=== PATIENT | male | born 1965 | race Caucasian/White ===

== ENCOUNTER 2018-05-05 18:22 | Inpatient (IN) | payer BC ==
[2018-05-05 18:27] VITALS: RESP 18
[2018-05-05] MEDS ORDERED: SODIUM CHLORIDE 0.9% 1,000 ML IV ONE (18:53)
[2018-05-05] MEDS ORDERED: KETOROLAC 30 MG/ML 1 ML VIAL IVP STA (18:53)
[2018-05-05] MEDS ORDERED: MORPHINE SULFATE 4 MG/ML SYRINGE IVP STA (18:54)
--- NOTE | 2018-05-05 18:56 | ED ---
Abdominal Pain HPI - General Chief Complaint: Abdominal Pain Stated Complaint: Abd Pain Time Seen by Provider: 05/05/18 18:33 Source: patient Mode of arrival: ambulatory Limitations: no limitations - History of Present Illness Initial Comments: Patient is a 52-year-old male presents with a chief complaint of lower abdominal pain. Patient states that this happened about 2 hours prior to arrival. He states the onset of his pain was with bowel movement. States that he feels like he passed a kidney stone however he is still having lower abdominal pain. He cannot identify an inciting incident. There are no aggravating or alleviating factors. Timing is constant. Patient states that he has had constipation for the last few days and finally had a bowel movement today. - Related Data Home Medications Medication Instructions Recorded Confirmed HYDROcodone/APAP 10-325MG [Commodore 1 tab PO Q6H PRN 05/05/18 05/05/18 10-325] amLODIPine [Norvasc] 10 mg PO DAILY 05/05/18 05/05/18 Allergies Allergy/AdvReac Type Severity Reaction Status Date / Time Iodinated Contrast- Oral and Allergy Anaphylaxis Verified 05/05/18 18:41 IV Dye levofloxacin [From Levaquin] Allergy Anaphylaxis Verified 05/05/18 18:41 Review of Systems ROS Statement: Those systems with pertinent positive or pertinent negative responses have been documented in the HPI. ROS Other: All systems not noted in ROS Statement are negative. Gastrointestinal: Reports: abdominal pain Past Medical History Past Medical History: GERD/Reflux, Hypertension History of Any Multi-Drug Resistant Organisms: None Reported Past Surgical History: Cholecystectomy, Hernia Repair, Tonsillectomy Past Psychological History: No Psychological Hx Reported Smoking Status: Never smoker Past Alcohol Use History: Occasional Past Drug Use History: None Reported General Exam Limitations: no limitations General appearance: alert, in no apparent distress Head exam: Present: atraumatic, normocephalic Eye exam: Present: normal appearance ENT exam: Present: normal exam Neck exam: Present: normal inspection Respiratory exam: Present: normal lung sounds bilaterally. Absent: respiratory distress, wheezes Cardiovascular Exam: Present: regular rate, normal rhythm GI/Abdominal exam: Present: soft, tenderness (Lower abdominal pain). Absent: distended Rectal exam: Present: deferred Extremities exam: Present: normal inspection Back exam: Present: normal inspection. Absent: CVA tenderness (R), CVA tenderness (L) Neurological exam: Present: alert, oriented X3 Psychiatric exam: Present: normal affect, normal mood Skin exam: Present: warm, dry, intact Course Vital Signs 05/05/18 18:24 Temperature 98.3 F Pulse Rate 97 Respiratory 18 Rate Blood Pressure 183/91 O2 Sat by Pulse 99 Oximetry Medical Decision Making - Medical Decision Making Patient presents with a chief complaint of lower abdominal pain. On initial evaluation, vitals are stable, patient is in no acute distress. Patient be evaluated basic labs including urinalysis, liver profile. Patient will be sent for computed tomography scan of the abdomen and pelvis without contrast given contrast ALLERGY. He was given morphine, Toradol, IV fluids. 8:41 PM Lab evaluation this patient shows a mild elevation of white count. Computed tomography scan of the abdomen and pelvis shows sigmoid diverticulitis with a 7.5 x 2.5 cm phlegmon. Case discussed with Dr. Huang who recommends admission and IV antibiotics. Results and I discussed with the patient, he is agreeable. Medicine on consult for medical management. - Lab Data Result diagrams: 05/05/18 18:58 05/05/18 18:58 Lab Results 05/05/18 05/05/18 05/05/18 Range/Units 18:58 18:58 18:58 WBC 13.5 H (3.8-10.6) k/uL RBC 6.50 H (4.30-5.90) m/uL Hgb 17.5 (13.0-17.5) gm/dL Hct 53.2 H (39.0-53.0) % MCV 81.9 (80.0-100.0) fL MCH 26.9 (25.0-35.0) pg MCHC 32.8 (31.0-37.0) g/dL RDW 15.0 (11.5-15.5) % Plt Count 249 (150-450) k/uL Neutrophils % 77 % Lymphocytes % 13 % Monocytes % 7 % Eosinophils % 2 % Basophils % 0 % Neutrophils # 10.3 H (1.3-7.7) k/uL Lymphocytes # 1.8 (1.0-4.8) k/uL Monocytes # 0.9 (0-1.0) k/uL Eosinophils # 0.3 (0-0.7) k/uL Basophils # 0.0 (0-0.2) k/uL Sodium 139 (137-145) mmol/L Potassium 4.5 (3.5-5.1) mmol/L Chloride 102 (98-107) mmol/L Carbon Dioxide 26 (22-30) mmol/L Anion Gap 11 mmol/L BUN 17 (9-20) mg/dL Creatinine 1.02 (0.66-1.25) mg/dL Est GFR (CKD-EPI)AfAm >90 (>60 ml/min/1.73 sqM) Est GFR (CKD-EPI)NonAf 85 (>60 ml/min/1.73 sqM) Glucose 116 H (74-99) mg/dL Plasma Lactic Acid Raji 1.3 (0.7-2.0) mmol/L Calcium 10.0 (8.4-10.2) mg/dL Total Bilirubin 0.5 (0.2-1.3) mg/dL AST 27 (17-59) U/L ALT 43 (21-72) U/L Alkaline Phosphatase 48 (38-126) U/L Total Protein 7.4 (6.3-8.2) g/dL Albumin 4.2 (3.5-5.0) g/dL Urine Color Urine Appearance (Clear) Urine pH (5.0-8.0) Ur Specific [place] (1.001-1.035) Urine Protein (Negative) Urine Glucose (UA) (Negative) Urine Ketones (Negative) Urine Blood (Negative) Urine Nitrite (Negative) Urine Bilirubin (Negative) Urine Urobilinogen (<2.0) mg/dL Ur Leukocyte Esterase (Negative) 05/05/18 Range/Units 20:06 WBC (3.8-10.6) k/uL RBC (4.30-5.90) m/uL Hgb (13.0-17.5) gm/dL Hct (39.0-53.0) % MCV (80.0-100.0) fL MCH (25.0-35.0) pg MCHC (31.0-37.0) g/dL RDW (11.5-15.5) % Plt Count (150-450) k/uL Neutrophils % % Lymphocytes % % Monocytes % % Eosinophils % % Basophils % % Neutrophils # (1.3-7.7) k/uL Lymphocytes # (1.0-4.8) k/uL Monocytes # (0-1.0) k/uL Eosinophils # (0-0.7) k/uL Basophils # (0-0.2) k/uL Sodium (137-145) mmol/L Potassium (3.5-5.1) mmol/L Chloride (98-107) mmol/L Carbon Dioxide (22-30) mmol/L Anion Gap mmol/L BUN (9-20) mg/dL Creatinine (0.66-1.25) mg/dL Est GFR (CKD-EPI)AfAm (>60 ml/min/1.73 sqM) Est GFR (CKD-EPI)NonAf (>60 ml/min/1.73 sqM) Glucose (74-99) mg/dL Plasma Lactic Acid Raji (0.7-2.0) mmol/L Calcium (8.4-10.2) mg/dL Total Bilirubin (0.2-1.3) mg/dL AST (17-59) U/L ALT (21-72) U/L Alkaline Phosphatase (38-126) U/L Total Protein (6.3-8.2) g/dL Albumin (3.5-5.0) g/dL Urine Color Yellow Urine Appearance Clear (Clear) Urine pH 6.5 (5.0-8.0) Ur Specific [place] 1.020 (1.001-1.035) Urine Protein Trace H (Negative) Urine Glucose (UA) Negative (Negative) Urine Ketones Negative (Negative) Urine Blood Negative (Negative) Urine Nitrite Negative (Negative) Urine Bilirubin Negative (Negative) Urine Urobilinogen 2.0 (<2.0) mg/dL Ur Leukocyte Esterase Negative (Negative) Disposition Clinical Impression: Diverticulitis Disposition: ADMITTED IP TO THIS HOSP Condition: Fair Is patient prescribed a controlled substance at d/c from ED?: No Referrals: Chuyita Pepper MD [Primary Care Provider] - 1-2 days Decision to Admit Reason: Admit from EC - Out of Hospital Transfer - Req. Specs Out of Hospital Transfer - Requested Specifics: Other Non-Acute
[2018-05-05 19:12] LABS: Basophils % (A) 0 %; Eosinophils # (A) 0.3 k/uL (0-0.7); Eosinophils % (A) 2 %; HCT 53.2 % (39.0-53.0); HGB 17.5 gm/dL (13.0-17.5); Lymphocytes # (A) 1.8 k/uL (1.0-4.8); Lymphocytes % (A) 13 %; MCH 26.9 pg (25.0-35.0); MCHC 32.8 g/dL (31.0-37.0); MCV 81.9 fL (80.0-100.0); Mean Platelet Volume 6.4; Monocytes # (A) 0.9 k/uL (0-1.0); Monocytes % (A) 7 %; Neutrophils # (A) 10.3 k/uL (1.3-7.7); Neutrophils % (A) 77 %; Platelet Count 249 k/uL (150-450); WBC 13.5 k/uL (3.8-10.6)
[2018-05-05 19:22] LABS: ALT 43 U/L (21-72); AST 27 U/L (17-59); Albumin 4.2 g/dL (3.5-5.0); Alkaline Phosphatase 48 U/L (38-126); Anion Gap 11 mmol/L; Blood Urea Nitrogen 17 mg/dL (9-20); Carbon Dioxide 26 mmol/L (22-30); Chloride 102 mmol/L (98-107); Glucose 116 mg/dL (74-99); Potassium 4.5 mmol/L (3.5-5.1); Sodium 139 mmol/L (137-145); Total Bilirubin 0.5 mg/dL (0.2-1.3); Total Protein 7.4 g/dL (6.3-8.2)
--- NOTE | 2018-05-05 20:06 | CT ---
EXAMINATION TYPE: CT abdomen pelvis wo con DATE OF EXAM: 05/05/2018 COMPARISON: None HISTORY: Bilateral groin pain and constipation. CT DLP: 878.4 mGycm Automated exposure control for dose reduction was used. TECHNIQUE: Helical acquisition of images was performed from the lung bases through the pelvis. FINDINGS: The lung bases are clear. There is no pleural effusion. Heart size is normal. There is no pericardial effusion. Liver shows no focal defect. There are clips from cholecystectomy. Spleen appears normal. There is no pancreatic mass. Bile ducts are not dilated. There is no adrenal mass. Kidneys have normal size and contour. Ureters are not dilated. There is no hydronephrosis. There is no retroperitoneal adenopathy. Bladder distends smoothly. There is no inguin al hernia. There is left side scrotal hernia contains fat. There is no free fluid in the pelvis. There is moderate fat stranding around the mid sigmoid colon wi th wall thickening. There are extensive sigmoid diverticula. There is no sign of free air. There is no ascites. There is no evidence of a bowel obstruction. Appen melissa is not definitely seen. There is no sign of appendicitis. There is narrowing at L5-S1 disc space. I see no bony destructive process. Bony pelvis is intact. IMPRESSION: INFLAMMATORY CHANGES AROUND THE MID SIGMOID COLON WITH FAT STRANDING AND PHLEGMON. SIGMOID DIVERTICUL ITIS. NO DRAINABLE ABSCESS SEEN. PHLEGMON MEASURES 7 X 2.5 CM.
[2018-05-05] MEDS ORDERED: NALOXONE 0.4 MG/ML 1 ML VIAL IV PRN (20:24)
[2018-05-05 20:25] LABS: Appearance,Urine Clear (Clear); Bilirubin,Urine Negative (Negative); Blood,Urine Negative (Negative); Color,Urine Yellow; Glucose,Urine (UA) Negative (Negative); Ketones,Urine Negative (Negative); Leukocyte Esterase,Urine Negative (Negative); Nitrite,Urine Negative (Negative); PH, Urine 6.5 (5.0-8.0); Protein,Urine Trace (Negative)
[2018-05-05] MEDS ORDERED: HYDROcodone/APAP 5-325MG 1 EACH TAB PO PRN (20:37)
[2018-05-05] MEDS ORDERED: ONDANSETRON 4 MG/2 ML VIAL IVP PRN (20:37)
[2018-05-05] MEDS ORDERED: metroNIDAZOLE-NS PMX 500 MG in SALINE 1 100ML.BAG IVPB STA (20:41)
[2018-05-05] MEDS ORDERED: diphenhydrAMINE 50 MG/ML 1 ML VIAL IVP STA (21:39)
[2018-05-05] MEDS ORDERED: FAMOTIDINE 20 MG/2 ML VIAL IV STA (21:39)
[2018-05-05] MEDS ORDERED: methylPREDNISolone SOD SUCCI 125 MG/2 ML VIAL IV STA (21:39)
[2018-05-05] MEDS: SODIUM CHLORIDE 0.9% 1,000 ML IV SCH (21:48)
[2018-05-05] MEDS ORDERED: PIPERACILLIN-TAZOBACTAM 3.375 GM in SODIUM CHLORIDE 0.9% 100 ML IVPB STA (22:05)
[2018-05-05] MEDS: MORPHINE SULFATE 4 MG/ML SYRINGE IV PRN (23:08)
[2018-05-06] MEDS: MORPHINE SULFATE 4 MG/ML SYRINGE IV PRN ×3 (05:31→18:50)
[2018-05-06] MEDS: SODIUM CHLORIDE 0.9% 1,000 ML IV SCH ×4 (05:34→22:03)
[2018-05-06 07:22] LABS: Basophils % (A) 0 %; Eosinophils # (A) 0.1 k/uL (0-0.7); Eosinophils % (A) 0 %; HCT 53.5 % (39.0-53.0); HGB 16.4 gm/dL (13.0-17.5); Lymphocytes # (A) 0.8 k/uL (1.0-4.8); Lymphocytes % (A) 5 %; MCH 25.5 pg (25.0-35.0); MCHC 30.7 g/dL (31.0-37.0); MCV 83.2 fL (80.0-100.0); Mean Platelet Volume 6.2; Monocytes # (A) 0.3 k/uL (0-1.0); Monocytes % (A) 2 %; Neutrophils % (A) 92 %; Platelet Count 238 k/uL (150-450); RBC 6.43 m/uL (4.30-5.90); RDW 14.8 % (11.5-15.5); WBC 15.3 k/uL (3.8-10.6)
[2018-05-06 07:27] LABS: Anion Gap 10 mmol/L; Blood Urea Nitrogen 16 mg/dL (9-20); Calcium 9.1 mg/dL (8.4-10.2); Carbon Dioxide 24 mmol/L (22-30); Chloride 104 mmol/L (98-107); Glucose 190 mg/dL (74-99); Potassium 5.4 mmol/L (3.5-5.1); Sodium 138 mmol/L (137-145)
--- NOTE | 2018-05-06 12:29 | P.GSHP ---
History of Present Illness H&P Date: 05/06/18 Chief Complaint: Diverticulitis 52-year-old male was doing well up until yesterday. He began experiencing left lower quadrant pain after straining for a bowel movement. He actually prior to that had some urinary symptoms were he felt that he may have passed a kidney stone. No pneumaturia. No hematuria. The lower quadrant pain was increasing in severity and for that reason he came to the hospital. He has had low-grade fevers. White blood cell count elevated at 15.3. CAT scan showed what appears represent sigmoid diverticulitis with pericolonic inflammatory change. No abscess seen. Feels slightly better today. No history of similar events. Last colonoscopy he believes 10 years ago. - Review of Systems Comment: The patient denies any acute changes in vision or hearing, no dysphagia or odynophagia, no chest pain or shortness of breath, no dysuria or hematuria, no headache, no runny nose, no rectal bleeding or melena, no unexplained weight loss Past Medical History Past Medical History: GERD/Reflux, Hypertension History of Any Multi-Drug Resistant Organisms: None Reported Past Surgical History: Cholecystectomy, Hernia Repair, Tonsillectomy Past Anesthesia/Blood Transfusion Reactions: Previous Problems w/ Anesthesia Past Psychological History: No Psychological Hx Reported Smoking Status: Never smoker Past Alcohol Use History: Occasional Past Drug Use History: None Reported - Past Family History Mother Family Medical History: Cancer, Diabetes Mellitus, Rheumatoid Arthritis (RA) Medications and Allergies Home Medications Medication Instructions Recorded Confirmed Type HYDROcodone/APAP 10-325MG [Trevor 1 tab PO Q6H PRN 05/05/18 05/05/18 History 10-325] amLODIPine [Norvasc] 10 mg PO DAILY 05/05/18 05/05/18 History Allergies Allergy/AdvReac Type Severity Reaction Status Date / Time Iodinated Contrast- Oral and Allergy Anaphylaxis Verified 05/05/18 18:41 IV Dye levofloxacin [From Levaquin] Allergy Anaphylaxis Verified 05/05/18 18:41 Surgical - Exam Vital Signs Temp Pulse Resp BP Pulse Ox 98.3 F 97 18 183/91 99 05/05/18 18:24 05/05/18 18:24 05/05/18 18:24 05/05/18 18:24 05/05/18 18:24 Physical exam: General: Well-developed, well-nourished HEENT: Normocephalic, sclerae nonicteric Abdomen: Left lower quadrant tenderness, nondistended Extremities: No edema Neuro: Alert and oriented Results - Labs 05/06/18 07:02 05/06/18 07:02 Abnormal Lab Results - Last 24 Hours (Table) 05/05/18 05/05/18 05/05/18 Range/Units 18:58 18:58 20:06 WBC 13.5 H (3.8-10.6) k/uL RBC 6.50 H (4.30-5.90) m/uL Hct 53.2 H (39.0-53.0) % MCHC (31.0-37.0) g/dL Neutrophils # 10.3 H (1.3-7.7) k/uL Lymphocytes # (1.0-4.8) k/uL Potassium (3.5-5.1) mmol/L Glucose 116 H (74-99) mg/dL Urine Protein Trace H (Negative) 05/06/18 05/06/18 Range/Units 07:02 07:02 WBC 15.3 H (3.8-10.6) k/uL RBC 6.43 H (4.30-5.90) m/uL Hct 53.5 H (39.0-53.0) % MCHC 30.7 L (31.0-37.0) g/dL Neutrophils # 14.0 H (1.3-7.7) k/uL Lymphocytes # 0.8 L (1.0-4.8) k/uL Potassium 5.4 H (3.5-5.1) mmol/L Glucose 190 H (74-99) mg/dL Urine Protein (Negative) Diabetes panel 05/05/18 05/06/18 Range/Units 18:58 07:02 Sodium 139 138 (137-145) mmol/L Potassium 4.5 5.4 H (3.5-5.1) mmol/L Chloride 102 104 (98-107) mmol/L Carbon Dioxide 26 24 (22-30) mmol/L BUN 17 16 (9-20) mg/dL Creatinine 1.02 0.96 (0.66-1.25) mg/dL Glucose 116 H 190 H (74-99) mg/dL Calcium 10.0 9.1 (8.4-10.2) mg/dL AST 27 (17-59) U/L ALT 43 (21-72) U/L Alkaline Phosphatase 48 (38-126) U/L Total Protein 7.4 (6.3-8.2) g/dL Albumin 4.2 (3.5-5.0) g/dL Calcium panel 05/05/18 05/06/18 Range/Units 18:58 07:02 Calcium 10.0 9.1 (8.4-10.2) mg/dL Albumin 4.2 (3.5-5.0) g/dL Pituitary panel 05/05/18 05/06/18 Range/Units 18:58 07:02 Sodium 139 138 (137-145) mmol/L Potassium 4.5 5.4 H (3.5-5.1) mmol/L Chloride 102 104 (98-107) mmol/L Carbon Dioxide 26 24 (22-30) mmol/L BUN 17 16 (9-20) mg/dL Creatinine 1.02 0.96 (0.66-1.25) mg/dL Glucose 116 H 190 H (74-99) mg/dL Calcium 10.0 9.1 (8.4-10.2) mg/dL Adrenal panel 05/05/18 05/06/18 Range/Units 18:58 07:02 Sodium 139 138 (137-145) mmol/L Potassium 4.5 5.4 H (3.5-5.1) mmol/L Chloride 102 104 (98-107) mmol/L Carbon Dioxide 26 24 (22-30) mmol/L BUN 17 16 (9-20) mg/dL Creatinine 1.02 0.96 (0.66-1.25) mg/dL Glucose 116 H 190 H (74-99) mg/dL Calcium 10.0 9.1 (8.4-10.2) mg/dL Total Bilirubin 0.5 (0.2-1.3) mg/dL AST 27 (17-59) U/L ALT 43 (21-72) U/L Alkaline Phosphatase 48 (38-126) U/L Total Protein 7.4 (6.3-8.2) g/dL Albumin 4.2 (3.5-5.0) g/dL Assessment and Plan (1) Diverticulitis Narrative/Plan: Continue IV antibiotics. Begin clear liquids. Recheck tomorrow for possible discharge. Current Visit: Yes Status: Acute Code(s): K57.92 - DVTRCLI OF INTEST, PART UNSP, W/O PERF OR ABSCESS W/O BLEED SNOMED Code(s): 539432505
--- NOTE | 2018-05-06 13:19 | PN ---
PROGRESS NOTE CHIEF COMPLAINT: Abdominal pain. HISTORY OF PRESENT ILLNESS: This gentleman is still having abdominal discomfort. He is n.p.o., but he is to be seen by Surgery. PHYSICAL EXAMINATION: The abdomen remains slightly tender. The rest of the exam is normal. Chest is clear. IMPRESSION: 1. Diverticulitis. 2. Hypertension. PLAN: Continue with IV fluids and antibiotics. MMODL / IJN: [id number] /
[2018-05-06] MEDS: PIPERACILLIN-TAZOBACTAM 3.375 GM in SODIUM CHLORIDE 0.9% 100 ML IVPB SCH ×2 (13:30→22:02)
--- NOTE | 2018-05-06 14:39 | CONS ---
CONSULTATION CHIEF COMPLAINT: Abdominal pain. HISTORY OF PRESENT ILLNESS: This is the first admission for this 52-year-old white male. He started to have some lower abdominal discomfort and it grew steadily worse and he came to emergency room where he was diagnosed as having diverticulitis. He also seems to be having a little difficulty with voiding, but no dysuria. He may have a sympathetic cystitis. He has had an episode of diverticulitis about a years ago. REVIEW OF SYSTEMS: He has had no headaches, neurologic problems, change in vision hearing, cough, hemoptysis, shortness of breath, heart disease, murmurs, rheumatic fever, etc. He does have a history of hypertension. He has had no hematemesis, melena, hematochezia, jaundice, liver disease, renal failure, frequency, urgency and dysuria, prostate issues, nocturia, diabetes, etc. Past medical history, family history, personal and social history are otherwise unremarkable. He takes amlodipine and Vicodin. He has had previous cholecystectomy, appendectomy. He does not smoke. Laboratory studies reveal blood sugar is elevated at 190 [place] [id number]. He has chronic low back pain. He has also had a herniorrhaphy. PHYSICAL EXAM: VITAL SIGNS: Blood pressure 148/84 with a pulse of 69, respirations 20 and temperature a 100.2. GENERAL: He appeared to be well developed, well nourished, no acute distress. Skin color is normal. Skin: Warm and dry. Lymph nodes not enlarged. Head, ears, eyes, nose, mouth, and throat were normal. Neck veins not distended. Thyroid enlarged. Chest is clear. Cardiac exam is normal. No murmurs or extra sounds. The abdomen is slightly protuberant and tender in the lower aspects. Bowel sounds present. Extremities normal. Neurological is intact. IMPRESSION: 1. Diverticulitis. 2. Previous history of an episode of diverticulitis. 3. Hypertension. PLAN: 1. Bed rest. 2. IV fluids. 3. N.p.o. 4. Follow with patient on antibiotics to see if he responds medically. MMODL / IJN: [id number] /
[2018-05-06] MEDS: HEPARIN SODIUM,PORCINE 5,000 UNIT/ML 1 ML VIAL SQ SCH ×2 (17:03→22:03)
[2018-05-06] MEDS: metroNIDAZOLE-NS PMX 500 MG in SALINE 1 100ML.BAG IVPB SCH (17:03)
[2018-05-06] MEDS: amLODIPine 10 MG TAB PO SCH (17:03)
[2018-05-07] MEDS: metroNIDAZOLE-NS PMX 500 MG in SALINE 1 100ML.BAG IVPB SCH ×2 (02:15→08:27)
[2018-05-07] MEDS: PIPERACILLIN-TAZOBACTAM 3.375 GM in SODIUM CHLORIDE 0.9% 100 ML IVPB SCH ×2 (04:24→11:39)
[2018-05-07 06:29] VITALS: BP 164/62; PULSE 92; TEMP 98.5
[2018-05-07] MEDS: SODIUM CHLORIDE 0.9% 1,000 ML IV SCH ×2 (08:03→13:46)
[2018-05-07] MEDS: amLODIPine 10 MG TAB PO SCH (08:27)
[2018-05-07] MEDS: HEPARIN SODIUM,PORCINE 5,000 UNIT/ML 1 ML VIAL SQ SCH (08:27)
--- NOTE | 2018-05-07 11:35 | P.PN ---
Subjective Progress Note Date: 05/07/18 Principal diagnosis: Sigmoid diverticulitis Patient feels better today. Minimal pain at this point. Morning labs pending. He is afebrile. Tolerating clears. He would like to go home today. Objective - Vital Signs Vital signs: Vital Signs Temp 98.5 F 05/07/18 06:28 Pulse 92 05/07/18 06:28 Resp 18 05/07/18 08:50 BP 164/62 05/07/18 06:28 Pulse Ox 98 05/07/18 06:28 Intake & Output 05/06/18 05/07/18 05/07/18 18:59 06:59 18:59 Intake Total 1300 800 Balance 1300 800 Intake: Intake, IV Titration 1300 Amount Piperacillin-Tazobactam 3 100 .375 gm In Sodium Chloride 0.9% 100 ml @ 25 mls/hr IVPB Q8H JESSICA Rx#: [id number] Sodium Chloride 0.9% 1, 1200 000 ml @ 150 mls/hr IV . Q6H40M JESSICA Rx#:[id number] Oral 800 Other: Voiding Method Toilet # Voids 3 2 - Exam Abdomen: Soft, Mild left lower quadrant tenderness, no rebound - Labs CBC & Chem 7: 05/06/18 07:02 05/06/18 07:02 Assessment and Plan (1) Diverticulitis Narrative/Plan: Await morning CBC. Advance diet. Probable discharge if patient tolerates and white blood cell count improved. Current Visit: Yes Status: Acute Code(s): K57.92 - DVTRCLI OF INTEST, PART UNSP, W/O PERF OR ABSCESS W/O BLEED SNOMED Code(s): 308841058
[2018-05-07 11:43] LABS: Basophils # (A) 0.1 k/uL (0-0.2); Basophils % (A) 0 %; Eosinophils # (A) 0.1 k/uL (0-0.7); Eosinophils % (A) 1 %; HCT 49.9 % (39.0-53.0); HGB 15.4 gm/dL (13.0-17.5); Lymphocytes % (A) 16 %; MCH 25.6 pg (25.0-35.0); MCHC 30.9 g/dL (31.0-37.0); MCV 82.9 fL (80.0-100.0); Mean Platelet Volume 6.5; Monocytes # (A) 0.9 k/uL (0-1.0); Monocytes % (A) 8 %; Neutrophils # (A) 8.9 k/uL (1.3-7.7); Neutrophils % (A) 73 %; Platelet Count 238 k/uL (150-450); RBC 6.02 m/uL (4.30-5.90); WBC 12.3 k/uL (3.8-10.6)
[2018-05-07 11:52] LABS: Anion Gap 7 mmol/L; Blood Urea Nitrogen 18 mg/dL (9-20); Calcium 8.7 mg/dL (8.4-10.2); Carbon Dioxide 26 mmol/L (22-30); Chloride 104 mmol/L (98-107); Glucose 89 mg/dL (74-99); Potassium 4.6 mmol/L (3.5-5.1); Sodium 137 mmol/L (137-145)
[2018-05-07] MEDS ORDERED: metroNIDAZOLE 500 MG TAB PO SCH (16:00)
[2018-05-07] MEDS ORDERED: AMOXIC-POT CLAV 875-125MG 1 EACH TAB PO SCH (21:00)
--- NOTE | 2018-05-08 08:06 | DS ---
DISCHARGE SUMMARY CHIEF COMPLAINT: Abdominal pain. HISTORY OF PRESENT ILLNESS AND PHYSICAL EXAM: Details of this man's history and physical can be found in the initial workup. LABORATORY STUDIES: While he was in the hospital, he had laboratory studies, details which can be found in the laboratory section of the chart. COURSE IN THE HOSPITAL: After admission he was placed on bedrest, started on intravenous fluids and kept n.p.o. He was seen by surgery and started on antibiotics. His pain subsided and was nearly gone. His temperature stayed normal. His bowel activity had returned and was felt he could go home on the . He will go home on Flagyl 500 t.i.d. and Augmentin 875 twice a day, and he will be followed by surgery and by me in my office after the holidays. LAZARA / BILL: [id number] /
== END 2018-05-07 13:44 | disposition home or self-care (01) | DRG 392 ==
LOC: EC 18:22 → 4MS4W 20:42
PROVIDERS: ADMIT Surgery; ATTEND Surgery
DX: K57.32 Diverticulitis of large intestine without perforation or abscess without bleeding (principal); I10 Essential (primary) hypertension; K21.9 Gastro-esophageal reflux disease without esophagitis; Z79.899 Other long term (current) drug therapy; Z88.1 Allergy status to other antibiotic agents; Z91.041 Radiographic dye allergy status; Z83.3 Family history of diabetes mellitus; Z80.9 Family history of malignant neoplasm, unspecified; Z82.61 Family history of arthritis; K59.00 Constipation, unspecified
CPT/HCPCS: 36415; 74176; 80048; 80053; 81003; 83605; 85025; 96361; 96365; 96375; 99285

== ENCOUNTER → 2018-12-26 | Outpatient (CLI) | payer BC ==
--- NOTE | 2018-12-27 07:34 | CT ---
EXAMINATION TYPE: CT sinus wo con DATE OF EXAM: 12/26/2018 COMPARISON: NONE HISTORY: COTE and chronic congestion CT DLP: 612 mGycm. Automated Exposure Control for Dose Reduction was Utilized. TECHNIQUE: CT scan of the sinuses is performed without contrast, axial images are obtained, coronal r eformatted images are also reviewed. FINDINGS: There is complete opacification of the right mastoid air cell is inferior margin and circum ferential mucosal thickening of the mid and upper right maxillary sinus. There is rightward nasal sep kyra deviation and a 5 mm rightward nasal septal spur. There is mucosal hypertrophy of the right middl e and inferior nasal turbinates greater than left. No contra bullosa are seen. Septation is seen with in the right maxillary sinus. There is mucoperiosteal thickening indicating acute on chronic componen t. The left maxillary sinus, frontal sinus, and sphenoid sinus are intact and well aerated. Very scan t mucosal thickening of the ethmoid sinuses. The mastoid air cells are poorly visualized given field- of-view. The ostiomeatal complexes are patent although the right is slightly asymmetrically narrowed from the nasal septal deviation. The right maxillary sinus is also asymmetrically smaller than the le ft. The orbits appear intact and unremarkable. No acute osseous fracture is seen. The exam is not opt imized for evaluation of the intracranial structures. IMPRESSION: 1. 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 2. Mucosal hypertrophy of the right middle and inferior nasal turbinates. 3. Asymmetric narrowing of the right ostiomeatal complex secondary to the nasal septal deviation. 4. Very scant mucosal thickening of the ethmoid sinuses.
== END | disposition home or self-care (01) ==
LOC: RADCTMAIN 16:28
PROVIDERS: ATTEND Otolaryngology
DX: J32.9 Chronic sinusitis, unspecified (principal); J34.2 Deviated nasal septum
CPT/HCPCS: 70486

== ENCOUNTER → 2019-01-02 | Outpatient (CLI) | payer BC | END | disposition home or self-care (01) | LOC: LABPAT 14:58 | PROVIDERS: ATTEND Otolaryngology | DX: Z01.818 Encounter for other preprocedural examination (principal); I10 Essential (primary) hypertension | CPT/HCPCS: 93005 ==

== ENCOUNTER 2019-10-07 14:33 | Inpatient (IN) | payer BC ==
--- NOTE | 2019-10-07 15:10 | ED ---
General Adult HPI - General Source: patient Mode of arrival: ambulatory Limitations: no limitations <Celio Dye - Last Filed: 10/07/19 15:09> <Cahrlie Skinner - Last Filed: 10/07/19 18:59> - General Chief complaint: Altered Mental Status Stated complaint: unable to remember/focus Time Seen by Provider: 10/07/19 15:04 - History of Present Illness Initial comments: Dictation was produced using [employer] dictation software. please excuse any grammatical, word or spelling errors. This patient was cared for during a federal and state declared state of emergency secondary to Covid 19 Chief Complaint: 54-year-old male presents with altered mental status. History of Present Illness: Patient is 54-year-old male presents today with altered mental status. Patient has no history of stroke. Patient is here with significant other for the last almost 3 hours patient has been having repetitive speech and short-term amnesia. She has never exhibited signs or symptoms like this in the past. Patient's history of hypertension. Significant other notices that patient keeps asking the same questions. Patient is forgetful what he did today. He doesn't remember mowing the lawn or having sexual interactions with his significant other. Denies any numbness and paresthesias to the arms or legs. No dysarthria The ROS documented in this emergency department record has been reviewed and confirmed by me. Those systems with pertinent positive or negative responses have been documented in the HPI. All other systems are other negative and/or noncontributory. PHYSICAL EXAM: General Impression: Alert and oriented x2/4, not in acute distress HEENT: Normocephalic atraumatic, extra-ocular movements intact, pupils equal and reactive to light bilaterally, mucous membranes moist. Cardiovascular: Heart regular rate and rhythm Chest: Able to complete full sentences, no retractions, no tachypnea Abdomen: abdomen soft, non-tender, non-distended, no organomegaly Musculoskeletal: Pulses present and equal in all extremities, no peripheral edema Motor: no focal deficits noted Neurological: CN II-XII grossly intact, no focal motor or sensory deficits noted, no dysarthria, no ataxia, no gait ataxia. No aphasia, Skin: Intact with no visualized rashes Psych: Normal affect and mood ED course: 54 y Old male presents with altered mental status. He is alert and oriented 2 out of 4 however no other neurologic deficits. As upon arrival are within acceptable limits. Patient care will be signed out to Dr. Skinner. (Celio Dye) - Related Data Home Medications Medication Instructions Recorded Confirmed HYDROcodone/APAP 10-325MG [[place] 1 tab PO Q6H PRN 05/05/18 05/05/18 10-325] amLODIPine [Norvasc] 10 mg PO DAILY 05/05/18 05/05/18 Previous Rx's Medication Instructions Recorded Amoxic-Pot Clav 875-125Mg 1 each PO Q12HR #20 tab 05/07/18 [Augmentin 875-125] metroNIDAZOLE [Flagyl] 500 mg PO TID #30 tab 05/07/18 Erythromycin Ophth Oint [Romycin 1 applic LEFT EYE QID 5 Days #1 08/05/18 Ophth Oint] tube Allergies Allergy/AdvReac Type Severity Reaction Status Date / Time ceftriaxone [From Rocephin] Allergy Rash/Hives Verified 05/06/18 17:20 Iodinated Contrast Media Allergy Anaphylaxis Verified 05/05/18 18:41 [Iodinated Contrast- Oral and IV Dye] levofloxacin [From Levaquin] Allergy Anaphylaxis Verified 05/05/18 18:41 Review of Systems ROS Other: All systems not noted in ROS Statement are negative. <Celio Dye - Last Filed: 10/07/19 15:09> ROS Other: All systems not noted in ROS Statement are negative. <Charlie Skinner - Last Filed: 10/07/19 18:59> ROS Statement: Those systems with pertinent positive or pertinent negative responses have been documented in the HPI. Past Medical History Past Medical History: GERD/Reflux, Hypertension History of Any Multi-Drug Resistant Organisms: None Reported Past Surgical History: Cholecystectomy, Hernia Repair, Tonsillectomy Past Anesthesia/Blood Transfusion Reactions: Previous Problems w/ Anesthesia Past Psychological History: No Psychological Hx Reported Smoking Status: Never smoker Past Alcohol Use History: Occasional Past Drug Use History: None Reported - Past Family History Mother Family Medical History: Cancer, Diabetes Mellitus, Rheumatoid Arthritis (RA) <Celio Dye - Last Filed: 10/07/19 15:09> General Exam Limitations: no limitations <Celio Dye - Last Filed: 10/07/19 15:09> Course <Charlie Skinner - Last Filed: 10/07/19 18:59> Vital Signs 10/07/19 14:35 Temperature 98.3 F Pulse Rate 86 Respiratory 18 Rate Blood Pressure 168/108 O2 Sat by Pulse 98 Oximetry - Reevaluation(s) Reevaluation #1: 10/07/19 16:54 Case was discussed with radiologist regarding computed tomography scan. Case also discussed with Dr. Torres who will review films. He is not concerned regarding subdural hematoma. He does recommend CTA. He also recommends admission here with MRI with and without contrast as well as MRV tomorrow. (Charlie Skinner) Medical Decision Making - Lab Data Result diagrams: 10/07/19 15:05 10/07/19 15:05 - Radiology Data Radiology results: image reviewed (Chest x-ray shows no acute process computed tomography scan of the brain shows hyperdensity in the tentorium that could be artifact however cannot rule out subdural. MRI recommended. Increased vascularity throughout. Case was discussed with radiologist.) <Charlie Skinner - Last Filed: 10/07/19 18:59> - Medical Decision Making After receiving call from radiologist case was also discussed with Dr. Torres from neural interventional she does not feel patient needs to be transferred. He does not have concern for subdural. He does recommend CTA. He recommends admission here with MRI with and without contrast as well as MRV tomorrow. Neurology will also be consulted. Case was discussed with Dr. Duque, who will admit covering for hospital call. Patient and family updated. (Charlie Skinner) - Lab Data Lab Results 10/07/19 10/07/19 10/07/19 Range/Units 15:05 15:05 15:05 WBC 8.5 (3.8-10.6) k/uL RBC 6.61 H (4.30-5.90) m/uL Hgb 17.6 H (13.0-17.5) gm/dL Hct 54.1 H (39.0-53.0) % MCV 81.8 (80.0-100.0) fL MCH 26.6 (25.0-35.0) pg MCHC 32.5 (31.0-37.0) g/dL RDW 14.0 (11.5-15.5) % Plt Count 207 (150-450) k/uL Neutrophils % 68 % Lymphocytes % 19 % Monocytes % 7 % Eosinophils % 3 % Basophils % 1 % Neutrophils # 5.8 (1.3-7.7) k/uL Lymphocytes # 1.6 (1.0-4.8) k/uL Monocytes # 0.6 (0-1.0) k/uL Eosinophils # 0.3 (0-0.7) k/uL Basophils # 0.0 (0-0.2) k/uL PT 9.9 (9.0-12.0) sec INR 0.9 (<1.2) APTT 22.1 (22.0-30.0) sec Sodium 137 (137-145) mmol/L Potassium 4.2 (3.5-5.1) mmol/L Chloride 104 (98-107) mmol/L Carbon Dioxide 24 (22-30) mmol/L Anion Gap 9 mmol/L BUN 12 (9-20) mg/dL Creatinine 0.83 (0.66-1.25) mg/dL Est GFR (CKD-EPI)AfAm >90 (>60 ml/min/1.73 sqM) Est GFR (CKD-EPI)NonAf >90 (>60 ml/min/1.73 sqM) Glucose 130 H (74-99) mg/dL Calcium 8.8 (8.4-10.2) mg/dL Total Bilirubin 0.7 (0.2-1.3) mg/dL AST 26 (17-59) U/L ALT 20 (4-49) U/L Alkaline Phosphatase 52 (38-126) U/L Troponin I (0.000-0.034) ng/mL Total Protein 7.0 (6.3-8.2) g/dL Albumin 4.1 (3.5-5.0) g/dL 05/25/20 Range/Units 15:05 WBC (3.8-10.6) k/uL RBC (4.30-5.90) m/uL Hgb (13.0-17.5) gm/dL Hct (39.0-53.0) % MCV (80.0-100.0) fL MCH (25.0-35.0) pg MCHC (31.0-37.0) g/dL RDW (11.5-15.5) % Plt Count (150-450) k/uL Neutrophils % % Lymphocytes % % Monocytes % % Eosinophils % % Basophils % % Neutrophils # (1.3-7.7) k/uL Lymphocytes # (1.0-4.8) k/uL Monocytes # (0-1.0) k/uL Eosinophils # (0-0.7) k/uL Basophils # (0-0.2) k/uL PT (9.0-12.0) sec INR (<1.2) APTT (22.0-30.0) sec Sodium (137-145) mmol/L Potassium (3.5-5.1) mmol/L Chloride (98-107) mmol/L Carbon Dioxide (22-30) mmol/L Anion Gap mmol/L BUN (9-20) mg/dL Creatinine (0.66-1.25) mg/dL Est GFR (CKD-EPI)AfAm (>60 ml/min/1.73 sqM) Est GFR (CKD-EPI)NonAf (>60 ml/min/1.73 sqM) Glucose (74-99) mg/dL Calcium (8.4-10.2) mg/dL Total Bilirubin (0.2-1.3) mg/dL AST (17-59) U/L ALT (4-49) U/L Alkaline Phosphatase (38-126) U/L Troponin I <0.012 (0.000-0.034) ng/mL Total Protein (6.3-8.2) g/dL Albumin (3.5-5.0) g/dL Disposition <Celio Dye - Last Filed: 10/07/19 15:09> Is patient prescribed a controlled substance at d/c from ED?: No Decision Time: 18:59 <Charlie Skinner - Last Filed: 10/07/19 18:59> Clinical Impression: TIA (transient ischemic attack) Disposition: ADMITTED IP TO THIS HOSP Referrals: Chuyita Pepper MD [Primary Care Provider] - 1-2 days
[2019-10-07 15:22] LABS: Basophils % (A) 1 %; Eosinophils # (A) 0.3 k/uL (0-0.7); Eosinophils % (A) 3 %; HCT 54.1 % (39.0-53.0); HGB 17.6 gm/dL (13.0-17.5); Lymphocytes # (A) 1.6 k/uL (1.0-4.8); Lymphocytes % (A) 19 %; MCH 26.6 pg (25.0-35.0); MCHC 32.5 g/dL (31.0-37.0); MCV 81.8 fL (80.0-100.0); Monocytes # (A) 0.6 k/uL (0-1.0); Monocytes % (A) 7 %; Neutrophils # (A) 5.8 k/uL (1.3-7.7); Neutrophils % (A) 68 %; Platelet Count 207 k/uL (150-450); RBC 6.61 m/uL (4.30-5.90); WBC 8.5 k/uL (3.8-10.6)
--- NOTE | 2019-10-07 15:28 | XR ---
EXAMINATION TYPE: XR chest 1V portable DATE OF EXAM: 10/07/2019 COMPARISON: NONE HISTORY: Confusion and chest pain TECHNIQUE: Single frontal view of the chest is obtained. FINDINGS: There is no focal air space opacity, pleural effusion, or pneumothorax seen. The cardiac silhouette size is mildly enlarged. The osseous structures are intact. IMPRESSION: No acute pulmonary process.
[2019-10-07 15:30] LABS: INR 0.9 (<1.2); Partial Thromboplastin Time 22.1 sec (22.0-30.0); Prothrombin Time 9.9 sec (9.0-12.0)
[2019-10-07 15:34] LABS: ALT 20 U/L (4-49); AST 26 U/L (17-59); African American GFR (CKD) >90 (>60 ml/min/1.73 sqM); Albumin 4.1 g/dL (3.5-5.0); Alkaline Phosphatase 52 U/L (38-126); Anion Gap 9 mmol/L; Blood Urea Nitrogen 12 mg/dL (9-20); Calcium 8.8 mg/dL (8.4-10.2); Carbon Dioxide 24 mmol/L (22-30); Chloride 104 mmol/L (98-107); Glucose 130 mg/dL (74-99); Non-African American GFR(CKD) >90 (>60 ml/min/1.73 sqM); Potassium 4.2 mmol/L (3.5-5.1); Sodium 137 mmol/L (137-145); Total Bilirubin 0.7 mg/dL (0.2-1.3)
--- NOTE | 2019-10-07 16:31 | CT ---
EXAMINATION TYPE: CT brain wo con DATE OF EXAM: 10/07/2019 COMPARISON: NONE HISTORY: CONFUSION CT DLP: 1154.4 mGycm. Automated Exposure Control for Dose Reduction was Utilized. TECHNIQUE: CT scan of the head is performed without contrast. FINDINGS: There is no acute intracranial hemorrhage, mass effect, or midline shift identified. The ventricles and sulci are within normal limits in size. The globes are intact and the visualized sin uses are clear. Hyperdensity of the tentorium cerebelli is seen throughout. The vessels throughout ap pear slightly hyperdense. Partial opacification of the right mastoid air cells. IMPRESSION: 1. No mass effect or midline shift. Hyperdensity the tentorium could be artifactual, however given th e patient's altered mental status subdural hematoma is possible and MRI is recommended. 2. Vasculature throughout appears hyperdense correlate for polycythemia or hyperviscosity state. Find ings #1 and #[address] Skinner at 1628 and 10/07/2019. 3. Partial opacification of the right mastoid air cells. Correlate with point tenderness to exclude a cute mastoiditis.
[2019-10-07] MEDS ORDERED: diphenhydrAMINE 50 MG/ML 1 ML VIAL IVP STA (17:15)
[2019-10-07] MEDS ORDERED: methylPREDNISolone SOD SUCCI 125 MG/2 ML VIAL IV STA (17:15)
[2019-10-07] MEDS ORDERED: FAMOTIDINE 20 MG/2 ML VIAL IV STA (17:15)
--- NOTE | 2019-10-07 19:14 | CT ---
EXAMINATION TYPE: CT angio head neck DATE OF EXAM: 10/07/2019 COMPARISON: HISTORY: CVA. CT DLP: 1073.8 mGycm Automated exposure control for dose reduction was used. CONTRAST: Performed with IV Contrast, patient injected with 65 mL of Isovue 370. There are 3-D post processed images. There is normal branching pattern of the great vessels on the aortic arch. Thoracic aorta is intact. There is no mediastinal adenopathy. Thyroid gland appears normal. There is bilateral arterial flow in the subclavian arteries. There is arterial flow in the common internal and external carotid arteries bilaterally. There is minimal plaque at the carotid artery bifurcations. Narrowing is less than 15%. There is arterial flow in both vertebral arteries. There is no evidence of vertebral or carotid duglas ry aneurysm or dissection. There is arterial flow in the anterior middle and posterior cerebral arteries. There is normal contra st opacification of the venous sinuses. I see no evidence of intracranial aneurysm or neovascularity. Left posterior cerebral artery appears to fill mostly through the left posterior communicating arter y. There is no mass effect. I see no evidence of hemodynamic stenosis. There is noted right side previous maxillary sinus surgery with mucosal thickening. IMPRESSION: Negative CT angiogram of the brain.
[2019-10-07] MEDS: SODIUM CHLORIDE 0.9% 1,000 ML IV SCH (21:55)
--- NOTE | 2019-10-08 02:35 | P.HPIM ---
History of Present Illness H&P Date: 10/07/19 Chief Complaint: felling cloudy and confused 54-year-old male with hypertension controlled with medications Patient comes in after experiencing 2 hours of confusion and clumsiness happened around early afternoon. He reports that he woke up at the status of health he had a good workout which is his daily routine at breakfast and then mowed the lawn he believes that he wasn't drinking enough water and was extremely hot outside and then when he went inside he was trying to make love to his fiance but everything started to become cloudy for about 2 hours after that he wasn't making sense while talking to his fiance he remembers what was happening over these 2 hours however he just can't understand why he was feeling as if he was just watching himself acting different and unable to explain what's going on otherwise he denies any associated double vision headaches dizziness lightheadedness any focal neuro deficits. However during the conversation with his fiance over these 2 hours from noon until 2:30 PM he was not making any sense he couldn't remember things that he's being repetitive and sometimes answers the questions inappropriately and he just can't understand why he did that now that he remembers was going on exactly. He was brought into the hospital for evaluations concerns were initially 4 stroke or subdural hemorrhage neuro evaluated the brain images and ruled out subdural hematoma recommended that he's observed in the hospital and evaluated by neurology in the morning CT angiogram of the brain showed no acute process patient admitted for neuro checks and neurology evaluation Patient reports that he receives [place]'s for back pain and then about 6 days ago he refilled a prescription for [place] however the pills looked different. He is also been on antibiotics and eardrops recently inserting a in his ear right ear for hemorrhagic cyst over the tympanic membrane. He just finished these medications about 2 days ago. Patient blood work did reveal polycythemia Patient recalls closed head injury while playing baseball about 20 years ago. 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 All other systems were reviewed and are n egative Past Medical History Past Medical History: GERD/Reflux, Hypertension History of Any Multi-Drug Resistant Organisms: None Reported Past Surgical History: Cholecystectomy, Hernia Repair, Tonsillectomy Past Anesthesia/Blood Transfusion Reactions: Previous Problems w/ Anesthesia Past Psychological History: No Psychological Hx Reported Smoking Status: Never smoker Past Alcohol Use History: Occasional Past Drug Use History: None Reported - Past Family History Mother Family Medical History: Cancer, Diabetes Mellitus, Rheumatoid Arthritis (RA) Medications and Allergies Home Medications Medication Instructions Recorded Confirmed Type HYDROcodone/APAP 10-325MG [[place] 1 tab PO Q6H 05/05/18 10/07/19 History 10-325] Esomeprazole Magnesium [NexIUM] 40 mg PO DAILY 10/07/19 10/07/19 History Lisinopril-Hctz 20-12.5 mg 1 tab PO BID 10/07/19 10/07/19 History [Zestoretic 20-12.5] Allergies Allergy/AdvReac Type Severity Reaction Status Date / Time ceftriaxone [From Rocephin] Allergy Rash/Hives Verified 10/07/19 20:52 Iodinated Contrast Media Allergy Anaphylaxis Verified 10/07/19 20:52 [Iodinated Contrast- Oral and IV Dye] levofloxacin [From Levaquin] Allergy Anaphylaxis Verified 10/07/19 20:52 Physical Exam Vitals: Vital Signs Temp Pulse Resp BP Pulse Ox 10/07/19 22:00 89 16 144/95 98 10/07/19 19:30 79 16 147/100 98 10/07/19 14:35 98.3 F 86 18 168/108 98 Intake and Output 10/07/19 10/07/19 10/07/19 06:59 14:59 22:59 Other: Weight 117.934 kg Constitutional: No acute distress, conversant, pleasant Eyes: Anicteric sclerae, moist conjunctiva, no lid-lag Pupils equal round reactive to light ENMT: NC/AT, arthroscopic ear exam revealed right tympanic membrane ear tube in place no active drainage or bleeding Oropharynx clear, no erythema, exudates Neck: Supple, FROM, no masses, or JVD No carotid bruits No thyromegaly Lungs: Clear to auscultation Clear to percussion Normal respiratory effort, no accessory muscle use Cardiovascular: Heart regular in rate and rhythm, No murmurs, gallops, or rubs No peripheral edema Abdominal: Soft Nontender, no guarding, rebound or rigidity Abdomen moving with respiration Normoactive bowel sounds No hepatomegaly, No splenomegaly No palpable mass No abdominal wall hernia noted Skin: Normal temperature, tone, texture, turgor No induration No subcutaneous nodules No rash, lesions No ulcers Extremities: No digital cyanosis No clubbing Pedal pulses intact and symmetrical Radial pulses intact and symmetrical No calf tenderness Psychiatric: Alert and oriented to person, place and time Appropriate affect fair judgement Neuro Muscles Strength 5/5 in all 4 extremities Sensation to light touch grossly present throughout Cranial nerves II-XII grossly intact No focal sensory deficits Finger-nose exam is within normal limits, tender reflexes over bilateral knees within normal limits Lymphatics: no palpable cervical or supraclavicular , or inguinal lymph nodes Results CBC & Chem 7: 10/07/19 15:05 10/07/19 15:05 Labs: Abnormal Lab Results - Last 24 Hours (Table) 10/07/19 10/07/19 Range/Units 15:05 15:05 RBC 6.61 H (4.30-5.90) m/uL Hgb 17.6 H (13.0-17.5) gm/dL Hct 54.1 H (39.0-53.0) % Glucose 130 H (74-99) mg/dL Assessment and Plan Assessment: 54-year-old male with hypertension controlled with medication comes in due to 2- 3 hours of confusion after having a busy morning and working outside in the heat suspected to have some component of dehydration but TIA versus stroke needed to be ruled out initial workup CT of the brain suggested possible subdural hematoma however this was ruled out by on-call neurologist who recommended performing MRI in the morning for further evaluation of the brain and dismissed the need for transfer of the patient at this time. CT angios the brain showed no acute process. Patient admitted for an neurology evaluation with anticipated length of stay less than to midnight Confusion and abnormal behavior currently resolved Rule out TIA Patient was not initially given aspirin in the ER due to concerns regarding subdural hematoma Continue with neuro checks permissive hypertension today Neurology consult fall precautions PT/OT eval IVF hydration hypertension resume home meds in AM, permissive hypertension today Polycythemia Continue to monitor Consider outpatient workup IV fluid hydration Strong family history of coronary artery disease Patient had cardiac workup years ago reported to be negative CODE STATUS:full code DVT prophylaxis: mechanical Discussed with: Patient, ER, RN Anticipated length of stay < than [address]: home A total of 75 minutes was spent on the care of this complex patient more than 50% of the time was spent in counseling and care coordination.
[2019-10-08] MEDS: HYDROcodone/APAP 10-325MG 1 EACH TAB PO SCH ×4 (03:45→20:17)
[2019-10-08] MEDS: SODIUM CHLORIDE 0.9% 1,000 ML IV SCH ×3 (03:46→20:18)
[2019-10-08 04:08] LABS: Cholesterol 188 mg/dL (<200); HDL Cholesterol 33 mg/dL (40-60); LDL Cholesterol,Calculated 99 mg/dL (0-99); Triglycerides 279 mg/dL (<150)
[2019-10-08 05:39] LABS: T4, Free (Free Thyroxine) 0.97 ng/dL (0.78-2.19)
[2019-10-08] MEDS ORDERED: ACETAMINOPHEN TAB 325 MG TAB PO PRN (06:18)
[2019-10-08] MEDS: amLODIPine 10 MG TAB PO SCH ×2 (10:14→10:20)
[2019-10-08] MEDS: ASPIRIN 81 MG PO SCH (10:14)
[2019-10-08] MEDS: LISINOPRIL-HCTZ 20-12.5 MG 1 EACH TAB PO SCH ×2 (10:14→21:30)
[2019-10-08] MEDS: PANTOPRAZOLE 40 MG TABLET PO SCH (10:23)
--- NOTE | 2019-10-08 15:13 | US ---
EXAMINATION TYPE: US carotid duplex BILAT DATE OF EXAM: 10/08/2019 COMPARISON: CLINICAL HISTORY: Stenosis. HTN controlled with meds per patient. EXAM MEASUREMENTS: RIGHT: Peak Systolic Velocity (PSV) cm/sec ----- Right CCA: 107.0 ----- Right ICA: 96.8 ----- Right ECA: 158.9 ICA/CCA ratio: 0.9 RIGHT: End Diastole cm/sec ----- Right CCA: 18.3 ----- Right ICA: 24.1 ----- Right ECA: 17.0 LEFT: Peak Systolic Velocity (PSV) cm/sec ----- Left CCA: 79.8 ----- Left ICA: 75.7 ----- Left ECA: 90.5 ICA/CCA ratio: 0.9 LEFT: End Diastole cm/sec ----- Left CCA: 13.8 ----- Left ICA: 21.9 ----- Left ECA: 16.7 VERTEBRALS (direction of flow): Right Vertebral: Antegrade Left Vertebral: Antegrade Rhythm: Normal Elevated right ECA velocity and mildly elevated left proximal CCA velocity. No significant stenosis or wall thickening. Plaque visualized in anterior right bulb. Grayscale, color Doppler, spectral Do ppler imaging performed of the carotid arteries. Waveform analysis does not show significant stenosis of the internal carotid arteries. IMPRESSION: No hemodynamic significant stenosis of the proximal internal carotid arteries by Doppler criteria, an indirect measurement of carotid stenosis
--- NOTE | 2019-10-08 16:21 | P.PN ---
Subjective Progress Note Date: 10/08/19 Principal diagnosis: Dizziness and memory impairment No recurrent symptoms at this point, no dizziness or blurry vision. No slurred speech, his memory has been ok, no new episodes of forgetfulness. No focal weakness or numbness. Objective - Vital Signs Vital signs: Vital Signs Temp 97.8 F 10/08/19 08:00 Pulse 90 10/08/19 15:28 Resp 16 10/08/19 15:28 BP 145/87 10/08/19 15:28 Pulse Ox 94 L 10/08/19 15:28 Intake & Output 10/07/19 10/08/19 10/08/19 18:59 06:59 18:59 Intake Total 810 400 Balance 810 400 Weight 117.934 kg 117.934 kg Intake: IV 10 400 Invasive Line 1 10 Sodium Chloride 0.9% 1, 400 000 ml @ 100 mls/hr IV . Q10H JESSICA Rx#:[id number] Intake, IV Titration 800 Amount Sodium Chloride 0.9% 1, 800 000 ml @ 100 mls/hr IV . Q10H JESSICA Rx#:[id number] - Exam Constitutional: No acute distress, conversant, pleasant Eyes:Anicteric sclerae, moist conjunctiva, no lid-lag, PERRLA, ENMT: Oropharynx clear, no erythema, exudates Neck: Supple, FROM, no masses, or JVD, No carotid bruits, No thyromegaly Lungs: Clear to auscultation, Clear to percussion, Normal respiratory effort, no accessory muscle use Cardiovascular: Heart regular in rate and rhythm, No murmurs, gallops, or rubs, No peripheral edema Abdominal: Soft, Nontender, no guarding, rebound or rigidity, Normoactive bowel sounds, No hepatomegaly, No splenomegaly, No palpable mass Skin: Normal temperature, tone, texture, turgor, no induration, No subcutaneous nodules, No rash, lesions, No ulcers Extremities: No digital cyanosis, No clubbing, Pedal pulses intact and symmetrical, Radial pulses intact and symmetrical, No calf tenderness Psychiatric: Alert and oriented to person, place and time, appropriate affect, intact judgement Neuro: Muscles Strength 5/5 in all 4 extremities, Sensation to light touch grossly present throughout, Cranial nerves II-XII grossly intact, no focal sensory deficits - Labs CBC & Chem 7: 10/07/19 15:05 10/07/19 15:05 Labs: Abnormal Lab Results - Last 24 Hours (Table) 10/08/19 10/08/19 10/08/19 Range/Units 03:41 03:41 03:41 Hemoglobin A1c 7.0 H (4.0-6.0) % Triglycerides 279 H (<150) mg/dL HDL Cholesterol 33 L (40-60) mg/dL TSH 0.323 L (0.465-4.680) mIU/L Assessment and Plan Plan: Confusion and abnormal behavior currently resolved Rule out heat stroke Rule out TIA/CVA, patient was not initially given aspirin in the ER due to concerns regarding subdural hematoma Hypertension Polycythemia, could be sec to dehydration Continue with neuro checks Neurology consult Stroke workup with MRI brain, echo. Head CT and CT angio brain reviewed. Resume bp meds PT/OT eval IVF hydration Repeat labs in am Anticipated discharge: 1-[address]: home
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
[2019-10-08] MEDS ORDERED: ATORVASTATIN 20 MG TAB PO SCH (21:00)
[2019-10-08 22:32] VITALS: RESP 18
[2019-10-09] MEDS: HYDROcodone/APAP 10-325MG 1 EACH TAB PO SCH ×3 (03:13→14:57)
[2019-10-09] MEDS: PANTOPRAZOLE 40 MG TABLET PO SCH (09:38)
[2019-10-09] MEDS: LISINOPRIL-HCTZ 20-12.5 MG 1 EACH TAB PO SCH (09:38)
[2019-10-09] MEDS: amLODIPine 10 MG TAB PO SCH (09:38)
[2019-10-09] MEDS: ASPIRIN 81 MG PO SCH (09:38)
[2019-10-09 11:01] VITALS: BP 128/71; PULSE 81; TEMP 98.2
[2019-10-09] MEDS: SODIUM CHLORIDE 0.9% 1,000 ML IV SCH (14:58)
--- NOTE | 2019-10-09 15:19 | P.PN ---
Subjective Progress Note Date: 10/09/19 Principal diagnosis: Dizziness and memory impairment No recurrent symptoms since admission, no dizziness or blurry vision. No slurred speech, his memory has been ok, no new episodes of forgetfulness. No focal weakness or numbness. Objective - Vital Signs Vital signs: Vital Signs Temp 98.2 F 10/09/19 08:00 Pulse 81 10/09/19 08:00 Resp 18 10/09/19 03:55 BP 128/71 10/09/19 08:00 Pulse Ox 95 10/09/19 08:00 Intake & Output 10/08/19 10/09/19 10/09/19 18:59 06:59 18:59 Intake Total 400 800 225 Balance 400 800 225 Weight 114.8 kg Intake: IV 400 800 Sodium Chloride 0.9% 1, 400 800 000 ml @ 100 mls/hr IV . Q10H JESSICA Rx#:[id number] Oral 225 Other: Voiding Method Toilet # Voids 1 3 - Exam Constitutional: No acute distress, conversant, pleasant Eyes:Anicteric sclerae, moist conjunctiva, no lid-lag, PERRLA, ENMT: Oropharynx clear, no erythema, exudates Neck: Supple, FROM, no masses, or JVD, No carotid bruits, No thyromegaly Lungs: Clear to auscultation, Clear to percussion, Normal respiratory effort, no accessory muscle use Cardiovascular: Heart regular in rate and rhythm, No murmurs, gallops, or rubs, No peripheral edema Abdominal: Soft, Nontender, no guarding, rebound or rigidity, Normoactive bowel sounds, No hepatomegaly, No splenomegaly, No palpable mass Skin: Normal temperature, tone, texture, turgor, no induration, No subcutaneous nodules, No rash, lesions, No ulcers Extremities: No digital cyanosis, No clubbing, Pedal pulses intact and symmetrical, Radial pulses intact and symmetrical, No calf tenderness Psychiatric: Alert and oriented to person, place and time, appropriate affect, intact judgement Neuro: Muscles Strength 5/5 in all 4 extremities, Sensation to light touch grossly present throughout, Cranial nerves II-XII grossly intact, no focal sensory deficits - Labs CBC & Chem 7: 10/07/19 15:05 10/07/19 15:05 Assessment and Plan Plan: Confusion and abnormal behavior currently resolved Rule out heat stroke Rule out TIA/CVA, patient was not initially given aspirin in the ER due to concerns regarding subdural hematoma Hypertension Polycythemia, could be sec to dehydration Continue with neuro checks Neurology consult recommending, MRI brain, MRA head and neck, echo, all pending Resume bp meds PT/OT eval IVF hydration Anticipated discharge: 1-[address]: home
--- NOTE | 2019-10-09 17:14 | P.PN ---
Subjective Progress Note Date: 10/09/19 Subjective: Patient has remained hemodynamically stable overnight. He reports no new events no new concerns. He denies having any headache difficulty swallowing or hearing. He is not reporting any weakness or sensory disturbances. Objective - Vital Signs Vital signs: Vital Signs Temp 98.2 F 10/09/19 08:00 Pulse 81 10/09/19 08:00 Resp 18 10/09/19 03:55 BP 128/71 10/09/19 08:00 Pulse Ox 95 10/09/19 08:00 Intake & Output 10/08/19 10/09/19 10/09/19 18:59 06:59 18:59 Intake Total 400 800 225 Balance 400 800 225 Weight 114.8 kg Intake: IV 400 800 Sodium Chloride 0.9% 1, 400 800 000 ml @ 100 mls/hr IV . Q10H JESSICA Rx#:[id number] Oral 225 Other: Voiding Method Toilet # Voids 1 3 - Exam Patient examined chart reviewed. Patient has been in sinus rhythm while on telemetry. MRI of the brain was attempted but patient became very claustrophobic and is rather large broad shoulders difficult to fit in. Patient is requesting not to go through that experience again. EEG reviewed normal study. A normal study however does not preclude an underlying seizure tendency Carotid ultrasound reviewed. No evidence of any high-grade stenosis. Neurological exam Mental status awake alert oriented. Speech fluent. Affect is sad. Cranial nerves: Cranial nerves III through XII appear intact. Motor examination normal muscle bulk and tone throughout. Strength is 5 out of 5 throughout. Pronator drift negative. Coordination testing intact finger to nose testing. Less intention tremor noted on today's exam. Gait patient able to ambulate in the room without difficulty gait is not ataxic. - Labs CBC & Chem 7: 10/07/19 15:05 10/07/19 15:05 Assessment and Plan Assessment: This is a 54-year-old gentleman who presented with a acute onset of confusion and clumsiness beginning on Monday early afternoon. Since the patient has been admitted he has had no further episodes. The patient has undergone a EEG which was normal as well as carotid ultrasound that showed no evidence of high-grade stenosis. The patient was not able to undergo an MRI of the brain due to him and being unable to fit into the device nor complete the MRA of the head and neck. 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 Before we discharge him home I would like to obtain a CT angios his head and neck to rule out any high-grade stenosis aneurysm or extracranial dissection. This patient should be admitted for further evaluation to rule out possible stroke that may only be seen on MRI at this time as well as an EEG to rule out possible subclinical seizure activity. Summary 1. Acute altered mental status in a 54-year-old 2. Poorly controlled hypertension as noted on admission 3. Polycythemia possibly underlying cause obstructive sleep apnea 4. History of closed head injury with loss of consciousness. Suspect possible area of encephalomalacia as a potential seizure focus. 5. Neurological exam is focal: Positive Babinski on the right foot and action tremor 6. History of chronic sinus infections multiple antibiotic use and current recovery for an ear infection. 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 Recommendations: 1. CTA of the head and neck now before for patient is discharged. 2. I've recommended that the patient arrange to follow up with a neurologist as an outpatient and undergo an open air MRI. 3. I counseled the patient on the importance of maintaining stress levels and not working excessive as this is causing him to have increased fatigue and will weaken his immune system. This patient's prognosis remains good. I will be following up on the CT angiogram and will discuss results with the patient. If negative patient will be discharged after completing the study. Ros Benavides MD Board Certified in Neurology and Sleep Medicine
[2019-10-09] MEDS ORDERED: diphenhydrAMINE 50 MG/ML 1 ML VIAL ONE (17:39)
[2019-10-09] MEDS ORDERED: FAMOTIDINE 20 MG/2 ML VIAL IV STA (17:41)
[2019-10-09] MEDS ORDERED: diphenhydrAMINE 50 MG/ML 1 ML VIAL IVP STA (17:41)
[2019-10-09] MEDS ORDERED: methylPREDNISolone SOD SUCCI 125 MG/2 ML VIAL IV STA (17:41)
--- NOTE | 2019-10-09 18:14 | P.DS ---
Providers Date of admission: 10/09/19 10:02 Expected date of discharge: 10/09/19 Attending physician: Elda Beltran DO Consults: 10/07/19 19:07 Consult Physician Urgent Consulting Provider: Ros Benavides Consult Reason/Comments: tia Do you want consulting provider notified?: Yes Primary care physician: [facility] Course: 54-year-old male with hypertension controlled with medications presented to the hospital after experiencing 2 hours of confusion and clumsiness. Symptoms occurred while he was mowing the lawn. He believes that he wasn't drinking enoug h water despite the weather being extremely hot. According to his fiance he could not understand or remember what was happening for over 2 hours and was acting confused. He was not making any sense when answering her questions. He was also repetitive. Patient otherwise denied any associated double vision, headaches, dizziness, lightheadedness or any focal neuro deficits. Of note patient has history of snoring, had surgical fixation for his nasal septum by ENT several months ago and most recently had a tympanic tube inserted due to presence of ''fluids in the middle ear'' according to patient. Also of note patient recalls closed head injury while playing baseball about 20 years ago, after which she lost consciousness for a brief period of time. He also reports premature coronary artery disease and all his family He was brought into the hospital for evaluations had CT scan of the brain which showed questionable subdural hematoma, no ischemic stroke seen. Had CT angio of the head that was ok. Stroke neurologist was ok with admission to rule out stroke here at [facility]. He was admitted on telemetry. Labs showed some polycythemia, but otherwise were unremarkable. Heat stroke was strongly suspected due to extreme heat and dehydration. He was seen by Dr. Benavides, who recommended doing MRI. This could not be done due to severe anxiety. He would go for open MRI, which will be done outpatient. Patient did have Doppler ultrasound of his neck which did not reveal any dissection or stenosis. Throughout the hospitalization he did not have any recurrent episodes of forgetfullness or confusion. No focal neurologic symptoms including weakness or numbness were noted as well. Dr. Benavides cleared patient for discharge today, we will need to follow with outpatient neurology clinic with Dr. Arvizu. He'll be discharged on a stable condition. Plan - Discharge Summary New Discharge Prescriptions: Continue HYDROcodone/APAP 10-325MG [Roseboom 10-325] 1 tab PO Q6H Lisinopril-Hctz 20-12.5 mg [Zestoretic 20-12.5] 1 tab PO BID Esomeprazole Magnesium [NexIUM] 40 mg PO DAILY Discharge Medication List HYDROcodone/APAP 10-325MG [Roseboom 10-325] 1 tab PO Q6H 05/05/18 [History] Esomeprazole Magnesium [NexIUM] 40 mg PO DAILY 10/07/19 [History] Lisinopril-Hctz 20-12.5 mg [Zestoretic 20-12.5] 1 tab PO BID 10/07/19 [History] Follow up Appointment(s)/Referral(s): Joni Richardson DO [Doctor of Osteopathic Medicine] - 1 Week (Please schedule post-hospital follow up appointment when office reopens.) Chuyita Pepper MD [Primary Care Provider] - 1-2 days (Please call and schedule post-hospital follow up appointment, when office reopens.) Ros Benavides MD [STAFF PHYSICIAN] - 1 Week
--- NOTE | 2019-10-09 20:41 | ECHOF ---
Referral Reason:tia MEASUREMENTS -------- HEIGHT: 177.8 cm WEIGHT: 114.8 kg BP: 130/69 IVSd: 2.0 cm (0.6 - 1.1) LVIDd: 3.7 cm (3.9 - 5.3) LVPWd: 1.8 cm (0.6 - 1.1) IVSs: 2.2 cm LVIDs: 2.3 cm LVPWs: 2.4 cm RVIDd: 4.9 cm (< 3.3) LAESV Index (A-L): 26.65 ml/m Ao Diam: 4.2 cm (2.0 - 3.7) AV Cusp: 2.5 cm (1.5 - 2.6) EPSS: 0.7 cm MV E Wally: 0.76 m/s MV DecT: 185 ms MV A Wally: 0.56 m/s MV E/A Ratio: 1.35 RAP: 5.00 mmHg RVSP: 27.32 mmHg MV EF SLOPE: 90.27 mm/s (70 - 150) MV EXCURSION: 16.79 mm (> 18.000) FINDINGS -------- Sinus rhythm. This was a technically adequate study. The left ventricular size is normal. There is severe concentric left ventricular hypertrophy. Ove rall left ventricular systolic function is normal with, an EF between 55 - 60 %. The diastolic fill ing pattern is normal for the age of the patient 15.01. The right ventricle is moderately enlarged. Normal LA size by volume 22+/-6 ml/m2. The right atrium is moderately enlarged. Interatrial and interventricular septum intact. The aortic valve is trileaflet and appears structurally normal. There is no evidence of aortic regu rgitation. There is no evidence of aortic stenosis. Mild mitral regurgitation is present. Mild tricuspid regurgitation present. There is no evidence of pulmonary hypertension. The right v entricular systolic pressure, as measured by Doppler, is 27.32mmHg. There is no pulmonic regurgitation present. The aortic root size is normal. Normal inferior vena cava with normal inspiratory collapse consistent with estimated right atrial pre ssure of 5 mmHg. There is no pericardial effusion. CONCLUSIONS -------- 1. Sinus rhythm. 2. This was a technically adequate study. 3. The left ventricular size is normal. 4. There is severe concentric left ventricular hypertrophy. 5. Overall left ventricular systolic function is normal with, an EF between 55 - 60 %. 6. The diastolic filling pattern is normal for the age of the patient 15.01 7. The right ventricle is moderately enlarged. 8. Normal LA size by volume 22+/-6 ml/m2. 9. The right atrium is moderately enlarged. 10. Interatrial and interventricular septum intact. 11. The aortic valve is trileaflet and appears structurally normal. 12. There is no evidence of aortic regurgitation. 13. There is no evidence of aortic stenosis. 14. Mild mitral regurgitation is present. 15. Mild tricuspid regurgitation present. 16. There is no evidence of pulmonary hypertension. 17. The right ventricular systolic pressure, as measured by Doppler, is 27.32mmHg. 18. There is no pulmonic regurgitation present. 19. The aortic root size is normal. 20. Normal inferior vena cava with normal inspiratory collapse consistent with estimated right atrial pressure of 5 mmHg. 21. There is no pericardial effusion. CHAMFERING MACHINE OPERATOR: Darlene Delgadillo RDCS
--- NOTE | 2019-10-11 10:54 | CDI ---
Documentation Clarification Form Date: 10/10/19 From: Bárbara Huber Phone: If you have a question about this query, please contact Jeanne Barry, Arc Trimmer at [phone] between 8am and 5pm. Admit Date: 10/07/19 Discharge Date:10/09/19 Patient Name: Derik Cowan Visit Number: [id number] ATTENTION: The Clinical Documentation Specialists (CDI) and [facility] Coding Staff appreciate your assistance in clarifying documentation. Please respond to the clarification below the line at the bottom and electronically sign. The CDI & [facility] Coding staff will review the response and follow-up if needed. Please note: Queries are made part of the Legal Health Record. If you have any questions, please contact the author of this message via ITS. Dear Dr. Gutiérrez Altered Mental Status was documented in the ED note and consult note. History/Risk Factors: Hypertension, dehydration, possible obstructive sleep apnea Clinical Indicators: Confusion Labs: Hgb 17.6, Hct 54.1 X Ray: CT: Brain - questionable subdural hematoma, no ischemic stroke seen. CT angio - negative Treatment: CT of the brain, EEG, IV Solu-Medrol, IV NS @100 In your professional opinion, please clarify the etiology of the Altered Mental Status, if known. Delirium (specify cause): Dementia (if know, specify Type and if with/without Behavioral Disturbance) Encephalopathy (specify Type and Underlying Medical Illness) Other condition (please specify) Unable to determine acute encephalopathy likely metabolic MTDD
== END 2019-10-09 19:22 | disposition home or self-care (01) | DRG 922 ==
LOC: EC 14:33 → 3SCARD 19:08 → OBSVTOIN 10-09 10:02
PROVIDERS: ADMIT Internal Medicine; ATTEND Internal Medicine
DX: T67.01XA Heatstroke and sunstroke, initial encounter (principal); G93.41 Metabolic encephalopathy; D75.1 Secondary polycythemia; F41.9 Anxiety disorder, unspecified; G25.2 Other specified forms of tremor; G47.33 Obstructive sleep apnea (adult) (pediatric); I10 Essential (primary) hypertension; J32.9 Chronic sinusitis, unspecified; K21.9 Gastro-esophageal reflux disease without esophagitis; E86.0 Dehydration; Z79.899 Other long term (current) drug therapy; Z87.828 Personal history of other (healed) physical injury and trauma; Z11.59 Encounter for screening for other viral diseases; Z90.49 Acquired absence of other specified parts of digestive tract; Z88.1 Allergy status to other antibiotic agents; Z91.041 Radiographic dye allergy status; Z82.49 Family history of ischemic heart disease and other diseases of the circulatory system; Z83.3 Family history of diabetes mellitus; Z80.9 Family history of malignant neoplasm, unspecified; Z82.61 Family history of arthritis
CPT/HCPCS: 36415; 70450; 70496; 70498; 71045; 80053; 80061; 83036; 84439; 84443; 84484; 85025; 85610; 85730; 87635; 93005; 93306; 93880; 95816; 96361; 96374; 96375; 99285

== ENCOUNTER → 2020-04-08 | Outpatient (CLI) | payer BC ==
--- NOTE | 2020-04-08 10:11 | US ---
EXAMINATION TYPE: US duplex aorta DATE OF EXAM: 04/08/2020 COMPARISON: NONE CLINICAL HISTORY: I70.0 CALCIFICATION OF AORTA. Patient stated had spine X ray at [facility] which showed aorta calcifications. EXAM MEASUREMENTS: Abdominal Aorta: Proximal: 1.9 x 2.4cm Mid: 1.4 x 2.2cm Distal: 2.0 x 1.9cm Bifurcation: 1.6 x 1.5cm Right EMILY, and Left EMILY = 1.5 x 1.4cm. Mild intimal hyperechoic wall changes are seen distal aorta, however, overall US is technically limit ed by overlying bowel gas and body habitus. IMPRESSION: No evidence for abdominal aortic aneurysm.
== END | disposition home or self-care (01) ==
LOC: RADUSWWP 09:27
PROVIDERS: ATTEND Family Medicine
DX: I70.0 Atherosclerosis of aorta (principal)
CPT/HCPCS: 93979

== ENCOUNTER 2020-06-28 21:57 | Observation (INO) | payer BC ==
[2020-06-28] MEDS ORDERED: LORazepam 2 MG/ML INJ IV STA (22:28)
--- NOTE | 2020-06-28 22:30 | ED ---
Chest Pain HPI - General Chief Complaint: Chest Pain Stated Complaint: Chest Pain Time Seen by Provider: 06/28/20 22:26 Source: patient, RN notes reviewed, old records reviewed Mode of arrival: wheelchair Limitations: no limitations - History of Present Illness Initial Comments: This is a 54-year-old male to the ER for evaluation she presents today for evaluation regards to chest pain. Patient does have history of high blood pressure a strong family history of heart disease. Patient has anterior chest pain chest pain to his back he does get diaphoretic and short of breath. Feels like his chest is tight and can't take a deep breath. Patient states she's having symptoms for quite some time but they have been increasing in frequency and duration lately. Patient is also going through a separation had a fight with his significant other tonight patient after right if severe chest pain. Patient feels like his heart attack MD Complaint: chest pain -: days(s) Onset: during rest, during exertion Pain Location: substernal Pain Radiation: none Severity: moderate Quality: tightness Consistency: constant Improves With: nothing Worsens With: nothing Anginal Symptoms: diaphoresis, dyspnea, sense of impending doom Other Symptoms: cough, palpitations Treatments Prior to Arrival: none - Related Data Home Medications Medication Instructions Recorded Confirmed HYDROcodone/APAP 10-325MG [[place] 1 tab PO Q6H 05/05/18 10/07/19 10-325] Esomeprazole Magnesium [NexIUM] 40 mg PO DAILY 10/07/19 10/07/19 Lisinopril-Hctz 20-12.5 mg 1 tab PO BID 10/07/19 10/07/19 [Zestoretic 20-12.5] Allergies Allergy/AdvReac Type Severity Reaction Status Date / Time ceftriaxone [From Rocephin] Allergy Rash/Hives Verified 06/28/20 22:04 Iodinated Contrast Media Allergy Anaphylaxis Verified 06/28/20 22:04 [Iodinated Contrast- Oral and IV Dye] levofloxacin [From Levaquin] Allergy Anaphylaxis Verified 06/28/20 22:04 Review of Systems ROS Statement: Those systems with pertinent positive or pertinent negative responses have been documented in the HPI. ROS Other: All systems not noted in ROS Statement are negative. EKG Findings - EKG Comments: EKG Findings:: EKG shows nsr 88 ID 158 QRS 94 QTc 435 Past Medical History Past Medical History: GERD/Reflux, Hypertension History of Any Multi-Drug Resistant Organisms: MRSA Date of last positivie culture/infection: left 1984 Past Surgical History: Cholecystectomy, Hernia Repair, Tonsillectomy Additional Past Surgical History / Comment(s): sinus surgery, tubes in ears Past Anesthesia/Blood Transfusion Reactions: Previous Problems w/ Anesthesia Past Psychological History: No Psychological Hx Reported Smoking Status: Never smoker Past Alcohol Use History: Occasional Past Drug Use History: None Reported - Past Family History Mother Family Medical History: Cancer, Diabetes Mellitus, Rheumatoid Arthritis (RA) General Exam Limitations: no limitations General appearance: alert, in no apparent distress Head exam: Present: atraumatic, normocephalic, normal inspection Eye exam: Present: normal appearance, PERRL, EOMI. Absent: scleral icterus, conjunctival injection, periorbital swelling ENT exam: Present: normal exam, mucous membranes moist Neck exam: Present: normal inspection. Absent: tenderness, meningismus, lymphadenopathy Respiratory exam: Present: normal lung sounds bilaterally. Absent: respiratory distress, wheezes, rales, rhonchi, stridor Cardiovascular Exam: Present: regular rate, normal rhythm, normal heart sounds. Absent: systolic murmur, diastolic murmur, rubs, gallop, clicks GI/Abdominal exam: Present: soft, normal bowel sounds. Absent: distended, tenderness, guarding, rebound, rigid Extremities exam: Present: normal inspection, full ROM, normal capillary refill. Absent: tenderness, pedal edema, joint swelling, calf tenderness Back exam: Present: normal inspection Neurological exam: Present: alert, oriented X3, CN II-XII intact Psychiatric exam: Present: normal affect, normal mood Skin exam: Present: warm, dry, intact, normal color. Absent: rash Course Vital Signs 06/28/20 06/29/20 22:00 01:03 Temperature 99.0 F Pulse Rate 92 80 Respiratory 20 20 Rate Blood Pressure 148/99 124/77 O2 Sat by Pulse 96 99 Oximetry - Reevaluation(s) Reevaluation #1: 06/29/20 00:04 Medical record is reviewed Patient informed results are questions answered, patient suddenly significant chest pain Chest Pain MDM - MDM 51 female DF for evaluation chest pain patient significant chest pain today and anxiety and shortness of breath. Patient be admitted for chest pain observation secondary to strong heart history including family high blood pressure Critical Care Time Critical Care Time: Yes Total Critical Care Time: 31 Disposition Clinical Impression: Chest pain Disposition: ADMITTED IP TO THIS HOSP Condition: Undetermined Is patient prescribed a controlled substance at d/c from ED?: No
[2020-06-28 22:48] LABS: Basophils % (A) 1 %; Eosinophils # (A) 0.2 k/uL (0-0.7); Eosinophils % (A) 3 %; HCT 46.4 % (39.0-53.0); HGB 15.8 gm/dL (13.0-17.5); Lymphocytes # (A) 1.8 k/uL (1.0-4.8); Lymphocytes % (A) 28 %; MCH 28.3 pg (25.0-35.0); MCHC 34.1 g/dL (31.0-37.0); MCV 83.1 fL (80.0-100.0); Mean Platelet Volume 6.8; Monocytes # (A) 0.5 k/uL (0-1.0); Monocytes % (A) 8 %; Neutrophils # (A) 3.8 k/uL (1.3-7.7); Neutrophils % (A) 58 %; Platelet Count 196 k/uL (150-450); RBC 5.59 m/uL (4.30-5.90); RDW 15.4 % (11.5-15.5); WBC 6.5 k/uL (3.8-10.6)
[2020-06-28 22:59] LABS: ALT 28 U/L (4-49); AST 34 U/L (17-59); African American GFR (CKD) >90 (>60 ml/min/1.73 sqM); Albumin 4.1 g/dL (3.5-5.0); Alkaline Phosphatase 54 U/L (38-126); Anion Gap 10 mmol/L; Blood Urea Nitrogen 15 mg/dL (9-20); Calcium 9.2 mg/dL (8.4-10.2); Carbon Dioxide 24 mmol/L (22-30); Chloride 103 mmol/L (98-107); Creatine Kinase 224 U/L (55-170); Glucose 143 mg/dL (74-99); Magnesium 1.9 mg/dL (1.6-2.3); Non-African American GFR(CKD) >90 (>60 ml/min/1.73 sqM); Potassium 4.2 mmol/L (3.5-5.1); Sodium 137 mmol/L (137-145); Total Bilirubin 0.6 mg/dL (0.2-1.3); Total Protein 7.2 g/dL (6.3-8.2)
[2020-06-28 23:07] LABS: D-Dimer 0.27 mg/L FEU (<0.60); Partial Thromboplastin Time 23.5 sec (22.0-30.0); Prothrombin Time 10.3 sec (9.0-12.0)
[2020-06-28 23:12] LABS: Creatine Kinase MB 3.1 ng/mL (0.0-2.4); Troponin I <0.012 ng/mL (0.000-0.034)
[2020-06-28] MEDS ORDERED: FAMOTIDINE 20 MG/2 ML VIAL IV STA (23:40)
[2020-06-28] MEDS ORDERED: methylPREDNISolone SOD SUCCI 125 MG/2 ML VIAL IV STA (23:40)
[2020-06-28] MEDS ORDERED: diphenhydrAMINE 50 MG/ML 1 ML VIAL IVP STA (23:40)
--- NOTE | 2020-06-29 00:10 | CT ---
EXAMINATION TYPE: CT angio chest DATE OF EXAM: 06/29/2020 COMPARISON: None HISTORY: SOB/Chest pain CT DLP: 759.2 mGycm Automated exposure control for dose reduction was used. CONTRAST: Performed with IV Contrast, patient injected with 100 mL of Isovue 300. Images obtained from the thoracic inlet to the diaphragm with IV contrast and 3-D post processed imag es. The lung bases are clear. There is no pleural effusion. Heart size is normal. There is no pericardial effusion. There is fatty infiltration of the liver. There is no mediastinal adenopathy. There are no hilar masses. Thoracic aorta is intact. There is no aneurysm or dissection. There is normal contrast opacification of the pulmonary arteries. I see no fi lling defect. Thoracic spine is intact. IMPRESSION: No evidence of pulmonary embolism. Fatty infiltration of the liver. No sign of acute lung disease.
[2020-06-29] MEDS ORDERED: ASPIRIN 81 MG PO STA (00:47)
[2020-06-29] MEDS ORDERED: DIAZEPAM 5 MG/ML 2 ML INJ IVP STA (00:47)
[2020-06-29] MEDS ORDERED: HEPARIN SODIUM,PORCINE 5,000 UNIT/ML 1 ML VIAL IV ONE (00:47)
[2020-06-29] MEDS ORDERED: NITROGLYCERIN SL TABS 0.4 MG TAB SUBLINGUAL PRN (00:47)
[2020-06-29] MEDS ORDERED: HEPARIN SODIUM,PORCINE 5,000 UNIT/ML 1 ML VIAL IV PRN (00:47)
[2020-06-29] MEDS ORDERED: HYDROmorphone 1 MG/ML 1 ML SYRINGE IVP STA (00:47)
[2020-06-29] MEDS ORDERED: HYDROmorphone 1 MG/ML 1 ML SYRINGE IVP PRN (00:47)
[2020-06-29] MEDS ORDERED: HEPARIN SOD,PORK IN 0.45% NACL 25,000 UNIT in 0.45% NACL 1 250ML.BAG IV SCH (01:00)
[2020-06-29 04:28] LABS: Mean Platelet Volume 6.9; Platelet Count 177 k/uL (150-450)
[2020-06-29 07:18] VITALS: TEMP 98
[2020-06-29] MEDS ORDERED: METOPROLOL TARTRATE 25 MG TAB PO SCH (09:00)
[2020-06-29] MEDS ORDERED: ATORVASTATIN 80 MG TAB PO SCH (09:00)
[2020-06-29 09:30] LABS: Prothrombin Time 10.5 sec (9.0-12.0)
[2020-06-29] MEDS ORDERED: HEPARIN SODIUM 1,000 UN/ML (10ML VL) ONE (09:47)
[2020-06-29] MEDS ORDERED: LISINOPRIL-HCTZ 20-12.5 MG 1 EACH TAB PO SCH (10:30)
[2020-06-29 11:05] LABS: Cholesterol 158 mg/dL (<200); HDL Cholesterol 42 mg/dL (40-60); LDL Cholesterol,Calculated 69 mg/dL (0-99); Triglycerides 236 mg/dL (<150)
[2020-06-29 11:59] LABS: Cholesterol 173 mg/dL (<200); HDL Cholesterol 38 mg/dL (40-60); LDL Cholesterol,Calculated 79 mg/dL (0-99); Triglycerides 280 mg/dL (<150)
--- NOTE | 2020-06-29 12:06 | P.CRDCN ---
History of Present Illness History of present illness: HISTORY OF PRESENTING ILLNESS This is a pleasant 54-year-old male past medical history significant for hypertension and gastroesophageal reflux disease. He denies prior history of coronary artery disease and does not follow in the office with a venue coordinator. We have been asked to see in consultation for chest pain. He states yesterday he had an argument with his girlfriend and she told them that she was going to be breaking things off with him. He had an acute onset of pain in the middle of his back midway down described as a ripping sensation. He states it felt like something was clawing its way out of his rib cage. It then radiated around to his chest and felt very tight. He had associated shortness of breath, diaphoresis and he felt lightheaded. He lay down to rest in his chest pain subsided. He states he continued to have discomfort in his back. At the time of my exam he is resting comfortably in bed in no acute distress. He has ongoing discomfort in the back and no further episodes of chest pain. DIAGNOSTICS EKG reveals sinus mechanism [address] or T wave abnormalities noted. CTA is negative for pulmonary embolism or aortic dissection. Laboratory reviewed, cardiac enzymes negative 3, LDL 79, HDL 38, CBC unremarkable, d-dimer 0.27, sodium 137, potassium 4.2 and creatinine 0.85. Current cardiac medications include lisinopril/hydrochlorothiazide 20/12.5 mg daily and Toprol 25 mg daily. REVIEW OF SYSTEMS At the time of my exam: CONSTITUTIONAL: Denies fever or chills. CARDIOVASCULAR: Denies chest pain, shortness of breath, orthopnea, PND or palpitations. RESPIRATORY: Denies cough. GASTROINTESTINAL: Denies abdominal pain, diarrhea, constipation, nausea or vomiting. MUSCULOSKELETAL: Denies myalgias. NEUROLOGIC: Denies numbness, tingling, headacbe or weakness. ENDOCRINE: Denies fatigue, weight change, polydipsia or polyurina. GENITOURINARY: Denies burning, hematuria or urgency with micturation. HEMATOLOGIC: Denies history of anemia or bleeding. PHYSICAL EXAMINATION Blood pressure 141/89 heart rate 102 afebrile and maintaining oxygen saturation on room air. CONSTITUTIONAL: No apparent distress. HEENT: Head is normocephalic. Pupils are equal, round. Sclerae anicteric. Mucous membranes of the mouth are moist. No JVD. No carotid bruit. CHEST EXAMINATION: Lungs are clear to auscultation. No chest wall tenderness is noted on palpation or with deep breathing. HEART EXAMINATION: Regular rate and rhythm. S1, S2 heard. No murmurs, gallops or rub. ABDOMEN: Soft, nontender. Positive bowel sounds. EXTREMITIES: 2+ peripheral pulses, no lower extremity edema and no calf tenderness. NEUROLOGIC EXAMINATION: Patient is awake, alert and oriented x3. ASSESSMENT Chest pain Hypertension Aortic calcification Obesity, BMI 37 PLAN An acute coronary event has been ruled out. Recent echocardiogram reviewed, normal LV systolic function. Xray film reviewed with the patient. Calcifications noted in the aorta. Recommend crestor 20 mg daily. Stable for discharge from a cardiac perspective, follow up in the office with Dr. Moffett in 3 weeks for outpatient stress test. Thank you kindly for this consultation. Nurse Practitioner note has been reviewed, I agree with a documented findings and plan of care. Patient was seen and examined. Past Medical History Past Medical History: GERD/Reflux, Hypertension History of Any Multi-Drug Resistant Organisms: MRSA Date of last positivie culture/infection: left 1984 Past Surgical History: Cholecystectomy, Hernia Repair, Tonsillectomy Additional Past Surgical History / Comment(s): sinus surgery, tubes in ears Past Anesthesia/Blood Transfusion Reactions: Previous Problems w/ Anesthesia Past Psychological History: No Psychological Hx Reported Smoking Status: Never smoker Past Alcohol Use History: Occasional Past Drug Use History: None Reported - Past Family History Mother Family Medical History: Cancer, Diabetes Mellitus, Rheumatoid Arthritis (RA) Medications and Allergies Home Medications Medication Instructions Recorded Confirmed Type HYDROcodone/APAP 10-325MG [[place] 1 tab PO Q6H PRN 05/05/18 06/29/20 History 10-325] Esomeprazole Magnesium [NexIUM] 40 mg PO DAILY 10/07/19 06/29/20 History Lisinopril-Hctz 20-12.5 mg 2 tab PO DAILY 10/07/19 06/29/20 History [Zestoretic 20-12.5] Ascorbic Acid [Vitamin C] 1,000 mg PO DAILY 06/29/20 06/29/20 History Azelastine HCl 2 spray EA NOSTRIL DAILY 06/29/20 06/29/20 History Cyanocobalamin (Vitamin B-12) 1,000 mcg PO DAILY 06/29/20 06/29/20 History [Vitamin B-12] Desonide [DesOwen .05%] 1 applic TOPICAL BID 06/29/20 06/29/20 History Dextroamphetamine/Amphetamine 25 mg PO QAM 06/29/20 06/29/20 History [Adderall Xr] Fexofenadine HCl 180 mg PO DAILY 06/29/20 06/29/20 History Hydrocortisone Valerate 1 applic TOPICAL BID 06/29/20 06/29/20 History Metoprolol Succinate (ER) [Toprol 25 mg PO DAILY 06/29/20 06/29/20 History Xl] Multivit-Min/FA/Lycopen/Lutein 1 tab PO DAILY 06/29/20 06/29/20 History [Centrum Silver Men Tablet] Rosuvastatin Calcium [Crestor] 20 mg PO DAILY #90 tab 06/29/20 Rx Testosterone Cypionate 200 mg IM Q14D 06/29/20 06/29/20 History [Depo-Testosterone] metFORMIN HCL ER [Glucophage Xr] 500 mg PO DAILY 06/29/20 06/29/20 History Allergies Allergy/AdvReac Type Severity Reaction Status Date / Time ceftriaxone [From Rocephin] Allergy Rash/Hives Verified 06/29/20 08:14 Iodinated Contrast Media Allergy Anaphylaxis Verified 06/29/20 08:14 [Iodinated Contrast- Oral and IV Dye] levofloxacin [From Levaquin] Allergy Anaphylaxis Verified 06/29/20 08:14 Physical Exam Vitals: Vital Signs Temp Pulse Resp BP Pulse Ox 06/29/20 09:06 102 H 20 141/89 96 06/29/20 07:16 98 F 94 22 137/87 96 06/29/20 06:40 86 18 132/78 93 L 06/29/20 01:03 80 20 124/77 99 06/28/20 22:00 99.0 F 92 20 148/99 96 Intake and Output 06/28/20 06/29/20 06/29/20 22:59 06:59 14:59 Other: Weight 117.934 kg Results 06/29/20 03:52 06/28/20 22:34 Cardiac Enzymes 06/28/20 06/28/20 06/29/20 Range/Units 22:34 22:34 01:32 AST 34 (17-59) U/L CK-MB (CK-2) 3.1 H (0.0-2.4) ng/mL Troponin I <0.012 <0.012 (0.000-0.034) ng/mL 06/29/20 Range/Units 03:52 AST (17-59) U/L CK-MB (CK-2) (0.0-2.4) ng/mL Troponin I <0.012 (0.000-0.034) ng/mL Coagulation 06/28/20 06/29/20 Range/Units 22:34 08:45 PT 10.3 10.5 (9.0-12.0) sec APTT 23.5 25.0 (22.0-30.0) sec Lipids 06/29/20 06/29/20 Range/Units 06:00 11:30 Triglycerides 236 H 280 H (<150) mg/dL Cholesterol 158 173 (<200) mg/dL HDL Cholesterol 42 38 L (40-60) mg/dL CBC 06/28/20 06/29/20 Range/Units 22:34 03:52 WBC 6.5 (3.8-10.6) k/uL RBC 5.59 (4.30-5.90) m/uL Hgb 15.8 (13.0-17.5) gm/dL Hct 46.4 (39.0-53.0) % Plt Count 196 177 (150-450) k/uL Comprehensive Metabolic Panel 06/28/20 Range/Units 22:34 Sodium 137 (137-145) mmol/L Potassium 4.2 (3.5-5.1) mmol/L Chloride 103 (98-107) mmol/L Carbon Dioxide 24 (22-30) mmol/L BUN 15 (9-20) mg/dL Creatinine 0.85 (0.66-1.25) mg/dL Glucose 143 H (74-99) mg/dL Calcium 9.2 (8.4-10.2) mg/dL AST 34 (17-59) U/L ALT 28 (4-49) U/L Alkaline Phosphatase 54 (38-126) U/L Total Protein 7.2 (6.3-8.2) g/dL Albumin 4.1 (3.5-5.0) g/dL Current Medications Generic Name Dose Route Start Last Admin Trade Name Freq PRN Reason Stop Dose Admin Aspirin 81 mg 02/16/21 09:00 Aspirin 81 Mg PO DAILY [facility] Atorvastatin Calcium 80 mg 06/29/20 09:00 06/29/20 09:04 Atorvastatin 80 Mg Tab PO 80 mg DAILY [facility] Administration Lisinopril/HCTZ 2 each 06/29/20 10:30 Lisinopril-Hctz 20-12.5 Mg 1 Each Tab PO DAILY [facility] Heparin Sodium (Porcine) 0 unit 06/29/20 00:47 Heparin Sodium,Porcine 5,000 Unit/Ml 1 Ml Vial IV Q6HR PRN Low PTT Protocol Hydromorphone HCl 1 mg 06/29/20 00:47 06/29/20 08:01 Hydromorphone 1 Mg/Ml 1 Ml Syringe IVP 1 mg Q4HR PRN Administration Pain Nitroglycerin 0.4 mg 06/29/20 00:47 Nitroglycerin Sl Tabs 0.4 Mg Tab SUBLINGUAL Q5M PRN Chest Pain Intake and Output 06/28/20 06/29/20 06/29/20 22:59 06:59 14:59 Other: Weight 117.934 kg 06/29/20 03:52 06/28/20 22:34
[2020-06-29 16:23] VITALS: BP 154/90; PULSE 90; RESP 16
[2020-06-30] MEDS ORDERED: ASPIRIN 81 MG PO SCH (09:00)
[2020-06-30] MEDS ORDERED: ASPIRIN 325 MG TAB PO SCH (09:00)
--- NOTE | 2020-06-30 15:08 | P.HPIM ---
History of Present Illness H&P Date: 06/29/20 Patient was discharged even before I saw him Past Medical History Past Medical History: GERD/Reflux, Hypertension History of Any Multi-Drug Resistant Organisms: MRSA Date of last positivie culture/infection: left 1984 Past Surgical History: Cholecystectomy, Hernia Repair, Tonsillectomy Additional Past Surgical History / Comment(s): sinus surgery, tubes in ears Past Anesthesia/Blood Transfusion Reactions: Previous Problems w/ Anesthesia Past Psychological History: No Psychological Hx Reported Smoking Status: Never smoker Past Alcohol Use History: Occasional Past Drug Use History: None Reported - Past Family History Mother Family Medical History: Cancer, Diabetes Mellitus, Rheumatoid Arthritis (RA) Medications and Allergies Home Medications Medication Instructions Recorded Confirmed Type HYDROcodone/APAP 10-325MG [[place] 1 tab PO Q6H PRN 05/05/18 06/29/20 History 10-325] Esomeprazole Magnesium [NexIUM] 40 mg PO DAILY 10/07/19 06/29/20 History Lisinopril-Hctz 20-12.5 mg 2 tab PO DAILY 10/07/19 06/29/20 History [Zestoretic 20-12.5] Ascorbic Acid [Vitamin C] 1,000 mg PO DAILY 06/29/20 06/29/20 History Azelastine HCl 2 spray EA NOSTRIL DAILY 06/29/20 06/29/20 History Cyanocobalamin (Vitamin B-12) 1,000 mcg PO DAILY 06/29/20 06/29/20 History [Vitamin B-12] Desonide [DesOwen .05%] 1 applic TOPICAL BID 06/29/20 06/29/20 History Dextroamphetamine/Amphetamine 25 mg PO QAM 06/29/20 06/29/20 History [Adderall Xr] Fexofenadine HCl 180 mg PO DAILY 06/29/20 06/29/20 History Hydrocortisone Valerate 1 applic TOPICAL BID 06/29/20 06/29/20 History Metoprolol Succinate (ER) [Toprol 25 mg PO DAILY 06/29/20 06/29/20 History Xl] Multivit-Min/FA/Lycopen/Lutein 1 tab PO DAILY 06/29/20 06/29/20 History [Centrum Silver Men Tablet] Rosuvastatin Calcium [Crestor] 20 mg PO DAILY #90 tab 06/29/20 Rx Testosterone Cypionate 200 mg IM Q14D 06/29/20 06/29/20 History [Depo-Testosterone] metFORMIN HCL ER [Glucophage Xr] 500 mg PO DAILY 06/29/20 06/29/20 History Allergies Allergy/AdvReac Type Severity Reaction Status Date / Time ceftriaxone [From Rocephin] Allergy Rash/Hives Verified 06/29/20 08:14 Iodinated Contrast Media Allergy Anaphylaxis Verified 06/29/20 08:14 [Iodinated Contrast- Oral and IV Dye] levofloxacin [From Levaquin] Allergy Anaphylaxis Verified 06/29/20 08:14 Results CBC & Chem 7: 06/29/20 03:52 06/28/20 22:34
--- NOTE | 2020-06-30 15:08 | P.DS ---
Providers Date of admission: 06/29/20 00:47 Attending physician: Yaritza Fortune Consults: 06/29/20 00:47 Consult Physician Urgent Consulting Provider: Bernie Moss Consult Reason/Comments: cp Do you want consulting provider notified?: Yes Primary care physician: [facility] Course: Patient was discharged even before I saw him Patient Condition at Discharge: Undetermined Plan - Discharge Summary New Discharge Prescriptions: New Rosuvastatin Calcium [Crestor] 20 mg PO DAILY #90 tab No Action HYDROcodone/APAP 10-325MG [[place] 10-325] 1 tab PO Q6H PRN PRN Reason: Pain Lisinopril-Hctz 20-12.5 mg [Zestoretic 20-12.5] 2 tab PO DAILY Esomeprazole Magnesium [NexIUM] 40 mg PO DAILY Multivit-Min/FA/Lycopen/Lutein [Centrum Silver Men Tablet] 1 tab PO DAILY Cyanocobalamin (Vitamin B-12) [Vitamin B-12] 1,000 mcg PO DAILY metFORMIN HCL ER [Glucophage Xr] 500 mg PO DAILY Testosterone Cypionate [Depo-Testosterone] 200 mg IM Q14D Metoprolol Succinate (ER) [Toprol Xl] 25 mg PO DAILY Hydrocortisone Valerate 1 applic TOPICAL BID Fexofenadine HCl 180 mg PO DAILY Dextroamphetamine/Amphetamine [Adderall Xr] 25 mg PO QAM Desonide [DesOwen .05%] 1 applic TOPICAL BID Azelastine HCl 2 spray EA NOSTRIL DAILY Ascorbic Acid [Vitamin C] 1,000 mg PO DAILY Discharge Medication List HYDROcodone/APAP 10-325MG [[place] 10-325] 1 tab PO Q6H PRN 05/05/18 [History] Esomeprazole Magnesium [NexIUM] 40 mg PO DAILY 10/07/19 [History] Lisinopril-Hctz 20-12.5 mg [Zestoretic 20-12.5] 2 tab PO DAILY 10/07/19 [History] Ascorbic Acid [Vitamin C] 1,000 mg PO DAILY 06/29/20 [History] Azelastine HCl 2 spray EA NOSTRIL DAILY 06/29/20 [History] Cyanocobalamin (Vitamin B-12) [Vitamin B-12] 1,000 mcg PO DAILY 06/29/20 [History] Desonide [DesOwen .05%] 1 applic TOPICAL BID 06/29/20 [History] Dextroamphetamine/Amphetamine [Adderall Xr] 25 mg PO QAM 06/29/20 [History] Fexofenadine HCl 180 mg PO DAILY 06/29/20 [History] Hydrocortisone Valerate 1 applic TOPICAL BID 06/29/20 [History] Metoprolol Succinate (ER) [Toprol Xl] 25 mg PO DAILY 06/29/20 [History] Multivit-Min/FA/Lycopen/Lutein [Centrum Silver Men Tablet] 1 tab PO DAILY 06/29/20 [History] Rosuvastatin Calcium [Crestor] 20 mg PO DAILY #90 tab 06/29/20 [Rx] Testosterone Cypionate [Depo-Testosterone] 200 mg IM Q14D 06/29/20 [History] metFORMIN HCL ER [Glucophage Xr] 500 mg PO DAILY 06/29/20 [History] Follow up Appointment(s)/Referral(s): Lloyd Moffett MD [STAFF PHYSICIAN] - 3 Weeks (Dahlia @ Dr. Moffett office will call you with appointment date/time.) Chuyita Pepper MD [Primary Care Provider] - 1-2 days Patient Instructions/Handouts: Chest Pain (DC) Discharge Disposition: HOME SELF-CARE
== END 2020-06-29 11:53 | disposition home or self-care (01) ==
LOC: EC 21:57 → 6NMEDSUR 06-29 00:47
PROVIDERS: ADMIT Hospitalist; ATTEND Hospitalist
DX: R07.89 Other chest pain (principal); I10 Essential (primary) hypertension; I51.9 Heart disease, unspecified; Z79.891 Long term (current) use of opiate analgesic; Z79.899 Other long term (current) drug therapy; Z88.1 Allergy status to other antibiotic agents; Z91.041 Radiographic dye allergy status; K21.9 Gastro-esophageal reflux disease without esophagitis; Z86.14 Personal history of Methicillin resistant Staphylococcus aureus infection; Z90.49 Acquired absence of other specified parts of digestive tract; Z98.890 Other specified postprocedural states; Z90.89 Acquired absence of other organs; Z83.3 Family history of diabetes mellitus; Z82.61 Family history of arthritis; Z80.9 Family history of malignant neoplasm, unspecified; Z79.84 Long term (current) use of oral hypoglycemic drugs
CPT/HCPCS: 96376; 96365; 96366; 96375 ×2; 99291; 36415; 93005 ×2; 85379; 83880; 80061; 80053; 82550; 82553; 83735; 84484 ×2; 85025; 85049; 85610 ×2; 85730 ×2; 87635; 71275; G0378; J2060; J1200; J1644 ×2; J2930; J3360; J1170; Q9967

== ENCOUNTER 2020-07-13 11:27 | Inpatient (IN) | payer BC ==
[2020-07-13] MEDS ORDERED: HYDROcodone/APAP 10-325MG 1 EACH TAB PO ONE (11:55)
[2020-07-13] MEDS ORDERED: ACETAMINOPHEN TAB 325 MG TAB PO STA (11:55)
[2020-07-13] MEDS ORDERED: ACETAMINOPHEN TAB 325 MG TAB PO PRN (11:58)
[2020-07-13] MEDS ORDERED: ALBUTEROL HFA INHALER INHALATION STA (11:58)
[2020-07-13] MEDS ORDERED: ALBUTEROL HFA INHALER INHALATION PRN (11:58)
--- NOTE | 2020-07-13 12:02 | ED ---
General Adult HPI - General Chief complaint: Shortness of Breath Stated complaint: Fever Time Seen by Provider: 07/13/20 11:31 Source: patient, EMS, RN notes reviewed Mode of arrival: EMS Limitations: no limitations - History of Present Illness Initial comments: Patient is a pleasant 55-year-old male presenting to the emergency department complaining of fatigue and dyspnea. Onset of symptoms was close to a couple of weeks ago. Patient has occasional cough. Patient does have loss of taste and loss of smell. Patient was tested negative for Crohn of virus over a week ago. Patient has mild nausea with rare vomiting. Patient also has occasional mild diarrhea. Patient has fever or chills and myalgias. - Related Data Home Medications Medication Instructions Recorded Confirmed HYDROcodone/APAP 10-325MG [Kiln 1 tab PO Q6H PRN 05/05/18 07/13/20 10-325] Esomeprazole Magnesium [NexIUM] 40 mg PO DAILY 10/07/19 07/13/20 Lisinopril-Hctz 20-12.5 mg 2 tab PO DAILY 10/07/19 07/13/20 [Zestoretic 20-12.5] Ascorbic Acid [Vitamin C] 1,000 mg PO DAILY 06/29/20 07/13/20 Azelastine HCl 2 spray EA NOSTRIL DAILY 06/29/20 07/13/20 Cyanocobalamin (Vitamin B-12) 1,000 mcg PO DAILY 06/29/20 07/13/20 [Vitamin B-12] Desonide [DesOwen .05%] 1 applic TOPICAL BID 06/29/20 07/13/20 Dextroamphetamine/Amphetamine 25 mg PO QAM 06/29/20 07/13/20 [Adderall Xr] Fexofenadine HCl 180 mg PO DAILY 06/29/20 07/13/20 Hydrocortisone Valerate 1 applic TOPICAL BID 06/29/20 07/13/20 Metoprolol Succinate (ER) [Toprol 25 mg PO DAILY 06/29/20 07/13/20 Xl] Multivit-Min/FA/Lycopen/Lutein 1 tab PO DAILY 06/29/20 07/13/20 [Centrum Silver Men Tablet] Testosterone Cypionate 200 mg IM Q14D 06/29/20 07/13/20 [Depo-Testosterone] metFORMIN HCL ER [Glucophage Xr] 500 mg PO DAILY 06/29/20 07/13/20 Allergies Allergy/AdvReac Type Severity Reaction Status Date / Time ceftriaxone [From Rocephin] Allergy Rash/Hives Verified 07/13/20 13:35 Iodinated Contrast Media Allergy Anaphylaxis Verified 07/13/20 13:35 [Iodinated Contrast- Oral and IV Dye] levofloxacin [From Levaquin] Allergy Anaphylaxis Verified 07/13/20 13:35 rosuvastatin [From Crestor] AdvReac "KIDNEY Verified 07/13/20 13:36 PAIN" Review of Systems ROS Statement: Those systems with pertinent positive or pertinent negative responses have been documented in the HPI. ROS Other: All systems not noted in ROS Statement are negative. Constitutional: Reports: fever, chills Eyes: Denies: eye pain ENT: Denies: ear pain Respiratory: Reports: cough, dyspnea Cardiovascular: Denies: chest pain Endocrine: Reports: fatigue Gastrointestinal: Denies: abdominal pain Genitourinary: Denies: dysuria Musculoskeletal: Denies: back pain Skin: Denies: rash Neurological: Denies: confusion Past Medical History Past Medical History: GERD/Reflux, Hypertension History of Any Multi-Drug Resistant Organisms: MRSA Date of last positivie culture/infection: left 1984 Past Surgical History: Cholecystectomy, Hernia Repair, Tonsillectomy Additional Past Surgical History / Comment(s): sinus surgery, tubes in ears Past Anesthesia/Blood Transfusion Reactions: Previous Problems w/ Anesthesia Past Psychological History: No Psychological Hx Reported Smoking Status: Never smoker Past Alcohol Use History: Occasional Past Drug Use History: None Reported - Past Family History Mother Family Medical History: Cancer, Diabetes Mellitus, Rheumatoid Arthritis (RA) General Exam Limitations: no limitations General appearance: alert, in no apparent distress Head exam: Present: normocephalic Eye exam: Present: normal appearance Neck exam: Present: normal inspection Respiratory exam: Present: normal lung sounds bilaterally Cardiovascular Exam: Present: regular rate, normal rhythm GI/Abdominal exam: Present: soft. Absent: tenderness Extremities exam: Present: normal inspection. Absent: pedal edema, calf tenderness Neurological exam: Present: alert Psychiatric exam: Present: normal affect, normal mood Skin exam: Present: normal color Course Vital Signs 07/13/20 07/13/20 11:33 13:00 Temperature 103.0 F H 100.2 F H Pulse Rate 99 Respiratory 20 Rate Blood Pressure 135/92 O2 Sat by Pulse 96 Oximetry EKG Findings - EKG Comments: EKG Findings:: Sinus tachycardia 11. WA 144. QRS 88. QT 324. QTC 420. Left axis. Normal QRS. No acute ST change. Medical Decision Making - Medical Decision Making Patient reevaluated and updated. Patient had pulse ox 90% on room air. Pulse ox 94% on 2 L nasal cannula. Patient updated on results and plan. Case discussed in detail with Dr. Sue, who will admit covering hospital call. - Lab Data Result diagrams: 07/13/20 12:09 07/13/20 12:09 Lab Results 07/13/20 07/13/20 07/13/20 Range/Units 12:09 12:09 12:09 WBC 3.2 L (3.8-10.6) k/uL RBC 5.55 (4.30-5.90) m/uL Hgb 15.8 (13.0-17.5) gm/dL Hct 47.0 (39.0-53.0) % MCV 84.7 (80.0-100.0) fL MCH 28.4 (25.0-35.0) pg MCHC 33.5 (31.0-37.0) g/dL RDW 14.5 (11.5-15.5) % Plt Count 132 L (150-450) k/uL MPV 6.9 Neutrophils % 70 % Lymphocytes % 22 % Monocytes % 6 % Eosinophils % 1 % Basophils % 1 % Neutrophils # 2.3 (1.3-7.7) k/uL Lymphocytes # 0.7 L (1.0-4.8) k/uL Monocytes # 0.2 (0-1.0) k/uL Eosinophils # 0.0 (0-0.7) k/uL Basophils # 0.0 (0-0.2) k/uL PT 9.9 (9.0-12.0) sec INR 0.9 (<1.2) APTT 25.5 (22.0-30.0) sec Sodium 135 L (137-145) mmol/L Potassium 4.4 (3.5-5.1) mmol/L Chloride 100 (98-107) mmol/L Carbon Dioxide 24 (22-30) mmol/L Anion Gap 11 mmol/L BUN 14 (9-20) mg/dL Creatinine 0.78 (0.66-1.25) mg/dL Est GFR (CKD-EPI)AfAm >90 (>60 ml/min/1.73 sqM) Est GFR (CKD-EPI)NonAf >90 (>60 ml/min/1.73 sqM) Glucose 149 H (74-99) mg/dL Plasma Lactic Acid Raji (0.7-2.0) mmol/L Calcium 8.3 L (8.4-10.2) mg/dL Magnesium 2.0 (1.6-2.3) mg/dL Total Bilirubin 0.6 (0.2-1.3) mg/dL AST 51 (17-59) U/L ALT 31 (4-49) U/L Alkaline Phosphatase 74 (38-126) U/L Lactate Dehydrogenase 619 H (313-618) U/L C-Reactive Protein 44.6 H (<10.0) mg/L Total Protein 6.9 (6.3-8.2) g/dL Albumin 3.9 (3.5-5.0) g/dL Coronavirus (PCR) (Not Detectd) 07/13/20 07/13/20 Range/Units 12:09 12:09 WBC (3.8-10.6) k/uL RBC (4.30-5.90) m/uL Hgb (13.0-17.5) gm/dL Hct (39.0-53.0) % MCV (80.0-100.0) fL MCH (25.0-35.0) pg MCHC (31.0-37.0) g/dL RDW (11.5-15.5) % Plt Count (150-450) k/uL MPV Neutrophils % % Lymphocytes % % Monocytes % % Eosinophils % % Basophils % % Neutrophils # (1.3-7.7) k/uL Lymphocytes # (1.0-4.8) k/uL Monocytes # (0-1.0) k/uL Eosinophils # (0-0.7) k/uL Basophils # (0-0.2) k/uL PT (9.0-12.0) sec INR (<1.2) APTT (22.0-30.0) sec Sodium (137-145) mmol/L Potassium (3.5-5.1) mmol/L Chloride (98-107) mmol/L Carbon Dioxide (22-30) mmol/L Anion Gap mmol/L BUN (9-20) mg/dL Creatinine (0.66-1.25) mg/dL Est GFR (CKD-EPI)AfAm (>60 ml/min/1.73 sqM) Est GFR (CKD-EPI)NonAf (>60 ml/min/1.73 sqM) Glucose (74-99) mg/dL Plasma Lactic Acid Raji 1.5 (0.7-2.0) mmol/L Calcium (8.4-10.2) mg/dL Magnesium (1.6-2.3) mg/dL Total Bilirubin (0.2-1.3) mg/dL AST (17-59) U/L ALT (4-49) U/L Alkaline Phosphatase (38-126) U/L Lactate Dehydrogenase (313-618) U/L C-Reactive Protein (<10.0) mg/L Total Protein (6.3-8.2) g/dL Albumin (3.5-5.0) g/dL Coronavirus (PCR) Detected A (Not Detectd) - Radiology Data Radiology results: image reviewed ( with right upper lobe infiltrate) Disposition Clinical Impression: Pneumonia due to COVID-19 virus Disposition: ADMITTED IP TO THIS HOSP Is patient prescribed a controlled substance at d/c from ED?: No Referrals: Chuyita Pepper MD [Primary Care Provider] - 1-2 days Decision Time: 13:55
[2020-07-13 12:21] LABS: Basophils % (A) 1 %; Eosinophils % (A) 1 %; HGB 15.8 gm/dL (13.0-17.5); Lymphocytes # (A) 0.7 k/uL (1.0-4.8); Lymphocytes % (A) 22 %; MCH 28.4 pg (25.0-35.0); MCHC 33.5 g/dL (31.0-37.0); MCV 84.7 fL (80.0-100.0); Mean Platelet Volume 6.9; Monocytes # (A) 0.2 k/uL (0-1.0); Monocytes % (A) 6 %; Neutrophils # (A) 2.3 k/uL (1.3-7.7); Neutrophils % (A) 70 %; Platelet Count 132 k/uL (150-450); RBC 5.55 m/uL (4.30-5.90); RDW 14.5 % (11.5-15.5); WBC 3.2 k/uL (3.8-10.6)
[2020-07-13 12:29] LABS: INR 0.9 (<1.2); Partial Thromboplastin Time 25.5 sec (22.0-30.0); Prothrombin Time 9.9 sec (9.0-12.0)
--- NOTE | 2020-07-13 12:31 | XR ---
EXAMINATION TYPE: XR chest 1V portable DATE OF EXAM: 07/13/2020 COMPARISON: Chest x-ray 10/07/2019 HISTORY: Shortness of breath, suspected Covid 19 pneumonia, fever TECHNIQUE: Single frontal view of the chest is obtained. FINDINGS: Right hemidiaphragm remains elevated, there is patchy density peripherally in the right up per lobe and left lung. Bandlike areas of increased attenuation are present in the right midlung. The re is no evident pneumothorax or pleural effusion. Cardiac mediastinal silhouette is stable. Exam ekaterina ewhat limited technically. IMPRESSION: Findings may be indicative of underlying pneumonia. Follow-up PA and lateral chest x-ray suggested.
[2020-07-13 12:44] LABS: ALT 31 U/L (4-49); AST 51 U/L (17-59); African American GFR (CKD) >90 (>60 ml/min/1.73 sqM); Albumin 3.9 g/dL (3.5-5.0); Alkaline Phosphatase 74 U/L (38-126); Anion Gap 11 mmol/L; Blood Urea Nitrogen 14 mg/dL (9-20); C Reactive Protein 44.6 mg/L (<10.0); Calcium 8.3 mg/dL (8.4-10.2); Carbon Dioxide 24 mmol/L (22-30); Chloride 100 mmol/L (98-107); Glucose 149 mg/dL (74-99); LDH 619 U/L (313-618); Non-African American GFR(CKD) >90 (>60 ml/min/1.73 sqM); Potassium 4.4 mmol/L (3.5-5.1); Sodium 135 mmol/L (137-145); Total Bilirubin 0.6 mg/dL (0.2-1.3); Total Protein 6.9 g/dL (6.3-8.2)
[2020-07-13] MEDS ORDERED: NALOXONE 0.4 MG/ML 1 ML VIAL IV PRN (13:56)
[2020-07-13] MEDS ORDERED: ASCORBIC ACID 500 MG TAB PO SCH (14:00)
[2020-07-13] MEDS: SODIUM CHLORIDE 0.9% 1,000 ML IV SCH (14:26)
[2020-07-13] MEDS: CHOLECALCIFEROL 25 MCG (1000 IU) TABLET PO SCH (14:27)
[2020-07-13] MEDS: ZINC SULFATE 220 MG CAP PO SCH (14:27)
[2020-07-13] MEDS: DEXAMETHASONE SOD PHOSPHATE 10 MG/ML 1 ML VIAL IV SCH (14:27)
[2020-07-13] MEDS: ENOXAPARIN 40 MG/0.4 ML SYRINGE SQ SCH (14:27)
[2020-07-13] MEDS: ALBUTEROL HFA INHALER INHALATION SCH ×2 (15:44→20:43)
[2020-07-13] MEDS: HYDROcodone/APAP 10-325MG 1 EACH TAB PO PRN (18:35)
[2020-07-13 19:04] LABS: African American GFR (CKD) >90 (>60 ml/min/1.73 sqM); Anion Gap 10 mmol/L; Blood Urea Nitrogen 16 mg/dL (9-20); Calcium 8.4 mg/dL (8.4-10.2); Carbon Dioxide 27 mmol/L (22-30); Chloride 98 mmol/L (98-107); Glucose 257 mg/dL (74-99); Non-African American GFR(CKD) >90 (>60 ml/min/1.73 sqM); Potassium 4.6 mmol/L (3.5-5.1); Sodium 135 mmol/L (137-145)
[2020-07-13] MEDS: KETOROLAC 15 MG/ML 1 ML VIAL IVP SCH (20:08)
[2020-07-13] MEDS: CYCLOBENZAPRINE 5 MG TAB PO SCH ×2 (20:09→23:09)
[2020-07-13] MEDS: HYDROmorphone 0.5 MG/0.5 ML SYRINGE IVP PRN (20:09)
[2020-07-13 22:00] LABS: Glucose,Whole Blood 214 mg/dL (75-99)
[2020-07-13] MEDS: FAMOTIDINE 20 MG TAB PO SCH (22:04)
[2020-07-13] MEDS: INSULIN ASPART (NovoLOG) 100 UNIT/ML VIAL SQ SCH (22:04)
[2020-07-13 23:16] LABS: Ferritin 721.4 ng/mL (22.0-322.0)
[2020-07-14] MEDS: KETOROLAC 15 MG/ML 1 ML VIAL IVP SCH ×4 (01:16→17:41)
[2020-07-14] MEDS: HYDROcodone/APAP 10-325MG 1 EACH TAB PO PRN ×3 (03:06→20:21)
[2020-07-14] MEDS: HYDROmorphone 0.5 MG/0.5 ML SYRINGE IVP PRN ×4 (03:18→21:15)
[2020-07-14] MEDS: ALBUTEROL HFA INHALER INHALATION SCH ×4 (03:27→20:03)
[2020-07-14 03:49] LABS: Appearance,Urine Clear (Clear); Bilirubin,Urine Negative (Negative); Blood,Urine Negative (Negative); Color,Urine Yellow; Glucose,Urine (UA) 3+ (Negative); Hyaline Casts,Urine 35 /lpf (0-2); Ketones,Urine Negative (Negative); Leukocyte Esterase,Urine Negative (Negative); Mucus,Urine Many /hpf; Nitrite,Urine Negative (Negative); Protein,Urine 1+ (Negative); RBC,Urine 1 /hpf (0-5); Specific Gravity,Urine 1.037 (1.001-1.035); Squamous Epithelial Cell,Urine 1 /hpf (0-4); Urobilinogen,Urine <2.0 mg/dL (<2.0); WBC,Urine 2 /hpf (0-5)
[2020-07-14 03:58] LABS: Amphetamine Screen,Urine Detected (NotDetected); Benzodiazepines Screen,Urine Detected (NotDetected); Cocaine Screen,Urine Not Detected (NotDetected); Opiate Screen,Urine Detected (NotDetected); Phencyclidine Screen,Urine Not Detected (NotDetected); Urn Cannabinoid Scrn Not Detected (NotDetected)
[2020-07-14 03:59] LABS: Barbiturate Screen,Urine Not Detected (NotDetected); Methadone Screen, Urine Not Detected (NotDetected); Oxycodone Screen, Urine Not Detected (NotDetected); Tricyclic Antidepressant,Urine Not Detected (NotDetected)
[2020-07-14 08:01] LABS: Glucose,Whole Blood 123 mg/dL (75-99)
[2020-07-14] MEDS: INSULIN ASPART (NovoLOG) 100 UNIT/ML VIAL SQ SCH ×4 (08:06→20:22)
[2020-07-14] MEDS: ENOXAPARIN 40 MG/0.4 ML SYRINGE SQ SCH (08:22)
[2020-07-14] MEDS: PANTOPRAZOLE 40 MG TABLET PO SCH (08:23)
[2020-07-14] MEDS: LORATADINE 10 MG TAB PO SCH (08:23)
[2020-07-14] MEDS: CHOLECALCIFEROL 25 MCG (1000 IU) TABLET PO SCH (08:23)
[2020-07-14] MEDS: FAMOTIDINE 20 MG TAB PO SCH ×2 (08:23→20:22)
[2020-07-14] MEDS: ASCORBIC ACID 500 MG TAB PO SCH (08:23)
[2020-07-14] MEDS: CYCLOBENZAPRINE 5 MG TAB PO SCH ×4 (08:23→20:21)
[2020-07-14] MEDS: METOPROLOL SUCCINATE (ER) 25 MG TAB.ER.24H PO SCH (08:23)
[2020-07-14] MEDS: MULTIVITAMINS, THERA 1 EACH TAB PO SCH (08:23)
[2020-07-14] MEDS: CYANOCOBALAMIN 500 MCG TAB PO SCH (08:23)
[2020-07-14] MEDS: ZINC SULFATE 220 MG CAP PO SCH (08:23)
[2020-07-14] MEDS: DEXAMETHASONE SOD PHOSPHATE 10 MG/ML 1 ML VIAL IV SCH (08:24)
[2020-07-14 09:17] LABS: Basophils # (A) 0.01 X 10*3/uL (0.00-0.10); Basophils % (A) 0.5 %; Eosinophils # (A) 0 X 10*3/uL (0.04-0.35); Eosinophils % (A) 0 %; HCT 45.7 % (39.6-50.0); HGB 14.3 g/dL (13.0-17.0); Lymphocytes # (A) 0.46 X 10*3/uL (0.90-5.00); Lymphocytes % (A) 22.8 %; MCH 27.5 pg (27.0-32.0); MCHC 31.3 g/dL (32.0-37.0); MCV 87.9 fL (80.0-97.0); Mean Platelet Volume 9.6 fL (9.5-12.2); Monocytes # (A) 0.29 X 10*3/uL (0.20-1.00); Monocytes % (A) 14.4 %; Neutrophils # (A) 1.21 X 10*3/uL (1.80-7.70); Neutrophils % (A) 59.8 %; Platelet Count 162 X 10*3/uL (140-440); RDW 14.1 % (11.5-14.5); WBC 2.02 X 10*3/uL (4.50-10.00)
[2020-07-14 10:39] LABS: African American GFR (CKD) 117.4 (60.0-200.0); Anion Gap 8.5 mmol/L (4.00-12.00); BUN/Creat Ratio 22.5 Ratio (12.00-20.00); C Reactive Protein 5.4 mg/dL (0.0-0.8); Calcium 8.4 mg/dL (8.7-10.3); Carbon Dioxide 28.5 mmol/L (21.6-31.8); Ferritin 617.7 ng/mL (22.0-322.0); Non-African American GFR(CKD) 101.3 (60.0-200.0); Potassium 4.9 mmol/L (3.5-5.5)
[2020-07-14 11:23] LABS: Glucose,Whole Blood 131 mg/dL (75-99)
[2020-07-14] MEDS ORDERED: FAMOTIDINE 20 MG/2 ML VIAL IV STA (11:24)
[2020-07-14] MEDS ORDERED: methylPREDNISolone SOD SUCCI 125 MG/2 ML VIAL IV STA (11:24)
[2020-07-14] MEDS ORDERED: diphenhydrAMINE 50 MG/ML 1 ML VIAL IVP STA (11:24)
[2020-07-14] MEDS: THIAMINE 100 MG TAB PO SCH (11:37)
[2020-07-14] MEDS: FOLIC ACID 1 MG TAB PO SCH (11:37)
[2020-07-14] MEDS: SODIUM CHLORIDE 0.9% 1,000 ML IV SCH (11:37)
--- NOTE | 2020-07-14 12:34 | P.CNPUL ---
History of Present Illness Consult date: 07/14/20 Reason for consult: dyspnea History of present illness: 5-year-old male patient came into the ED complaining of shortness of breath and extreme fatigue. His symptoms started approximately 3-4 days ago and he started having some increased shortness of breath and cough and following that he lost his sense of taste and smell. Patient was tested negative for COVID approximately a week ago. The patient had some mild nausea and diarrhea in denice tion. He also had fever and chills and myalgias. In the ED, the patient wasn't was at 2.02 with a hemoglobin of 14.3 and platelets of 162, his lymphocyte counts were low at 0.46, d-dimer was at 0.32, his ferritin was 617, CRP is at 5.4 and LDH was not measured. His lactic acid was at 1.6. BUN and creatinine are both within normal limits. Chest x-ray is showing smaller lung volumes and peripheral pulmonary infiltrates bilaterally more so on the right. The patient is currently on oxygen at room air with a pulse ox of 94-97%. EKG showing sinus tachycardia. Note that the patient was in the emergency department on 06/28/2020 for some chest discomfort and chest pain. At that time he was tested for Covid 19 came back negative and he was diagnosed having a panic attack and the patient was able to have a nonspecific atypical chest pain and he was discharged home. The CAT scan of the chest was done at that time showed no acute abnormalities and this was a CT angios protocol that was done on 06/29/2020. He felt fine after that his symptoms got worse approximately a week ago as discussed above. Review of Systems Constitutional: Reports weakness Eyes: denies as per HPI, denies blurred vision, denies bulging eye, denies decreased vision, denies diplopia, denies discharge, denies dry eye, denies irritation, denies itching, denies pain, denies photophobia, denies loss of peripheral vision, denies loss of vision, denies tunnel vision/blind spots Ears: deny: decreased hearing, ear discharge, earache, tinnitus Ears, nose, mouth and throat: Denies headache, Denies sore throat Breasts: absent: as per HPI, gynecomastia Cardiovascular: Reports dyspnea on exertion Respiratory: Reports cough, Reports dyspnea Gastrointestinal: Reports diarrhea, Reports nausea, Reports vomiting Genitourinary: Reports as per HPI Musculoskeletal: Reports as per HPI, Reports muscle weakness Musculoskeletal: absent: ankle pain, ankle stiffness, ankle swelling Integumentary: Reports as per HPI Psychiatric: Reports as per HPI Endocrine: Reports as per HPI Allergic/Immunologic: Reports as per HPI Past Medical History Past Medical History: Diabetes Mellitus, GERD/Reflux, Hypertension History of Any Multi-Drug Resistant Organisms: MRSA Date of last positivie culture/infection: left 1984 MDRO Source:: ear Past Surgical History: Cholecystectomy, Hernia Repair, Tonsillectomy Additional Past Surgical History / Comment(s): sinus surgery, tubes in ears Past Anesthesia/Blood Transfusion Reactions: Previous Problems w/ Anesthesia Past Psychological History: No Psychological Hx Reported Smoking Status: Never smoker Past Alcohol Use History: Occasional Past Drug Use History: None Reported - Past Family History Mother Family Medical History: Cancer, Diabetes Mellitus, Rheumatoid Arthritis (RA) Medications and Allergies Home Medications Medication Instructions Recorded Confirmed Type HYDROcodone/APAP 10-325MG [Andes 1 tab PO Q6H PRN 05/05/18 07/13/20 History 10-325] Esomeprazole Magnesium [NexIUM] 40 mg PO DAILY 10/07/19 07/13/20 History Lisinopril-Hctz 20-12.5 mg 2 tab PO DAILY 10/07/19 07/13/20 History [Zestoretic 20-12.5] Ascorbic Acid [Vitamin C] 1,000 mg PO DAILY 06/29/20 07/13/20 History Azelastine HCl 2 spray EA NOSTRIL DAILY 06/29/20 07/13/20 History Cyanocobalamin (Vitamin B-12) 1,000 mcg PO DAILY 06/29/20 07/13/20 History [Vitamin B-12] Desonide [DesOwen .05%] 1 applic TOPICAL BID 06/29/20 07/13/20 History Dextroamphetamine/Amphetamine 25 mg PO QAM 06/29/20 07/13/20 History [Adderall Xr] Fexofenadine HCl 180 mg PO DAILY 06/29/20 07/13/20 History Hydrocortisone Valerate 1 applic TOPICAL BID 06/29/20 07/13/20 History Metoprolol Succinate (ER) [Toprol 25 mg PO DAILY 06/29/20 07/13/20 History Xl] Multivit-Min/FA/Lycopen/Lutein 1 tab PO DAILY 06/29/20 07/13/20 History [Centrum Silver Men Tablet] Testosterone Cypionate 200 mg IM Q14D 06/29/20 07/13/20 History [Depo-Testosterone] metFORMIN HCL ER [Glucophage Xr] 500 mg PO DAILY 06/29/20 07/13/20 History Allergies Allergy/AdvReac Type Severity Reaction Status Date / Time ceftriaxone [From Rocephin] Allergy Rash/Hives Verified 07/13/20 13:35 Iodinated Contrast Media Allergy Anaphylaxis Verified 07/13/20 13:35 [Iodinated Contrast- Oral and IV Dye] levofloxacin [From Levaquin] Allergy Anaphylaxis Verified 07/13/20 13:35 rosuvastatin [From Crestor] AdvReac "KIDNEY Verified 07/13/20 13:36 PAIN" Physical Exam Vitals: Vital Signs Temp Pulse Pulse Resp BP BP Pulse Ox 07/14/20 09:32 97 07/14/20 08:00 77 16 07/14/20 07:00 97.9 F 77 16 168/70 94 L 07/14/20 02:20 98.5 F 77 138/83 94 L 07/13/20 20:00 100.0 F H 96 20 170/75 94 L 07/13/20 17:43 93 L 07/13/20 16:24 100.7 F H 95 20 131/86 95 07/13/20 15:00 101.1 F H 94 18 136/71 93 L 07/13/20 14:36 20 07/13/20 14:32 95 18 131/86 95 07/13/20 13:57 100.7 F H 89 18 120/65 95 07/13/20 13:00 100.2 F H Intake and Output 07/13/20 07/14/20 07/14/20 22:59 06:59 14:59 Other: Voiding Method Toilet Toilet Toilet # Voids 1 1 Weight 117.934 kg The patient appeared well nourished and normally developed. Vital signs as documented. Head exam is unremarkable. No scleral icterus or corneal arcus noted. Neck is without jugular venous distension, thyromegaly, or carotid bruits. Carotid upstrokes are brisk bilaterally. Lungs are clear to auscultation and percussion. Cardiac exam reveals the PMI to be normally sized and situated. Rhythm is regular. First and second heart sounds normal. No murmurs, rubs or gallops. Abdominal exam reveals normal bowel sounds, no masses, no organomegaly and no aortic enlargement. Extremities are nonedematous and both femoral and pedal pulses are normal. NExamination of the skin revealed no evidence of significant rashes, suspicious appearing nevi or other concerning lesions.Neurologically, the patient is awake and alert and the patient does not have any focal neurological deficit. Cranial nerves are essentially intact. Results - Laboratory Findings CBC and BMP: 07/14/20 04:27 07/14/20 04:27 PT/INR, D-dimer PT 9.9 sec (9.0-12.0) 07/13/20 12:09 INR 0.9 (<1.2) 07/13/20 12:09 D-Dimer 0.32 mg/L FEU (<0.60) 07/14/20 04:27 Abnormal lab findings: Abnormal Labs 07/13/20 07/13/20 07/13/20 03:00 12:09 12:09 WBC 3.2 L MCHC Plt Count 132 L Immature Gran # Neutrophils # Lymphocytes # 0.7 L Eosinophils # Sodium 135 L BUN/Creatinine Ratio Glucose 149 H POC Glucose (mg/dL) Calcium 8.3 L Ferritin 721.4 H Lactate Dehydrogenase 619 H C-Reactive Protein 44.6 H Procalcitonin Ur Specific [place] 1.037 H Urine Protein 1+ H Urine Glucose (UA) 3+ H Hyaline Casts 35 H Urine Mucus Many H Urine Opiates Screen Detected H Ur Amphetamines Screen Detected H U Benzodiazepines Scrn Detected H Coronavirus (PCR) 07/13/20 07/13/20 07/13/20 12:09 12:09 18:33 WBC MCHC Plt Count Immature Gran # Neutrophils # Lymphocytes # Eosinophils # Sodium 135 L BUN/Creatinine Ratio Glucose 257 H POC Glucose (mg/dL) Calcium Ferritin Lactate Dehydrogenase C-Reactive Protein Procalcitonin 0.15 H Ur Specific [place] Urine Protein Urine Glucose (UA) Hyaline Casts Urine Mucus Urine Opiates Screen Ur Amphetamines Screen U Benzodiazepines Scrn Coronavirus (PCR) Detected A 07/13/20 07/14/20 07/14/20 21:59 04:27 04:27 WBC 2.02 L MCHC 31.3 L Plt Count Immature Gran # 0.05 H Neutrophils # 1.21 L Lymphocytes # 0.46 L Eosinophils # 0 L Sodium BUN/Creatinine Ratio 22.50 H Glucose 124 H POC Glucose (mg/dL) 214 H Calcium 8.4 L Ferritin 617.7 H Lactate Dehydrogenase C-Reactive Protein 5.4 H Procalcitonin Ur Specific [place] Urine Protein Urine Glucose (UA) Hyaline Casts Urine Mucus Urine Opiates Screen Ur Amphetamines Screen U Benzodiazepines Scrn Coronavirus (PCR) 07/14/20 07/14/20 07:57 11:21 WBC MCHC Plt Count Immature Gran # Neutrophils # Lymphocytes # Eosinophils # Sodium BUN/Creatinine Ratio Glucose POC Glucose (mg/dL) 123 H 131 H Calcium Ferritin Lactate Dehydrogenase C-Reactive Protein Procalcitonin Ur Specific [place] Urine Protein Urine Glucose (UA) Hyaline Casts Urine Mucus Urine Opiates Screen Ur Amphetamines Screen U Benzodiazepines Scrn Coronavirus (PCR) - Diagnostic Findings Chest x-ray: image reviewed Assessment and Plan Plan: 1 COVID 19 related pneumonia with peripheral bilateral pulmonary infiltrates and some mild hypoxemia. The patient was hypoxemic at the time of admission to the emergency department and he was recently is about 2 by nasal cannula. His pulse is currently improved and is normalized. CAT scan of the chest showed peripheral round glass pulmonary infiltrates, no evidence of any pulmonary embolism. His d-dimer level is low. CRP and ferritin levels are mildly elevated. 2 fever secondary to above 3 nausea and diarrhea secondary to above, improved 4 shortness of breath and cough secondary to above 5 acute hypoxic respiratory failure secondary to above, his pulse ox is fluctuating currently 93% on room air oxygen 6 obesity with a BMI of 37.3 7 hypertension 8 hypotensive symptoms him, currently on testosterone replacement 9 diabetes mellitus maintained on metformin 10 ADHD currently on Adderall Plan Supplement the patient with oxygen to maintain a saturation above 90% Decadron 6 mg by mouth daily Initiate Remdesivir per protocol Lovenox 40 mg subcu daily Multivitamin supplements We'll continue to follow
--- NOTE | 2020-07-14 12:39 | CT ---
EXAMINATION TYPE: CT chest angio for PE DATE OF EXAM: 07/14/2020 COMPARISON: HISTORY: Back pain, chest pain, COVID CT DLP: 496.20 mGycm Automated exposure control for dose reduction was used. CONTRAST: CT Chest for pulmonary embolism performed with with IV Contrast, patient injected with 100 mL of Isov ue 370. FINDINGS: LUNGS: The lungs show peripheral increased groundglass opacity, airspace disease, subsegmental basila r atelectatic changes, calcified granuloma are noted. There is no pleural effusion or pneumothorax se en. The tracheobronchial tree is patent. MEDIASTINUM: There is less than satisfactory enhancement of the pulmonary artery and its branches, di fficult to exclude pulmonary embolus. There are no greater than 1 cm hilar or mediastinal lymph node s. No pericardial effusion is seen. AORTA: No additional significant abnormality is seen. OTHER: Liver shows low attenuation likely due to hepatic steatosis, liver and spleen are thought to be enlarged. IMPRESSION: Correlate for atelectasis, pneumonia, pulmonary embolus is not excluded, there is extensive artifact especially at the lung bases. Hepatic steatosis, hepatosplenomegaly.
[2020-07-14] MEDS ORDERED: REMDESIVIR 200 MG in SODIUM CHLORIDE 0.9% 250 ML IVPB ONE (13:30)
[2020-07-14 17:25] LABS: Glucose,Whole Blood 214 mg/dL (75-99)
[2020-07-14 20:08] LABS: Glucose,Whole Blood 262 mg/dL (75-99)
--- NOTE | 2020-07-14 20:22 | HP ---
HISTORY AND PHYSICAL DATE OF SERVICE: 07/13/2020 CHIEF COMPLAINTS: Weakness, back pain and shortness of breath. HISTORY OF PRESENT ILLNESS: This 55-year-old gentleman with a past medical history of diabetes mellitus, GERD, hypertension, MRSA, being followed by Dr. Chuyita Pepper in the outpatient setting, was not feeling well over the past several days. The patient had significant weakness, cough, some fever. The patient also had difficulty in breathing and the patient had loss of taste and smell. The patient came to [facility] and the COVID- 19 was positive. The patient also had bilateral pneumonia. Patient was admitted for further evaluation and treatment. There is no history of any rigor or chills. No history of headache, loss of consciousness, seizures. No history of contact with COVID-19. PAST MEDICAL HISTORY: Diabetes mellitus, GERD, hypertension, MRSA. HOME MEDICATIONS: Reviewed. They include metformin, multivitamins, metoprolol, lisinopril hydrochlorothiazide, fexofenadine, esomeprazole, AD and vitamin C. ALLERGIES: CEFTRIAXONE and LEVAQUIN and CRESTOR. FAMILY HISTORY: History of diabetes mellitus, cancer, rheumatoid arthritis. SOCIAL HISTORY: No history of smoking. No history of alcohol intake. REVIEW OF SYSTEMS: ENT: No diminished hearing. No diminished vision. CARDIOVASCULAR SYSTEM: As mentioned earlier. RESPIRATORY SYSTEM: As mentioned earlier. GI: No nausea, vomiting. : No dysuria or retention. NERVOUS SYSTEM: No numbness, weakness. ALLERGY/IMMUNOLOGY: No asthma, hayfever. MUSCULOSKELETAL: As mentioned earlier. HEMATOLOGY/ONCOLOGY: No history of anemia. ENDOCRINE: As mentioned earlier. CONSTITUTIONAL: As mentioned earlier. DERMATOLOGY: Negative. RHEUMATOLOGY: Negative. PSYCHIATRY: As mentioned earlier. PHYSICAL EXAMINATION: Patient is alert, oriented x3. The pulse is 90, blood pressure 135/90, respiration 20, temperature 103, pulse ox 96% on 2 L. HEENT: Conjunctivae normal. NECK: No jugular venous distention. CARDIOVASCULAR SYSTEM: S1, S2 muffled. RESPIRATORY SYSTEM: A few scattered rhonchi and crackles. ABDOMEN: Soft, non-tender. LEGS: No edema. No swelling. NERVOUS SYSTEM: Higher functions as mentioned earlier. Moves all 4 limbs. No focal motor or sensory deficit. LYMPHATICS: No lymph node palpable in neck, axillae or groin. SKIN: No ulcer, rash, bleeding. JOINTS: No active deforming arthropathy. LABS: WBC 2.02. Other labs are reviewed. ASSESSMENT: 1. Acute COVID-19 pneumonia; bilateral interstitial pneumonia. 2. Leukopenia, mild. 3. Mild hyponatremia. 4. Elevated LDH and CRP secondary to COVID-19. 5. Diabetes mellitus, type 2. 6. Gastroesophageal reflux disease. 7. Hypertension. 8. History of methicillin-resistant Staphylococcus aeruginosa. 9. History of cholecystectomy. 10.History of hernia repair. RECOMMENDATIONS AND DISCUSSION: In this 55-year-old gentleman who presented with multiple complex medical issues, we will monitor the patient closely, continue the current medications, continue symptomatic treatment. The patient will be a candidate for remdesivir. I recommend infection disease and pulmonary consultations to initiate remdesivir. Otherwise, dexamethasone, zinc and Lovenox will be initiated. Symptomatic treatment. Maintain oxygenation. Prognosis guarded because of multiple complex medical issues. Further recommendations to follow. A copy of this dictation is being forwarded to Dr. Chuyita Pepper, who is the primary physician. LAZARA / RAHEEMN: [id number] / MTDD
--- NOTE | 2020-07-14 20:33 | PN ---
PROGRESS NOTE DATE OF SERVICE: 07/14/2020 This 55-year-old gentleman admitted with acute COVID-19 pneumonia has bilateral extensive pneumonia. The CT scan showed severe extensive pneumonia. The patient's D- dimer was only 0.828. There is no evidence of pulmonary embolism. Blood sugar is elevated. Patient was started on remdesivir and dexamethasone. Multiple consultants, including Dr. Bonilla and Infectious Disease, are following the patient closely. Past medical history reviewed. The patient is complaining of severe back pain, also. REVIEW OF SYSTEMS: CARDIOVASCULAR SYSTEM: No angina, palpitations. RESPIRATORY SYSTEM: As mentioned earlier. GI: No nausea, vomiting, diarrhea. : No dysuria or retention. NERVOUS SYSTEM: No numbness, weakness. CURRENT MEDICATIONS: Reviewed. They include Tylenol, [place], Ventolin, Xanax, vitamin C, vitamin D3, Flexeril, dexamethasone. PHYSICAL EXAMINATION: Patient is alert, oriented x3. Pulse 66, blood pressure 127/75, respirations 16, temperature 97.8, pulse ox 99% on room air. HEENT: Conjunctivae normal. NECK: No jugular venous distention. CARDIOVASCULAR SYSTEM: S1, S2 muffled. RESPIRATORY SYSTEM: Breath sounds diminished at the bases. LEGS: No edema. No swelling. NERVOUS SYSTEM: No focal deficit. LABS: Labs at this time show WBC 3.2, platelets 132. Sodium 135. ASSESSMENT: 1. Acute COVID-19 infection with bilateral extensive interstitial pneumonia. 2. Leukopenia. 3. Thrombocytopenia. 4. Hyponatremia. 5. Severe back pain. 6. Diabetes mellitus, type 2, with hyperglycemia. 7. Elevated ferritin, LDH and CRP inflammatory markers secondary to COVID-19. 8. Elevated procalcitonin. 9. Diabetes mellitus, type 2. 10.Gastroesophageal reflux disease. 11.Hypertension. 12.History of methicillin-resistant Staphylococcus aeruginosa. 13.History of cholecystectomy. 14.History of hernia repair. 15.Obesity with body mass index of 37.3. 16.FULL CODE. RECOMMENDATIONS AND DISCUSSION: In this 55-year-old gentleman who presented with multiple complex medical issues, we will monitor the patient closely. The patient has multiple risk factors for severe COVID-19 infection. The patient has already been started on a combination of remdesivir and dexamethasone as well as Lovenox. I would also recommend continuing the pain medication, which could be the result of extensive pneumonitic and extensive pleuritic process. Otherwise, prognosis is guarded because of the multiple complex medical issues. Further recommendations to follow. A copy of this dictation is being forwarded to Dr. Chuyita Pepper. MMVALERIAL / RAHEEMN: [id number] /
[2020-07-14] MEDS: ALPRAZolam 0.25 MG TAB PO PRN (21:15)
[2020-07-15] MEDS: KETOROLAC 15 MG/ML 1 ML VIAL IVP SCH ×5 (00:22→23:30)
--- NOTE | 2020-07-15 01:20 | CONS ---
CONSULTATION DATE OF SERVICE: 07/14/2020 REASON FOR CONSULTATION: COVID-19 infection. HISTORY OF PRESENT ILLNESS: The patient is a 55 -year-old male presenting to the ER yesterday for evaluation of increasing shortness of breath and chest pain and fatigue. The patient's symptoms have been going on for about 4 days before presentation to the hospital. The patient complaining of pain to the center of the chest which is sharp intensity almost 7 to 8 out of 10 and no radiation. The patient did have CP, shortness of breath. He did have a cough which has been minimal. No sputum production. Denies any nausea, no vomiting. No abdominal pain. Did have some diarrhea. With these symptoms, the patient was evaluated by the physician. On arrival to the ER, the patient did have a fever of 103 degrees Fahrenheit. The patient was hypoxic at one point with a of 73%, however, is currently 96% on room air. The patient did have leukopenia as well as lymphopenia. D-dimer has been normal. CRP is 5.4, procalcitonin 0.15. The patient did have a chest x-ray with evidence of multifocal pneumonia. CT angiogram of the chest did show increased ground-glass opacity, difficult to exclude pulmonary embolism. The patient has been admitted to the hospital. Infectious Disease consulted for further management of antibiotic or antibiotic therapy. REVIEW OF SYSTEMS: Positive points have been mentioned in HPI. Rest of systems have been negative. PAST MEDICAL HISTORY: Gastroesophageal reflux disease, hypertension. PAST SURGICAL HISTORY: Cholecystectomy, hernia repair, tonsillectomy, sinus surgery, tubes in the ears. SOCIAL HISTORY: No history of smoking. Occasionally drinks. No drug use. FAMILY HISTORY: Mother history of cancer, diabetes and RA. ALLERGIES: IODINATED CONTRAST AND LEVAQUIN and ROCEPHIN. MEDICATIONS: The patient is currently on Tylenol, [place], Ventolin, Xanax, vitamin C, vitamin D3, Dexamethasone, Lovenox, Dilaudid, NovoLog, Toradol, Protonix, Remdesivir, zinc. PHYSICAL EXAMINATION: Blood pressure 135/70 with a pulse of 74, temperature 98.3. He is 96% on room air. General description is a middle-aged male up in the chair in no distress. No tachypnea or accessory muscles of respiration use. HEENT: Examination shows no pallor or scleral icterus. Oral mucous membranes dry. NECK: Trachea central. No thyromegaly. LUNGS unlabored breathing, decreased intense breath sounds. No wheeze. HEART: S1, S2. Regular rate and rhythm. ABDOMEN soft. No tenderness. No guarding. No rigidity. EXTREMITIES: No edema of the feet. SKIN examination: No rash or mass palpable. NEUROLOGICAL: Patient is awake, alert, oriented times three. Mood and affect normal. LABS: Hemoglobin is 14.8, white count 2.02, with a BUN of 18, creatinine 0.8. Electrolytes have been normal. DIAGNOSTIC IMPRESSION AND PLAN: Patient admitted to the hospital with a fever, shortness of breath, chest pain in this patient who did have acute COVID-19 infection. Symptoms started about 3-4 days ago with evidence of mild disease as the patient has significant hypoxemia. PLAN: 1. The patient started on Remdesivir protocol to continue. 2. Continue with Lovenox, zinc, dexamethasone. 3. Droplet isolation, respiratory support. 4. We will follow on clinical condition and further adjust medication if needed. Thank you for this consultation. We will follow this patient along with you. MMODL / IJN: [id number] /
[2020-07-15] MEDS: HYDROmorphone 0.5 MG/0.5 ML SYRINGE IVP PRN (06:44)
[2020-07-15 06:51] LABS: Glucose,Whole Blood 126 mg/dL (75-99)
[2020-07-15] MEDS: ALBUTEROL HFA INHALER INHALATION SCH ×3 (06:51→21:47)
[2020-07-15] MEDS: ALPRAZolam 0.25 MG TAB PO PRN ×2 (07:22→18:00)
[2020-07-15] MEDS: DEXAMETHASONE SOD PHOSPHATE 10 MG/ML 1 ML VIAL IV SCH (07:25)
[2020-07-15 08:51] LABS: Basophils # (A) 0.01 X 10*3/uL (0.00-0.10); Basophils % (A) 0.2 %; Eosinophils # (A) 0 X 10*3/uL (0.04-0.35); Eosinophils % (A) 0 %; HCT 45.8 % (39.6-50.0); HGB 14.5 g/dL (13.0-17.0); Lymphocytes # (A) 0.65 X 10*3/uL (0.90-5.00); Lymphocytes % (A) 12.3 %; MCH 27.9 pg (27.0-32.0); MCHC 31.7 g/dL (32.0-37.0); MCV 88.1 fL (80.0-97.0); Mean Platelet Volume 9.5 fL (9.5-12.2); Monocytes # (A) 0.45 X 10*3/uL (0.20-1.00); Monocytes % (A) 8.5 %; Neutrophils # (A) 4.11 X 10*3/uL (1.80-7.70); Neutrophils % (A) 78.1 %; Platelet Count 206 X 10*3/uL (140-440); RDW 14.2 % (11.5-14.5); WBC 5.27 X 10*3/uL (4.50-10.00)
[2020-07-15] MEDS: ASCORBIC ACID 500 MG TAB PO SCH (09:11)
[2020-07-15] MEDS: CYANOCOBALAMIN 500 MCG TAB PO SCH (09:12)
[2020-07-15] MEDS: CHOLECALCIFEROL 25 MCG (1000 IU) TABLET PO SCH (09:12)
[2020-07-15] MEDS: FAMOTIDINE 20 MG TAB PO SCH ×2 (09:13→21:00)
[2020-07-15] MEDS: CYCLOBENZAPRINE 5 MG TAB PO SCH ×4 (09:13→21:00)
[2020-07-15] MEDS: ENOXAPARIN 40 MG/0.4 ML SYRINGE SQ SCH (09:13)
[2020-07-15] MEDS: PANTOPRAZOLE 40 MG TABLET PO SCH (09:15)
--- NOTE | 2020-07-15 09:17 | P.PN ---
Subjective Progress Note Date: 07/15/20 55-year-old male patient came into the ED complaining of shortness of breath and extreme fatigue. His symptoms started approximately 3-4 days ago and he started having some increased shortness of breath and cough and following that he lost his sense of taste and smell. Patient was tested negative for COVID approximately a week ago. The patient had some mild nausea and diarrhea in addition. He also had fever and chills and myalgias. In the ED, the patient wasn't was at 2.02 with a hemoglobin of 14.3 and platelets of 162, his lymphocyte counts were low at 0.46, d-dimer was at 0.32, his ferritin was 617, CRP is at 5.4 and LDH was not measured. His lactic acid was at 1.6. BUN and creatinine are both within normal limits. Chest x-ray is showing smaller lung volumes and peripheral pulmonary infiltrates bilaterally more so on the right. The patient is currently on oxygen at room air with a pulse ox of 94-97%. EKG showing sinus tachycardia. Note that the patient was in the emergency depa rtment on 06/28/2020 for some chest discomfort and chest pain. At that time he was tested for Covid 19 came back negative and he was diagnosed having a panic attack and the patient was able to have a nonspecific atypical chest pain and he was discharged home. The CAT scan of the chest was done at that time showed no acute abnormalities and this was a CT angios protocol that was done on . He felt fine after that his symptoms got worse approximately a week ago as discussed above. On 07/15/2020 the patient is being seen in follow-up. The patient was seen in consultation yesterday for Covid 19. The patient was given IV fluids. The patient was given IV Decadron. The patient was given also Remdesivir protocol. Note that he had some vague peripheral pulmonary infiltrates bilaterally consistent with Covid 19 related pneumonia. On today's evaluation, the patient is doing well. No specific complaints. CT angiogram did not show any pulmonary embolism. He does have some chronic lower back pain. Earlier this morning was getting more short of breath. He was given Decadron and he was given also albuterol rescue inhaler. He is already feeling better is currently on room air oxygen with a pulse ox of 94%. He remains hemodynamically stable. His lowest pulse ox was 91%. His white cell count is at 5.2 with a hemoglobin of 14.7. He does have some lymphopenia with a lymphocyte count of 0.65, d-dimer is still low at 0.27. Glucose is at 126. Objective - Vital Signs Vital signs: Vital Signs Temp 97.6 F 07/15/20 07:00 Pulse 66 07/15/20 07:00 Resp 26 H 07/15/20 08:00 BP 118/70 07/15/20 07:00 Pulse Ox 94 L 07/15/20 07:00 Intake & Output 07/14/20 07/15/20 07/15/20 18:59 06:59 18:59 Intake Total 450 Output Total 1 2 Balance 449 -2 Intake: Oral 450 Output: Stool 1 2 Other: Voiding Method Toilet Toilet # Voids 1 2 - Exam The patient appeared well nourished and normally developed. Vital signs as documented. Head exam is unremarkable. No scleral icterus or corneal arcus noted. Neck is without jugular venous distension, thyromegaly, or carotid bruits. Carotid upstrokes are brisk bilaterally. Lungs are clear to auscultation and percussion. Cardiac exam reveals the PMI to be normally sized and situated. Rhythm is regular. First and second heart sounds normal. No murmurs, rubs or gallops. Abdominal exam reveals normal bowel sounds, no masses, no organomegaly and no aortic enlargement. Extremities are nonedematous and both femoral and pedal pulses are normal. NExamination of the skin revealed no evidence of significant rashes, suspicious appearing nevi or other concerning lesions.Ne urologically, the patient is awake and alert and the patient does not have any focal neurological deficit. Cranial nerves are essentially intact. - Labs CBC & Chem 7: 07/15/20 04:50 07/14/20 04:27 Labs: Abnormal Lab Results - Last 24 Hours (Table) 07/14/20 07/14/20 07/14/20 Range/Units 04:27 04:27 11:21 WBC 2.02 L (4.50-10.00) X 10*3/uL MCHC 31.3 L (32.0-37.0) g/dL Immature Gran # 0.05 H (0.00-0.04) X 10*3/uL Neutrophils # 1.21 L (1.80-7.70) X 10*3/uL Lymphocytes # 0.46 L (0.90-5.00) X 10*3/uL Eosinophils # 0 L (0.04-0.35) X 10*3/uL BUN/Creatinine Ratio 22.50 H (12.00-20.00) Ratio Glucose 124 H (70-110) mg/dL POC Glucose (mg/dL) 131 H (75-99) mg/dL Calcium 8.4 L (8.7-10.3) mg/dL Ferritin 617.7 H (22.0-322.0) ng/mL C-Reactive Protein 5.4 H (0.0-0.8) mg/dL 07/14/20 07/14/20 07/15/20 Range/Units 17:23 20:07 04:50 WBC (4.50-10.00) X 10*3/uL MCHC 31.7 L (32.0-37.0) g/dL Immature Gran # 0.05 H (0.00-0.04) X 10*3/uL Neutrophils # (1.80-7.70) X 10*3/uL Lymphocytes # 0.65 L (0.90-5.00) X 10*3/uL Eosinophils # 0 L (0.04-0.35) X 10*3/uL BUN/Creatinine Ratio (12.00-20.00) Ratio Glucose (70-110) mg/dL POC Glucose (mg/dL) 214 H 262 H (75-99) mg/dL Calcium (8.7-10.3) mg/dL Ferritin (22.0-322.0) ng/mL C-Reactive Protein (0.0-0.8) mg/dL 07/15/20 Range/Units 06:49 WBC (4.50-10.00) X 10*3/uL MCHC (32.0-37.0) g/dL Immature Gran # (0.00-0.04) X 10*3/uL Neutrophils # (1.80-7.70) X 10*3/uL Lymphocytes # (0.90-5.00) X 10*3/uL Eosinophils # (0.04-0.35) X 10*3/uL BUN/Creatinine Ratio (12.00-20.00) Ratio Glucose (70-110) mg/dL POC Glucose (mg/dL) 126 H (75-99) mg/dL Calcium (8.7-10.3) mg/dL Ferritin (22.0-322.0) ng/mL C-Reactive Protein (0.0-0.8) mg/dL Microbiology - Last 24 Hours (Table) 07/14/20 04:31 Blood Culture - Preliminary Blood No Growth after 24 hours 07/13/20 12:09 Blood Culture - Preliminary Blood No Growth after 24 hours Assessment and Plan Plan: 1 COVID 19 related pneumonia with peripheral bilateral pulmonary infiltrates and some mild hypoxemia. The patient was hypoxemic at the time of admission to the emergency department and he was on oxygen by nasal cannula at 2 L by nasal cannula. His pulse is currently improved and is normalized. CAT scan of the chest showed peripheral round glass pulmonary infiltrates, no evidence of any pulmonary embolism. His d-dimer level is low. CRP and ferritin levels are mildly elevated. The patient was started on a combination of Decadron and Remdesivir based on some worsening shortness of breath, the patient had a follow-up chest x-ray that shows peripheral infiltration slightly worse on the right, and probably slightly worse on the left. Lung volumes are small. The patient has chronic right hemidiaphragmatic elevation. He will be provided incentive spirometer. The patient is having mid thoracic spine posteriorly. We'll obtain a large spine x-ray will be done and the patient will be given adequate pain control. 2 fever secondary to above 3 nausea and diarrhea secondary to above, improved 4 shortness of breath and cough secondary to above 5 acute hypoxic respiratory failure secondary to above, his pulse ox is fluctuating currently 93% on room air oxygen 6 obesity with a BMI of 37.3 7 hypertension 8 hypotensive symptoms him, currently on testosterone replacement 9 diabetes mellitus maintained on metformin 10 ADHD currently on Adderall Plan Supplement the patient with oxygen to maintain a saturation above 90%, currently still on room air with a pulse ox ranging between 93-94%. He did have some worsening shortness of breath earlier this morning and will going to continue the same treatment for now. Decadron 6 mg by mouth daily Remdesivir per protocol, currently the patient is on the 2 of treatment. Lovenox 40 mg subcu daily, d-dimer remains low Multivitamin supplements We'll obtain a plain x-ray of his T-spine Continue [place] for pain control We'll continue to follow
[2020-07-15] MEDS: METOPROLOL SUCCINATE (ER) 25 MG TAB.ER.24H PO SCH (09:23)
[2020-07-15] MEDS: LORATADINE 10 MG TAB PO SCH (09:24)
[2020-07-15] MEDS: MULTIVITAMINS, THERA 1 EACH TAB PO SCH (09:24)
[2020-07-15] MEDS: ZINC SULFATE 220 MG CAP PO SCH (09:24)
--- NOTE | 2020-07-15 09:32 | XR ---
EXAMINATION TYPE: XR chest 1V portable DATE OF EXAM: 07/15/2020 COMPARISON: Chest x-ray 07/13/2020 HISTORY: Shortness of breath TECHNIQUE: Single frontal view of the chest is obtained. FINDINGS: Peripheral opacities are again noted bilaterally, there are bandlike areas of increased at tenuation centrally. Interstitium is mildly increased. Lung volumes are low. There is no evident pneu mothorax or pleural effusion. Aorta is dense. IMPRESSION: Correlate for pneumonia.
[2020-07-15] MEDS: INSULIN ASPART (NovoLOG) 100 UNIT/ML VIAL SQ SCH ×4 (09:36→21:00)
--- NOTE | 2020-07-15 10:57 | XR ---
Thoracic spine HISTORY: Back pain Frontal and lateral views of the thoracic spine on [address] scan dated 07/14/2020 There is thoracic spondylosis present. Patient is rotated. Thoracic vertebral bodies show preserved h eight. There is a mild spinal curvature. Vacuum phenomenon present at the intervertebral disc spaces on CT not well seen on plain film. There is some loss of disc height at intervertebral levels the mid thoracic spine. IMPRESSION: Degenerative disc disease. There is a scoliotic curvature which is S-shaped in the thorac ic spine. Coronary artery calcifications are noted on patient's CT.
[2020-07-15 11:30] LABS: Glucose,Whole Blood 199 mg/dL (75-99)
[2020-07-15] MEDS: FOLIC ACID 1 MG TAB PO SCH (11:43)
[2020-07-15] MEDS: HYDROmorphone 1 MG/ML 1 ML SYRINGE IVP PRN ×3 (11:44→20:59)
[2020-07-15 11:47] LABS: African American GFR (CKD) 98.5 (60.0-200.0); Anion Gap 6.8 mmol/L (4.00-12.00); C Reactive Protein 2.9 mg/dL (0.0-0.8); Carbon Dioxide 29.2 mmol/L (21.6-31.8); Ferritin 822.8 ng/mL (22.0-322.0); Non-African American GFR(CKD) 84.9 (60.0-200.0); Potassium 4.8 mmol/L (3.5-5.5)
[2020-07-15] MEDS: THIAMINE 100 MG TAB PO SCH (11:53)
[2020-07-15] MEDS: REMDESIVIR 100 MG in SODIUM CHLORIDE 0.9% 250 ML IVPB SCH (12:24)
[2020-07-15] MEDS: SODIUM CHLORIDE 0.9% 1,000 ML IV SCH (15:39)
[2020-07-15 16:41] LABS: Glucose,Whole Blood 172 mg/dL (75-99)
--- NOTE | 2020-07-15 18:26 | PN ---
PROGRESS NOTE DATE OF SERVICE: 07/15/2020 This 55-year-old gentleman admitted with acute COVID-19 infection and COVID-19 pneumonia is being closely monitored. The patient is complaining of extensive severe back pain and some shortness of breath. The pulse ox is ntd; however, the patient's thoracic x-ray is unremarkable. Chest x-ray is showing no significant lesions also. The patient is on remdesivir day 2. Pulmonary and Infectious Disease are following the patient closely. Procalcitonin is elevated. No chest pain. No palpitations. Past medical history reviewed. REVIEW OF SYSTEMS: CARDIOVASCULAR SYSTEM: No angina, palpitations. RESPIRATORY SYSTEM: As mentioned earlier. GI: As mentioned earlier. : No dysuria or retention. NERVOUS SYSTEM: No numbness, weakness. CURRENT MEDICATIONS: Reviewed. They include Tylenol, [place], Ventolin, Xanax, vitamin C, Lovenox, Pepcid, folic acid, NovoLog, Toprol-XL. Doses are reviewed. PHYSICAL EXAMINATION: Patient is alert, oriented x3. Pulse 65, blood pressure 170/64, respiration 18, temperature 98.2, pulse ox 97% on 2 L. HEENT: Conjunctivae normal. NECK: No jugular venous distention. CARDIOVASCULAR SYSTEM: S1, S2 muffled. RESPIRATORY SYSTEM: Breath sounds diminished at the bases. Scattered rhonchi. ABDOMEN: Soft. NERVOUS SYSTEM: No focal deficit. LABS: LDH is 214. C-reactive protein is 2.9. D-dimer is noted. CT angio personally reviewed. ASSESSMENT: 1. Acute COVID-19 infection with bilateral extensive interstitial pneumonia. 2. Leukopenia. 3. Thrombocytopenia. 4. Hyponatremia. 5. Severe back pain. 6. Diabetes mellitus, type 2, with hyperglycemia. 7. Elevated ferritin, LDH and CRP inflammatory markers secondary to COVID-19. 8. Elevated procalcitonin. 9. Diabetes mellitus, type 2. 10.Gastroesophageal reflux disease. 11.Hypertension. 12.History of methicillin-resistant Staphylococcus aeruginosa. 13.History of cholecystectomy. 14.History of hernia repair. 15.Obesity with body mass index of 37.3. 16.FULL CODE. RECOMMENDATIONS AND DISCUSSION: I recommend to continue current medications, continue with the monitoring, symptomatic treatment. I would also recommend a sputum culture. Otherwise, DVT prophylaxis. Lovenox. Continue the rest of the medications. Guarded prognosis because of multiple complex medical issues. Further recommendations to follow. MMODL / IJN: [id number] / YELITZA
--- NOTE | 2020-07-15 19:45 | PN ---
PROGRESS NOTE DATE OF SERVICE: 07/15/2020 REASON FOR FOLLOWUP: COVID-19 pneumonia. INTERVAL HISTORY: The patient is currently afebrile. He is complaining of some shortness of breath and anxiety. Denies having any chest pain, though. Minimal cough but not bringing up any sputum. No nausea, no vomiting, no abdominal pain or diarrhea. PHYSICAL EXAMINATION: Blood pressure /64 with a pulse of 65, temperature 98.1. He is 97% on 2 L nasal cannula. General description is a middle-aged male up in the chair in no distress. RESPIRATORY SYSTEM: Unlabored breathing with decreased intensity of breath sounds. No wheeze. HEART: S1, S2. Regular rate and rhythm. ABDOMEN: Soft. No tenderness. LABS: Hemoglobin is 14.5, white count 5.27. BUN of 30, creatinine 1.0. Blood culture has been negative. Chest x-ray repeat: Correlate for pneumonia. DIAGNOSTIC IMPRESSION AND PLAN: Patient with acute COVID-19 pneumonia in this patient whose fever has resolved, not as hypoxemic as he was. He was 94% on room air at the time of evaluation. Patient to continue with Decadron, Lovenox, remdesivir, zinc and respiratory support. Monitor clinical course closely. MMODL / IJN: [id number] /
[2020-07-15 20:59] LABS: Glucose,Whole Blood 148 mg/dL (75-99)
[2020-07-16] MEDS: HYDROmorphone 1 MG/ML 1 ML SYRINGE IVP PRN ×2 (01:09→06:00)
[2020-07-16] MEDS: ALPRAZolam 0.25 MG TAB PO PRN (01:09)
[2020-07-16] MEDS: KETOROLAC 15 MG/ML 1 ML VIAL IVP SCH ×3 (05:34→17:34)
[2020-07-16] MEDS: ALBUTEROL HFA INHALER INHALATION SCH ×3 (07:26→19:35)
[2020-07-16 07:39] LABS: Glucose,Whole Blood 81 mg/dL (75-99)
[2020-07-16] MEDS: INSULIN ASPART (NovoLOG) 100 UNIT/ML VIAL SQ SCH ×4 (07:49→20:14)
[2020-07-16] MEDS: PANTOPRAZOLE 40 MG TABLET PO SCH (07:54)
[2020-07-16] MEDS: CYCLOBENZAPRINE 5 MG TAB PO SCH ×4 (08:57→21:52)
[2020-07-16] MEDS: METOPROLOL SUCCINATE (ER) 25 MG TAB.ER.24H PO SCH (08:57)
[2020-07-16] MEDS: MULTIVITAMINS, THERA 1 EACH TAB PO SCH (08:58)
[2020-07-16] MEDS: CHOLECALCIFEROL 25 MCG (1000 IU) TABLET PO SCH (08:58)
[2020-07-16] MEDS: LORATADINE 10 MG TAB PO SCH (08:58)
[2020-07-16] MEDS: ZINC SULFATE 220 MG CAP PO SCH (08:58)
[2020-07-16] MEDS: FAMOTIDINE 20 MG TAB PO SCH ×2 (08:59→20:15)
[2020-07-16] MEDS: ASCORBIC ACID 500 MG TAB PO SCH (08:59)
[2020-07-16] MEDS: CYANOCOBALAMIN 500 MCG TAB PO SCH (08:59)
[2020-07-16] MEDS: DEXAMETHASONE SOD PHOSPHATE 10 MG/ML 1 ML VIAL IV SCH (08:59)
[2020-07-16] MEDS: ENOXAPARIN 40 MG/0.4 ML SYRINGE SQ SCH (09:00)
--- NOTE | 2020-07-16 10:26 | P.PN ---
Subjective Progress Note Date: 07/16/20 Principal diagnosis: CoVID 19 infection 55-year-old male patient came into the ED complaining of shortness of breath and extreme fatigue. His symptoms started approximately 3-4 days ago and he started having some increased shortness of breath and cough and following that he lost his sense of taste and smell. Patient was tested negative for COVID approximately a week ago. The patient had some mild nausea and diarrhea in addition. He also had fever and chills and myalgias. In the ED, the patient wasn't was at 2.02 with a hemoglobin of 14.3 and platelets of 162, his lymp hocyte counts were low at 0.46, d-dimer was at 0.32, his ferritin was 617, CRP is at 5.4 and LDH was not measured. His lactic acid was at 1.6. BUN and creatinine are both within normal limits. Chest x-ray is showing smaller lung volumes and peripheral pulmonary infiltrates bilaterally more so on the right. The patient is currently on oxygen at room air with a pulse ox of 94-97%. EKG showing sinus tachycardia. Note that the patient was in the emergency department on 06/28/2020 for some chest discomfort and chest pain. At that time he was tested for Covid 19 came back negative and he was diagnosed having a panic attack and the patient was able to have a nonspecific atypical chest pain and he was discharged home. The CAT scan of the chest was done at that time showed no acute abnormalities and this was a CT angios protocol that was done on 06/29/2020. He felt fine after that his symptoms got worse approximately a week ago as discussed above. On 07/15/2020 the patient is being seen in follow-up. The patient was seen in consultation yesterday for Covid 19. The patient was given IV fluids. The patient was given IV Decadron. The patient was given also Remdesivir protocol. Note that he had some vague peripheral pulmonary infiltrates bilaterally consistent with Covid 19 related pneumonia. On today's evaluation, the patient is doing well. No specific complaints. CT angiogram did not show any pulmonary embolism. He does have some chronic lower back pain. Earlier this morning was getting more short of breath. He was given Decadron and he was given also albuterol rescue inhaler. He is already feeling better is currently on room air oxygen with a pulse ox of 94%. He remains hemodynamically stable. His lowest pulse ox was 91%. His white cell count is at 5.2 with a hemoglobin of 14.7. He does have some lymphopenia with a lymphocyte count of 0.65, d-dimer is still low at 0.27. Glucose is at 126. The patient is seen today 07/16/2020 in follow-up on the regular medical floor. He is currently sitting up in a chair at the bedside. Awake and alert in no ac mashpee distress. Currently maintaining O2 saturation at 97% on room air. He was up to the bathroom and was quite winded with minimal exertion. His main complaint is ongoing fatigue. He is afebrile. Hemodynamically stable. He remains on Decadron 6 mg IV daily. Anticoagulated with Lovenox. This is day #3 of Remdesivir. Remains on vitamin supplements. Blood cultures revealed no growth. D-dimer 0.37. Glucose 81. Yesterday's chest x-ray did reveal peripheral opacities bilaterally. Bandlike areas of increased attenuation centrally. Low lung volumes. He is encouraged regarding the increased use of the incentive spirometer and cough and deep breathing exercises. Objective - Vital Signs Vital signs: Vital Signs Temp 98.6 F 07/16/20 07:00 Pulse 68 07/16/20 07:00 Resp 17 07/16/20 07:00 BP 152/83 07/16/20 07:00 Pulse Ox 97 07/16/20 07:00 Intake & Output 07/15/20 07/16/20 07/16/20 18:59 06:59 18:59 Intake Total 160 Output Total 3 Balance 157 Intake: Intake, IV Titration 160 Amount Sodium Chloride 0.9% 1, 160 000 ml @ 20 mls/hr IV . Q24H [facility] Rx#:[id number] Output: Stool 3 Other: Voiding Method Toilet # Voids 3 1 - Exam GENERAL EXAM: Alert, active, 55-year-old gentleman, on room air, comfortable in no apparent distress. HEAD: Normocephalic. EYES: Normal reaction of pupils, equal size. NOSE: Clear with pink turbinates. THROAT: No erythema or exudates. NECK: No masses, no JVD. CHEST: No chest wall deformity. LUNGS: Equal air entry with bilateral crackles in the posterior bases. CVS: S1 and S2 normal with no audible murmur, regular rhythm. ABDOMEN: No hepatosplenomegaly, normal bowel sounds, no guarding or rigidity. SPINE: No scoliosis or deformity SKIN: No rashes CENTRAL NERVOUS SYSTEM: No focal deficits, tone is normal in all 4 extremities. EXTREMITIES: There is no peripheral edema. No clubbing, no cyanosis. Peripheral pulses are intact. - Labs CBC & Chem 7: 07/15/20 04:50 07/15/20 04:50 Labs: Abnormal Lab Results - Last 24 Hours (Table) 07/15/20 07/15/20 07/15/20 Range/Units 04:50 11:27 16:39 BUN 30.0 H (9.0-27.0) mg/dL BUN/Creatinine Ratio 30.00 H (12.00-20.00) Ratio Glucose 148 H (70-110) mg/dL POC Glucose (mg/dL) 199 H 172 H (75-99) mg/dL Ferritin 822.8 H (22.0-322.0) ng/mL C-Reactive Protein 2.9 H (0.0-0.8) mg/dL 07/15/20 Range/Units 20:58 BUN (9.0-27.0) mg/dL BUN/Creatinine Ratio (12.00-20.00) Ratio Glucose (70-110) mg/dL POC Glucose (mg/dL) 148 H (75-99) mg/dL Ferritin (22.0-322.0) ng/mL C-Reactive Protein (0.0-0.8) mg/dL Microbiology - Last 24 Hours (Table) 07/14/20 04:31 Blood Culture - Preliminary Blood No Growth after 48 hours 07/13/20 12:09 Blood Culture - Preliminary Blood No Growth after 48 hours Assessment and Plan Assessment: 1 COVID 19 related pneumonia with peripheral bilateral pulmonary infiltrates and some mild hypoxemia. The patient was hypoxemic at the time of admission to the emergency department and he was on oxygen by nasal cannula at 2 L by nasal cannula. His pulse is currently improved and is normalized. CAT scan of the chest showed peripheral round glass pulmonary infiltrates, no evidence of any pulmonary embolism. His d-dimer level is low. CRP and ferritin levels are mildly elevated. The patient was started on a combination of Decadron and Remde sivir based on some worsening shortness of breath, the patient had a follow-up chest x-ray that shows peripheral infiltration slightly worse on the right, and probably slightly worse on the left. Lung volumes are small. The patient has chronic right hemidiaphragmatic elevation. He is encouraged regarding the increased use of the incentive spirometer. Spine x-ray revealed degenerative disc disease. There is sclerotic curvature which is S-shaped thoracic spine. Coronary artery calcifications noted. 2 fever secondary to above, recovered 3 nausea and diarrhea secondary to above, improved 4 shortness of breath and cough secondary to above him a improved 5 acute hypoxic respiratory failure secondary to above, his pulse ox is fluctuating currently 97% on room air oxygen 6 obesity with a BMI of 37.3 7 hypertension 8 hypotensive symptoms him, currently on testosterone replacement 9 diabetes mellitus maintained on metformin 10 ADHD currently on Adderall Plan The patient was seen and evaluated by Dr. Bonilla Thoracic spine x-ray noted Currently stable from the pulmonary standpoint. On room air. Continue the #3 of Remdesivir, dexamethasone, Lovenox, vitamin supplements Increase his activity as tolerated Increase his use the incentive spirometer We'll continue to follow I, the cosigning physician, performed a history & physical examination of the patient. Lungs sounds with crackles in the posterior bases. Maintaining good O2 saturations in the 90s on room air. I discussed the assessment and plan of care with my nurse practitioner, Sofia Turpin. I attest to the above note as dictated by her.
[2020-07-16 10:53] LABS: Basophils # (A) 0.01 X 10*3/uL (0.00-0.10); Basophils % (A) 0.1 %; Eosinophils # (A) 0 X 10*3/uL (0.04-0.35); Eosinophils % (A) 0 %; HGB 14.6 g/dL (13.0-17.0); Lymphocytes # (A) 0.89 X 10*3/uL (0.90-5.00); Lymphocytes % (A) 11.9 %; MCH 27.7 pg (27.0-32.0); MCHC 31.1 g/dL (32.0-37.0); MCV 89.2 fL (80.0-97.0); Mean Platelet Volume 9.6 fL (9.5-12.2); Monocytes # (A) 0.55 X 10*3/uL (0.20-1.00); Monocytes % (A) 7.4 %; Neutrophils # (A) 5.95 X 10*3/uL (1.80-7.70); Neutrophils % (A) 79.5 %; Platelet Count 248 X 10*3/uL (140-440); RBC 5.27 X 10*6/uL (4.40-5.60); RDW 14.2 % (11.5-14.5); WBC 7.48 X 10*3/uL (4.50-10.00)
[2020-07-16 11:53] LABS: Glucose,Whole Blood 120 mg/dL (75-99)
[2020-07-16] MEDS: REMDESIVIR 100 MG in SODIUM CHLORIDE 0.9% 250 ML IVPB SCH (12:18)
[2020-07-16] MEDS: FOLIC ACID 1 MG TAB PO SCH (12:18)
[2020-07-16] MEDS: THIAMINE 100 MG TAB PO SCH (12:18)
[2020-07-16] MEDS: SODIUM CHLORIDE 0.9% 1,000 ML IV SCH (14:10)
[2020-07-16 15:14] LABS: Basophils # (A) 0.01 X 10*3/uL (0.00-0.10); Basophils % (A) 0.1 %; Eosinophils # (A) 0 X 10*3/uL (0.04-0.35); Eosinophils % (A) 0 %; HCT 45.1 % (39.6-50.0); HGB 14.3 g/dL (13.0-17.0); Lymphocytes # (A) 0.77 X 10*3/uL (0.90-5.00); Lymphocytes % (A) 11.3 %; MCH 28.1 pg (27.0-32.0); MCHC 31.7 g/dL (32.0-37.0); MCV 88.8 fL (80.0-97.0); Mean Platelet Volume 9.6 fL (9.5-12.2); Monocytes # (A) 0.37 X 10*3/uL (0.20-1.00); Monocytes % (A) 5.4 %; Neutrophils # (A) 5.59 X 10*3/uL (1.80-7.70); Neutrophils % (A) 81.9 %; Platelet Count 246 X 10*3/uL (140-440); RBC 5.08 X 10*6/uL (4.40-5.60); RDW 14.2 % (11.5-14.5); WBC 6.83 X 10*3/uL (4.50-10.00)
[2020-07-16] MEDS: HYDROmorphone 0.5 MG/0.5 ML SYRINGE IVP PRN ×2 (15:57→20:12)
[2020-07-16 17:26] LABS: Glucose,Whole Blood 205 mg/dL (75-99)
--- NOTE | 2020-07-16 17:48 | PN ---
PROGRESS NOTE DATE OF SERVICE: 07/16/2020. This 55-year-old gentleman with acute COVID-19 infection, Covid-19 pneumonia bilaterally is complaining of severe pain, but currently the patient complaining of some drowsy. No chest pain. No palpitations. Dr. Bonilla is following the patient closely. Patient started on Remdesivir. Blood sugars are elevated. Patient is also on the usual medication for Covid-19 as well. The inflammatory markers are elevated. Past medical history reviewed. REVIEW OF SYSTEMS: CARDIOVASCULAR SYSTEM: No angina. RESPIRATORY SYSTEM: As mentioned earlier. GI: As mentioned earlier. : No dysuria. NERVOUS SYSTEM: No numbness, weakness. CURRENT MEDICATIONS: Reviewed and include: Tylenol, Christoval, Ventolin, Xanax, vitamin C, vitamin D3, Flexeril, Pepcid and folic acid. PHYSICAL EXAMINATION: Patient is alert, oriented x3. Pulse 68, blood pressure 143/80, respirations 19, temperature 97.9, pulse ox 98% on room air. HEENT: Conjunctivae normal. NECK: No JVD. CARDIOVASCULAR: S1, S2 muffled. RESPIRATORY: Breath sounds diminished in the bases. A few scattered rhonchi and crackles. ABDOMEN: Soft, nontender. LEGS are no edema. NERVOUS SYSTEM: No focal deficits. LABS: WBC 6.8, hemoglobin 14.3, glucose 120. ASSESSMENT: 1. Acute Covid-19 infection with bilateral extensive interstitial pneumonia. 2. Leukopenia. 3. Thrombocytopenia. 4. Hyponatremia. 5. Severe back pain possibly secondary to Covid 19 and pleurisy. 6. Diabetes mellitus type 2 with hyperglycemia. 7. Elevated ferritin, LDH and CRP, inflammatory markers secondary to Covid-19. 8. Elevated procalcitonin. 9. Diabetes mellitus type 2. 10.Gastroesophageal reflux disease. 11.Hypertension. 12.History of MRSA. 13.History of cholecystectomy. 14.History of hernia repair. 15.Obesity with body mass index of 37.6. 16.FULL CODE. RECOMMENDATIONS AND DISCUSSION: Continue current medications, management and symptomatic treatment. Otherwise, at this time, I would recommend continue with Remdesivir, dexamethasone. Monitor blood sugars closely. Otherwise, closely follow with Infectious Disease and pulmonary. Guarded prognosis. Further recommendations to follow. MMODL / IJN: [id number] /
[2020-07-16 19:51] LABS: Glucose,Whole Blood 156 mg/dL (75-99)
[2020-07-16 20:14] LABS: Appearance,Urine Clear (Clear); Bilirubin,Urine Negative (Negative); Blood,Urine Small (Negative); Color,Urine Yellow; Glucose,Urine (UA) Negative (Negative); Ketones,Urine Negative (Negative); Leukocyte Esterase,Urine Negative (Negative); Nitrite,Urine Negative (Negative); Protein,Urine Negative (Negative); RBC,Urine 48 /hpf (0-5); Specific Gravity,Urine 1.028 (1.001-1.035); WBC,Urine 1 /hpf (0-5)
[2020-07-16] MEDS: HYDROcodone/APAP 10-325MG 1 EACH TAB PO PRN (21:52)
--- NOTE | 2020-07-16 23:49 | PN ---
PROGRESS NOTE DATE OF SERVICE: 07/16/2020 REASON FOR FOLLOWUP: Acute COVID-19 infection. INTERVAL HISTORY: Patient is currently afebrile. The patient is still complaining of shortness of breath and cough. Not bringing up any sputum. No chest pain. Slight nausea, but no vomiting. No abdominal pain. No diarrhea. PHYSICAL EXAMINATION: Blood pressure 144/90 with a pulse of 74, temperature 98.1. He is 95% on room air. General description is a middle-aged male up in the chair in no distress. Respiratory system: Unlabored breathing, decreased intense breath sounds. No wheeze. HEART: S1, S2. Regular rate and rhythm. ABDOMEN: Soft, no tenderness. LABS: Urine shows RBC. Kidney function normal. White count is normal. IMPRESSION/PLAN: Patient with acute COVID-19 infection. This patient currently covered with Remdesivir, dexamethasone, Lovenox, clindamycin, and zinc to continue while monitoring clinical course closely. Continue supportive care. MMODL / IJN: [id number] /
[2020-07-17 01:22] LABS: African American GFR (CKD) 98.5 (60.0-200.0); Anion Gap 7.8 mmol/L (4.00-12.00); Calcium 8.9 mg/dL (8.7-10.3); Carbon Dioxide 30.2 mmol/L (21.6-31.8); Non-African American GFR(CKD) 84.9 (60.0-200.0); Potassium 4.5 mmol/L (3.5-5.5)
[2020-07-17] MEDS: ALPRAZolam 0.25 MG TAB PO PRN ×2 (02:29→20:21)
[2020-07-17] MEDS: HYDROmorphone 0.5 MG/0.5 ML SYRINGE IVP PRN ×5 (02:30→20:04)
[2020-07-17] MEDS: ALBUTEROL HFA INHALER INHALATION SCH ×4 (02:35→20:21)
[2020-07-17] MEDS ORDERED: ONDANSETRON 4 MG/2 ML VIAL IVP PRN (03:19)
[2020-07-17] MEDS: HYDROcodone/APAP 10-325MG 1 EACH TAB PO PRN ×2 (04:01→23:19)
[2020-07-17 07:31] LABS: Glucose,Whole Blood 90 mg/dL (75-99)
[2020-07-17] MEDS: INSULIN ASPART (NovoLOG) 100 UNIT/ML VIAL SQ SCH ×4 (07:32→20:50)
[2020-07-17] MEDS: PANTOPRAZOLE 40 MG TABLET PO SCH (07:33)
[2020-07-17] MEDS: MULTIVITAMINS, THERA 1 EACH TAB PO SCH (09:27)
[2020-07-17] MEDS: CYCLOBENZAPRINE 5 MG TAB PO SCH ×4 (09:27→20:04)
[2020-07-17] MEDS: LORATADINE 10 MG TAB PO SCH (09:27)
[2020-07-17] MEDS: FAMOTIDINE 20 MG TAB PO SCH ×2 (09:27→20:04)
[2020-07-17] MEDS: ASCORBIC ACID 500 MG TAB PO SCH (09:27)
[2020-07-17] MEDS: CYANOCOBALAMIN 500 MCG TAB PO SCH (09:28)
[2020-07-17] MEDS: ZINC SULFATE 220 MG CAP PO SCH (09:28)
[2020-07-17] MEDS: METOPROLOL SUCCINATE (ER) 25 MG TAB.ER.24H PO SCH (09:28)
[2020-07-17] MEDS: DEXAMETHASONE SOD PHOSPHATE 10 MG/ML 1 ML VIAL IV SCH (09:29)
[2020-07-17] MEDS: ENOXAPARIN 40 MG/0.4 ML SYRINGE SQ SCH (09:29)
[2020-07-17] MEDS: CHOLECALCIFEROL 25 MCG (1000 IU) TABLET PO SCH (09:29)
[2020-07-17 11:15] LABS: Glucose,Whole Blood 106 mg/dL (75-99)
[2020-07-17] MEDS ORDERED: PROMETHAZINE 25 MG TAB PO PRN (11:21)
--- NOTE | 2020-07-17 11:21 | P.PN ---
Subjective Progress Note Date: 07/17/20 55-year-old male patient came into the ED complaining of shortness of breath and extreme fatigue. His symptoms started approximately 3-4 days ago and he started having some increased shortness of breath and cough and following that he lost his sense of taste and smell. Patient was tested negative for COVID approximately a week ago. The patient had some mild nausea and diarrhea in addition. He also had fever and chills and myalgias. In the ED, the patient wasn't was at 2.02 with a hemoglobin of 14.3 and platelets of 162, his lymphocyte counts were low at 0.46, d-dimer was at 0.32, his ferritin was 617, CRP is at 5.4 and LDH was not measured. His lactic acid was at 1.6. BUN and creatinine are both within normal limits. Chest x-ray is showing smaller lung volumes and peripheral pulmonary infiltrates bilaterally more so on the right. The patient is currently on oxygen at room air with a pulse ox of 94-97%. EKG showing sinus tachycardia. Note that the patient was in the emergency dep artment on 06/28/2020 for some chest discomfort and chest pain. At that time he was tested for Covid 19 came back negative and he was diagnosed having a panic attack and the patient was able to have a nonspecific atypical chest pain and he was discharged home. The CAT scan of the chest was done at that time showed no acute abnormalities and this was a CT angios protocol that was done on 06/29/19. He felt fine after that his symptoms got worse approximately a week ago as discussed above. On 07/15/2020 the patient is being seen in follow-up. The patient was seen in consultation yesterday for Covid 19. The patient was given IV fluids. The patient was given IV Decadron. The patient was given also Remdesivir protocol. Note that he had some vague peripheral pulmonary infiltrates bilaterally consistent with Covid 19 related pneumonia. On today's evaluation, the patient is doing well. No specific complaints. CT angiogram did not show any pulmonary embolism. He does have some chronic lower back pain. Earlier this morning was getting more short of breath. He was given Decadron and he was given also albuterol rescue inhaler. He is already feeling better is currently on room air oxygen with a pulse ox of 94%. He remains hemodynamically stable. His lowest pulse ox was 91%. His white cell count is at 5.2 with a hemoglobin of 14.7. He does have some lymphopenia with a lymphocyte count of 0.65, d-dimer is still low at 0.27. Glucose is at 126. The patient is seen today 07/16/2020 in follow-up on the regular medical floor. He is currently sitting up in a chair at the bedside. Awake and alert in no acute distress. Currently maintaining O2 saturation at 97% on room air. He was up to the bathroom and was quite winded with minimal exertion. His main complaint is ongoing fatigue. He is afebrile. Hemodynamically stable. He remains on Decadron 6 mg IV daily. Anticoagulated with Lovenox. This is day #3 of Remdesivir. Remains on vitamin supplements. Blood cultures revealed no growth. D-dimer 0.37. Glucose 81. Yesterday's chest x-ray did reveal peripher al opacities bilaterally. Bandlike areas of increased attenuation centrally. Low lung volumes. He is encouraged regarding the increased use of the incentive spirometer and cough and deep breathing exercises. 07/17/2020 the patient is feeling well and he is completing the course of Decadron and Remdesivir per protocol. Doing well in is onRA oxygen by nasal cannula with a pulse ox of 94-95%. No fever. No chills. Hemodynamically stable. No blood work today. His CBC from yesterday was noted. He is having some hiccups and the patient's is still doing for on his incentive spirometer. For respiratory efforts. He is able to generate volumes of 250 on his incentive spirometer. He is also noted to have increased cough with deep breathing and inhalation. Inflammatory markers will need to be rechecked and followed up. Objective - Vital Signs Vital signs: Vital Signs Temp 97.6 F 07/17/20 02:25 Pulse 67 07/17/20 02:25 Resp 19 07/16/20 13:52 BP 170/109 07/17/20 02:25 Pulse Ox 94 L 07/17/20 02:25 Intake & Output 07/16/20 07/17/20 07/17/20 18:59 06:59 18:59 Intake Total 400 Output Total 741 Balance 400 -741 Intake: Intake, IV Titration 400 Amount Sodium Chloride 0.9% 1, 400 000 ml @ 20 mls/hr IV . Q24H [facility] Rx#:[id number] Output: Urine 740 Stool 1 Other: Voiding Method Toilet Toilet Urinal # Voids 1 - Exam The patient appeared well nourished and normally developed. Vital signs as documented. Head exam is unremarkable. No scleral icterus or corneal arcus no shun. Neck is without jugular venous distension, thyromegaly, or carotid bruits. Carotid upstrokes are brisk bilaterally. Lungs are clear to auscultation and percussion. Cardiac exam reveals the PMI to be normally sized and situated. Rhythm is regular. First and second heart sounds normal. No murmurs, rubs or gallops. Abdominal exam reveals normal bowel sounds, no masses, no organomegaly and no aortic enlargement. Extremities are nonedematous and both femoral and pedal pulses are normal. NExamination of the skin revealed no evidence of significant rashes, suspicious appearing nevi or other concerning lesions.Neurologically, the patient is awake and alert and the patient does not have any focal neurological deficit. Cranial nerves are essentially intact. - Labs CBC & Chem 7: 07/16/20 09:37 07/16/20 07:15 Labs: Abnormal Lab Results - Last 24 Hours (Table) 07/16/20 07/16/20 07/16/20 Range/Units 07:15 09:37 11:52 MCHC 31.7 L (32.0-37.0) g/dL Immature Gran # 0.09 H (0.00-0.04) X 10*3/uL Lymphocytes # 0.77 L (0.90-5.00) X 10*3/uL Eosinophils # 0 L (0.04-0.35) X 10*3/uL BUN 30.0 H (9.0-27.0) mg/dL BUN/Creatinine Ratio 30.00 H (12.00-20.00) Ratio POC Glucose (mg/dL) 120 H (75-99) mg/dL Ferritin 1031.0 H (22.0-322.0) ng/mL Lactate Dehydrogenase 259 H (120-246) U/L C-Reactive Protein 1.0 H (0.0-0.8) mg/dL Urine Blood (Negative) Urine RBC (0-5) /hpf 07/16/20 07/16/20 07/16/20 Range/Units 17:25 19:43 19:55 MCHC (32.0-37.0) g/dL Immature Gran # (0.00-0.04) X 10*3/uL Lymphocytes # (0.90-5.00) X 10*3/uL Eosinophils # (0.04-0.35) X 10*3/uL BUN (9.0-27.0) mg/dL BUN/Creatinine Ratio (12.00-20.00) Ratio POC Glucose (mg/dL) 205 H 156 H (75-99) mg/dL Ferritin (22.0-322.0) ng/mL Lactate Dehydrogenase (120-246) U/L C-Reactive Protein (0.0-0.8) mg/dL Urine Blood Small H (Negative) Urine RBC 48 H (0-5) /hpf Microbiology - Last 24 Hours (Table) 07/16/20 19:40 Gram Stain - Preliminary Sputum Sputum Culture - Preliminary 07/14/20 04:31 Blood Culture - Preliminary Blood No Growth after 72 hours 07/13/20 12:09 Blood Culture - Preliminary Blood No Growth after 72 hours Assessment and Plan Plan: 1 COVID 19 related pneumonia with peripheral bilateral pulmonary infiltrates and some mild hypoxemia. The patient was hypoxemic at the time of admission to the emergency department and he was on oxygen by nasal cannula at 2 L by nasal cannu la. His pulse is currently improved and is normalized. CAT scan of the chest showed peripheral round glass pulmonary infiltrates, no evidence of any pulmonary embolism. His d-dimer level is low. CRP and ferritin levels are mildly elevated. The patient was started on a combination of Decadron and Remdesivir based on some worsening shortness of breath, the patient had a follow-up chest x-ray that shows peripheral infiltration slightly worse on the right, and probably slightly worse on the left. Lung volumes are small. The patient has chronic right hemidiaphragmatic elevation. His recovery has been slow and the patient continues to have shortness of breath, cough, and new onset hiccups. His pulse ox is above 90% on room air oxygen. 2 fever secondary to above medical 3 nausea and diarrhea secondary to above, improved 4 shortness of breath and cough secondary to above 5 acute hypoxic respiratory failure secondary to above, his pulse ox is fluctuating currently 93% on room air oxygen 6 obesity with a BMI of 37.3 7 hypertension 8 hypotensive symptoms him, currently on testosterone replacement 9 diabetes mellitus maintained on metformin 10 ADHD currently on Adderall 11 degenerative disease involving the T-spine along with S-scoliosis. Plan The patient has stable oxygenation. Nevertheless, he has poor respiratory efforts, cough and he is doing poorly on the incentive spirometer. He is also having some hiccups. We'll add promethazine 12.5 mg every 6-8 hours to suppress his cough and hiccups. He'll be also switched IV Solu-Medrol. 60 mg every 6 hours. Remdesivir per protocol, currently the patient is on the 5 of treatment. Lovenox 40 mg subcu daily, d-dimer remains low Multivitamin supplements chest x-ray and implemented markers for tomorrow continue to follow
[2020-07-17] MEDS ORDERED: METOCLOPRAMIDE 5 MG/ML 2 ML VIAL IVP PRN (12:21)
[2020-07-17] MEDS: THIAMINE 100 MG TAB PO SCH (12:27)
[2020-07-17] MEDS: FOLIC ACID 1 MG TAB PO SCH (12:27)
[2020-07-17] MEDS: REMDESIVIR 100 MG in SODIUM CHLORIDE 0.9% 250 ML IVPB SCH (12:27)
--- NOTE | 2020-07-17 13:56 | XR ---
EXAMINATION TYPE: XR chest 1V portable DATE OF EXAM: 07/17/2020 COMPARISON: Chest x-ray 07/15/2020 HISTORY: Shortness of breath and cough TECHNIQUE: Single frontal view of the chest is obtained. FINDINGS: Findings are essentially stable. IMPRESSION: Correlate for pneumonia, persistent elevation of right hemidiaphragm.
[2020-07-17] MEDS: SODIUM CHLORIDE 0.9% 1,000 ML IV SCH (14:10)
--- NOTE | 2020-07-17 14:43 | PN ---
PROGRESS NOTE DATE OF SERVICE: 07/17/2020 REASON FOR FOLLOWUP: Acute COVID-19 infection. INTERVAL HISTORY: The patient is currently afebrile. The patient is currently on 2 L nasal cannula. Patient denies having any chest pain. Complaining of some back pain mid back area. Denies any worsening cough or sputum production. No abdominal pain and hematuria . PHYSICAL EXAMINATION: Blood pressure 170/100 with a pulse of 67, temperature 97.6. He is 94% on 2 L nasal cannula. General description is a middle-aged male up in the bed in no distress. RESPIRATORY SYSTEM: Unlabored breathing, decreased intensity of breath sounds. No wheeze. HEART: S1, S2. Regular rate and rhythm. ABDOMEN: Soft, no tenderness. LABS: Urine did show small blood and 48 RBC, no WBC. Sputum culture is pending. DIAGNOSTIC IMPRESSION AND PLAN: Patient with acute COVID-19 infection currently on remdesivir, Solu-Medrol, zinc to continue. Will monitor his clinical course closely. Continue supportive care. MMODL / IJN: [id number] /
[2020-07-17] MEDS: methylPREDNISolone SOD SUCCI 40 MG/ML 1 ML VIAL IV SCH ×2 (16:27→23:13)
--- NOTE | 2020-07-17 17:08 | PN ---
PROGRESS NOTE DATE OF SERVICE: 07/17/2020 This 55-year-old gentleman was admitted with acute COVID-19 pneumonia as well as acute bilateral interstitial pneumonia and severe pain. The patient is started on remdesivir. The patient is on other medication also. Multiple consultants are following the patient closely. PAST MEDICAL HISTORY: Reviewed. REVIEW OF SYSTEMS: CARDIOVASCULAR: No angina. RESPIRATORY: As mentioned earlier. GI: As mentioned earlier. : No dysuria. NERVOUS SYSTEM: No numbness or weakness. ALLERGY/IMMUNOLOGY: No asthma or hayfever. CURRENT MEDICATIONS: Reviewed and include Tylenol, Mosby, Ventolin, Xanax, vitamin C, vitamin D3, B12, Flexeril, Lovenox, Pepcid, folic acid, Dilaudid, NovoLog, Solu-Medrol, Toprol, Narcan, ondansetron, Protonix. Doses reviewed. PHYSICAL EXAMINATION: GENERAL: Patient is alert and oriented times three. VITAL SIGNS: Pulse 70, blood pressure 121/77, respirations 18, temperature 97.4, pulse ox 92% on room air HEENT: Conjunctivae normal. NECK: No jugular venous distention. No carotid bruits. No lymph node enlargement. RESPIRATORY: Breath sounds diminished at the bases. A few scattered rhonchi and crackles. HEART: S1 and S2, muffled. ABDOMEN: Soft, no tenderness. EXTREMITIES: No edema, no swelling. NERVOUS: No focal deficits. LAB STUDIES: WBC 6.8, hemoglobin 14.6, sodium 143, potassium 4.5, C-reactive protein is 1. ASSESSMENT: 1. Acute COVID-19 infection with bilateral extensive interstitial pneumonia. 2. Severe back pain, multifactorial. 3. Leukopenia. 4. Thrombocytopenia. 5. Hyponatremia. 6. Diabetes mellitus type 2 with hyperglycemia. 7. Elevated ferritin, LDH, CRP, inflammatory markers secondary to COVID-19. 8. Elevated procalcitonin. 9. Diabetes mellitus type 2. 10.Gastroesophageal reflux disease. 11.Hypertension. 12.History of MRSA. 13.History of cholecystectomy. 14.History of hernia repair. 15.Obesity with body mass index of 37.6. 16.FULL CODE. RECOMMENDATIONS AND DISCUSSION: I recommend to continue current medical management, continue with monitoring and symptomatic treatment. Otherwise, at this time I recommend continue with steroids. Continue remdesivir. Continue with the rest of the medications and symptomatic treatment of the pain. Persistent elevation of the right hemidiaphragm was also noted in the x-ray. Incentive spirometry. Guarded prognosis. Further recommendations to follow. MMODL / IJN: [id number] /
[2020-07-17 17:18] LABS: Glucose,Whole Blood 142 mg/dL (75-99)
[2020-07-17] MEDS: PANTOPRAZOLE 40 MG/10 ML VIAL IVP SCH (20:05)
[2020-07-17 20:22] LABS: Glucose,Whole Blood 236 mg/dL (75-99)
[2020-07-18] MEDS: HYDROmorphone 0.5 MG/0.5 ML SYRINGE IVP PRN ×6 (00:05→23:16)
[2020-07-18] MEDS: ALBUTEROL HFA INHALER INHALATION SCH ×3 (07:00→15:56)
[2020-07-18 07:13] LABS: Glucose,Whole Blood 167 mg/dL (75-99)
[2020-07-18] MEDS: ALPRAZolam 0.25 MG TAB PO PRN ×2 (07:17→16:55)
--- NOTE | 2020-07-18 07:42 | XR ---
EXAMINATION TYPE: XR chest 1V portable DATE OF EXAM: 07/18/2020 COMPARISON: Chest x-ray 07/17/2020 HISTORY: Shortness of breath, Covid 19 pneumonia TECHNIQUE: Single frontal view of the chest is obtained. FINDINGS: Findings are similar to prior exam. There is persistent elevation of right hemidiaphragm. IMPRESSION: Findings consistent with patient's history.
[2020-07-18 08:05] LABS: African American GFR (CKD) >90 (>60 ml/min/1.73 sqM); Anion Gap 11 mmol/L; Blood Urea Nitrogen 23 mg/dL (9-20); C Reactive Protein 11.6 mg/L (<10.0); Calcium 9.2 mg/dL (8.4-10.2); Carbon Dioxide 27 mmol/L (22-30); Chloride 100 mmol/L (98-107); Glucose 170 mg/dL (74-99); LDH 518 U/L (313-618); Non-African American GFR(CKD) >90 (>60 ml/min/1.73 sqM); Sodium 138 mmol/L (137-145)
[2020-07-18] MEDS: INSULIN ASPART (NovoLOG) 100 UNIT/ML VIAL SQ SCH ×4 (08:44→20:48)
[2020-07-18] MEDS: MULTIVITAMINS, THERA 1 EACH TAB PO SCH (08:45)
[2020-07-18] MEDS: HYDROcodone/APAP 10-325MG 1 EACH TAB PO PRN (08:45)
[2020-07-18] MEDS: FAMOTIDINE 20 MG TAB PO SCH ×2 (08:45→20:47)
[2020-07-18] MEDS: ZINC SULFATE 220 MG CAP PO SCH (08:45)
[2020-07-18] MEDS: CYANOCOBALAMIN 500 MCG TAB PO SCH (08:45)
[2020-07-18] MEDS: CHOLECALCIFEROL 25 MCG (1000 IU) TABLET PO SCH (08:45)
[2020-07-18] MEDS: ASCORBIC ACID 500 MG TAB PO SCH (08:45)
[2020-07-18] MEDS: CYCLOBENZAPRINE 5 MG TAB PO SCH ×4 (08:45→20:49)
[2020-07-18] MEDS: LORATADINE 10 MG TAB PO SCH (08:45)
[2020-07-18] MEDS: ENOXAPARIN 40 MG/0.4 ML SYRINGE SQ SCH (08:46)
[2020-07-18] MEDS: methylPREDNISolone SOD SUCCI 40 MG/ML 1 ML VIAL IV SCH ×3 (10:21→23:08)
[2020-07-18] MEDS: PANTOPRAZOLE 40 MG/10 ML VIAL IVP SCH ×2 (10:21→20:48)
[2020-07-18] MEDS: METOPROLOL SUCCINATE (ER) 25 MG TAB.ER.24H PO SCH (10:21)
[2020-07-18 12:09] LABS: Glucose,Whole Blood 201 mg/dL (75-99)
[2020-07-18 12:22] LABS: Basophils # (A) 0.02 X 10*3/uL (0.00-0.10); Basophils % (A) 0.3 %; Eosinophils # (A) 0 X 10*3/uL (0.04-0.35); Eosinophils % (A) 0 %; HCT 49.9 % (39.6-50.0); HGB 15.7 g/dL (13.0-17.0); Lymphocytes # (A) 0.75 X 10*3/uL (0.90-5.00); Lymphocytes % (A) 9.8 %; MCH 27.5 pg (27.0-32.0); MCHC 31.5 g/dL (32.0-37.0); MCV 87.5 fL (80.0-97.0); Mean Platelet Volume 9.6 fL (9.5-12.2); Monocytes # (A) 0.38 X 10*3/uL (0.20-1.00); Monocytes % (A) 4.9 %; Neutrophils % (A) 83.3 %; Platelet Count 321 X 10*3/uL (140-440); RDW 13.7 % (11.5-14.5); WBC 7.68 X 10*3/uL (4.50-10.00)
[2020-07-18] MEDS: FOLIC ACID 1 MG TAB PO SCH (12:22)
[2020-07-18] MEDS: THIAMINE 100 MG TAB PO SCH (12:22)
[2020-07-18] MEDS: REMDESIVIR 100 MG in SODIUM CHLORIDE 0.9% 250 ML IVPB SCH (12:33)
[2020-07-18] MEDS: SODIUM CHLORIDE 0.9% 1,000 ML IV SCH (12:37)
--- NOTE | 2020-07-18 13:36 | P.PN ---
Subjective Progress Note Date: 07/18/20 55-year-old male patient came into the ED complaining of shortness of breath and extreme fatigue. His symptoms started approximately 3-4 days ago and he started having some increased shortness of breath and cough and following that he lost his sense of taste and smell. Patient was tested negative for COVID approximately a week ago. The patient had some mild nausea and diarrhea in addition. He also had fever and chills and myalgias. In the ED, the patient wasn't was at 2.02 with a hemoglobin of 14.3 and platelets of 162, his lymphocyte counts were low at 0.46, d-dimer was at 0.32, his ferritin was 617, CRP is at 5.4 and LDH was not measured. His lactic acid was at 1.6. BUN and creatinine are both within normal limits. Chest x-ray is showing smaller lung volumes and peripheral pulmonary infiltrates bilaterally more so on the right. The patient is currently on oxygen at room air with a pulse ox of 94-97%. EKG showing sinus tachycardia. Note that the patient was in the emergency dep artment on 06/28/2020 for some chest discomfort and chest pain. At that time he was tested for Covid 19 came back negative and he was diagnosed having a panic attack and the patient was able to have a nonspecific atypical chest pain and he was discharged home. The CAT scan of the chest was done at that time showed no acute abnormalities and this was a CT angios protocol that was done on 06/29/19. He felt fine after that his symptoms got worse approximately a week ago as discussed above. On 07/15/2020 the patient is being seen in follow-up. The patient was seen in consultation yesterday for Covid 19. The patient was given IV fluids. The patient was given IV Decadron. The patient was given also Remdesivir protocol. Note that he had some vague peripheral pulmonary infiltrates bilaterally consistent with Covid 19 related pneumonia. On today's evaluation, the patient is doing well. No specific complaints. CT angiogram did not show any pulmonary embolism. He does have some chronic lower back pain. Earlier this morning was getting more short of breath. He was given Decadron and he was given also albuterol rescue inhaler. He is already feeling better is currently on room air oxygen with a pulse ox of 94%. He remains hemodynamically stable. His lowest pulse ox was 91%. His white cell count is at 5.2 with a hemoglobin of 14.7. He does have some lymphopenia with a lymphocyte count of 0.65, d-dimer is still low at 0.27. Glucose is at 126. The patient is seen today 07/16/2020 in follow-up on the regular medical floor. He is currently sitting up in a chair at the bedside. Awake and alert in no acute distress. Currently maintaining O2 saturation at 97% on room air. He was up to the bathroom and was quite winded with minimal exertion. His main complaint is ongoing fatigue. He is afebrile. Hemodynamically stable. He remains on Decadron 6 mg IV daily. Anticoagulated with Lovenox. This is day #3 of Remdesivir. Remains on vitamin supplements. Blood cultures revealed no growth. D-dimer 0.37. Glucose 81. Yesterday's chest x-ray did reveal peripher al opacities bilaterally. Bandlike areas of increased attenuation centrally. Low lung volumes. He is encouraged regarding the increased use of the incentive spirometer and cough and deep breathing exercises. 07/17/2020 the patient is feeling well and he is completing the course of Decadron and Remdesivir per protocol. Doing well in is onRA oxygen by nasal cannula with a pulse ox of 94-95%. No fever. No chills. Hemodynamically stable. No blood work today. His CBC from yesterday was noted. He is having some hiccups and the patient's is still doing for on his incentive spirometer. For respiratory efforts. He is able to generate volumes of 250 on his incentive spirometer. He is also noted to have increased cough with deep breathing and inhalation. Inflammatory markers will need to be rechecked and followed up. 60,021 the patient is on room air oxygen. He is completing his treatment COVID 19 with a course of Decadron and Remdesivir per protocol day 5 out of 5. He is on room air oxygen. He is using incentive spirometer, generating lower volumes. He was given promethazine for cough and he Was Also Switched IV Solu-Medrol. He Remains on Lovenox. In Terms of His Follow-Up Chest X-Ray Today, there is some elevation of the right hemidiaphragm. There is some hazy infiltrate bilaterally and I would say the x-ray findings are essentially the same. Lung volumes are rather small as the patient for and weak inspiratory effort. In terms of his inflammatory markers, the patient had a C-reactive protein of 11.6 and LDH of 518. Objective - Vital Signs Vital signs: Vital Signs Temp 97.9 F 07/18/20 07:00 Pulse 74 07/18/20 07:00 Resp 24 07/18/20 08:00 BP 127/81 07/18/20 07:00 Pulse Ox 93 L 07/18/20 07:00 Intake & Output 07/17/20 07/18/20 07/18/20 18:59 06:59 18:59 Intake Total 1080 240 Output Total 2 3 Balance 1078 -3 240 Intake: Oral 1080 240 Output: Stool 2 3 Other: Voiding Method Toilet Toilet Toilet Urinal Urinal Urinal # Voids 1 - Exam The patient appeared well nourished and normally developed. Vital signs as documented. Head exam is unremarkable. No scleral icterus or corneal arcus noted. Neck is without jugular venous distension, thyromegaly, or carotid bruits. Carotid upstrokes are brisk bilaterally. Lungs are clear to auscultation and percussion. Cardiac exam reveals the PMI to be normally sized and situated. Rhythm is regular. First and second heart sounds normal. No murmurs, rubs or gallops. Abdominal exam reveals normal bowel sounds, no masses, no organomegaly and no aortic enlargement. Extremities are nonedematous and both femoral and pedal pulses are normal. NExamination of the skin revealed no evidence of significant rashes, suspicious appearing nevi or other concerning lesions.Neurologically, the patient is awake and alert and the patient does not have any focal neurological deficit. Cranial nerves are essentially intact. - Labs CBC & Chem 7: 07/18/20 07:28 07/18/20 07:28 Labs: Abnormal Lab Results - Last 24 Hours (Table) 07/17/20 07/17/20 07/18/20 Range/Units 17:14 20:20 07:11 RBC (4.40-5.60) X 10*6/uL MCHC (32.0-37.0) g/dL Immature Gran # (0.00-0.04) X 10*3/uL Lymphocytes # (0.90-5.00) X 10*3/uL Eosinophils # (0.04-0.35) X 10*3/uL BUN (9-20) mg/dL Glucose (74-99) mg/dL POC Glucose (mg/dL) 142 H 236 H 167 H (75-99) mg/dL C-Reactive Protein (<10.0) mg/L 07/18/20 07/18/20 07/18/20 Range/Units 07:28 07:28 12:02 RBC 5.70 H (4.40-5.60) X 10*6/uL MCHC 31.5 L (32.0-37.0) g/dL Immature Gran # 0.13 H (0.00-0.04) X 10*3/uL Lymphocytes # 0.75 L (0.90-5.00) X 10*3/uL Eosinophils # 0 L (0.04-0.35) X 10*3/uL BUN 23 H (9-20) mg/dL Glucose 170 H (74-99) mg/dL POC Glucose (mg/dL) 201 H (75-99) mg/dL C-Reactive Protein 11.6 H (<10.0) mg/L Microbiology - Last 24 Hours (Table) 07/14/20 04:31 Blood Culture - Preliminary Blood No Growth after 96 hours 07/13/20 12:09 Blood Culture - Preliminary Blood No Growth after 96 hours Assessment and Plan Plan: 1 COVID 19 related pneumonia with peripheral bilateral pulmonary infiltrates and some mild hypoxemia. The patient was hypoxemic at the time of admission to the emergency department and he was on oxygen by nasal cannula at 2 L by nasal cannula. His pulse is currently improved and is normalized. CAT scan of the chest showed peripheral round glass pulmonary infiltrates, no evidence of any pulmonary embolism. His d-dimer level is low. CRP and ferritin levels are mildly elevated. The patient was started on a combination of Decadron and Remdesivir based on some worsening shortness of breath, the patient had a follow-up chest x-ray that shows peripheral infiltration slightly worse on the right, and probably slightly worse on the left. Lung volumes are small. The patient has chronic right hemidiaphragmatic elevation. His recovery has been slow and the patient continues to have shortness of breath, cough, and new onset hiccups. His pulse ox is above 90% on room air oxygen. on 07/18/2020, the patient is able to a deeper breath and he is ability to use the incentive spirometer is improved and he is pulling approximately 2000. He is complaining the course of Decadron and Remdesivir and is up a metal markers of low. 2 fever secondary to above , recovered 3 nausea and diarrhea secondary to above, improved 4 shortness of breath and cough secondary to above 5 acute hypoxic respiratory failure secondary to above, his pulse ox is fluctuating currently 93% on room air oxygen 6 obesity with a BMI of 37.3 7 hypertension 8 hypotensive symptoms him, currently on testosterone replacement 9 diabetes mellitus maintained on metformin 10 ADHD currently on Adderall 11 degenerative disease involving the T-spine along with S-scoliosis. Plan add nystatin for oropharyngeal candidiasis Promethazine for cough every 6-8 hours and a when necessary basis IV Solu-Medrol Remdesivir per protocol, currently the patient is on the 5/5 of treatment. Lovenox 40 mg subcu daily, d-dimer remains low Multivitamin supplements chest x-ray and implemented markers was reviewed. Chest x-ray stable. The right diaphragm is elevated and possibly paralyzed. Inflammatory markers are lo w. continue to follow
[2020-07-18] MEDS: NYSTATIN 100,000 UNIT/ML SUSP 500,000 UNIT/5 ML CUP PO SCH ×3 (14:12→23:08)
--- NOTE | 2020-07-18 16:20 | PN ---
PROGRESS NOTE DATE OF SERVICE: 07/18/2020 INTERVAL HISTORY: This is a 55-year-old gentleman who was admitted with acute COVID-19 infection with bilateral extensive COVID-19 pneumonia. Has received remdesivir. The patient is still complaining of severe back pain possibly secondary to pleurisy associated with COVID-19 and myositis associated with COVID-19. Chest x-ray showed significant lesions on the right side. Multiple consultants are following the patient closely. Pulse ox about 93% on room air. Patient is extremely anxious. PAST MEDICAL HISTORY: Reviewed. REVIEW OF SYSTEMS: CARDIOVASCULAR: No angina. RESPIRATORY: As mentioned earlier. GI: As mentioned earlier. : No dysuria. NERVOUS SYSTEM: No numbness or weakness. ALLERGY/IMMUNOLOGY: No asthma or hayfever. CURRENT MEDICATIONS: Reviewed and include Tylenol, Mcgregor, Xanax, vitamin C, vitamin D3, Pepcid, folic acid, losartan, remdesivir. Doses reviewed. PHYSICAL EXAMINATION: GENERAL: Patient is alert and oriented times three. VITAL SIGNS: Pulse 74, blood pressure 127/81, respirations 24, temperature 97.9, pulse ox 93% on room air. HEENT: Conjunctivae normal. Oral mucosa moist. NECK: No jugular venous distention. No carotid bruits. No lymph node enlargement. RESPIRATORY: Breath sounds diminished at the bases. A few scattered rhonchi. HEART: S1 and S2, muffled. ABDOMEN: Soft, no tenderness. EXTREMITIES: No edema, no swelling. NERVOUS: No focal deficits. LABORATORY DATA: WBC 7.68, hemoglobin noted. Sodium 138. C-reactive protein 11.6. ASSESSMENT: 1. Acute COVID-19 infection with bilateral extensive interstitial pneumonia. 2. Severe back pain, multifactorial. 3. Leukopenia. 4. Thrombocytopenia. 5. Hyponatremia. 6. Elevated D-dimer. 7. Diabetes mellitus type 2 with acute hyperglycemia. 8. Elevated ferritin, LDH, CRP, inflammatory markers secondary to COVID-19 .. 9. Elevated procalcitonin. 10.Diabetes mellitus type 2. 11.Gastroesophageal reflux disease. 12.Hypertension. 13.History of Methicillin resistant Staphylococcus aureus. 14.History of cholecystectomy. 15.History of hernia repair. 16.Obesity with body mass index of 37.6. 17.FULL CODE. RECOMMENDATIONS AND DISCUSSION: I recommend to continue current management and continue symptomatic treatment. Continue remdesivir. We will continue the bronchodilators. Continue steroids. Also recommend evaluation. The patient might be a candidate for Actemra if it is available or approved by the pharmacy. We will closely follow with Infectious Disease and Pulmonary. Prognosis guarded. Further recommendations to follow. MMVALERIAL / RAHEEMN: [id number] / MTDD
[2020-07-18 17:19] LABS: Glucose,Whole Blood 211 mg/dL (75-99)
[2020-07-18 20:24] LABS: Glucose,Whole Blood 182 mg/dL (75-99)
[2020-07-19] MEDS: HYDROmorphone 0.5 MG/0.5 ML SYRINGE IVP PRN ×5 (03:43→21:10)
[2020-07-19 07:15] LABS: Glucose,Whole Blood 145 mg/dL (75-99)
[2020-07-19] MEDS: ALBUTEROL HFA INHALER INHALATION SCH ×3 (08:29→19:33)
[2020-07-19] MEDS: NYSTATIN 100,000 UNIT/ML SUSP 500,000 UNIT/5 ML CUP PO SCH ×4 (08:35→21:11)
[2020-07-19] MEDS: INSULIN ASPART (NovoLOG) 100 UNIT/ML VIAL SQ SCH ×4 (08:37→21:30)
[2020-07-19] MEDS: ENOXAPARIN 40 MG/0.4 ML SYRINGE SQ SCH (08:38)
[2020-07-19] MEDS: ASCORBIC ACID 500 MG TAB PO SCH (08:42)
[2020-07-19] MEDS: MULTIVITAMINS, THERA 1 EACH TAB PO SCH (08:42)
[2020-07-19] MEDS: METOPROLOL SUCCINATE (ER) 25 MG TAB.ER.24H PO SCH (08:42)
[2020-07-19] MEDS: FAMOTIDINE 20 MG TAB PO SCH ×2 (08:42→21:11)
[2020-07-19] MEDS: CHOLECALCIFEROL 25 MCG (1000 IU) TABLET PO SCH (08:42)
[2020-07-19] MEDS: LORATADINE 10 MG TAB PO SCH (08:42)
[2020-07-19] MEDS: CYANOCOBALAMIN 500 MCG TAB PO SCH (08:42)
[2020-07-19] MEDS: ZINC SULFATE 220 MG CAP PO SCH (08:43)
[2020-07-19] MEDS: CYCLOBENZAPRINE 5 MG TAB PO SCH ×4 (08:43→21:11)
[2020-07-19] MEDS: methylPREDNISolone SOD SUCCI 40 MG/ML 1 ML VIAL IV SCH ×2 (08:43→17:51)
[2020-07-19] MEDS: PANTOPRAZOLE 40 MG/10 ML VIAL IVP SCH ×2 (08:43→21:11)
--- NOTE | 2020-07-19 12:00 | P.PN ---
Subjective Progress Note Date: 07/19/20 55-year-old male patient came into the ED complaining of shortness of breath and extreme fatigue. His symptoms started approximately 3-4 days ago and he started having some increased shortness of breath and cough and following that he lost his sense of taste and smell. Patient was tested negative for COVID approximately a week ago. The patient had some mild nausea and diarrhea in addition. He also had fever and chills and myalgias. In the ED, the patient wasn't was at 2.02 with a hemoglobin of 14.3 and platelets of 162, his lymphocyte counts were low at 0.46, d-dimer was at 0.32, his ferritin was 617, CRP is at 5.4 and LDH was not measured. His lactic acid was at 1.6. BUN and creatinine are both within normal limits. Chest x-ray is showing smaller lung volumes and peripheral pulmonary infiltrates bilaterally more so on the right. The patient is currently on oxygen at room air with a pulse ox of 94-97%. EKG showing sinus tachycardia. Note that the patient was in the emergency dep artment on 06/28/2020 for some chest discomfort and chest pain. At that time he was tested for Covid 19 came back negative and he was diagnosed having a panic attack and the patient was able to have a nonspecific atypical chest pain and he was discharged home. The CAT scan of the chest was done at that time showed no acute abnormalities and this was a CT angios protocol that was done on 06/29/19. He felt fine after that his symptoms got worse approximately a week ago as discussed above. On 07/15/2020 the patient is being seen in follow-up. The patient was seen in consultation yesterday for Covid 19. The patient was given IV fluids. The patient was given IV Decadron. The patient was given also Remdesivir protocol. Note that he had some vague peripheral pulmonary infiltrates bilaterally consistent with Covid 19 related pneumonia. On today's evaluation, the patient is doing well. No specific complaints. CT angiogram did not show any pulmonary embolism. He does have some chronic lower back pain. Earlier this morning was getting more short of breath. He was given Decadron and he was given also albuterol rescue inhaler. He is already feeling better is currently on room air oxygen with a pulse ox of 94%. He remains hemodynamically stable. His lowest pulse ox was 91%. His white cell count is at 5.2 with a hemoglobin of 14.7. He does have some lymphopenia with a lymphocyte count of 0.65, d-dimer is still low at 0.27. Glucose is at 126. The patient is seen today 07/16/2020 in follow-up on the regular medical floor. He is currently sitting up in a chair at the bedside. Awake and alert in no acute distress. Currently maintaining O2 saturation at 97% on room air. He was up to the bathroom and was quite winded with minimal exertion. His main complaint is ongoing fatigue. He is afebrile. Hemodynamically stable. He remains on Decadron 6 mg IV daily. Anticoagulated with Lovenox. This is day #3 of Remdesivir. Remains on vitamin supplements. Blood cultures revealed no growth. D-dimer 0.37. Glucose 81. Yesterday's chest x-ray did reveal peripher al opacities bilaterally. Bandlike areas of increased attenuation centrally. Low lung volumes. He is encouraged regarding the increased use of the incentive spirometer and cough and deep breathing exercises. 07/17/2020 the patient is feeling well and he is completing the course of Decadron and Remdesivir per protocol. Doing well in is onRA oxygen by nasal cannula with a pulse ox of 94-95%. No fever. No chills. Hemodynamically stable. No blood work today. His CBC from yesterday was noted. He is having some hiccups and the patient's is still doing for on his incentive spirometer. For respiratory efforts. He is able to generate volumes of 250 on his incentive spirometer. He is also noted to have increased cough with deep breathing and inhalation. Inflammatory markers will need to be rechecked and followed up. 60,021 the patient is on room air oxygen. He is completing his treatment COVID 19 with a course of Decadron and Remdesivir per protocol day 5 out of 5. He is on room air oxygen. He is using incentive spirometer, generating lower volumes. He was given promethazine for cough and he Was Also Switched IV Solu-Medrol. He Remains on Lovenox. In Terms of His Follow-Up Chest X-Ray Today, there is some elevation of the right hemidiaphragm. There is some hazy infiltrate bilaterally and I would say the x-ray findings are essentially the same. Lung volumes are rather small as the patient for and weak inspiratory effort. In terms of his inflammatory markers, the patient had a C-reactive protein of 11.6 and LDH of 518. 07/19/2020, the patient remains on room air oxygen. He is completing the treatment for Covid 19. The patient completed Remdesivir per protocol day 5 out of 5 and the patient is also on steroids. No new complaints otherwise for now. Using incentive spirometer. He is on IV Solu-Medrol. The pain in his back is also subsided. In terms ofHis numbers have already trended down to an LDH of 518 and a CRP of 11.6 and no repeat has been performed. He is having some back pain issue and the patient was given a lidocaine patch in that regard. Objective - Vital Signs Vital signs: Vital Signs Temp 97.8 F 07/19/20 07:00 Pulse 65 07/19/20 07:00 Resp 19 07/19/20 07:00 BP 141/80 07/19/20 07:00 Pulse Ox 96 07/19/20 08:30 Intake & Output 07/18/20 07/19/20 07/19/20 18:59 06:59 18:59 Intake Total 1070 Output Total 3 1 Balance 1070 -3 -1 Intake: IV 250 Remdesivir 100 mg In 250 Sodium Chloride 0.9% 250 ml @ 250 mls/hr IVPB DAILY@1300 [facility] Rx#: [id number] Oral 820 Output: Stool 3 1 Other: Voiding Method Toilet Toilet Toilet Urinal Urinal Urinal # Voids 1 - Exam The patient appeared well nourished and normally developed. Vital signs as documented. Head exam is unremarkable. No scleral icterus or corneal arcus note d. Neck is without jugular venous distension, thyromegaly, or carotid bruits. Carotid upstrokes are brisk bilaterally. Lungs are clear to auscultation and percussion. Cardiac exam reveals the PMI to be normally sized and situated. Rhythm is regular. First and second heart sounds normal. No murmurs, rubs or gallops. Abdominal exam reveals normal bowel sounds, no masses, no organomegaly and no aortic enlargement. Extremities are nonedematous and both femoral and pedal pulses are normal. NExamination of the skin revealed no evidence of significant rashes, suspicious appearing nevi or other concerning lesions.Neurologically, the patient is awake and alert and the patient does not have any focal neurological deficit. Cranial nerves are essentially intact. - Labs CBC & Chem 7: 07/18/20 07:28 07/18/20 07:28 Labs: Abnormal Lab Results - Last 24 Hours (Table) 07/18/20 07/18/20 07/18/20 Range/Units 07:28 12:02 17:17 RBC 5.70 H (4.40-5.60) X 10*6/uL MCHC 31.5 L (32.0-37.0) g/dL Immature Gran # 0.13 H (0.00-0.04) X 10*3/uL Lymphocytes # 0.75 L (0.90-5.00) X 10*3/uL Eosinophils # 0 L (0.04-0.35) X 10*3/uL POC Glucose (mg/dL) 201 H 211 H (75-99) mg/dL 07/18/20 07/19/20 Range/Units 20:23 07:08 RBC (4.40-5.60) X 10*6/uL MCHC (32.0-37.0) g/dL Immature Gran # (0.00-0.04) X 10*3/uL Lymphocytes # (0.90-5.00) X 10*3/uL Eosinophils # (0.04-0.35) X 10*3/uL POC Glucose (mg/dL) 182 H 145 H (75-99) mg/dL Microbiology - Last 24 Hours (Table) 07/16/20 19:40 Gram Stain - Final Sputum Sputum Culture - Final 07/14/20 04:31 Blood Culture - Preliminary Blood No Growth after 120 hours 07/13/20 12:09 Blood Culture - Preliminary Blood No Growth after 120 hours Assessment and Plan Plan: 1 COVID 19 related pneumonia with peripheral bilateral pulmonary infiltrates and some mild hypoxemia. The patient was hypoxemic at the time of admission to the emergency department and he was on oxygen by nasal cannula at 2 L by nasal cannula. His pulse is currently improved and is normalized. CAT scan of the chest showed peripheral round glass pulmonary infiltrates, no evidence of any pulmonary embolism. His d-dimer level is low. CRP and ferritin levels are mildly elevated. The patient was started on a combination of Decadron and Remdesivir based on some worsening shortness of breath, the patient had a follow-up chest x-ray that shows peripheral infiltration slightly worse on the right, and probably slightly worse on the left. Lung volumes are small. The patient has chronic right hemidiaphragmatic elevation. She clinically is improv ing. Currently on room air oxygen. Inflammatory markers of bone trended and the patient on IV Solu-Medrol. 2 fever secondary to above , recovered 3 nausea and diarrhea secondary to above, improved 4 shortness of breath and cough secondary to above 5 acute hypoxic respiratory failure secondary to above, his pulse ox is fluctuating currently 93% on room air oxygen 6 obesity with a BMI of 37.3 7 hypertension 8 hypotensive symptoms him, currently on testosterone replacement 9 diabetes mellitus maintained on metformin 10 ADHD currently on Adderall 11 degenerative disease involving the T-spine along with S-scoliosis. Plan nystatin for oropharyngeal candidiasis Promethazine for cough every 6-8 hours and a when necessary basis IV Solu-Medrol milligrams every 8 hours, we'll start tapering steroids as of tomorrow Remdesivir per protocol, and the patient completed 5/5 of treatment. Lovenox 40 mg subcu daily, d-dimer remains low Multivitamin supplements chest x-ray and implemented markers was reviewed. Chest x-ray stable. The right diaphragm is elevated and possibly paralyzed. Inflammatory markers are low. continue to follow, clinically improving and the further improvement over the next 24-48 hours
[2020-07-19 12:29] LABS: Glucose,Whole Blood 180 mg/dL (75-99)
[2020-07-19] MEDS: THIAMINE 100 MG TAB PO SCH (12:49)
[2020-07-19] MEDS: LIDOCAINE 5% PATCH TOPICAL SCH (12:50)
[2020-07-19] MEDS: FOLIC ACID 1 MG TAB PO SCH (12:54)
[2020-07-19] MEDS: HYDROcodone/APAP 10-325MG 1 EACH TAB PO PRN (12:55)
[2020-07-19 17:33] LABS: Glucose,Whole Blood 197 mg/dL (75-99)
--- NOTE | 2020-07-19 17:33 | PN ---
PROGRESS NOTE DATE OF SERVICE: 07/19/2020 INTERVAL HISTORY: This 55-year-old gentleman was admitted with acute severe COVID-19 infection, bilateral pneumonia. Is being closely monitored. Patient is complaining of severe back pain as well as pleuritic pain. The patient is being closely monitored. The patient has finished remdesivir. The pulse ox is 94% on room air. There is no history of fever, rigors, chills. PAST MEDICAL HISTORY: Reviewed. REVIEW OF SYSTEMS: CARDIOVASCULAR: No angina. RESPIRATORY: As mentioned earlier. GI: As mentioned earlier. : No dysuria. NERVOUS SYSTEM: No numbness or weakness. MEDICATIONS: Reviewed include Tylenol, Mellott, Ventolin, Xanax, vitamin C, vitamin D3, Flexeril, Lovenox, Pepcid, folic acid. PHYSICAL EXAMINATION: GENERAL: Patient is alert and oriented times three. VITAL SIGNS: Pulse 74, blood pressure 111/78, respirations 18, temperature 98.6, pulse ox 94% on room air HEENT: Conjunctivae normal. Oral mucosa moist. NECK: No jugular venous distention. No carotid bruits. No lymph node enlargement. RESPIRATORY: Breath sounds diminished at the bases. A few scattered rhonchi and crackles. HEART: S1 and S2, muffled. ABDOMEN: Soft. NERVOUS: No focal deficits. LABS: WBC 7.6, hemoglobin is 15.7. Other labs are noted. The cultures are negative so far. ASSESSMENT: 1. Acute COVID-19 infection with bilateral extensive interstitial viral pneumonia. 2. Severe back pain, multifactorial. 3. Leukopenia. 4. Thrombocytopenia. 5. Hyponatremia. 6. Elevated D-dimer with no evidence of pulmonary embolism. 7. Diabetes mellitus type 2 with acute hyperglycemia. 8. Elevated ferritin, LDH and CRP inflammatory markers secondary to COVID-19. 9. Elevated procalcitonin. 10.Gastroesophageal reflux disease. 11.Hypertension. 12.History of MRSA. 13.History of cholecystectomy. 14.History of hernia repair. 15.Obesity with body mass index of 37.6. 16.FULL CODE. RECOMMENDATIONS AND DISCUSSION: Recommend to continue current management and continue symptomatic treatment. Continue the bronchodilators. Otherwise, continue with Lovenox. Continue with IV steroids. I would also recommend repeat inflammatory markers. D-dimer has been negative. I would recommend repeat CRP. IL6 has been requested. Further recommendations to follow. Yesterday the patient had a CRP bump. MMODL / IJN: [id number] /
[2020-07-19] MEDS: SODIUM CHLORIDE 0.9% 1,000 ML IV SCH (17:48)
[2020-07-19 19:53] LABS: Glucose,Whole Blood 244 mg/dL (75-99)
--- NOTE | 2020-07-19 23:30 | PN ---
PROGRESS NOTE DATE OF SERVICE: 07/19/2020 REASON FOR FOLLOWUP: COVID-19 infection. INTERVAL HISTORY: Patient is currently afebrile. The patient is breathing comfortably. Denies having any worsening shortness of breath. He did have a cough. No sputum. No nausea. No vomiting. No abdominal pain. His hematuria has resolved. PHYSICAL EXAMINATION: Blood pressure 141/80 with a pulse of 75, temperature 98. He is 97% on room air. General description is a middle-aged male lying in bed in no distress. Respiratory system: Unlabored breathing, clear to auscultation anteriorly. HEART: S1, S2. Regular rate and rhythm. ABDOMEN soft. No tenderness. LABS: No new labs have been obtained today. DIAGNOSTIC IMPRESSION AND PLAN: Patient with acute COVID-19 pneumonia. Patient has completed a 5-day course of Remdesivir. Currently covered with Lovenox, Solu-Medrol, zinc and ascorbic acid, respiratory support and monitor clinical course closely. MMODL / IJN: [id number] /
[2020-07-20] MEDS: methylPREDNISolone SOD SUCCI 40 MG/ML 1 ML VIAL IV SCH ×2 (00:47→08:51)
[2020-07-20] MEDS: HYDROmorphone 0.5 MG/0.5 ML SYRINGE IVP PRN ×3 (00:51→08:53)
[2020-07-20 04:24] VITALS: RESP 19
[2020-07-20 08:31] LABS: Glucose,Whole Blood 131 mg/dL (75-99)
[2020-07-20] MEDS: ALBUTEROL HFA INHALER INHALATION SCH ×2 (08:46→12:18)
[2020-07-20 08:50] VITALS: BP 114/76; PULSE 72; TEMP 98.1
[2020-07-20] MEDS: ENOXAPARIN 40 MG/0.4 ML SYRINGE SQ SCH (08:50)
[2020-07-20] MEDS: ZINC SULFATE 220 MG CAP PO SCH (08:51)
[2020-07-20] MEDS: FAMOTIDINE 20 MG TAB PO SCH (08:51)
[2020-07-20] MEDS: CYANOCOBALAMIN 500 MCG TAB PO SCH (08:51)
[2020-07-20] MEDS: LORATADINE 10 MG TAB PO SCH (08:51)
[2020-07-20] MEDS: CHOLECALCIFEROL 25 MCG (1000 IU) TABLET PO SCH (08:51)
[2020-07-20] MEDS: CYCLOBENZAPRINE 5 MG TAB PO SCH (08:51)
[2020-07-20] MEDS: MULTIVITAMINS, THERA 1 EACH TAB PO SCH (08:52)
[2020-07-20] MEDS: NYSTATIN 100,000 UNIT/ML SUSP 500,000 UNIT/5 ML CUP PO SCH (08:52)
[2020-07-20] MEDS: METOPROLOL SUCCINATE (ER) 25 MG TAB.ER.24H PO SCH (08:52)
[2020-07-20] MEDS: PANTOPRAZOLE 40 MG/10 ML VIAL IVP SCH (08:52)
[2020-07-20] MEDS: ASCORBIC ACID 500 MG TAB PO SCH (08:52)
[2020-07-20] MEDS: INSULIN ASPART (NovoLOG) 100 UNIT/ML VIAL SQ SCH (08:52)
[2020-07-20] MEDS: LIDOCAINE 5% PATCH TOPICAL SCH (08:54)
[2020-07-20 09:04] LABS: Basophils # (A) 0.03 X 10*3/uL (0.00-0.10); Basophils % (A) 0.3 %; Eosinophils # (A) 0 X 10*3/uL (0.04-0.35); Eosinophils % (A) 0 %; HCT 50.5 % (39.6-50.0); HGB 16.4 g/dL (13.0-17.0); Lymphocytes # (A) 0.77 X 10*3/uL (0.90-5.00); Lymphocytes % (A) 6.8 %; MCH 28.1 pg (27.0-32.0); MCHC 32.5 g/dL (32.0-37.0); MCV 86.5 fL (80.0-97.0); Monocytes # (A) 0.87 X 10*3/uL (0.20-1.00); Monocytes % (A) 7.7 %; Neutrophils # (A) 9.06 X 10*3/uL (1.80-7.70); Neutrophils % (A) 80.5 %; Platelet Count 311 X 10*3/uL (140-440); RBC 5.84 X 10*6/uL (4.40-5.60); RDW 13.8 % (11.5-14.5); WBC 11.26 X 10*3/uL (4.50-10.00)
[2020-07-20 10:07] LABS: African American GFR (CKD) 111.8 (60.0-200.0); BUN/Creat Ratio 32.22 Ratio (12.00-20.00); C Reactive Protein <0.4 mg/dL (0.0-0.8); Calcium 9.4 mg/dL (8.7-10.3); Carbon Dioxide 27.9 mmol/L (21.6-31.8); Chloride 104 mmol/L (96-109); Glucose 152 mg/dL (70-110); Non-African American GFR(CKD) 96.5 (60.0-200.0); Potassium 5.6 mmol/L (3.5-5.5); Sodium 138 mmol/L (135-145)
[2020-07-20 10:13] LABS: LDH 203 U/L (120-246)
--- NOTE | 2020-07-20 10:21 | XR ---
EXAMINATION TYPE: XR chest 1V portable DATE OF EXAM: 07/20/2020 COMPARISON: 07/18/2020 HISTORY: Cough TECHNIQUE: Single frontal view of the chest is obtained. FINDINGS: Multifocal areas of infiltrate are seen. Limited inspiration with elevated right hemidiaph ragm. No pneumothorax. Heart size normal. Underlying COPD suspected. IMPRESSION: Patchy bilateral infiltrates are stable.
--- NOTE | 2020-07-20 13:30 | P.PN ---
Subjective Progress Note Date: 07/20/20 55-year-old male patient came into the ED complaining of shortness of breath and extreme fatigue. His symptoms started approximately 3-4 days ago and he started having some increased shortness of breath and cough and following that he lost his sense of taste and smell. Patient was tested negative for COVID approximately a week ago. The patient had some mild nausea and diarrhea in addition. He also had fever and chills and myalgias. In the ED, the patient wasn't was at 2.02 with a hemoglobin of 14.3 and platelets of 162, his lymphocyte counts were low at 0.46, d-dimer was at 0.32, his ferritin was 617, CRP is at 5.4 and LDH was not measured. His lactic acid was at 1.6. BUN and creatinine are both within normal limits. Chest x-ray is showing smaller lung volumes and peripheral pulmonary infiltrates bilaterally more so on the right. The patient is currently on oxygen at room air with a pulse ox of 94-97%. EKG showing sinus tachycardia. Note that the patient was in the emergency depart ment on 06/28/2020 for some chest discomfort and chest pain. At that time he was tested for Covid 19 came back negative and he was diagnosed having a panic attack and the patient was able to have a nonspecific atypical chest pain and he was discharged home. The CAT scan of the chest was done at that time showed no acute abnormalities and this was a CT angios protocol that was done on 06/29/2020. He felt fine after that his symptoms got worse approximately a week ago as discussed above. On 07/15/2020 the patient is being seen in follow-up. The patient was seen in consultation yesterday for Covid 19. The patient was given IV fluids. The patient was given IV Decadron. The patient was given also Remdesivir protocol. Note that he had some vague peripheral pulmonary infiltrates bilaterally consistent with Covid 19 related pneumonia. On today's evaluation, the patient is doing well. No specific complaints. CT angiogram did not show any pulmonary embolism. He does have some chronic lower back pain. Earlier this morning was getting more short of breath. He was given Decadron and he was given also albuterol rescue inhaler. He is already feeling better is currently on room air oxygen with a pulse ox of 94%. He remains hemodynamically stable. His lowest pulse ox was 91%. His white cell count is at 5.2 with a hemoglobin of 14.7. He does have some lymphopenia with a lymphocyte count of 0.65, d-dimer is still low at 0.27. Glucose is at 126. The patient is seen today 07/16/2020 in follow-up on the regular medical floor. He is currently sitting up in a chair at the bedside. Awake and alert in no acute distress. Currently maintaining O2 saturation at 97% on room air. He was up to the bathroom and was quite winded with minimal exertion. His main complaint is ongoing fatigue. He is afebrile. Hemodynamically stable. He remains on Decadron 6 mg IV daily. Anticoagulated with Lovenox. This is day #3 of Remdesivir. Remains on vitamin supplements. Blood cultures revealed no growth. D-dimer 0.37. Glucose 81. Yesterday's chest x-ray did reveal peripheral opacities bilaterally. Bandlike areas of increased attenuation centrally. Low lung volumes. He is encouraged regarding the increased use of the incentive spirometer and cough and deep breathing exercises. 07/17/2020 the patient is feeling well and he is completing the course of Decadron and Remdesivir per protocol. Doing well in is onRA oxygen by nasal cannula with a pulse ox of 94-95%. No fever. No chills. Hemodynamically stable. No blood work today. His CBC from yesterday was noted. He is having some hiccups and the patient's is still doing for on his incentive spirometer. For respiratory efforts. He is able to generate volumes of 250 on his incentive spirometer. He is also noted to have increased cough with deep breathing and inhalation. Inflammatory markers will need to be rechecked and followed up. 60,021 the patient is on room air oxygen. He is completing his treatment COVID 19 with a course of Decadron and Remdesivir per protocol day 5 out of 5. He is on room air oxygen. He is using incentive spirometer, generating lower volumes. He was given promethazine for cough and he Was Also Switched IV Solu-Medrol. He Remains on Lovenox. In Terms of His Follow-Up Chest X-Ray Today, there is some elevation of the right hemidiaphragm. There is some hazy infiltrate bilaterally and I would say the x-ray findings are essentially the same. Lung volumes are rather small as the patient for and weak inspiratory effort. In terms of his inflammatory markers, the patient had a C-reactive protein of 11.6 and LDH of 518. 07/19/2020, the patient remains on room air oxygen. He is completing the treatment for Covid 19. The patient completed Remdesivir per protocol day 5 out of 5 and the patient is also on steroids. No new complaints otherwise for now. Using incentive spirometer. He is on IV Solu-Medrol. The pain in his back is also subsided. In terms ofHis numbers have already trended down to an LDH of 518 and a CRP of 11.6 and no repeat has been performed. He is having some back pain issue and the patient was given a lidocaine patch in that regard. On the 07/20/2020 patient seen in follow-up on medical surgical floor, he is on room air, with a pulse ox of 94%, hemodynamically stable, afebrile, breathing comfortably, he states he is breathing better, and overall feeling better, he has completed his Remdesivir, he continues on bronchodilators, and IV steroids, and prophylactic dose of Lovenox, today's labs have been reviewed, showing white blood cell count of 11.26, potassium is 5.6, d-dimer is normal at 0.31, BUN is 29 creatinine 0.9, LDH is 203, CRP is less than 0.4. Today's chest x-ray shows patchy bilateral infiltrates that are stable in appearance. He denies any nausea vomiting diarrhea no abdominal pain, no cough, no chest discomfort. he is tolerating ambulation, patient is being discharged home today. Objective - Vital Signs Vital signs: Vital Signs Temp 98.1 F 07/20/20 07:00 Pulse 72 07/20/20 07:00 Resp 19 07/20/20 02:00 BP 114/76 07/20/20 07:00 Pulse Ox 94 L 07/20/20 08:46 Intake & Output 07/19/20 07/20/20 07/20/20 18:59 06:59 18:59 Intake Total 1240 Output Total 2 2 Balance 1238 -2 Intake: Oral 1240 Output: Stool 2 2 Other: Voiding Method Toilet Toilet Toilet Urinal Urinal Urinal # Voids 3 2 - Exam GENERAL EXAM: Alert, very pleasant, 55-year-old white male, on room air the pulse ox of 94% comfortable in no apparent distress. HEAD: Normocephalic/atraumatic. EYES: Normal reaction of pupils, equal size. Conjunctiva pink, sclera white. NOSE: Clear with pink turbinates. THROAT: No erythema or exudates. NECK: No masses, no JVD, no thyroid enlargement, no adenopathy. CHEST: No chest wall deformity. Symmetrical expansion. LUNGS: Equal air entry with no crackles, wheeze, rhonchi or dullness. CVS: Regular rate and rhythm, normal S1 and S2, no gallops, no murmurs, no rubs ABDOMEN: Soft, nontender. No hepatosplenomegaly, normal bowel sounds, no guarding or rigidity. EXTREMITIES: No clubbing, no edema, no cyanosis, 2+ pulses and upper and lower extremities. MUSCULOSKELETAL: Muscle strength and tone normal. SPINE: No scoliosis or deformity SKIN: No rashes CENTRAL NERVOUS SYSTEM: Alert and oriented -3. No focal deficits, tone is normal in all 4 extremities. PSYCHIATRIC: Alert and oriented -3. Appropriate affect. Intact judgment and insight. - Labs CBC & Chem 7: 07/20/20 05:12 07/20/20 05:12 Labs: Abnormal Lab Results - Last 24 Hours (Table) 07/19/20 07/19/20 07/20/20 Range/Units 17:32 19:52 05:12 WBC (4.50-10.00) X 10*3/uL RBC (4.40-5.60) X 10*6/uL Hct (39.6-50.0) % Immature Gran # (0.00-0.04) X 10*3/uL Neutrophils # (1.80-7.70) X 10*3/uL Lymphocytes # (0.90-5.00) X 10*3/uL Eosinophils # (0.04-0.35) X 10*3/uL Potassium 5.6 H (3.5-5.5) mmol/L BUN 29.0 H (9.0-27.0) mg/dL BUN/Creatinine Ratio 32.22 H (12.00-20.00) Ratio Glucose 152 H (70-110) mg/dL POC Glucose (mg/dL) 197 H 244 H (75-99) mg/dL 07/20/20 07/20/20 Range/Units 05:12 08:29 WBC 11.26 H (4.50-10.00) X 10*3/uL RBC 5.84 H (4.40-5.60) X 10*6/uL Hct 50.5 H (39.6-50.0) % Immature Gran # 0.53 H (0.00-0.04) X 10*3/uL Neutrophils # 9.06 H (1.80-7.70) X 10*3/uL Lymphocytes # 0.77 L (0.90-5.00) X 10*3/uL Eosinophils # 0 L (0.04-0.35) X 10*3/uL Potassium (3.5-5.5) mmol/L BUN (9.0-27.0) mg/dL BUN/Creatinine Ratio (12.00-20.00) Ratio Glucose (70-110) mg/dL POC Glucose (mg/dL) 131 H (75-99) mg/dL Microbiology - Last 24 Hours (Table) 07/14/20 04:31 Blood Culture - Final Blood No Growth after 144 hours 07/13/20 12:09 Blood Culture - Final Blood No Growth after 144 hours 07/16/20 19:40 Gram Stain - Final Sputum Sputum Culture - Final Assessment and Plan Plan: Assessment: 1 COVID 19 related pneumonia with peripheral bilateral pulmonary infiltrates and some mild hypoxemia. The patient was hypoxemic at the time of admission to the emergency department and he was on oxygen by nasal cannula at 2 L by nasal cannula. His pulse is currently improved and is normalized. CAT scan of the chest showed peripheral round glass pulmonary infiltrates, no evidence of any pulmonary embolism. His d-dimer level is low. CRP and ferritin levels are mildly elevated. The patient was started on a combination of Decadron and Remdesivir based on some worsening shortness of breath, the patient had a follow-up chest x-ray that shows peripheral infiltration slightly worse on the right, and probably slightly worse on the left. Lung volumes are small. The patient has chronic right hemidiaphragmatic elevation. She clinically is improving. Currently on room air oxygen. Inflammatory markers of bone trended and the patient on IV Solu-Medrol. 2 fever secondary to above , recovered 3 nausea and diarrhea secondary to above, improved 4 shortness of breath and cough secondary to above 5 acute hypoxic respiratory failure secondary to above, his pulse ox is fluctuating currently 93% on room air oxygen 6 obesity with a BMI of 37.3 7 hypertension 8 hypotensive symptoms him, currently on testosterone replacement 9 diabetes mellitus maintained on metformin 10 ADHD currently on Adderall 11 degenerative disease involving the T-spine along with S-scoliosis. Plan: Patient is doing well, breathing comfortably, he is on room air, vital signs have been stable, no fever or chills, taste chest x-ray has been reviewed, showing stable patchy infiltrates, clinically patient has been stable, inflammatory markers are improving, d-dimer is low, no acute events overnight, discharge home is pending, follow-up with Dr. Bonilla in 2-3 weeks I performed a history & physical examination of the patient and discussed their management with my nurse practitioner, Sia David. I reviewed the nurse practitioner's note and agree with the documented findings and plan of care. Lung sounds are positive for diminished breath sounds. The findings and the impression was discussed with the patient. I attest to the documentation by the nurse practitioner. Time with Patient: Less than 30
[2020-07-20 13:43] VITALS: BMI 37.3
[2020-07-20] MEDS ORDERED: SODIUM POLYSTYRENE SULFONATE 15 GM/60 ML BOTTLE PO STA (13:52)
[2020-07-20] MEDS ORDERED: PANTOPRAZOLE 40 MG TABLET PO SCH (21:00)
--- NOTE | 2020-07-20 21:45 | DS ---
DISCHARGE SUMMARY DATE OF SERVICE: 07/20/2020 FINAL DIAGNOSES: 1. Acute COVID-19 infection with bilateral extensive Covid pneumonia, viral interstitial pneumonia. 2. Severe back pain, multifactorial. 3. Leukopenia. 4. Thrombocytopenia. 5. Hyponatremia. 6. Elevated D-dimer with no evidence of acute pulmonary embolism. 7. Diabetes mellitus type 2 with acute hyperglycemia. 8. Elevated ferritin, LDH, CRP, inflammatory markers secondary to COVID-19. 9. Elevated procalcitonin. 10.Gastroesophageal reflux disease. 11.Hypertension. 12.History of MRSA. 13.History of cholecystectomy. 14.History of hernia repair. 15.Obesity with body mass index 37.6. 16.FULL CODE. DISCHARGE DISPOSITION: The patient will be discharged in stable condition with guarded prognosis. Total time taken: 35 minutes. HISTORY OF PRESENT ILLNESS: This 55-year-old gentleman with a past medical history of multiple medical problems including Covid 19 pneumonia, interstitial pneumonia and severe back pain. The patient treated symptomatically. Patient was given Remdesivir. The patient was given rest of medications. Patient followed by Infectious Disease and Pulmonary. Patient improved significantly. Patient being discharged in stable condition with guarded prognosis. There is no evidence of pulmonary embolism at this time. The most recent labs are sodium 138, and WBC 11.26. The patient discharged in stable condition with guarded prognosis. On exam, vitals are stable. Cardiovascular: S1, S2. Abdomen soft. Nervous system: No focal deficits. DISCHARGE ADVICE AND MEDICATIONS: 1. Diet is regular. Low-potassium. 2. Activity limited until followup. 3. Follow up with Dr. Esther Pepper in 2-3 days. 4. Follow up with Infectious Disease and Pulmonary as recommended. 5. Dexamphetamine amphetamine as before. 6. Azelastine nasal spray as before. 8. Testosterone as before. 9. Desonide as before local. 10.Fexofenadine 180 mg p.o. daily. 11.Glucophage 500 mg p.o. daily. 12.Hydrocortisone local application. 13.Hydrocodone 10 mg q.6 p.r.n. as before. 14.Toprol-XL 25 mg daily. 15.Vitamin B12, 1000 mcg p.o. 16.Vitamin C 1000 mg p.o. daily. 17.Lisinopril hydrochlorothiazide 20/12.5 mg p.o. daily. 18.Flexeril 5 mg t.i.d. p.r.n. 19.Folic acid 1 mg daily. 20.Lidoderm patch. 21.Multivitamins. 22.Nystatin 5 mL q.i.d. swish and swallow. 23.Zinc sulfate 220 mg. 24.Prednisone taper 40 mg daily for 3 days, 30 for 3 days, 20 for 3 days. 25.Protonix 40 mg p.o. b.i.d. 26.Albuterol 2 puffs b.i.d. 27.Vitamin B1 100 mg daily. 28.Vitamin D3 125 mcg daily. 29.Xanax 0.5 t.i.d. p.r.n. Once again the patient is being discharged in stable condition with guarded prognosis. MMVALERIAL / RAHEEMN: [id number] / MTDD
== END 2020-07-20 12:20 | disposition home or self-care (01) | DRG 177 ==
LOC: EC 11:27 → OBSVTOIN 14:10 → 6NMEDSUR 14:10
PROVIDERS: ADMIT Internal Medicine; ATTEND Internal Medicine
DX: U07.1 COVID-19 (principal); J12.82 Pneumonia due to coronavirus disease 2019; J96.01 Acute respiratory failure with hypoxia; E87.1 Hypo-osmolality and hyponatremia; E11.65 Type 2 diabetes mellitus with hyperglycemia; Z79.84 Long term (current) use of oral hypoglycemic drugs; K21.9 Gastro-esophageal reflux disease without esophagitis; I10 Essential (primary) hypertension; D72.819 Decreased white blood cell count, unspecified; R79.82 Elevated C-reactive protein (CRP); Z86.14 Personal history of Methicillin resistant Staphylococcus aureus infection; Z90.49 Acquired absence of other specified parts of digestive tract; E66.9 Obesity, unspecified; Z68.37 Body mass index [BMI] 37.0-37.9, adult; F41.0 Panic disorder [episodic paroxysmal anxiety]; I95.9 Hypotension, unspecified; F90.9 Attention-deficit hyperactivity disorder, unspecified type; D69.6 Thrombocytopenia, unspecified; D72.810 Lymphocytopenia; G89.29 Other chronic pain; I25.10 Atherosclerotic heart disease of native coronary artery without angina pectoris; M41.9 Scoliosis, unspecified
CPT/HCPCS: 36415; 71045; 71275; 72072; 80048; 80053; 80306; 81001; 82728; 83520; 83605; 83615; 83735; 84145; 85025; 85379; 85610; 85730; 86140; 87040; 87070; 87205; 87635; 93005; 94640; 94760

== ENCOUNTER 2022-10-21 00:18 | Inpatient (IN) | payer BC ==
[2022-10-21] MEDS ORDERED: SODIUM CHLORIDE 0.9% 1,000 ML IV STA ×3 (00:26→04:38)
[2022-10-21] MEDS ORDERED: KETOROLAC 15 MG/ML 1 ML VIAL IVP STA (00:36)
[2022-10-21] MEDS ORDERED: ONDANSETRON 4 MG/2 ML VIAL IVP STA (00:36)
[2022-10-21] MEDS ORDERED: MORPHINE SULFATE 4 MG/ML SYRINGE IVP STA ×2 (00:36→03:30)
[2022-10-21] MEDS ORDERED: PANTOPRAZOLE 40 MG/10 ML VIAL IVP STA (00:36)
--- NOTE | 2022-10-21 01:04 | ED ---
General Adult HPI - General Chief complaint: Abdominal Pain Stated complaint: Kidney Stones, Vomiting Time Seen by Provider: 10/21/22 00:19 Source: patient, RN notes reviewed, old records reviewed Mode of arrival: ambulatory Limitations: no limitations - History of Present Illness Initial comments: Patient is a 57-year-old male with past medical history remarkable for diverticulitis, kidney stones, diabetes, hypertension who presents emergency Department complaining of upper quadrant abdominal pain. Initially began having a last week, and was started on antibiotics for possible diverticulitis with his PCP. States that it changed over the last day, and is now having left lower quadrant pain with radiation to his penis with pain with urination. Pain radiates from his left flank to the groin. Denies any obvious hematuria. Endorses some nausea. Endorses possible constipation. Endorses some nonbilious nonbloody emesis. Denies any chest pain or shortness breath. Denies any fevers. His no other acute complaints at this time. Presents complaining of left lower quadrant abdominal pain. Concern for diverticulitis versus possible kidney stone. - Related Data Home Medications Medication Instructions Recorded Confirmed HYDROcodone/APAP 10-325MG [[place] 1 tab PO Q6H PRN 05/05/18 07/13/20 10-325] Lisinopril-Hctz 20-12.5 mg 2 tab PO DAILY 10/07/19 07/13/20 [Zestoretic 20-12.5] Ascorbic Acid [Vitamin C] 1,000 mg PO DAILY 06/29/20 07/13/20 Azelastine HCl 2 spray EA NOSTRIL DAILY 06/29/20 07/13/20 Cyanocobalamin (Vitamin B-12) 1,000 mcg PO DAILY 06/29/20 07/13/20 [Vitamin B-12] Desonide [DesOwen 0.05%] 1 applic TOPICAL BID 06/29/20 07/13/20 Dextroamphetamine/Amphetamine 25 mg PO QAM 06/29/20 07/13/20 [Adderall Xr] Fexofenadine HCl 180 mg PO DAILY 06/29/20 07/13/20 Hydrocortisone Valerate 1 applic TOPICAL BID 06/29/20 07/13/20 [Hydrocortisone Valerate 0.2%] Metoprolol Succinate (ER) [Toprol 25 mg PO DAILY 06/29/20 07/13/20 XL] Multivit-Min/FA/Lycopen/Lutein 1 tab PO DAILY 06/29/20 07/13/20 [Centrum Silver Men Tablet] Testosterone Cypionate 200 mg IM Q14D 06/29/20 07/13/20 [Depo-Testosterone] metFORMIN HCL ER [Glucophage XR] 500 mg PO DAILY 06/29/20 07/13/20 Previous Rx's Medication Instructions Recorded ALPRAZolam [Xanax] 0.25 mg PO TID PRN #10 tab 07/20/20 Albuterol Inhaler [Ventolin Hfa 2 puff INHALATION RT-TID #1 puff 07/20/20 Inhaler] Cholecalciferol [Vitamin D3 (25 125 mcg PO DAILY #30 tablet 07/20/20 Mcg = 1000 Iu)] Cyclobenzaprine [Flexeril] 5 mg PO TID PRN #15 tab 07/20/20 Folic Acid 1 mg PO DAILY #30 tablet 07/20/20 Lidocaine 5% Patch [Lidoderm 5% 1 patch TOPICAL DAILY #5 patch 07/20/20 Patch] Multivitamins, Thera [Multivitamin] 1 tab PO DAILY #30 tablet 07/20/20 Nystatin 100,000 Unit/ml Susp 500,000 unit PO QID #100 ml 07/20/20 [Mycostatin Oral Susp] Pantoprazole Sodium [Protonix] 40 mg PO BID #60 tablet. 07/20/20 Thiamine [Vitamin B-1] 100 mg PO DAILY #30 tablet 07/20/20 Zinc Sulfate [Orazinc] 220 mg PO DAILY #20 cap 07/20/20 predniSONE 10 mg PO DIRECTED #30 tab 07/20/20 Allergies Allergy/AdvReac Type Severity Reaction Status Date / Time ceftriaxone [From Rocephin] Allergy Rash/Hives Verified 10/21/22 00:25 Iodinated Contrast Media Allergy Anaphylaxis Verified 10/21/22 00:25 [Iodinated Contrast- Oral and IV Dye] levofloxacin [From Levaquin] Allergy Anaphylaxis Verified 10/21/22 00:25 rosuvastatin [From Crestor] AdvReac "KIDNEY Verified 10/21/22 00:25 PAIN" Review of Systems ROS Statement: Those systems with pertinent positive or pertinent negative responses have been documented in the HPI. Review of Systems: CONST: Denies fever EYES: Denies blurry vision ENT: Denies nasal congestion C/V: Denies Chest pain RESP: Denies shortness of breath GI: Endorses abdominal pain : Endorses dysuria SKIN: Denies rash. MSK: Denies joint pain. NEURO: Denies headache ROS Other: All systems not noted in ROS Statement are negative. Past Medical History Past Medical History: Diabetes Mellitus, GERD/Reflux, Hypertension History of Any Multi-Drug Resistant Organisms: MRSA Date of last positivie culture/infection: left 1984 MDRO Source:: ear Past Surgical History: Cholecystectomy, Hernia Repair, Tonsillectomy Additional Past Surgical History / Comment(s): sinus surgery, tubes in ears Past Anesthesia/Blood Transfusion Reactions: Previous Problems w/ Anesthesia Past Psychological History: No Psychological Hx Reported Smoking Status: Never smoker Past Alcohol Use History: Occasional Past Drug Use History: None Reported - Past Family History Mother Family Medical History: Cancer, Diabetes Mellitus, Rheumatoid Arthritis (RA) General Exam - General Exam Comments Initial Comments: General: Appears in mild to moderate distress secondary to abdominal discomfort. HEAD: Normal with no signs of head trauma. EYES: PERRLA, EOMI, conjunctiva normal, no discharge. ENT: Hearing grossly intact, normal oropharynx. RESPIRATORY: Clear breath sounds bilaterally. No wheezes, rales, or rhonchi. C/V: Regular rate and rhythm. S1 and S2 auscultated, no edema, peripheral pulses 2+ and intact throughout ABD: Abdomen is soft, nondistended. Tender to palpation in the left lower quadrant and left flank. No guarding. No rebound tenderness. No peritoneal signs. No CVA tenderness to percussion. EXT: Normal range of motion, no obvious deformity SKIN: No rashes or lesions observed on exposed skin. NEURO: Alert and oriented 4. Limitations: no limitations Course Vital Signs 10/21/22 10/21/22 00:20 03:00 Temperature 97.9 F Pulse Rate 97 80 Respiratory 18 16 Rate Blood Pressure 158/113 149/94 O2 Sat by Pulse 96 97 Oximetry Medical Decision Making - Medical Decision Making Was pt. sent in by a medical professional or institution (, PA, [employer] FINISHER [employer]ILOR, urgent care, hospital, or care home...) When possible be specific @ -No Did you speak to anyone other than the patient for history (EMS, parent, family, police, friend...)? What history was obtained from this source @ -No Did you review nursing and triage notes (agree or disagree)? Why? @ -I reviewed and agree with nursing and triage notes Were old charts reviewed (outside hosp., previous admission, EMS record, old EKG, old radiological studies, urgent care reports/EKG's, care home records)? Report findings @ -No old charts were reviewed Differential Diagnosis (chest pain, altered mental status, abdominal pain women, abdominal pain men, vaginal bleeding, weakness, fever, dyspnea, syncope, headache, dizziness, GI bleed, back pain, seizure, CVA, palpatations, mental health, musculoskeletal)? @ -Differential Abdominal Pain Men: Appendicitis, cholecystitis, diverticulosis, ischemic bowel, pancreatitis, hepatitis, UTI, gastroenteritis, AAA, incarcerated hernia, bowel obstruction, constipation, inflammatory bowel, hepatitis, peptic ulcer disease, splenic infarction, perforated viscus, testicular torsion, this is not meant to be an all-inclusive list EKG interpreted by me (3pts min.). @ -None done X-rays interpreted by me (1pt min.). @ -KUB x-ray reveals no obvious acute intra-abdominal process. CT interpreted by me (1pt min.). @ -CT abdomen and pelvis reveals complicated diverticulitis with an abscess. U/S interpreted by me (1pt. min.). @ -Renal ultrasound reveals no obvious hydronephrosis. What testing was considered but not performed or refused? (CT, X-rays, U/S, labs )? Why? @ -None What meds were considered but not given or refused? Why? @ -None Did you discuss the management of the patient with other professionals (professionals i.e. , PA, [employer] FINISHER TAILOR, lab, RT, psych nurse, social welfare administrator, process control technician, teacher, policy officer, employment case manager)? Give summary @ -I discussed the case with the admitting surgeon, Dr. Allred who accepted the patient. Was smoking cessation discussed for >3mins.? @ -No Was critical care preformed (if so, how long)? @ -No Were there social determinants of health that impacted care today? How? (Homelessness, low income, unemployed, alcoholism, drug addiction, transportation, low edu. Level, literacy, decrease access to med. care, group home, rehab)? @ -No Was there de-escalation of care discussed even if they declined (Discuss DNR or withdrawal of care, Hospice)? DNR status @ -No What co-morbidities impacted this encounter? (DM, HTN, Smoking, COPD, CAD, Cancer, CVA, ARF, Chemo, Hep., AIDS, mental health diagnosis, sleep apnea, morbid obesity)? @ -History of diverticulitis, kidney stones Was patient admitted / discharged? Hospital course, mention meds given and route, prescriptions, significant lab abnormalities, going to OR and other pe rtinent info. @ -Based on the patient's presentation and physical exam, I'm concerned for acute abdominal process for his current symptoms. Likely kidney stone versus diverticulitis. We'll obtain renal ultrasound and KUB x-ray to start as well as abdominal labs. He will be symptomatically treated with IV Toradol, morphine, Zofran, Protonix, fluids. He was in agreement this plan. Vital signs are within acceptable limits. CT of the abdomen and pelvis revealed complicated acute diverticulitis with an abscess that is 2.9 cm in size, technically making it a perforated dive rticulitis. Radiology did corroborate as read. However there was a long delay in obtaining CT imaging reads, as well as imaging reads overall due to a delay from stat rad radiology. Overall, over a 4 hour delay in reading imaging studies. Longer delay for x-ray versus CT as this was obtained initially. KUB x-ray revealed no obvious acute process. Patient's laboratory studies were remarkable for a mild leukocytosis of 11.6. Lactic acid is within normal limits. Remainder of the labs are within acceptable limits. I updated the patient at this time. Patient be started on IV vancomycin and Zosyn. Blood cultures will be obtained. He is made nothing by mouth. Continue IV fluid hydration as well as pain control. He'll be admitted to the hospital under surgery. He was in agreement with this plan. I contacted the surgeon on- call, Dr. Allred who accepted the admission.Patient has been seen previously by Dr. Allred. Undiagnosed new problem with uncertain prognosis? @ -No Drug Therapy requiring intensive monitoring for toxicity (Heparin, Nitro, Insulin, Cardizem)? @ -No Were any procedures done? @ -No Diagnosis/symptom? @ -Complicated diverticulitis with perforation/abscess Acute, or Chronic, or Acute on Chronic? @ -Acute Uncomplicated (without systemic symptoms) or Complicated (systemic symptoms)? @ -Complicated Side effects of treatment? @ -none Exacerbation, Progression, or Severe Exacerbation] @ -no Poses a threat to life or bodily function? @ -Yes - Lab Data Result diagrams: 10/21/22 00:41 10/21/22 00:41 Lab Results 10/21/22 10/21/22 10/21/22 Range/Units 00:41 00:41 00:41 WBC 11.6 H (3.8-10.6) k/uL RBC 6.19 H (4.30-5.90) m/uL Hgb 17.1 (13.0-17.5) gm/dL Hct 51.4 (39.0-53.0) % MCV 83.0 (80.0-100.0) fL MCH 27.5 (25.0-35.0) pg MCHC 33.2 (31.0-37.0) g/dL RDW 13.7 (11.5-15.5) % Plt Count 227 (150-450) k/uL MPV 7.5 Neutrophils % 72 % Lymphocytes % 16 % Monocytes % 7 % Eosinophils % 2 % Basophils % 1 % Neutrophils # 8.3 H (1.3-7.7) k/uL Lymphocytes # 1.9 (1.0-4.8) k/uL Monocytes # 0.8 (0-1.0) k/uL Eosinophils # 0.2 (0-0.7) k/uL Basophils # 0.1 (0-0.2) k/uL PT 10.5 (9.0-12.0) sec INR 1.0 (<1.2) APTT 25.2 (22.0-30.0) sec Sodium (137-145) mmol/L Potassium (3.5-5.1) mmol/L Chloride (98-107) mmol/L Carbon Dioxide (22-30) mmol/L Anion Gap mmol/L BUN (9-20) mg/dL Creatinine (0.66-1.25) mg/dL Est GFR (CKD-EPI)AfAm (>60 ml/min/1.73 sqM) Est GFR (CKD-EPI)NonAf (>60 ml/min/1.73 sqM) Glucose (74-99) mg/dL Plasma Lactic Acid Raji (0.7-2.0) mmol/L Calcium (8.4-10.2) mg/dL Total Bilirubin (0.2-1.3) mg/dL AST (17-59) U/L ALT (4-49) U/L Alkaline Phosphatase (38-126) U/L Total Protein (6.3-8.2) g/dL Albumin (3.5-5.0) g/dL Amylase (30-110) U/L Lipase (23-300) U/L Urine Color Yellow Urine Appearance Clear (Clear) Urine pH 6.0 (5.0-8.0) Ur Specific [place] 1.032 (1.001-1.035) Urine Protein 1+ H (Negative) Urine Glucose (UA) Negative (Negative) Urine Ketones 1+ H (Negative) Urine Blood Negative (Negative) Urine Nitrite Negative (Negative) Urine Bilirubin Negative (Negative) Urine Urobilinogen 2.0 (<2.0) mg/dL Ur Leukocyte Esterase Trace H (Negative) Urine RBC 1 (0-5) /hpf Urine WBC 3 (0-5) /hpf Ur Squamous Epith Cells 1 (0-4) /hpf Urine Bacteria Rare H (None) /hpf Hyaline Casts 3 H (0-2) /lpf Urine Mucus Occasional H (None) /hpf 10/21/22 10/21/22 Range/Units 00:41 00:41 WBC (3.8-10.6) k/uL RBC (4.30-5.90) m/uL Hgb (13.0-17.5) gm/dL Hct (39.0-53.0) % MCV (80.0-100.0) fL MCH (25.0-35.0) pg MCHC (31.0-37.0) g/dL RDW (11.5-15.5) % Plt Count (150-450) k/uL MPV Neutrophils % % Lymphocytes % % Monocytes % % Eosinophils % % Basophils % % Neutrophils # (1.3-7.7) k/uL Lymphocytes # (1.0-4.8) k/uL Monocytes # (0-1.0) k/uL Eosinophils # (0-0.7) k/uL Basophils # (0-0.2) k/uL PT (9.0-12.0) sec INR (<1.2) APTT (22.0-30.0) sec Sodium 137 (137-145) mmol/L Potassium 4.8 (3.5-5.1) mmol/L Chloride 100 (98-107) mmol/L Carbon Dioxide 22 (22-30) mmol/L Anion Gap 15 mmol/L BUN 15 (9-20) mg/dL Creatinine 0.75 (0.66-1.25) mg/dL Est GFR (CKD-EPI)AfAm >90 (>60 ml/min/1.73 sqM) Est GFR (CKD-EPI)NonAf >90 (>60 ml/min/1.73 sqM) Glucose 153 H (74-99) mg/dL Plasma Lactic Acid Raji 1.2 (0.7-2.0) mmol/L Calcium 9.3 (8.4-10.2) mg/dL Total Bilirubin 1.3 (0.2-1.3) mg/dL AST 36 (17-59) U/L ALT 16 (4-49) U/L Alkaline Phosphatase 58 (38-126) U/L Total Protein 7.7 (6.3-8.2) g/dL Albumin 4.1 (3.5-5.0) g/dL Amylase 42 (30-110) U/L Lipase 47 (23-300) U/L Urine Color Urine Appearance (Clear) Urine pH (5.0-8.0) Ur Specific [place] (1.001-1.035) Urine Protein (Negative) Urine Glucose (UA) (Negative) Urine Ketones (Negative) Urine Blood (Negative) Urine Nitrite (Negative) Urine Bilirubin (Negative) Urine Urobilinogen (<2.0) mg/dL Ur Leukocyte Esterase (Negative) Urine RBC (0-5) /hpf Urine WBC (0-5) /hpf Ur Squamous Epith Cells (0-4) /hpf Urine Bacteria (None) /hpf Hyaline Casts (0-2) /lpf Urine Mucus (None) /hpf Disposition Clinical Impression: Diverticulitis of large intestine with complication, Colonic diverticular abscess Disposition: ADMITTED IP TO THIS [facility] Condition: Serious Referrals: Nonstaff,Physician [Primary Care Provider] - 1-2 days Time of Disposition: 04:49
[2022-10-21 01:38] LABS: Basophils # (A) 0.1 k/uL (0-0.2); Basophils % (A) 1 %; Eosinophils # (A) 0.2 k/uL (0-0.7); Eosinophils % (A) 2 %; HCT 51.4 % (39.0-53.0); HGB 17.1 gm/dL (13.0-17.5); Lymphocytes # (A) 1.9 k/uL (1.0-4.8); Lymphocytes % (A) 16 %; MCH 27.5 pg (25.0-35.0); MCHC 33.2 g/dL (31.0-37.0); Mean Platelet Volume 7.5; Monocytes # (A) 0.8 k/uL (0-1.0); Monocytes % (A) 7 %; Neutrophils # (A) 8.3 k/uL (1.3-7.7); Neutrophils % (A) 72 %; Platelet Count 227 k/uL (150-450); RBC 6.19 m/uL (4.30-5.90); RDW 13.7 % (11.5-15.5); WBC 11.6 k/uL (3.8-10.6)
[2022-10-21 01:58] LABS: ALT 16 U/L (4-49); AST 36 U/L (17-59); African American GFR (CKD) >90 (>60 ml/min/1.73 sqM); Albumin 4.1 g/dL (3.5-5.0); Alkaline Phosphatase 58 U/L (38-126); Amylase 42 U/L (30-110); Anion Gap 15 mmol/L; Blood Urea Nitrogen 15 mg/dL (9-20); Calcium 9.3 mg/dL (8.4-10.2); Carbon Dioxide 22 mmol/L (22-30); Chloride 100 mmol/L (98-107); Glucose 153 mg/dL (74-99); Lipase 47 U/L (23-300); Non-African American GFR(CKD) >90 (>60 ml/min/1.73 sqM); Sodium 137 mmol/L (137-145); Total Bilirubin 1.3 mg/dL (0.2-1.3); Total Protein 7.7 g/dL (6.3-8.2)
[2022-10-21 02:00] LABS: Partial Thromboplastin Time 25.2 sec (22.0-30.0); Potassium 4.8 mmol/L (3.5-5.1); Prothrombin Time 10.5 sec (9.0-12.0)
[2022-10-21 02:13] LABS: Appearance,Urine Clear (Clear); Color,Urine Yellow; Protein,Urine 1+ (Negative); Specific Gravity,Urine 1.032 (1.001-1.035)
[2022-10-21 02:14] LABS: Bacteria,Urine Rare /hpf; Bilirubin,Urine Negative (Negative); Blood,Urine Negative (Negative); Glucose,Urine (UA) Negative (Negative); Hyaline Casts,Urine 3 /lpf (0-2); Ketones,Urine 1+ (Negative); Leukocyte Esterase,Urine Trace (Negative); Mucus,Urine Occasional /hpf; Nitrite,Urine Negative (Negative); RBC,Urine 1 /hpf (0-5); Squamous Epithelial Cell,Urine 1 /hpf (0-4); WBC,Urine 3 /hpf (0-5)
[2022-10-21] MEDS ORDERED: methylPREDNISolone SOD SUCCI 125 MG/2 ML VIAL IV STA (02:15)
[2022-10-21] MEDS ORDERED: FAMOTIDINE 20 MG/2 ML VIAL IV STA (02:15)
[2022-10-21] MEDS ORDERED: diphenhydrAMINE 50 MG/ML 1 ML VIAL IVP STA (02:15)
--- NOTE | 2022-10-21 04:35 | CT ---
EXAMINATION TYPE: CT abdomen pelvis w con DATE OF EXAM: 10/21/2022 COMPARISON: CT abdomen and pelvis May 05, 2018 HISTORY: LLQ PAIN, FLANK PAIN CT DLP: 1673.9 mGycm, Automated Exposure Control for Dose Reduction was Utilized. CONTRAST: CT scan of the abdomen and pelvis is performed with oral and with IV Contrast, patient injected with 100 ML mL of Isovue 300. FINDINGS: LUNG BASES: No significant abnormality is appreciated. LIVER/GB: Liver is diffusely low-density consistent with diffuse fatty infiltration. Hepatomegaly is redemonstrated. PANCREAS: No significant abnormality is seen. SPLEEN: Splenomegaly is redemonstrated. ADRENALS: No significant abnormality is seen. KIDNEYS: No significant abnormality is seen. BOWEL: Colonic diverticulosis greatest involving the sigmoid colon. Marked inflammatory change in lev el of the sigmoid colon in the anterior pelvis. There is 2.9 cm adjacent thin-walled fluid collection with nondependent air consistent with abscess.. PROSTATE/SEMINAL VESICLES: No gross abnormality seen. LYMPH NODES: No greater than 1cm abdominal or pelvic lymph nodes are appreciated. OSSEOUS STRUCTURES: Vacuum disc phenomenon with mild disc space narrowing L4-L5 level. Moderate to se eleuterio disc space narrowing L5-S1 level.. OTHER: Moderate-sized fat-containing left inguinal hernia. IMPRESSION: CT findings consistent with acute diverticulitis and perforation the sigmoid colon as the re is adjacent 2.9 cm abscess.
[2022-10-21] MEDS ORDERED: VANCOMYCIN IV PER PHARMACY 1 EACH MISC MISCELLANE PRN (04:37)
[2022-10-21] MEDS ORDERED: PIPERACILLIN-TAZOBACTAM 3.375 GM in SODIUM CHLORIDE 0.9% 100 ML IVPB STA (04:43)
--- NOTE | 2022-10-21 04:45 | XR ---
EXAMINATION TYPE: XR KUB DATE OF EXAM: 10/21/2022 12:52 AM CLINICAL HISTORY: Left flank pain TECHNIQUE: Two Upright KUB images of the abdomen are obtained. COMPARISON: CT abdomen and pelvis 2018. FINDINGS: Scattered gas is seen in non-distended small bowel loops. Gas and fecal material is seen in non-distended colon. There is no visceromegaly or abnormal calcification appreciated. The lung bases are clear and the osseous structures are intact. IMPRESSION: Overall nonobstructive bowel gas pattern.
[2022-10-21] MEDS ORDERED: ONDANSETRON 4 MG/2 ML VIAL IVP PRN (04:57)
[2022-10-21] MEDS ORDERED: NALOXONE 0.4 MG/ML 1 ML VIAL IV PRN (04:57)
[2022-10-21] MEDS ORDERED: HYDROmorphone 1 MG/ML 1 ML SYRINGE IVP STA (04:59)
[2022-10-21] MEDS: VANCOMYCIN 1,750 MG in SODIUM CHLORIDE 0.9% 500 ML 500 ML IVPB STA ×2 (05:02→05:44)
[2022-10-21] MEDS: SODIUM CHLORIDE 0.9% 1,000 ML IV SCH ×2 (05:13→16:26)
--- NOTE | 2022-10-21 06:45 | US ---
EXAM: US Retroperitoneal Limited, Renal CLINICAL HISTORY: left flank pain TECHNIQUE: Real-time limited ultrasound of the retroperitoneum with image documentation. COMPARISON: No relevant prior studies available. FINDINGS: Right kidney: 13.8 cm in length. No stones. No solid mass. No hydronephrosis. Left kidney: 13.3 cm in length.. No stones. No solid mass. No hydronephrosis. Bladder: Unremarkable. Liver: Hepatic steatosis. IMPRESSION: No acute or focal findings of the kidneys.
[2022-10-21] MEDS: MORPHINE SULFATE 4 MG/ML SYRINGE IV PRN ×3 (08:11→16:18)
--- NOTE | 2022-10-21 10:50 | P.GSHP ---
History of Present Illness H&P Date: 10/21/22 Chief Complaint: Sigmoid diverticulitis 57-year-old male known to our service. Patient had episode of diverticulitis approximate 5 years ago. He says that over the years he has had approximately 4 episodes. 4 days ago he began experiencing left lower quadrant pain with some dysuria. He was started on oral antibiotics 2 days ago. He came to the ER last night because the pain was more severe. Her episodes of nausea and vomiting. He felt feverish with some chills. White blood cell count was elevated. CAT scan shows sigmoid diverticulitis with a 2.9 cm abscess. Last colonoscopy approximate 4 years ago per patient. Feels better this morning. - Review of Systems Comment: The patient denies any acute changes in vision or hearing, no dysphagia or odynophagia, no chest pain or shortness of breath, no dysuria or hematuria, no headache, no runny nose, no rectal bleeding or melena, no unexplained weight loss Past Medical History Past Medical History: Diabetes Mellitus, GERD/Reflux, Hypertension History of Any Multi-Drug Resistant Organisms: MRSA Date of last positivie culture/infection: left 1984 MDRO Source:: ear Past Surgical History: Cholecystectomy, Hernia Repair, Tonsillectomy Additional Past Surgical History / Comment(s): sinus surgery, tubes in ears Past Anesthesia/Blood Transfusion Reactions: Previous Problems w/ Anesthesia Past Psychological History: No Psychological Hx Reported Smoking Status: Never smoker Past Alcohol Use History: Occasional Past Drug Use History: None Reported - Past Family History Mother Family Medical History: Cancer, Diabetes Mellitus, Rheumatoid Arthritis (RA) Medications and Allergies Home Medications Medication Instructions Recorded Confirmed Type HYDROcodone/APAP 10-325MG [[place] 1 tab PO Q6H 05/05/18 10/21/22 History 10-325] Lisinopril-Hctz 20-12.5 mg 2 tab PO DAILY 10/07/19 10/21/22 History [Zestoretic 20-12.5] Ciprofloxacin HCl [Cipro] 500 mg PO Q12HR 10/21/22 10/21/22 History Dextroamphetamine/Amphetamine 25 mg PO DAILY 10/21/22 10/21/22 History [Adderall Xr 25 mg Capsule] Montelukast [Singulair] 10 mg PO DAILY 10/21/22 10/21/22 History Nifedipine Er (Osmotic) 30 mg PO HS 10/21/22 10/21/22 History Rosuvastatin [Crestor] 20 mg PO DAILY 10/21/22 10/21/22 History metroNIDAZOLE [Flagyl] 500 mg PO TID 10/21/22 10/21/22 History Allergies Allergy/AdvReac Type Severity Reaction Status Date / Time ceftriaxone [From Rocephin] Allergy Rash/Hives Verified 10/21/22 07:50 Iodinated Contrast Media Allergy Anaphylaxis Verified 10/21/22 07:50 [Iodinated Contrast- Oral and IV Dye] levofloxacin [From Levaquin] Allergy Anaphylaxis Verified 10/21/22 07:50 rosuvastatin [From Crestor] AdvReac "KIDNEY Verified 10/21/22 07:50 PAIN" - see comment Surgical - Exam Vital Signs Temp Pulse Resp BP Pulse Ox 97.9 F 97 18 158/113 96 10/21/22 00:20 10/21/22 00:20 10/21/22 00:20 10/21/22 00:20 10/21/22 00:20 Physical exam: General: Well-developed, well-nourished HEENT: Normocephalic, sclerae nonicteric Abdomen: Left lower quadrant tenderness, nondistended Extremities: No edema Neuro: Alert and oriented Results - Labs 10/21/22 00:41 10/21/22 00:41 Abnormal Lab Results - Last 24 Hours (Table) 10/21/22 10/21/22 10/21/22 Range/Units 00:41 00:41 00:41 WBC 11.6 H (3.8-10.6) k/uL RBC 6.19 H (4.30-5.90) m/uL Neutrophils # 8.3 H (1.3-7.7) k/uL Glucose 153 H (74-99) mg/dL Urine Protein 1+ H (Negative) Urine Ketones 1+ H (Negative) Ur Leukocyte Esterase Trace H (Negative) Urine Bacteria Rare H (None) /hpf Hyaline Casts 3 H (0-2) /lpf Urine Mucus Occasional H (None) /hpf Diabetes panel 10/21/22 Range/Units 00:41 Sodium 137 (137-145) mmol/L Potassium 4.8 (3.5-5.1) mmol/L Chloride 100 (98-107) mmol/L Carbon Dioxide 22 (22-30) mmol/L BUN 15 (9-20) mg/dL Creatinine 0.75 (0.66-1.25) mg/dL Glucose 153 H (74-99) mg/dL Calcium 9.3 (8.4-10.2) mg/dL AST 36 (17-59) U/L ALT 16 (4-49) U/L Alkaline Phosphatase 58 (38-126) U/L Total Protein 7.7 (6.3-8.2) g/dL Albumin 4.1 (3.5-5.0) g/dL Calcium panel 10/21/22 Range/Units 00:41 Calcium 9.3 (8.4-10.2) mg/dL Albumin 4.1 (3.5-5.0) g/dL Pituitary panel 10/21/22 Range/Units 00:41 Sodium 137 (137-145) mmol/L Potassium 4.8 (3.5-5.1) mmol/L Chloride 100 (98-107) mmol/L Carbon Dioxide 22 (22-30) mmol/L BUN 15 (9-20) mg/dL Creatinine 0.75 (0.66-1.25) mg/dL Glucose 153 H (74-99) mg/dL Calcium 9.3 (8.4-10.2) mg/dL Adrenal panel 10/21/22 Range/Units 00:41 Sodium 137 (137-145) mmol/L Potassium 4.8 (3.5-5.1) mmol/L Chloride 100 (98-107) mmol/L Carbon Dioxide 22 (22-30) mmol/L BUN 15 (9-20) mg/dL Creatinine 0.75 (0.66-1.25) mg/dL Glucose 153 H (74-99) mg/dL Calcium 9.3 (8.4-10.2) mg/dL Total Bilirubin 1.3 (0.2-1.3) mg/dL AST 36 (17-59) U/L ALT 16 (4-49) U/L Alkaline Phosphatase 58 (38-126) U/L Total Protein 7.7 (6.3-8.2) g/dL Albumin 4.1 (3.5-5.0) g/dL Assessment and Plan (1) Colonic diverticular abscess Narrative/Plan: 57-year-old male with diverticulitis involving the sigmoid colon with adjacent pericolonic abscess. Options discussed with patient. Continue broad-spectrum IV antibiotics. Begin clear liquid diet. We will consult interventional radiology for possible percutaneous drainage. We'll consult the hospitalist group. Current Visit: Yes Status: Acute Code(s): K57.20 - DVTRCLI OF LG INT W PERFORATION AND ABSCESS W/O BLEEDING SNOMED Code(s): 059676199
[2022-10-21] MEDS: VANCOMYCIN 1,750 MG in SODIUM CHLORIDE 0.9% 500 ML 500 ML IVPB SCH (15:38)
[2022-10-21] MEDS: PIPERACILLIN-TAZOBACTAM 3.375 GM in SODIUM CHLORIDE 0.9% 100 ML IVPB SCH (16:22)
[2022-10-21] MEDS ORDERED: IBUPROFEN 600 MG TAB PO PRN (17:15)
[2022-10-21] MEDS: HEPARIN SODIUM,PORCINE/PF 5,000 UNIT/0.5 ML SYRINGE SQ SCH (18:14)
[2022-10-21] MEDS: HYDROmorphone 1 MG/ML 1 ML SYRINGE IVP PRN (21:27)
[2022-10-22] MEDS: HEPARIN SODIUM,PORCINE/PF 5,000 UNIT/0.5 ML SYRINGE SQ SCH ×4 (00:33→23:58)
[2022-10-22] MEDS: PIPERACILLIN-TAZOBACTAM 3.375 GM in SODIUM CHLORIDE 0.9% 100 ML IVPB SCH ×4 (00:58→23:58)
[2022-10-22] MEDS: SODIUM CHLORIDE 0.9% 1,000 ML IV SCH ×3 (00:58→22:36)
[2022-10-22] MEDS: HYDROcodone/APAP 5-325MG 1 EACH TAB PO PRN ×4 (02:25→20:03)
[2022-10-22] MEDS: HYDROmorphone 1 MG/ML 1 ML SYRINGE IVP PRN ×6 (02:25→22:52)
--- NOTE | 2022-10-22 07:05 | P.PN ---
Progress Note - Text Progress Note Date: 10/22/22 Patient previously resting comfortably in his bed. He still has complex left lower quadrant pain. On exam vital signs are stable. Abdomen soft. Diverticulitis. Patient will continue receive IV antibiotics. He'll be watched closely.
[2022-10-22] MEDS: VANCOMYCIN 1,750 MG in SODIUM CHLORIDE 0.9% 500 ML 500 ML IVPB SCH (07:28)
[2022-10-22 08:15] LABS: Basophils % (A) 0 %; Eosinophils % (A) 0 %; HCT 47.9 % (39.0-53.0); HGB 15.6 gm/dL (13.0-17.5); Lymphocytes # (A) 1.6 k/uL (1.0-4.8); Lymphocytes % (A) 17 %; MCH 27.6 pg (25.0-35.0); MCHC 32.6 g/dL (31.0-37.0); MCV 84.5 fL (80.0-100.0); Mean Platelet Volume 7.8; Monocytes # (A) 0.6 k/uL (0-1.0); Monocytes % (A) 6 %; Neutrophils % (A) 74 %; Platelet Count 221 k/uL (150-450); RBC 5.67 m/uL (4.30-5.90); RDW 13.7 % (11.5-15.5); WBC 9.4 k/uL (3.8-10.6)
[2022-10-22 08:16] LABS: African American GFR (CKD) >90 (>60 ml/min/1.73 sqM); Anion Gap 7 mmol/L; Blood Urea Nitrogen 16 mg/dL (9-20); Calcium 8.5 mg/dL (8.4-10.2); Carbon Dioxide 30 mmol/L (22-30); Chloride 101 mmol/L (98-107); Glucose 123 mg/dL (74-99); Non-African American GFR(CKD) >90 (>60 ml/min/1.73 sqM); Potassium 4.2 mmol/L (3.5-5.1); Sodium 138 mmol/L (137-145)
[2022-10-22] MEDS ORDERED: VANCOMYCIN TROUGH DUE 1 EACH MISC MISCELLANE ONE (13:00)
[2022-10-22] MEDS: NIFEdipine XL 30 MG TAB.ER.24 PO SCH (21:05)
--- NOTE | 2022-10-22 21:18 | P.CONS ---
History of Present Illness - Reason for Consult Consult date: 10/22/22 Medical management - Chief Complaint Abdominal pain - History of Present Illness Patient is a 57-year-old male with a known history of hypertension, diabetes type 2, GERD, hypertension and prior history of diverticulitis 5 years ago presents to ER with complaints of worsening abdominal pain. Mainly left lower quadrant. Patient does have issues with constipation prior to developing abdominal pain. Denies any diarrhea. Denies any hematemesis or melena. Patient states that he started having pain about 4 days ago and was seen by his primary care physician. He was started on antibiotics in the form of ciprofloxacin and Flagyl which she has taken for 2 days. Symptoms are not getting better and came to ER due to severe pain. Patient states that she did have nausea and vomiting. He was also complaining of cramping pain and is passing urine. On admission patient was afebrile. CT of the abdomen pelvis showed CT findings consistent with acute diverticulitis and perforation of the sigmoid colon as there is adjacent 2.9 cm abscess. KUB x-ray showed overall nonobstructive bowel gas pattern. Renal ultrasound showed no acute or focal findings of the kidneys. Laboratory showed WBC 11.6 hemoglobin 17.1 and platelets 227 Sodium 137 potassium 4.8 chloride 100 bicarb is 22 BUN 15 and creatinine 0.75 and blood sugar 153. Urinalysis is negative for infection. Review of Systems Constitutional: Patient does have subjective fever and chills.. no Generalized weakness. Abdomen: Complains of left lower quadrant abdominal pain. Nausea vomiting. Cardiovascular: Patient denies any chest pain or short of breath no palpitations. Respiratory: patient denied any cough . no sputum production. No shortness of breath Neurologic: Patient denied any numbness or tingling headache. Musculoskeletal: Patient denies any complaints of joint swelling or deformity. Skin: Negative Psychiatric: Negative Endocrine: No heat or cold intolerance. No recent weight gain. Genitourinary: No dysuria or hematuria. 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 MDRO Source:: ear Past Surgical History: Cholecystectomy, Hernia Repair, Tonsillectomy Additional Past Surgical History / Comment(s): sinus surgery, tubes in ears Past Anesthesia/Blood Transfusion Reactions: Previous Problems w/ Anesthesia Past Psychological History: No Psychological Hx Reported Smoking Status: Never smoker Past Alcohol Use History: Occasional Past Drug Use History: None Reported - Past Family History Mother Family Medical History: Cancer, Diabetes Mellitus, Rheumatoid Arthritis (RA) Medications and Allergies Home Medications Medication Instructions Recorded Confirmed Type HYDROcodone/APAP 10-325MG [[place] 1 tab PO Q6H 05/05/18 10/21/22 History 10-325] Lisinopril-Hctz 20-12.5 mg 2 tab PO DAILY 10/07/19 10/21/22 History [Zestoretic 20-12.5] Ciprofloxacin HCl [Cipro] 500 mg PO Q12HR 10/21/22 10/21/22 History Dextroamphetamine/Amphetamine 25 mg PO DAILY 10/21/22 10/21/22 History [Adderall Xr 25 mg Capsule] Montelukast [Singulair] 10 mg PO DAILY 10/21/22 10/21/22 History Nifedipine Er (Osmotic) 30 mg PO HS 10/21/22 10/21/22 History Rosuvastatin [Crestor] 20 mg PO DAILY 10/21/22 10/21/22 History metroNIDAZOLE [Flagyl] 500 mg PO TID 10/21/22 10/21/22 History Allergies Allergy/AdvReac Type Severity Reaction Status Date / Time ceftriaxone [From Rocephin] Allergy Rash/Hives Verified 10/21/22 07:50 Iodinated Contrast Media Allergy Anaphylaxis Verified 10/21/22 07:50 [Iodinated Contrast- Oral and IV Dye] levofloxacin [From Levaquin] Allergy Anaphylaxis Verified 10/21/22 07:50 rosuvastatin [From Crestor] AdvReac "KIDNEY Verified 10/21/22 07:50 PAIN" - see comment Physical Exam Vitals: Vital Signs Temp Pulse Pulse Resp BP BP Pulse Ox 10/22/22 07:41 97.8 F 69 14 146/89 97 10/22/22 00:00 98.6 F 83 14 137/83 94 L 10/21/22 21:32 80 16 138/77 94 L Intake and Output 10/21/22 10/22/22 10/22/22 22:59 06:59 14:59 Intake Total 940 Balance 940 Intake: Intake, IV Titration 700 Amount Piperacillin-Tazobactam 3 100 .375 gm In Sodium Chloride 0.9% 100 ml @ 25 mls/hr IVPB Q8HR [facility] Rx# :[id number] Sodium Chloride 0.9% 1, 600 000 ml @ 100 mls/hr IV . Q10H [facility] Rx#:[id number] Oral 240 Other: # Voids 2 Weight 111.13 kg PHYSICAL EXAMINATION: Patient is lying in the bed comfortably, no acute distress, awake alert and oriented.. HEENT: Normocephalic. Neck is supple. Pupils reactive. Nostrils clear. Oral ca vity is moist. Neck reveals no JVD, carotid bruits, or thyromegaly. CHEST EXAMINATION: Trachea is central. Symmetrical expansion. Lung recinos clear to auscultation and percussion. CARDIAC: Normal S1, S2 with no gallops. No murmurs ABDOMEN: Soft. Bowel sounds present. Left lower quadrant tenderness. No guarding or rigidity.. No organomegaly. No abdominal bruits. Extremities: reveal no edema. No clubbing or cyanosis Neurologically awake, alert, oriented x3 with well-coordinated movements. No focal deficits noted Skin: No rash or skin lesions. Psychiatric: Coperative. Nonsuicidal, Musculoskeletal: No joint swelling or deformity. Normal range of motion. Results CBC & Chem 7: 10/22/22 07:29 10/22/22 07:29 Labs: Abnormal Lab Results - Last 24 Hours (Table) 10/22/22 Range/Units 07:29 Glucose 123 H (74-99) mg/dL Assessment and Plan Assessment: Acute diverticulitis with perforation in the sigmoid colon and adjacent abscess 2.6 cm. Prior history of diverticulitis about 5 years ago Diabetes type 2 Hypertension GERD History of cholecystectomy Obesity with BMI 35.2 DVT prophylaxis with heparin subcu Plan: Patient will be continued on IV hydration with normal saline. Nothing by mouth. Continue with antibiotics in the form of Zosyn. Continue pain management with Dilaudid IV. IR consult for possible percutaneous drainage. Patient takes lisinopril/hydrochlorothiazide and development at home. Continue with nifedipine and monitor blood pressure closely. Continue with insulin sliding scale. Discussed with the patient and his at bedside in detail. We will continue to follow and Further recommendations based on the clinical course. Thank you for your consult. Time with Patient: Greater than 30
[2022-10-23] MEDS: HYDROcodone/APAP 5-325MG 1 EACH TAB PO PRN ×5 (00:50→23:39)
[2022-10-23] MEDS: SODIUM CHLORIDE 0.9% 1,000 ML IV SCH ×3 (02:36→16:33)
[2022-10-23] MEDS: HYDROmorphone 1 MG/ML 1 ML SYRINGE IVP PRN ×4 (03:57→21:46)
[2022-10-23 06:04] LABS: Glucose,Whole Blood 115 mg/dL (70-110)
[2022-10-23] MEDS: INSULIN ASPART (NovoLOG) 100 UNIT/ML VIAL SQ SCH ×4 (06:05→20:58)
--- NOTE | 2022-10-23 06:48 | P.CONS ---
History of Present Illness - Reason for Consult Consult date: 10/22/22 Diverticular abscess Requesting physician: Jean Allred - Chief Complaint Abdominal pain x 4 days - History of Present Illness Patient is a 57-year-old male with a past medical history significant for type 2 diabetes mellitus hypertension reflux and history of diverticulitis recurrent episode last episode has been more than a year and a half ago presenting to the hospital for evaluation of worsening abdominal pain patient symptoms started about 4 days before presentation to the hospital and the pain has been mostly in the left lower abdominal area patient has been evaluated by the primary care physician and was started on Cipro and Flagyl with the patient took for about 2 days without improvement and the patient did have worsening of his abdominal pain describing the pain to be sharp was almost 9 out of 10 by the time he presented to hospital with no radiation associated nausea but no vomiting no diarrhea further constipation patient on presentation to the hospital was afebrile and no fever has been recorded subsequently patient did have white count of 11.6 with a left shift kidney function has been normal liver enzymes are normal amylase lipase was normal urine was negative blood cultures obtained which are currently pending patient did have a CT of abdominal pelvis which shows colonic diverticulosis greatest involving the sigmoid colon wall with marked inflammatory changes at the level of the sigmoid colon and there was 2.9 cm adjacent thin-walled fluid collection concerning for an abscess patient was admitted to hospital he was started on Zosyn and vancomycin infectious disease was consulted for further management of antibiotic therapy Review of Systems Positive point and negatives has been mentioned in the HPI, complete review of systems was performed and all other systems are negative Past Medical History Past Medical History: Diabetes Mellitus, GERD/Reflux, Hypertension 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 MDRO Source:: ear Past Surgical History: Cholecystectomy, Hernia Repair, Tonsillectomy Additional Past Surgical History / Comment(s): sinus surgery, tubes in ears Past Anesthesia/Blood Transfusion Reactions: Previous Problems w/ Anesthesia Past Psychological History: No Psychological Hx Reported Smoking Status: Never smoker Past Alcohol Use History: Occasional Past Drug Use History: None Reported - Past Family History Mother Family Medical History: Cancer, Diabetes Mellitus, Rheumatoid Arthritis (RA) Medications and Allergies Home Medications Medication Instructions Recorded Confirmed Type HYDROcodone/APAP 10-325MG [[place] 1 tab PO Q6H 05/05/18 10/21/22 History 10-325] Lisinopril-Hctz 20-12.5 mg 2 tab PO DAILY 10/07/19 10/21/22 History [Zestoretic 20-12.5] Dextroamphetamine/Amphetamine 25 mg PO DAILY 10/21/22 10/21/22 History [Adderall Xr 25 mg Capsule] Montelukast [Singulair] 10 mg PO DAILY 10/21/22 10/21/22 History Nifedipine Er (Osmotic) 30 mg PO HS 10/21/22 10/21/22 History Rosuvastatin [Crestor] 20 mg PO DAILY 10/21/22 10/21/22 History Amoxic-Pot Clav 875-125Mg 1 tab PO Q12HR 10 Days #20 tab 10/26/22 Rx [Augmentin 875-125] Allergies Allergy/AdvReac Type Severity Reaction Status Date / Time ceftriaxone [From Rocephin] Allergy Rash/Hives Verified 10/21/22 07:50 Iodinated Contrast Media Allergy Anaphylaxis Verified 10/21/22 07:50 [Iodinated Contrast- Oral and IV Dye] levofloxacin [From Levaquin] Allergy Anaphylaxis Verified 10/21/22 07:50 rosuvastatin [From Crestor] AdvReac "KIDNEY Verified 10/21/22 07:50 PAIN" - see comment Physical Exam Vitals: Vital Signs Temp Pulse Pulse Resp BP BP Pulse Ox 10/22/22 00:00 98.6 F 83 14 137/83 94 L 10/21/22 21:32 80 16 138/77 94 L 10/21/22 08:16 83 18 149/87 97 Intake and Output 10/21/22 10/22/22 10/22/22 22:59 06:59 14:59 Intake Total 940 Balance 940 Intake: Intake, IV Titration 700 Amount Piperacillin-Tazobactam 3 100 .375 gm In Sodium Chloride 0.9% 100 ml @ 25 mls/hr IVPB Q8HR [facility] Rx# :[id number] Sodium Chloride 0.9% 1, 600 000 ml @ 100 mls/hr IV . Q10H [facility] Rx#:[id number] Oral 240 Other: # Voids 2 Weight 111.13 kg GENERAL DESCRIPTION: Middle-aged male lying in bed, no distress. No tachypnea or accessory muscle of respiration use. HEENT: Shows Pallor , no scleral icterus. Oral mucous membrane is dry. No pharyngeal erythema or thrush NECK: Trachea central, no thyromegaly. LUNGS: Unlabored breathing. Clear to auscultation anteriorly. No wheeze or crackle. HEART: S1, S2, regular rate and rhythm. No loud murmur ABDOMEN: Soft, mild left lower quadrant tenderness EXTREMITIES: No edema of feet. SKIN: No rash, no masses palpable. NEUROLOGICAL: The patient is awake, alert, oriented x3, mood and affect normal. Results CBC & Chem 7: 10/26/22 07:09 10/24/22 07:32 Assessment and Plan (1) Colonic diverticular abscess Status: Acute Code(s): K57.20 - DVTRCLI OF LG INT W PERFORATION AND ABSCESS W/O BLEEDING SNOMED Code(s): 619998251 (2) Diverticulitis Status: Acute Code(s): K57.92 - DVTRCLI OF INTEST, PART UNSP, W/O PERF OR ABSCESS W/O BLEED SNOMED Code(s): 888751073 (3) Allergy to multiple antibiotics Status: Acute Code(s): Z88.1 - ALLERGY STATUS TO OTHER ANTIBIOTIC AGENTS SNOMED Code(s): 271539112 Plan: 1patient was in the hospital for abdominal pain in this patient who do have a history of recurrent diverticulitis has been diagnosed with complicated di verticulitis with the small abscess will need to cover for the enteric gram- negative both anaerobes and anaerobes and less likely gram-positive, patient did have multiple antibiotic ALLERGIES that would limit the number of antibiotic safe to use 2-patient to be continued with Zosyn 3.375 g every 8 hours however vancomycin has been discontinued decrease risk of nephrotoxicity 3-CT-guided drainage of the abscess fluid should be sent for culture We will follow on clinical condition and cultures to further adjust medication if needed Thank you for this consultation we will follow the patient along with you Time with Patient: Greater than 30
[2022-10-23] MEDS: HEPARIN SODIUM,PORCINE/PF 5,000 UNIT/0.5 ML SYRINGE SQ SCH ×3 (08:55→23:40)
[2022-10-23] MEDS: ATORVASTATIN 40 MG TAB PO SCH (08:56)
[2022-10-23] MEDS: PIPERACILLIN-TAZOBACTAM 3.375 GM in SODIUM CHLORIDE 0.9% 100 ML IVPB SCH ×3 (08:56→23:39)
[2022-10-23] MEDS: MONTELUKAST 10 MG TAB PO SCH (08:56)
--- NOTE | 2022-10-23 09:36 | P.PN ---
Progress Note - Text Progress Note Date: 10/23/22 The patient appears frustrated today. He is unsure whether or not he can have a CT-guided drainage of his abscess performed. Patient still says he has left- sided abdominal pain. There was some question of left scrotal and inguinal swelling. On exam his vital signs appear stable. Abdomen is soft with some tenderness in the left side. There is no rebound or guarding. Examination of left groin does not reveal any significant swelling edema or infection. His left testicle appears normal. Acute diverticulitis with evidence of abscess. Patient may undergo repeat computed tomography scan tomorrow. He'll be reevaluated by Dr. Huang tomorrow.
[2022-10-23 11:45] LABS: Glucose,Whole Blood 119 mg/dL (70-110)
[2022-10-23 12:40] LABS: African American GFR (CKD) >90 (>60 ml/min/1.73 sqM); Anion Gap 8 mmol/L; Blood Urea Nitrogen 9 mg/dL (9-20); Calcium 8.4 mg/dL (8.4-10.2); Carbon Dioxide 29 mmol/L (22-30); Chloride 99 mmol/L (98-107); Glucose 116 mg/dL (74-99); Non-African American GFR(CKD) >90 (>60 ml/min/1.73 sqM); Potassium 3.9 mmol/L (3.5-5.1); Sodium 136 mmol/L (137-145)
[2022-10-23 16:53] LABS: Glucose,Whole Blood 106 mg/dL (70-110)
[2022-10-23 20:36] LABS: Glucose,Whole Blood 111 mg/dL (70-110)
[2022-10-23] MEDS: NIFEdipine XL 30 MG TAB.ER.24 PO SCH (21:14)
--- NOTE | 2022-10-23 23:14 | P.PN ---
Subjective Progress Note Date: 10/23/22 Patient is a 57-year-old male with a known history of hypertension, diabetes type 2, GERD, hypertension and prior history of diverticulitis 5 years ago presents to ER with complaints of worsening abdominal pain. Mainly left lower quadrant. Patient does have issues with constipation prior to developing ab dominal pain. Denies any diarrhea. Denies any hematemesis or melena. Patient states that he started having pain about 4 days ago and was seen by his primary care physician. He was started on antibiotics in the form of ciprofloxacin and Flagyl which she has taken for 2 days. Symptoms are not getting better and came to ER due to severe pain. Patient states that she did have nausea and vomiting. He was also complaining of cramping pain and is passing urine. On admission patient was afebrile. CT of the abdomen pelvis showed CT findings consistent with acute diverticulitis and perforation of the sigmoid colon as there is adjacent 2.9 cm abscess. KUB x-ray showed overall nonobstructive bowel gas pattern. Renal ultrasound showed no acute or focal findings of the kidneys. Laboratory showed WBC 11.6 hemoglobin 17.1 and platelets 227 Sodium 137 potassium 4.8 chloride 100 bicarb is 22 BUN 15 and creatinine 0.75 and blood sugar 153. Urinalysis is negative for infection. 10/23/2022 Patient is currently sitting in the bed. Awake alert and oriented x3. Abdominal pain is much improved. Did complain of worsening abdominal pain this morning but improved now. No complaints of chest pain or shortness of breath. No cough or sputum production. Patient has been afebrile. Continued on anti biotics in the form of Zosyn. No complaints of nausea or vomiting. Currently nothing by mouth. Continued on IV hydration. Laboratory data showed sodium 136 potassium 3.9 chloride 99 bicarb is 29 BUN 9 and creatinine 0.71 and blood sugar is 116. Possible IR guided diverticular access tomorrow. Current medications reviewed. Objective - Vital Signs Vital signs: Vital Signs Temp 97.5 F L 10/23/22 13:24 Pulse 77 10/23/22 13:24 Resp 16 10/23/22 13:24 BP 126/68 10/23/22 13:24 Pulse Ox 95 10/23/22 13:24 FiO2 Intake & Output 06/10/23 06/11/23 06/11/23 18:59 06:59 18:59 Intake Total 252 1760 Balance 2520 1760 Intake: Intake, IV Titration 1300 1400 Amount Piperacillin-Tazobactam 3 100 200 .375 gm In Sodium Chloride 0.9% 100 ml @ 25 mls/hr IVPB Q8HR [facility] Rx# :[id number] Sodium Chloride 0.9% 1, 1200 1200 000 ml @ 100 mls/hr IV . Q10H [facility] Rx#:[id number] Oral 1220 360 Other: Voiding Method Toilet Toilet # Voids 4 1 - Exam PHYSICAL EXAMINATION: Patient is lying in the bed comfortably, no acute distress, awake alert and oriented.. HEENT: Normocephalic. Neck is supple. Pupils reactive. Nostrils clear. Oral cavity is moist. Neck reveals no JVD, carotid bruits, or thyromegaly. CHEST EXAMINATION: Trachea is central. Symmetrical expansion. Lung recinos clear to auscultation and percussion. CARDIAC: Normal S1, S2 with no gallops. No murmurs ABDOMEN: Soft. Bowel sounds present. mild Left lower quadrant tenderness. No guarding or rigidity.. No organomegaly. No abdominal bruits. Extremities: reveal no edema. No clubbing or cyanosis Neurologically awake, alert, oriented x3 with well-coordinated movements. No focal deficits noted Skin: No rash or skin lesions. Psychiatric: Coperative. Nonsuicidal, Musculoskeletal: No joint swelling or deformity. Normal range of motion. - Labs CBC & Chem 7: 10/22/22 07:29 10/23/22 11:05 Labs: Abnormal Lab Results - Last 24 Hours (Table) 10/23/22 10/23/22 10/23/22 Range/Units 06:03 11:05 11:43 Sodium 136 L (137-145) mmol/L Glucose 116 H (74-99) mg/dL POC Glucose (mg/dL) 115 H 119 H (70-110) mg/dL Microbiology - Last 24 Hours (Table) 10/21/22 04:55 Blood Culture - Preliminary Blood 10/21/22 04:40 Blood Culture - Preliminary Blood Assessment and Plan Assessment: Acute diverticulitis with perforation in the sigmoid colon and adjacent abscess 2.6 cm. Prior history of diverticulitis about 5 years ago Diabetes type 2 Hypertension GERD History of cholecystectomy Obesity with BMI 35.2 DVT prophylaxis with heparin subcu Plan: Patient will be continued on IV hydration with normal saline. Nothing by mouth. Continue with antibiotics in the form of Zosyn. Continue pain management with Dilaudid IV. IR consult for possible percutaneous drainage tomorrow. Patient takes lisinopril/hydrochlorothiazide and development at home. Continue with nifedipine and monitor blood pressure closely. Continue with insulin sliding scale. Discussed with the patient and his at bedside in detail. We will continue to follow and Further recommendations based on the clinical course.
[2022-10-24] MEDS: HYDROmorphone 1 MG/ML 1 ML SYRINGE IVP PRN ×6 (02:08→20:37)
[2022-10-24] MEDS: HYDROcodone/APAP 5-325MG 1 EACH TAB PO PRN ×2 (04:24→13:49)
[2022-10-24] MEDS: SODIUM CHLORIDE 0.9% 1,000 ML IV SCH ×3 (04:26→20:25)
[2022-10-24 06:25] LABS: Glucose,Whole Blood 126 mg/dL (70-110)
[2022-10-24] MEDS: INSULIN ASPART (NovoLOG) 100 UNIT/ML VIAL SQ SCH ×4 (06:50→20:21)
[2022-10-24] MEDS: MONTELUKAST 10 MG TAB PO SCH (06:51)
[2022-10-24] MEDS: PIPERACILLIN-TAZOBACTAM 3.375 GM in SODIUM CHLORIDE 0.9% 100 ML IVPB SCH ×3 (06:51→23:44)
[2022-10-24] MEDS: HEPARIN SODIUM,PORCINE/PF 5,000 UNIT/0.5 ML SYRINGE SQ SCH ×4 (06:51→23:45)
[2022-10-24] MEDS: ATORVASTATIN 40 MG TAB PO SCH (06:51)
--- NOTE | 2022-10-24 07:31 | P.PN ---
Subjective Progress Note Date: 10/23/22 Principal diagnosis: Diverticulitis with abscess Patient is a 57-year-old male with a past medical history significant for type 2 diabetes mellitus hypertension reflux and history of diverticulitis recurrent episode last episode has been more than a year and a half ago presenting to the hospital for evaluation of worsening abdominal pain, diagnosed with diverticulitis with abscess On todays evaluation that is 10/23/2022 , pt is afebrile , pt seems to have more pain last night and this morning , currently controlled with pain meds , denies nausea or vomiting , no chest pain , shortness of breath or cough Objective - Vital Signs Vital signs: Vital Signs Temp 97.5 F L 10/23/22 13:24 Pulse 77 10/23/22 13:24 Resp 16 10/23/22 13:24 BP 126/68 10/23/22 13:24 Pulse Ox 95 10/23/22 13:24 FiO2 Intake & Output 10/22/22 10/23/22 10/23/22 18:59 06:59 18:59 Intake Total 2520 180 Balance 2520 180 Intake: Intake, IV Titration 1300 Amount Piperacillin-Tazobactam 3 100 .375 gm In Sodium Chloride 0.9% 100 ml @ 25 mls/hr IVPB Q8HR [facility] Rx# :[id number] Sodium Chloride 0.9% 1, 1200 000 ml @ 100 mls/hr IV . Q10H [facility] Rx#:[id number] Oral 1220 180 Other: Voiding Method Toilet Toilet # Voids 4 1 - Exam GENERAL DESCRIPTION: Middle age male lying in bed in no distress RESPIRATORY SYSTEM: Unlabored breathing , decreased breath sounds at bases HEART: S1 S2 regular rate and rhythm ,no loud murmurs ABDOMEN: Soft , mild tenderness EXTREMITIES: No edema feet - Labs CBC & Chem 7: 10/22/22 07:29 10/23/22 11:05 Labs: Abnormal Lab Results - Last 24 Hours (Table) 10/23/22 10/23/22 10/23/22 Range/Units 06:03 11:05 11:43 Sodium 136 L (137-145) mmol/L Glucose 116 H (74-99) mg/dL POC Glucose (mg/dL) 115 H 119 H (70-110) mg/dL Microbiology - Last 24 Hours (Table) 10/21/22 04:55 Blood Culture - Preliminary Blood 10/21/22 04:40 Blood Culture - Preliminary Blood Assessment and Plan (1) Colonic diverticular abscess Current Visit: Yes Status: Acute Code(s): K57.20 - DVTRCLI OF LG INT W PERFORATION AND ABSCESS W/O BLEEDING SNOMED Code(s): 110806590 (2) Diverticulitis of large intestine with complication Current Visit: Yes Status: Acute Code(s): K57.32 - DVTRCLI OF LG INT W/O PERFORATION OR ABSCESS W/O BLEEDING SNOMED Code(s): 178402593 Plan: 1patient was in the hospital for abdominal pain in this patient who do have a history of recurrent diverticulitis has been diagnosed with complicated divert iculitis with the small abscess will need to cover for the enteric gram-negative both anaerobes and anaerobes and less likely gram-positive 2-patient to be continued with Zosyn 3.375 g every 8 hours 3-may benefot from repeat CT keeping in mind more pain and possible CT-guided drainage of the abscess fluid should be sent for culture Time with Patient: Less than 30
[2022-10-24 08:08] LABS: Basophils % (A) 0 %; Eosinophils # (A) 0.2 k/uL (0-0.7); Eosinophils % (A) 2 %; HGB 17.4 gm/dL (13.0-17.5); Lymphocytes # (A) 1.3 k/uL (1.0-4.8); Lymphocytes % (A) 18 %; MCH 26.9 pg (25.0-35.0); MCHC 32.1 g/dL (31.0-37.0); MCV 83.9 fL (80.0-100.0); Mean Platelet Volume 7.5; Monocytes # (A) 0.6 k/uL (0-1.0); Monocytes % (A) 8 %; Neutrophils # (A) 5.1 k/uL (1.3-7.7); Neutrophils % (A) 69 %; Platelet Count 253 k/uL (150-450); RBC 6.44 m/uL (4.30-5.90); RDW 13.5 % (11.5-15.5); WBC 7.4 k/uL (3.8-10.6)
[2022-10-24 08:25] LABS: African American GFR (CKD) >90 (>60 ml/min/1.73 sqM); Carbon Dioxide 27 mmol/L (22-30); Non-African American GFR(CKD) >90 (>60 ml/min/1.73 sqM)
[2022-10-24 08:26] LABS: Anion Gap 9 mmol/L; Blood Urea Nitrogen 8 mg/dL (9-20); Calcium 8.7 mg/dL (8.4-10.2); Chloride 101 mmol/L (98-107); Glucose 136 mg/dL (74-99); Potassium 4.1 mmol/L (3.5-5.1); Sodium 137 mmol/L (137-145)
--- NOTE | 2022-10-24 09:56 | P.CON ---
Consult Note - . Consult date: 10/24/22 Assessment/Plan:: CT reviewed abscess measures only 2 cm which is too small for catheter.
[2022-10-24 11:14] LABS: Glucose,Whole Blood 98 mg/dL (70-110)
--- NOTE | 2022-10-24 16:00 | P.PN ---
Subjective Progress Note Date: 10/24/22 Principal diagnosis: Diverticulitis Patient feels better today. Pain is down to 4 out of 10. Tolerating clear liquids however says the pain is worse when he drinks. He is having bowel movements. He is afebrile. White blood cell count normal. Objective - Vital Signs Vital signs: Vital Signs Temp 98.2 F 10/24/22 13:39 Pulse 83 10/24/22 13:39 Resp 18 10/24/22 13:39 BP 153/99 10/24/22 13:39 Pulse Ox 97 10/24/22 13:39 FiO2 Intake & Output 10/23/22 10/24/22 10/24/22 18:59 06:59 18:59 Intake Total 1760 472 Balance 1760 472 Intake: Intake, IV Titration 1400 Amount Piperacillin-Tazobactam 3 200 .375 gm In Sodium Chloride 0.9% 100 ml @ 25 mls/hr IVPB Q8HR [facility] Rx# :[id number] Sodium Chloride 0.9% 1, 1200 000 ml @ 100 mls/hr IV . Q10H [facility] Rx#:[id number] Oral 360 472 Other: Voiding Method Toilet # Voids 1 1 - Exam Abdomen: Soft, nondistended, mild left lower quadrant tenderness - Labs CBC & Chem 7: 10/24/22 07:32 10/24/22 07:32 Labs: Abnormal Lab Results - Last 24 Hours (Table) 10/23/22 10/23/22 10/24/22 Range/Units 11:05 20:34 06:23 RBC (4.30-5.90) m/uL Hct (39.0-53.0) % BUN (9-20) mg/dL Glucose (74-99) mg/dL POC Glucose (mg/dL) 111 H 126 H (70-110) mg/dL Hemoglobin A1c 7.8 H (<=6.0) % 10/24/22 10/24/22 Range/Units 07:32 07:32 RBC 6.44 H (4.30-5.90) m/uL Hct 54.0 H (39.0-53.0) % BUN 8 L (9-20) mg/dL Glucose 136 H (74-99) mg/dL POC Glucose (mg/dL) (70-110) mg/dL Hemoglobin A1c (<=6.0) % Microbiology - Last 24 Hours (Table) 10/21/22 04:55 Blood Culture - Preliminary Blood 10/21/22 04:40 Blood Culture - Preliminary Blood Assessment and Plan (1) Colonic diverticular abscess Narrative/Plan: Overall patient slowly improving. Reviewed films with interventional radiology this morning. Abscess cavity to small for drain placement. Given the fact the patient is improving Will hold off on aspiration for now. Continue IV antibiotics. Advance diet to full liquids. We'll reevaluate tomorrow. Tentatively plan repeat CAT scan later this week or early next week. Current Visit: Yes Status: Acute Code(s): K57.20 - DVTRCLI OF LG INT W PERFORATION AND ABSCESS W/O BLEEDING SNOMED Code(s): 260517669
[2022-10-24 16:55] LABS: Glucose,Whole Blood 144 mg/dL (70-110)
[2022-10-24 20:13] LABS: Glucose,Whole Blood 105 mg/dL (70-110)
[2022-10-24] MEDS: NIFEdipine XL 30 MG TAB.ER.24 PO SCH (20:26)
--- NOTE | 2022-10-24 22:06 | P.PN ---
Subjective Progress Note Date: 10/24/22 Patient is a 57-year-old male with a known history of hypertension, diabetes type 2, GERD, hypertension and prior history of diverticulitis 5 years ago presents to ER with complaints of worsening abdominal pain. Mainly left lower quadrant. Patient does have issues with constipation prior to developing ab dominal pain. Denies any diarrhea. Denies any hematemesis or melena. Patient states that he started having pain about 4 days ago and was seen by his primary care physician. He was started on antibiotics in the form of ciprofloxacin and Flagyl which she has taken for 2 days. Symptoms are not getting better and came to ER due to severe pain. Patient states that she did have nausea and vomiting. He was also complaining of cramping pain and is passing urine. On admission patient was afebrile. CT of the abdomen pelvis showed CT findings consistent with acute diverticulitis and perforation of the sigmoid colon as there is adjacent 2.9 cm abscess. KUB x-ray showed overall nonobstructive bowel gas pattern. Renal ultrasound showed no acute or focal findings of the kidneys. Laboratory showed WBC 11.6 hemoglobin 17.1 and platelets 227 Sodium 137 potassium 4.8 chloride 100 bicarb is 22 BUN 15 and creatinine 0.75 and blood sugar 153. Urinalysis is negative for infection. 10/23/2022 Patient is currently sitting in the bed. Awake alert and oriented x3. Abdominal pain is much improved. Did complain of worsening abdominal pain this morning but improved now. No complaints of chest pain or shortness of breath. No cough or sputum production. Patient has been afebrile. Continued on anti biotics in the form of Zosyn. No complaints of nausea or vomiting. Currently nothing by mouth. Continued on IV hydration. Laboratory data showed sodium 136 potassium 3.9 chloride 99 bicarb is 29 BUN 9 and creatinine 0.71 and blood sugar is 116. Possible IR guided diverticular access tomorrow. 10/24/2022 Patient is currently sitting in the chair. Awake alert and oriented x3. Currently on room air. Still complains of left lower quadrant abdominal pain intermittently but pain improved compared to yesterday. No complaints of diarrhea. No nausea vomiting. No cough or sputum production. No chest pain or shortness of breath. Patient has been afebrile. Patient is being continued on antibiotics in the form of Zosyn. Patient was seen by interventional radiology and thought abscess being very small to drain at 2 cm. Patient is being current on liquid diet. Laboratory data showed WBC 7.4 hemoglobin 17.4 and platelets 253 sodium 137 potassium 4.1 chloride 101 bicarb is 27 BUN 18 creatinine 0.75 blood sugar is 136 and calcium 8.7. Current medications reviewed. Objective - Vital Signs Vital signs: Vital Signs Temp 98.2 F 10/24/22 13:39 Pulse 83 10/24/22 13:39 Resp 18 10/24/22 13:39 BP 153/99 10/24/22 13:39 Pulse Ox 97 10/24/22 13:39 FiO2 Intake & Output 10/23/22 10/24/22 10/24/22 18:59 06:59 18:59 Intake Total 1760 472 Balance 1760 472 Intake: Intake, IV Titration 1400 Amount Piperacillin-Tazobactam 3 200 .375 gm In Sodium Chloride 0.9% 100 ml @ 25 mls/hr IVPB Q8HR [facility] Rx# :[id number] Sodium Chloride 0.9% 1, 1200 000 ml @ 100 mls/hr IV . Q10H [facility] Rx#:[id number] Oral 360 472 Other: Voiding Method Toilet # Voids 1 1 - Exam PHYSICAL EXAMINATION: Patient is lying in the bed comfortably, no acute distress, awake alert and oriented.. HEENT: Normocephalic. Neck is supple. Pupils reactive. Nostrils clear. Oral cavity is moist. Neck reveals no JVD, carotid bruits, or thyromegaly. CHEST EXAMINATION: Trachea is central. Symmetrical expansion. Lung recinos clear to auscultation and percussion. CARDIAC: Normal S1, S2 with no gallops. No murmurs ABDOMEN: Soft. Bowel sounds present. mild Left lower quadrant tenderness. No g uarding or rigidity.. No organomegaly. No abdominal bruits. Extremities: reveal no edema. No clubbing or cyanosis Neurologically awake, alert, oriented x3 with well-coordinated movements. No focal deficits noted Skin: No rash or skin lesions. Psychiatric: Coperative. Nonsuicidal, Musculoskeletal: No joint swelling or deformity. Normal range of motion. - Labs CBC & Chem 7: 10/24/22 07:32 10/24/22 07:32 Labs: Abnormal Lab Results - Last 24 Hours (Table) 10/23/22 10/23/22 10/24/22 Range/Units 11:05 20:34 06:23 RBC (4.30-5.90) m/uL Hct (39.0-53.0) % BUN (9-20) mg/dL Glucose (74-99) mg/dL POC Glucose (mg/dL) 111 H 126 H (70-110) mg/dL Hemoglobin A1c 7.8 H (<=6.0) % 10/24/22 10/24/22 Range/Units 07:32 07:32 RBC 6.44 H (4.30-5.90) m/uL Hct 54.0 H (39.0-53.0) % BUN 8 L (9-20) mg/dL Glucose 136 H (74-99) mg/dL POC Glucose (mg/dL) (70-110) mg/dL Hemoglobin A1c (<=6.0) % Microbiology - Last 24 Hours (Table) 10/21/22 04:55 Blood Culture - Preliminary Blood 10/21/22 04:40 Blood Culture - Preliminary Blood Assessment and Plan Assessment: Acute diverticulitis with perforation in the sigmoid colon and adjacent abscess 2.6 cm. Prior history of diverticulitis about 5 years ago Diabetes type 2 Hypertension GERD History of cholecystectomy Obesity with BMI 35.2 DVT prophylaxis with heparin subcu Plan: Patient will be continued on IV hydration with normal saline. Nothing by mouth. Continue with antibiotics in the form of Zosyn. Continue pain management with Dilaudid IV. Patient was seen by interventional radiology and thought abscess being very small to drain at 2 cm. Patient is being current on liquid diet. Patient takes lisinopril/hydrochlorothiazide and development at home. Continue with nifedipine and monitor blood pressure closely. Continue with insulin sliding scale. Discussed with the patient and his at bedside in detail. We will continue to follow and Further recommendations based on the clinical course. Time with Patient: Greater than 30
[2022-10-25] MEDS: HYDROmorphone 1 MG/ML 1 ML SYRINGE IVP PRN ×5 (00:27→21:59)
[2022-10-25] MEDS: HYDROcodone/APAP 5-325MG 1 EACH TAB PO PRN ×2 (03:23→14:47)
[2022-10-25 05:40] LABS: Glucose,Whole Blood 119 mg/dL (70-110)
[2022-10-25] MEDS: SODIUM CHLORIDE 0.9% 1,000 ML IV SCH ×2 (06:07→16:09)
[2022-10-25] MEDS: INSULIN ASPART (NovoLOG) 100 UNIT/ML VIAL SQ SCH ×4 (06:11→22:04)
[2022-10-25] MEDS: MONTELUKAST 10 MG TAB PO SCH (09:30)
[2022-10-25] MEDS: ATORVASTATIN 40 MG TAB PO SCH (09:30)
[2022-10-25] MEDS: HEPARIN SODIUM,PORCINE/PF 5,000 UNIT/0.5 ML SYRINGE SQ SCH ×2 (09:30→16:24)
[2022-10-25] MEDS: PIPERACILLIN-TAZOBACTAM 3.375 GM in SODIUM CHLORIDE 0.9% 100 ML IVPB SCH ×2 (09:59→16:24)
--- NOTE | 2022-10-25 11:23 | P.PN ---
Subjective Progress Note Date: 10/25/22 CHIEF COMPLAINT: Diverticulitis with small abscess HISTORY OF PRESENT ILLNESS: Patient reporting improvement in abdominal pain. Patient reports improvement in pain since she's had bowel movements. He had vomiting yesterday and this morning. He reports less pressure in the suprapubic area and left lower quadrant. Denies any nausea vomiting. Tolerating the full liquids. Afebrile. WBC is 7.4 hgb 17.4 platelets 253. Abscess cavity is too small for drain placement. PHYSICAL EXAM: VITAL SIGNS: Reviewed. GENERAL: Well-developed in no acute distress. HEENT: No sclera icterus. Extraocular movements grossly intact. Moist buccal mucosa. Head is atraumatic, normocephalic. ABDOMEN: Soft. Nondistended. Mild tenderness to palpation left lower quadrant and suprapubic area NEUROLOGIC: Alert and oriented. Cranial nerves II through XII grossly intact. ASSESSMENT: 1. Acute diverticulitis with small abscess PLAN: -Continue antibiotics -Continue full liquid diet -Continue IV fluids -Encourage patient to ambulate -Continue pain management Physician Literacy Consultant note has been reviewed by physician. Signing provider agrees with the documented findings, assessment, and plan of care. I have personally seen and examined the patient, reviewed the [facility] [employer] [employer] [facility] history, exam and MDM and agree with the assessment and plan as written. Based on total visit time, I have performed more than 50% of the visit. As above: Patient doing better. Pain is improved. Advance to soft diet tomorrow. Possible discharge tomorrow. Objective - Vital Signs Vital signs: Vital Signs Temp 98.5 F 10/25/22 07:42 Pulse 71 10/25/22 07:42 Resp 19 10/25/22 07:42 BP 137/88 10/25/22 07:42 Pulse Ox 97 10/25/22 07:42 FiO2 Intake & Output 10/24/22 10/25/22 10/25/22 18:59 06:59 18:59 Intake Total 708 1300 236 Balance 708 1300 236 Intake: Intake, IV Titration 1300 Amount Piperacillin-Tazobactam 3 100 .375 gm In Sodium Chloride 0.9% 100 ml @ 25 mls/hr IVPB Q8HR [facility] Rx# :[id number] Sodium Chloride 0.9% 1, 1200 000 ml @ 100 mls/hr IV . Q10H [facility] Rx#:[id number] Oral 704 236 Other: # Voids 1 4 - Labs CBC & Chem 7: 10/24/22 07:32 10/24/22 07:32 Labs: Abnormal Lab Results - Last 24 Hours (Table) 10/24/22 10/25/22 Range/Units 16:54 05:38 POC Glucose (mg/dL) 144 H 119 H (70-110) mg/dL Microbiology - Last 24 Hours (Table) 10/21/22 04:55 Blood Culture - Preliminary Blood 10/21/22 04:40 Blood Culture - Preliminary Blood
[2022-10-25 11:28] LABS: Glucose,Whole Blood 134 mg/dL (70-110)
[2022-10-25 16:15] LABS: Glucose,Whole Blood 118 mg/dL (70-110)
--- NOTE | 2022-10-25 20:03 | P.PN ---
Subjective Progress Note Date: 10/24/22 Principal diagnosis: Diverticulitis with abscess Patient is a 57-year-old male with a past medical history significant for type 2 diabetes mellitus hypertension reflux and history of diverticulitis recurrent episode last episode has been more than a year and a half ago presenting to the hospital for evaluation of worsening abdominal pain, diagnosed with diverticulitis with abscess On todays evaluation that is 10/24/2022 patient remains to be afebrile, still complaining of abdominal pain to the left lower quadrant area controlled with the pain medication some nausea but no vomiting no chest pain or shortness of breath or cough Objective - Vital Signs Vital signs: Vital Signs Temp 98.4 F 10/24/22 07:17 Pulse 68 10/24/22 07:17 Resp 18 10/24/22 07:17 BP 174/63 10/24/22 07:17 Pulse Ox 95 10/24/22 07:17 FiO2 Intake & Output 10/23/22 10/24/22 10/24/22 18:59 06:59 18:59 Intake Total 1760 236 Balance 1760 236 Intake: Intake, IV Titration 1400 Amount Piperacillin-Tazobactam 3 200 .375 gm In Sodium Chloride 0.9% 100 ml @ 25 mls/hr IVPB Q8HR [facility] Rx# :[id number] Sodium Chloride 0.9% 1, 1200 000 ml @ 100 mls/hr IV . Q10H [facility] Rx#:[id number] Oral 360 236 Other: Voiding Method Toilet # Voids 1 - Exam GENERAL DESCRIPTION: Middle age male lying in bed in no distress RESPIRATORY SYSTEM: Unlabored breathing , decreased breath sounds at bases HEART: S1 S2 regular rate and rhythm ,no loud murmurs ABDOMEN: Soft , mild tenderness EXTREMITIES: No edema feet - Labs CBC & Chem 7: 10/24/22 07:32 10/24/22 07:32 Labs: Abnormal Lab Results - Last 24 Hours (Table) 10/23/22 10/23/22 10/23/22 Range/Units 11:05 11:05 11:43 RBC (4.30-5.90) m/uL Hct (39.0-53.0) % Sodium 136 L (137-145) mmol/L BUN (9-20) mg/dL Glucose 116 H (74-99) mg/dL POC Glucose (mg/dL) 119 H (70-110) mg/dL Hemoglobin A1c 7.8 H (<=6.0) % 10/23/22 10/24/22 10/24/22 Range/Units 20:34 06: 07:32 RBC (4.30-5.90) m/uL Hct (39.0-53.0) % Sodium (137-145) mmol/L BUN 8 L (9-20) mg/dL Glucose 136 H (74-99) mg/dL POC Glucose (mg/dL) 111 H 126 H (70-110) mg/dL Hemoglobin A1c (<=6.0) % 10/24/22 Range/Units 07:32 RBC 6.44 H (4.30-5.90) m/uL Hct 54.0 H (39.0-53.0) % Sodium (137-145) mmol/L BUN (9-20) mg/dL Glucose (74-99) mg/dL POC Glucose (mg/dL) (70-110) mg/dL Hemoglobin A1c (<=6.0) % Microbiology - Last 24 Hours (Table) 10/21/22 04:55 Blood Culture - Preliminary Blood 10/21/22 04:40 Blood Culture - Preliminary Blood Assessment and Plan (1) Colonic diverticular abscess Current Visit: Yes Status: Acute Code(s): K57.20 - DVTRCLI OF LG INT W PERFORATION AND ABSCESS W/O BLEEDING SNOMED Code(s): 772020553 (2) Diverticulitis of large intestine with complication Current Visit: Yes Status: Acute Code(s): K57.32 - DVTRCLI OF LG INT W/O PERFORATION OR ABSCESS W/O BLEEDING SNOMED Code(s): 969016469 Plan: 1patient was in the hospital for abdominal pain in this patient who do have a history of recurrent diverticulitis has been diagnosed with complicated diverticulitis with the small abscess will need to cover for the enteric gram- negative both anaerobes and anaerobes and less likely gram-positive 2-patient CT has been evaluated by radiology and is recommending no CT-guided drainage because of the size of this abscess. 3-Patient and family has many questions concern regarding a discrepancy between the CT report significant mount of time was spent with the patient keeping in mind resolution of his fever White count is trending down I will continue patient on Zosyn decision for repeat CT will be done by the surgeon Time spent has been more than 25 minutes to calm down the pt and family Time with Patient: Less than 30
--- NOTE | 2022-10-25 20:05 | P.PN ---
Subjective Progress Note Date: 10/25/22 Principal diagnosis: Diverticulitis with abscess Patient is a 57-year-old male with a past medical history significant for type 2 diabetes mellitus hypertension reflux and history of diverticulitis recurrent episode last episode has been more than a year and a half ago presenting to the hospital for evaluation of worsening abdominal pain, diagnosed with diverticulitis with abscess On todays evaluation that is 10/25/2022 patient remains to be afebrile, the patient is breathing comfortably on room air, the patient abdominal pain has decreased intensity requiring less pain medication no nausea no vomiting no chest pain no shortness of breath or cough Objective - Vital Signs Vital signs: Vital Signs Temp 98.5 F 10/25/22 07:42 Pulse 71 10/25/22 07:42 Resp 19 10/25/22 07:42 BP 137/88 10/25/22 07:42 Pulse Ox 97 10/25/22 07:42 FiO2 Intake & Output 10/24/22 10/25/22 10/25/22 18:59 06:59 18:59 Intake Total 708 1300 236 Balance 708 1300 236 Intake: Intake, IV Titration 1300 Amount Piperacillin-Tazobactam 3 100 .375 gm In Sodium Chloride 0.9% 100 ml @ 25 mls/hr IVPB Q8HR [facility] Rx# :[id number] Sodium Chloride 0.9% 1, 1200 000 ml @ 100 mls/hr IV . Q10H [facility] Rx#:[id number] Oral 708 236 Other: # Voids 1 4 - Exam GENERAL DESCRIPTION: Middle age male lying in bed in no distress RESPIRATORY SYSTEM: Unlabored breathing , decreased breath sounds at bases HEART: S1 S2 regular rate and rhythm ,no loud murmurs ABDOMEN: Soft , mild tenderness EXTREMITIES: No edema feet - Labs CBC & Chem 7: 10/24/22 07:32 10/24/22 07:32 Labs: Abnormal Lab Results - Last 24 Hours (Table) 10/24/22 10/25/22 Range/Units 16:54 05:38 POC Glucose (mg/dL) 144 H 119 H (70-110) mg/dL Microbiology - Last 24 Hours (Table) 10/21/22 04:55 Blood Culture - Preliminary Blood 10/21/22 04:40 Blood Culture - Preliminary Blood Assessment and Plan (1) Colonic diverticular abscess Current Visit: Yes Status: Acute Code(s): K57.20 - DVTRCLI OF LG INT W PERFORATION AND ABSCESS W/O BLEEDING SNOMED Code(s): 920703156 (2) Diverticulitis of large intestine with complication Current Visit: Yes Status: Acute Code(s): K57.32 - DVTRCLI OF LG INT W/O PERFORATION OR ABSCESS W/O BLEEDING SNOMED Code(s): 559858530 Plan: 1patient was in the hospital for abdominal pain in this patient who do have a history of recurrent diverticulitis has been diagnosed with complicated diverticulitis with the small abscess will need to cover for the enteric gram-negative both anaerobes and anaerobes and less likely gram-positive 2-patient CT has been evaluated by radiology and is recommending no CT-guided drainage because of the size of this abscess. 3-Patient remains to be afebrile the patient white count is trending down we will continue patient on Zosyn diet is slowly being advanced by surgery and will monitor clinical course closely Time with Patient: Less than 30
[2022-10-25 20:14] LABS: Glucose,Whole Blood 145 mg/dL (70-110)
[2022-10-25] MEDS: NIFEdipine XL 30 MG TAB.ER.24 PO SCH (21:59)
[2022-10-25 22:00] VITALS: RESP 18
[2022-10-26] MEDS: PIPERACILLIN-TAZOBACTAM 3.375 GM in SODIUM CHLORIDE 0.9% 100 ML IVPB SCH ×2 (00:25→07:42)
[2022-10-26] MEDS: HEPARIN SODIUM,PORCINE/PF 5,000 UNIT/0.5 ML SYRINGE SQ SCH ×2 (00:25→07:42)
[2022-10-26] MEDS: HYDROcodone/APAP 5-325MG 1 EACH TAB PO PRN ×2 (02:01→10:55)
[2022-10-26] MEDS: SODIUM CHLORIDE 0.9% 1,000 ML IV SCH (02:01)
[2022-10-26 05:24] LABS: Glucose,Whole Blood 117 mg/dL (70-110)
[2022-10-26] MEDS: INSULIN ASPART (NovoLOG) 100 UNIT/ML VIAL SQ SCH ×2 (05:42→12:21)
[2022-10-26] MEDS: HYDROmorphone 1 MG/ML 1 ML SYRINGE IVP PRN (06:34)
[2022-10-26 07:30] LABS: Basophils % (A) 1 %; Eosinophils # (A) 0.2 k/uL (0-0.7); Eosinophils % (A) 4 %; HCT 50.7 % (39.0-53.0); HGB 16.6 gm/dL (13.0-17.5); Lymphocytes # (A) 1.3 k/uL (1.0-4.8); Lymphocytes % (A) 22 %; MCH 27.5 pg (25.0-35.0); MCHC 32.9 g/dL (31.0-37.0); MCV 83.6 fL (80.0-100.0); Monocytes # (A) 0.5 k/uL (0-1.0); Monocytes % (A) 9 %; Neutrophils # (A) 3.6 k/uL (1.3-7.7); Neutrophils % (A) 63 %; Platelet Count 238 k/uL (150-450); RBC 6.06 m/uL (4.30-5.90); RDW 13.3 % (11.5-15.5); WBC 5.7 k/uL (3.8-10.6)
[2022-10-26] MEDS: ATORVASTATIN 40 MG TAB PO SCH (07:42)
[2022-10-26] MEDS: MONTELUKAST 10 MG TAB PO SCH (07:42)
[2022-10-26 08:35] VITALS: BP 130/87; PULSE 76; TEMP 98.5
[2022-10-26 11:25] LABS: Glucose,Whole Blood 169 mg/dL (70-110)
--- NOTE | 2022-10-26 12:51 | P.DS ---
Providers Date of admission: 10/21/22 04:59 Expected date of discharge: 10/26/22 Attending physician: Jean Allred Consults: 10/21/22 17:17 Consult Physician Routine Consulting Provider: Joseph Javier Consult Reason/Comments: diverticular abscess Do you want consulting provider notified?: Yes, Notify in am 10/21/22 17:19 Consult Physician Routine Consulting Provider: Yaritza Fortune Consult Reason/Comments: med mgmt Do you want consulting provider notified?: Yes Primary care physician: Physician Nonstaff Hospital Course: Discharge diagnosis 1. Acute diverticulitis with small abscess Hospital course 57-year-old male who has had an episode of diverticulitis approximate 5 years ago. He says that over the years he has had approximately 4 episodes. 4 days ago he began experiencing left lower quadrant pain with some dysuria. He was started on oral antibiotics 2 days ago. White blood cell count was elevated. CAT scan shows sigmoid diverticulitis with a 2.9 cm abscess. Patient started on IV antibiotics. He is followed by infectious disease. Patient seen by interventional radiology. The abscess was too small to drain. Patient's symptoms have improved with antibiotics. He has tolerated advancement of diet. White count has normalized. He is afebrile. His pain has improved. He is tolerating diet. He has been up and ambulating. He is stable for discharge. Patient will be discharged with antibiotics per ID recommendations. Please refer to chart for any further details. Physician Curriculum And Assessment Director note has been reviewed by physician. Signing provider agrees with the documented findings, assessment, and plan of care. Patient Condition at Discharge: Stable Plan - Discharge Summary Discharge Rx Participant: No New Discharge Prescriptions: New Amoxic-Pot Clav 875-125Mg [Augmentin 875-125] 1 tab PO Q12HR 10 Days #20 tab Continue HYDROcodone/APAP 10-325MG [[place] 10-325] 1 tab PO Q6H Rosuvastatin [Crestor] 20 mg PO DAILY Montelukast [Singulair] 10 mg PO DAILY Dextroamphetamine/Amphetamine [Adderall Xr 25 mg Capsule] 25 mg PO DAILY Nifedipine Er (Osmotic) 30 mg PO HS Discontinued Ciprofloxacin HCl [Cipro] 500 mg PO Q12HR metroNIDAZOLE [Flagyl] 500 mg PO TID No Action Lisinopril-Hctz 20-12.5 mg [Zestoretic 20-12.5] 2 tab PO DAILY Discharge Medication List HYDROcodone/APAP 10-325MG [[place] 10-325] 1 tab PO Q6H 05/05/18 [History] Lisinopril-Hctz 20-12.5 mg [Zestoretic 20-12.5] 2 tab PO DAILY 10/07/19 [History] Dextroamphetamine/Amphetamine [Adderall Xr 25 mg Capsule] 25 mg PO DAILY 10/21/22 [History] Montelukast [Singulair] 10 mg PO DAILY 10/21/22 [History] Nifedipine Er (Osmotic) 30 mg PO HS 10/21/22 [History] Rosuvastatin [Crestor] 20 mg PO DAILY 10/21/22 [History] Amoxic-Pot Clav 875-125Mg [Augmentin 875-125] 1 tab PO Q12HR 10 Days #20 tab 10/26/22 [Rx] Follow up Appointment(s)/Referral(s): Nonstaff,Physician [Primary Care Provider] - 1-2 days Jean Allred MD [Medical Doctor] - 1 Week Discharge Disposition: HOME SELF-CARE
--- NOTE | 2022-10-26 15:49 | P.PN ---
Subjective Progress Note Date: 10/26/22 Principal diagnosis: Diverticulitis with abscess Patient is a 57-year-old male with a past medical history significant for type 2 diabetes mellitus hypertension reflux and history of diverticulitis recurrent episode last episode has been more than a year and a half ago presenting to the hospital for evaluation of worsening abdominal pain, diagnosed with diverticulitis with abscess On todays evaluation that is 10/26/2022 patient continues to be afebrile, the patient is breathing comfortably on room air, the patient abdominal pain has almost resolved, patient denies any nausea or vomiting has been tolerating his diet feeling better wants to go home Objective - Vital Signs Vital signs: Vital Signs Temp 98.5 F 10/26/22 08:00 Pulse 76 10/26/22 08:00 Resp 18 10/26/22 08:00 BP 130/87 10/26/22 08:00 Pulse Ox 98 10/26/22 08:00 FiO2 Intake & Output 10/25/22 10/26/22 10/26/22 18:59 06:59 18:59 Intake Total 472 1300 118 Balance 472 1300 118 Intake: Intake, IV Titration 1300 Amount Piperacillin-Tazobactam 3 100 .375 gm In Sodium Chloride 0.9% 100 ml @ 25 mls/hr IVPB Q8HR [facility] Rx# :[id number] Sodium Chloride 0.9% 1, 1200 000 ml @ 100 mls/hr IV . Q10H [facility] Rx#:[id number] Oral 472 118 Other: Voiding Method Toilet # Voids 2 2 - Exam GENERAL DESCRIPTION: Middle age male lying in bed in no distress RESPIRATORY SYSTEM: Unlabored breathing , decreased breath sounds at bases HEART: S1 S2 regular rate and rhythm ,no loud murmurs ABDOMEN: Soft , no tenderness EXTREMITIES: No edema feet - Labs CBC & Chem 7: 10/26/22 07:09 10/24/22 07:32 Labs: Abnormal Lab Results - Last 24 Hours (Table) 10/25/22 10/25/22 10/26/22 Range/Units 16:14 20:13 05:22 RBC (4.30-5.90) m/uL POC Glucose (mg/dL) 118 H 145 H 117 H (70-110) mg/dL 10/26/22 10/26/22 Range/Units 07:09 11:23 RBC 6.06 H (4.30-5.90) m/uL POC Glucose (mg/dL) 169 H (70-110) mg/dL Assessment and Plan (1) Colonic diverticular abscess Status: Acute Code(s): K57.20 - DVTRCLI OF LG INT W PERFORATION AND ABSCESS W/O BLEEDING SNOMED Code(s): 085309600 (2) Diverticulitis of large intestine with complication Status: Acute Code(s): K57.32 - DVTRCLI OF LG INT W/O PERFORATION OR ABSCESS W/O BLEEDING SNOMED Code(s): 962962112 Plan: 1patient was in the hospital for abdominal pain in this patient who do have a history of recurrent diverticulitis has been diagnosed with complicated diverticulitis with the small abscess will need to cover for the enteric gram- negative both anaerobes and anaerobes and less likely gram-positive 2-patient CT has been evaluated by radiology and is recommending no CT-guided drainage because of the size of this abscess. Patient seemed to showing overall clinical improvement unfortunately the patient to have Rocephin and Levaquin ALLERGY that will limit outpatient antibiotic, we will consider oral Augmentin 875 twice a day for 10 days, and close outpatient follow-up discuss with ENT for surgical drain Time with Patient: Less than 30
--- NOTE | 2022-10-27 00:01 | P.PN ---
Subjective Progress Note Date: 10/27/22 Objective - Vital Signs Vital signs: Vital Signs Temp 98.5 F 10/26/22 08:00 Pulse 76 10/26/22 08:00 Resp 18 10/26/22 08:00 BP 130/87 10/26/22 08:00 Pulse Ox 98 10/26/22 08:00 FiO2 Intake & Output 10/26/22 10/26/22 10/27/22 06:59 18:59 06:59 Intake Total 1300 118 Balance 1300 118 Intake: Intake, IV Titration 1300 Amount Piperacillin-Tazobactam 3 100 .375 gm In Sodium Chloride 0.9% 100 ml @ 25 mls/hr IVPB Q8HR [facility] Rx# :[id number] Sodium Chloride 0.9% 1, 1200 000 ml @ 100 mls/hr IV . Q10H [facility] Rx#:[id number] Oral 118 Other: # Voids 2 - Labs CBC & Chem 7: 10/26/22 07:09 10/24/22 07:32 Labs: Abnormal Lab Results - Last 24 Hours (Table) 10/26/22 10/26/22 10/26/22 Range/Units 05:22 07:09 11:23 RBC 6.06 H (4.30-5.90) m/uL POC Glucose (mg/dL) 117 H 169 H (70-110) mg/dL Microbiology - Last 24 Hours (Table) 10/21/22 04:55 Blood Culture - Final Blood 10/21/22 04:40 Blood Culture - Final Blood
== END 2022-10-26 13:51 | disposition home or self-care (01) | DRG 392 ==
LOC: EC 00:18 → 4SSUR 04:59
PROVIDERS: ADMIT Surgery; ATTEND Surgery
DX: K57.20 Diverticulitis of large intestine with perforation and abscess without bleeding (principal); K21.9 Gastro-esophageal reflux disease without esophagitis; E11.9 Type 2 diabetes mellitus without complications; I10 Essential (primary) hypertension; I11.0 Hypertensive heart disease with heart failure; Z68.35 Body mass index [BMI] 35.0-35.9, adult; E66.9 Obesity, unspecified; Z79.84 Long term (current) use of oral hypoglycemic drugs; Z86.14 Personal history of Methicillin resistant Staphylococcus aureus infection; Z83.3 Family history of diabetes mellitus; Z87.442 Personal history of urinary calculi; Z90.49 Acquired absence of other specified parts of digestive tract; Z79.899 Other long term (current) drug therapy; Z88.1 Allergy status to other antibiotic agents; Z91.041 Radiographic dye allergy status; Z87.19 Personal history of other diseases of the digestive system
CPT/HCPCS: 36415; 74018; 74177; 76770; 80048; 80053; 81001; 82150; 83036; 83605; 83690; 85025; 85610; 85730; 87040; 96361; 96365; 96366; 96367; 96372; 96375; 96376; 99285

== ENCOUNTER → 2022-12-19 | Outpatient (CLI) | payer BC ==
--- NOTE | 2022-12-19 21:57 | CT ---
EXAMINATION TYPE: CT abdomen pelvis w con DATE OF EXAM: 12/19/2022 COMPARISON: 10/21/2022 INDICATION: History of diverticulitis DLP: 1818.9 mGycm, Automated exposure control for dose reduction was used. CONTRAST: 100 mL of Isovue 300. Study performed with Oral Contrast TECHNIQUE: Axial images were obtained from above the diaphragm to the pubic rami in the axial plane a t 5 mm thick sections. Reconstructed images are reviewed on the computer in the coronal plane. FINDINGS: Limited CT sections are obtained the lung bases. The lung bases are clear. CT ABDOMEN: Liver: Mild fatty infiltration is through the liver. Spleen: Normal Pancreas: Normal Adrenal glands: The adrenal glands are normal. Gallbladder: Surgically absent Kidneys: No masses are evident. No hydronephrosis is present. There is a small cortical renal cyst on the inferior right kidney. Delayed images were obtained through the kidneys, which remain unremar kable. Aorta: Vascular calcification is within the aorta. Inferior vena cava: Normal. CT PELVIS: Loops of bowel within the abdomen and pelvis are normal. There is diverticular changes within the pr oximal to mid sigmoid colon. No adjacent inflammatory changes to suggest acute diverticulitis. There is some mild wall thickening in the nondistended sigmoid colon. Underlying mild diverticulitis or col itis could be considered. There are loops of bowel which are incompletely distended or lack oral co ntrast limiting their evaluation. Appendix: Not identified. No dilated tubular structure or inflammatory changes are evident. Urinary bladder: Normal. Genitourinary structures: Prostate appears unremarkable. Osseous structures: No suspicious lytic or sclerotic lesions. IMPRESSIONS: 1. Diverticulosis. There may be some wall thickening within the sigmoid colon without adjacent infla mmatory changes. Some mild diverticulitis should be considered. Follow-up is recommended, neoplasm no t excluded. 2. Mild fatty infiltration
== END | disposition home or self-care (01) ==
LOC: RADCTMAIN 07:52
PROVIDERS: ATTEND Surgery
DX: K57.32 Diverticulitis of large intestine without perforation or abscess without bleeding (principal); K76.0 Fatty (change of) liver, not elsewhere classified
CPT/HCPCS: 74177; Q9967

== ENCOUNTER 2022-12-20 05:13 | Observation (INO) | payer BC ==
[2022-12-20 05:55] LABS: Basophils # (A) 0.1 k/uL (0-0.2); Basophils % (A) 0 %; Eosinophils # (A) 0.2 k/uL (0-0.7); Eosinophils % (A) 1 %; HCT 52.8 % (39.0-53.0); HGB 17.9 gm/dL (13.0-17.5); Lymphocytes # (A) 2.3 k/uL (1.0-4.8); Lymphocytes % (A) 18 %; MCH 27.8 pg (25.0-35.0); MCHC 33.8 g/dL (31.0-37.0); MCV 82.1 fL (80.0-100.0); Mean Platelet Volume 7.4; Monocytes # (A) 0.9 k/uL (0-1.0); Monocytes % (A) 7 %; Neutrophils # (A) 9.1 k/uL (1.3-7.7); Neutrophils % (A) 71 %; Platelet Count 223 k/uL (150-450); RBC 6.44 m/uL (4.30-5.90); RDW 14.2 % (11.5-15.5); WBC 12.8 k/uL (3.8-10.6)
--- NOTE | 2022-12-20 06:00 | ED ---
General Adult HPI - General Chief complaint: Extremity Problem,Nontraumatic Stated complaint: Weakness in legs and arms Time Seen by Provider: 12/20/22 05:22 Source: patient, RN notes reviewed, old records reviewed Mode of arrival: ambulatory Limitations: no limitations - History of Present Illness Initial comments: 57 yo male presenting for evaluation of upper and lower extremity weakness and pain. Patient had contrast CT performed with both oral and IV contrast yesterday. He received a steroid and Benadryl prep. He began having symptoms of muscle soreness after initiating the oral contrast agent. Patient denies any preceding symptoms. He was having a CT of the abdomen and pelvis secondary to diverticulitis. He denies fever. Denies illicit drugs. Denies focal findings. States this is both arms and both legs. No fever. No vomiting. No chest pain. Patient does admit to drinking a large volume of water and attempt to flush contrast. - Related Data Home Medications Medication Instructions Recorded Confirmed HYDROcodone/APAP 10-325MG [[place] 1 tab PO Q6H 05/05/18 10/21/22 10-325] Lisinopril-Hctz 20-12.5 mg 2 tab PO DAILY 10/07/19 10/21/22 [Zestoretic 20-12.5] Dextroamphetamine/Amphetamine 25 mg PO DAILY 10/21/22 10/21/22 [Adderall Xr 25 mg Capsule] Montelukast [Singulair] 10 mg PO DAILY 10/21/22 10/21/22 Nifedipine Er (Osmotic) 30 mg PO HS 10/21/22 10/21/22 Rosuvastatin [Crestor] 20 mg PO DAILY 10/21/22 10/21/22 Previous Rx's Medication Instructions Recorded Amoxic-Pot Clav 875-125Mg 1 tab PO Q12HR 10 Days #20 tab 10/26/22 [Augmentin 875-125] Allergies Allergy/AdvReac Type Severity Reaction Status Date / Time ceftriaxone [From Rocephin] Allergy Rash/Hives Verified 12/20/22 05:19 Iodinated Contrast Media Allergy Anaphylaxis Verified 12/20/22 05:19 [Iodinated Contrast- Oral and IV Dye] levofloxacin [From Levaquin] Allergy Anaphylaxis Verified 12/20/22 05:19 rosuvastatin [From Crestor] AdvReac "KIDNEY Verified 12/20/22 05:19 PAIN" - see comment Review of Systems ROS Statement: Those systems with pertinent positive or pertinent negative responses have been documented in the HPI. ROS Other: All systems not noted in ROS Statement are negative. Past Medical History Past Medical History: Diabetes Mellitus, GERD/Reflux, Hypertension Additional Past Medical History / Comment(s): Diverticulitis History of Any Multi-Drug Resistant Organisms: MRSA Date of last positivie culture/infection: left 1984 MDRO Source:: ear Past Surgical History: Cholecystectomy, Hernia Repair, Tonsillectomy Additional Past Surgical History / Comment(s): sinus surgery, tubes in ears Past Anesthesia/Blood Transfusion Reactions: Previous Problems w/ Anesthesia Past Psychological History: No Psychological Hx Reported Smoking Status: Never smoker Past Alcohol Use History: Occasional Past Drug Use History: None Reported - Past Family History Mother Family Medical History: Cancer, Diabetes Mellitus, Rheumatoid Arthritis (RA) General Exam Limitations: no limitations General appearance: alert Head exam: Present: atraumatic, normocephalic Eye exam: Present: normal appearance, PERRL ENT exam: Present: normal exam Neck exam: Present: normal inspection. Absent: tenderness, meningismus Respiratory exam: Present: normal lung sounds bilaterally. Absent: respiratory distress Cardiovascular Exam: Present: regular rate, normal rhythm GI/Abdominal exam: Present: soft. Absent: distended, tenderness Extremities exam: Present: other (Symmetric weakness, in the upper extremities and this seems to affect the triceps more the biceps.). Absent: calf tenderness Neurological exam: Present: alert, oriented X3, CN II-XII intact. Absent: motor sensory deficit Psychiatric exam: Present: normal affect, normal mood Skin exam: Present: warm, dry, intact Course Vital Signs 12/20/22 12/20/22 05:14 06:50 Temperature 98.5 F Pulse Rate 81 75 Respiratory 18 16 Rate Blood Pressure 172/105 150/89 O2 Sat by Pulse 96 95 Oximetry Medical Decision Making - Medical Decision Making Was pt. sent in by a medical professional or institution (, V[facility], IN PROCESS INSPECTOR, urgent care, hospital, or ch[facility]...) When possible be specific @ -No Did you speak to anyone other than the patient for history (EMS, parent, family, police, friend...)? What history was obtained from this source @ -No Did you review nursing and triage notes (agree or disagree)? Why? @ -I reviewed and agree with nursing and triage notes Were old charts reviewed (outside hosp., previous admission, EMS record, old EKG, old radiological studies, urgent care reports/EKG's, [facility] records)? Report findings @ -No old charts were reviewed Differential Diagnosis (chest pain, altered mental status, abdominal pain women, abdominal pain men, vaginal bleeding, weakness, fever, dyspnea, syncope, headache, dizziness, GI bleed, back pain, seizure, CVA, palpatations, mental health, musculoskeletal)? @ -Differential Weakness: Hypoglycemia, shock, sepsis, hyponatremia, anemia, infection, OK, ETOH, adverse medicine reaction, overdose, stroke, this is not meant to be an all-inclusive list. EKG interpreted by me (3pts min.). @Sinus rhythm rate of 74, RI interval 174, QRS duration 1:15, QTC 368, no ST segment elevation. X-rays interpreted by me (1pt min.). @ -None done CT interpreted by me (1pt min.). @ -None done U/S interpreted by me (1pt. min.). @ -None done What testing was considered but not performed or refused? (CT, X-rays, U/S, labs)? Why? @ -None What meds were considered but not given or refused? Why? @ -None Did you discuss the management of the patient with other professionals (professionals i.e. , PA, IN PROCESS INSPECTOR, lab, RT, psych nurse, 7th grade social studies teacher, manager front, teacher, ammunition officer, case technician)? Give summary @ -Sound physician group has been paged Was smoking cessation discussed for >3mins.? @ -No Was critical care preformed (if so, how long)? @ -No Were there social determinants of health that impacted care today? How? (Homelessness, low income, unemployed, alcoholism, drug addiction, transportation, low edu. Level, literacy, decrease access to med. care, assisted, rehab)? @ -No Was there de-escalation of care discussed even if they declined (Discuss DNR or withdrawal of care, Hospice)? DNR status @ -No What co-morbidities impacted this encounter? (DM, HTN, Smoking, COPD, CAD, Cancer, CVA, ARF, Chemo, Hep., AIDS, mental health diagnosis, sleep apnea, morbid obesity)? @ -None Was patient admitted / discharged? Hospital course, mention meds given and route, prescriptions, significant lab abnormalities, going to OR and other p ertinent info. @ -[Patient admitted for hydration, electrolyte replacement. Undiagnosed new problem with uncertain prognosis? @ -No Drug Therapy requiring intensive monitoring for toxicity (Heparin, Nitro, Insulin, Cardizem)? @ -No Were any procedures done? @ -No Diagnosis/symptom? @ -[Myalgia, hypokalemia, generalized weakness Acute, or Chronic, or Acute on Chronic? @Acute Uncomplicated (without systemic symptoms) or Complicated (systemic symptoms)? @ -default Side effects of treatment? @ -No Exacerbation, Progression, or Severe Exacerbation? @ -No Poses a threat to life or bodily function? How? (Chest pain, USA, OK, pneumonia, PE, COPD, DKA, ARF, appy, cholecystitis, CVA, Diverticulitis, Homicidal, Suicidal, threat to staff... and all critical care pts) @ -Yes, electrolyte abnormality - Lab Data Result diagrams: 12/20/22 05:45 12/20/22 05:45 Lab Results 12/20/22 12/20/22 12/20/22 Range/Units 05:45 05:45 05:45 WBC 12.8 H (3.8-10.6) k/uL RBC 6.44 H (4.30-5.90) m/uL Hgb 17.9 H (13.0-17.5) gm/dL Hct 52.8 (39.0-53.0) % MCV 82.1 (80.0-100.0) fL MCH 27.8 (25.0-35.0) pg MCHC 33.8 (31.0-37.0) g/dL RDW 14.2 (11.5-15.5) % Plt Count 223 (150-450) k/uL MPV 7.4 Neutrophils % 71 % Lymphocytes % 18 % Monocytes % 7 % Eosinophils % 1 % Basophils % 0 % Neutrophils # 9.1 H (1.3-7.7) k/uL Lymphocytes # 2.3 (1.0-4.8) k/uL Monocytes # 0.9 (0-1.0) k/uL Eosinophils # 0.2 (0-0.7) k/uL Basophils # 0.1 (0-0.2) k/uL PT 10.0 (9.0-12.0) sec INR 0.9 (<1.2) APTT 22.8 (22.0-30.0) sec Sodium 136 L (137-145) mmol/L Potassium 2.7 L* (3.5-5.1) mmol/L Chloride 100 (98-107) mmol/L Carbon Dioxide 23 (22-30) mmol/L Anion Gap 13 mmol/L BUN 15 (9-20) mg/dL Creatinine 0.74 (0.66-1.25) mg/dL Est GFR (CKD-EPI)AfAm >90 (>60 ml/min/1.73 sqM) Est GFR (CKD-EPI)NonAf >90 (>60 ml/min/1.73 sqM) Glucose 186 H (74-99) mg/dL Plasma Lactic Acid Raji (0.7-2.0) mmol/L Calcium 9.2 (8.4-10.2) mg/dL Magnesium 2.0 (1.6-2.3) mg/dL Total Bilirubin 0.7 (0.2-1.3) mg/dL AST 27 (17-59) U/L ALT 22 (4-49) U/L Alkaline Phosphatase 62 (38-126) U/L Creatine Kinase 222 H (55-170) U/L C-Reactive Protein <0.5 (<1.0) mg/dL Total Protein 7.6 (6.3-8.2) g/dL Albumin 4.3 (3.5-5.0) g/dL Urine Color Urine Appearance (Clear) Urine pH (5.0-8.0) Ur Specific [place] (1.001-1.035) Urine Protein (Negative) Urine Glucose (UA) (Negative) Urine Ketones (Negative) Urine Blood (Negative) Urine Nitrite (Negative) Urine Bilirubin (Negative) Urine Urobilinogen (<2.0) mg/dL Ur Leukocyte Esterase (Negative) Urine RBC (0-5) /hpf Urine WBC (0-5) /hpf Ur Squamous Epith Cells (0-4) /hpf Hyaline Casts (0-2) /lpf Urine Mucus (None) /hpf 12/20/22 12/20/22 Range/Units 05:45 06:12 WBC (3.8-10.6) k/uL RBC (4.30-5.90) m/uL Hgb (13.0-17.5) gm/dL Hct (39.0-53.0) % MCV (80.0-100.0) fL MCH (25.0-35.0) pg MCHC (31.0-37.0) g/dL RDW (11.5-15.5) % Plt Count (150-450) k/uL MPV Neutrophils % % Lymphocytes % % Monocytes % % Eosinophils % % Basophils % % Neutrophils # (1.3-7.7) k/uL Lymphocytes # (1.0-4.8) k/uL Monocytes # (0-1.0) k/uL Eosinophils # (0-0.7) k/uL Basophils # (0-0.2) k/uL PT (9.0-12.0) sec INR (<1.2) APTT (22.0-30.0) sec Sodium (137-145) mmol/L Potassium (3.5-5.1) mmol/L Chloride (98-107) mmol/L Carbon Dioxide (22-30) mmol/L Anion Gap mmol/L BUN (9-20) mg/dL Creatinine (0.66-1.25) mg/dL Est GFR (CKD-EPI)AfAm (>60 ml/min/1.73 sqM) Est GFR (CKD-EPI)NonAf (>60 ml/min/1.73 sqM) Glucose (74-99) mg/dL Plasma Lactic Acid Raji 2.1 H* (0.7-2.0) mmol/L Calcium (8.4-10.2) mg/dL Magnesium (1.6-2.3) mg/dL Total Bilirubin (0.2-1.3) mg/dL AST (17-59) U/L ALT (4-49) U/L Alkaline Phosphatase (38-126) U/L Creatine Kinase (55-170) U/L C-Reactive Protein (<1.0) mg/dL Total Protein (6.3-8.2) g/dL Albumin (3.5-5.0) g/dL Urine Color Light Red Urine Appearance Clear (Clear) Urine pH 6.0 (5.0-8.0) Ur Specific [place] 1.029 (1.001-1.035) Urine Protein 1+ H (Negative) Urine Glucose (UA) 4+ H (Negative) Urine Ketones Trace H (Negative) Urine Blood Negative (Negative) Urine Nitrite Negative (Negative) Urine Bilirubin Negative (Negative) Urine Urobilinogen <2.0 (<2.0) mg/dL Ur Leukocyte Esterase Negative (Negative) Urine RBC <1 (0-5) /hpf Urine WBC 1 (0-5) /hpf Ur Squamous Epith Cells <1 (0-4) /hpf Hyaline Casts 6 H (0-2) /lpf Urine Mucus Few H (None) /hpf Disposition Clinical Impression: Generalized weakness, Hypokalemia, Myalgia Disposition: ADMITTED IP TO THIS [facility] Condition: Stable Is patient prescribed a controlled substance at d/c from ED?: No Referrals: None,Stated [REFERRING] - 1-2 days Time of Disposition: 07:17
[2022-12-20 06:04] LABS: INR 0.9 (<1.2); Partial Thromboplastin Time 22.8 sec (22.0-30.0)
[2022-12-20 06:22] LABS: ALT 22 U/L (4-49); AST 27 U/L (17-59); African American GFR (CKD) >90 (>60 ml/min/1.73 sqM); Albumin 4.3 g/dL (3.5-5.0); Alkaline Phosphatase 62 U/L (38-126); Anion Gap 13 mmol/L; Blood Urea Nitrogen 15 mg/dL (9-20); C Reactive Protein <0.5 mg/dL (<1.0); Calcium 9.2 mg/dL (8.4-10.2); Carbon Dioxide 23 mmol/L (22-30); Chloride 100 mmol/L (98-107); Creatine Kinase 222 U/L (55-170); Glucose 186 mg/dL (74-99); Non-African American GFR(CKD) >90 (>60 ml/min/1.73 sqM); Sodium 136 mmol/L (137-145); Total Bilirubin 0.7 mg/dL (0.2-1.3); Total Protein 7.6 g/dL (6.3-8.2)
[2022-12-20 06:28] LABS: Appearance,Urine Clear (Clear); Bilirubin,Urine Negative (Negative); Blood,Urine Negative (Negative); Color,Urine Light Red; Glucose,Urine (UA) 4+ (Negative); Hyaline Casts,Urine 6 /lpf (0-2); Ketones,Urine Trace (Negative); Leukocyte Esterase,Urine Negative (Negative); Mucus,Urine Few /hpf; Nitrite,Urine Negative (Negative); Protein,Urine 1+ (Negative); RBC,Urine <1 /hpf (0-5); Specific Gravity,Urine 1.029 (1.001-1.035); Squamous Epithelial Cell,Urine <1 /hpf (0-4); Urobilinogen,Urine <2.0 mg/dL (<2.0); WBC,Urine 1 /hpf (0-5)
[2022-12-20 07:06] LABS: Potassium 2.7 mmol/L (3.5-5.1)
[2022-12-20] MEDS ORDERED: POTASSIUM CHLORIDE ER 20 MEQ TAB.ER PO STA (07:08)
[2022-12-20] MEDS ORDERED: ACETAMINOPHEN TAB 325 MG TAB PO PRN (07:11)
[2022-12-20] MEDS ORDERED: NALOXONE 0.4 MG/ML 1 ML VIAL IV PRN (07:11)
[2022-12-20] MEDS: SODIUM CHLORIDE 0.9% 1,000 ML IV SCH ×2 (07:28→20:26)
[2022-12-20] MEDS: POTASSIUM CHLORIDE 10 MEQ in WATER FOR INJECTION 1 100ML.BAG IVPB SCH ×4 (07:30→10:31)
[2022-12-20] MEDS: MONTELUKAST 10 MG TAB PO SCH (09:27)
[2022-12-20] MEDS: lisinopriL 20 MG TAB PO SCH (09:27)
[2022-12-20] MEDS: HYDROcodone/APAP 10-325MG 1 EACH TAB PO SCH ×3 (09:27→20:23)
--- NOTE | 2022-12-20 09:42 | P.HPIM ---
History of Present Illness H&P Date: 12/20/22 History of Presenting Illness: Patient is a very pleasant 57-year-old male with a past medical history of hypertension, GERD, diabetes mellitus, and diverticulosis. He presented to the emergency department secondary to reports of upper and lower extremity pain and weakness. Patient reports he has been experiencing lower abdominal and back pain and has been undergoing outpatient workup with Dr. Allred secondary to concerns of diverticulitis. Patient reports he was scheduled for outpatient CT with oral and IV contrast yesterday and began by taking oral Benadryl prep and drinking oral contrast. Patient reports once he drink the prep he was medicated with IV Benadryl, Pepcid, and steroids and shortly after began experiencing muscle cramping, pain, and weakness in his bilateral upper and lower extremities. Patient reports he underwent a CT and returned home. Patient states the weakness and muscle cramps in bilateral upper and lower extremities continued throughout the night and into the morning. Patient reports this morning upon standing up to get out of bed he fell backwards onto his bed because his legs were too weak in his arms were not even able to lift him. Patient's at bedside states this is when she knew her needed to be evaluated at the hospital. Patient denies having any recent falls or injuries, headache, lightheadedness, dizziness, fever, chills, chest pain or palpitations, shortness of breath, nausea, vomiting, or experiencing any involuntary loss of bowel or bladder, or noticing any swelling in his extremities. He denies any history of similar events. Upon arrival to the emergency department patient continued to complain of bilateral upper and lower extremity weakness and pain and required assistance with standing and pivoting. He underwent full evaluation in the emergency department. Labs were completed and reviewed. CBC revealing leukocytosis with WBC count of 12.8 and polycythemia with elevated hemoglobin of 17.9. Coagulation profile unremarkable. BMP revealing mild hyponatremia with sodium 136 and critically low potassium of 2.7. Blood glucose level was slightly elevated at 186. Liver profile was unremarkable. Initial lactate 2.1 with repeat lactate of 3.0. Magnesium normal findings at 1.9. Creatinine kinase slightly elevated at 222. Urinalysis positive for protein, glucose, and ketones. ED physician replacing abnormal electrolyte values and placed order for K-Dur 40 mEq by mouth 1 dose along with potassium chloride 40 mEq IVPB. Discussed patient complaints, laboratory results, and clinical findings with the ED physician in detail. Patient being admitted under our services to observation unit with telemetry at this time. Review of systems: Pertinent positives and negatives as discussed in HPI, a complete review of systems was performed and all other systems are negative. Physical exam: Vital signs reviewed and stable. General: Nontoxic, no distress and appears stated age. Derm: Skin warm and dry, normal coloration for ethnicity. Head: Atraumatic, normocephalic and symmetric. Eyes: EOMs intact, no lid lag, and anicteric sclera Mouth: no lip lesions, mucus membranes moist Cardiovascular: regular rate and rhythm with normal S1S2, no murmur, positive posterior tibial pulses bilaterally, and cap refill < 2 seconds. Lungs: Respirations even, regular, and unlabored on room air. Lungs CTA bilaterally, no rhonchi, no rales, no wheezing, and no accessory muscle usage. Abdominal: soft, nontender to palpation, no guarding, no appreciable organomegaly Ext: Movement and sensation intact . No gross muscle atrophy, no edema, no contractures. Patient does have generalized weakness and reports the pain to bilateral upper and lower extremities. 3/5 bilateral upper and 3/5 bilateral lower Neuro: Speech clear, face symmetrical and CN II-XII grossly intact with no noted focal neuro deficits Psych: Alert and oriented to person, place, time, and situation. Appropriate and pleasant affect. Assessment and Plan of Care: Patient is a 57-year-old male with a past medical history of hypertension, GERD, hti-[id number] diabetes mellitus, and diverticulosis who presented to the emergency department with complaints of bilateral upper and lower extremity nontraumatic pain and weakness. Patient reports sudden onset yesterday shortly after taking Benadryl and drinking oral contrast for outpatient CT. -Vital signs reviewed. Blood pressure upon arrival 172/105, heart rate 81, respiratory rate 18, temperature 98.5F, and SpO2 of 96% on room air. -Labs were completed and reviewed. CBC revealing leukocytosis with WBC count of 12.8 and polycythemia with elevated hemoglobin of 17.9. Coagulation profile unremarkable. BMP revealing mild hyponatremia with sodium 136 and critically low potassium of 2.7. Blood glucose level was slightly elevated at 186. Liver profile was unremarkable. Initial lactate 2.1 with repeat lactate of 3.0. Magnesium normal findings at 1.9. Creatinine kinase slightly elevated at 222. -Urinalysis positive for protein, glucose, and ketones. -Discussed patient complaints, laboratory results, and clinical findings with the ED physician in detail. Patient being admitted under our services to observation unit with telemetry at this time. -Reviewed outpatient CT abdomen and pelvis with oral and IV contrast completed yesterday evening. Radiology report stating diverticulosis with some wall thickening within the sigmoid colon and mild diverticulitis cannot be ruled out, neoplasm also not excluded. Bilateral upper and lower extremity weakness and pain/cramping Nontraumatic Back pain/neck pain (between shoulder blades) Hypokalemia -Unclear etiology possibly secondary to electrolyte abnormality with hypokalemia versus adverse reaction to anti-cholinergic medication administered yesterday, Benadryl, which was given just prior to computed tomography scan abdomen and pelvis completed yesterday. -Neuro checks every 4 hours -Fall precautions -CT cervical spine secondary to reports of nontraumatic back pain/neck pain r eported to lower neck and upper back between shoulder blades -EKG and troponin to be completed -Consult neurologist, appreciate recommendations -Symptomatic care and pain management -Telemetry monitoring -Replace abnormal electrolytes, patient received K-Dur 40 mEq by mouth 1 dose along with potassium chloride 40 mEq IVPB. Order for repeat potassium level at 2 PM and again tomorrow morning. We will continue to replace abnormal electrolyte values as indicated based upon these results. Diverticulitis Leukocytosis Lactic acidosis -Initial lactate 2.1 with repeat lactate of 3.0. Order placed for 2 L 0.9% normal saline bolus and will order for repeat lactate until normalized. -Reviewed outpatient CT abdomen and pelvis with oral and IV contrast completed yesterday evening. Radiology report stating diverticulosis with some wall thickening within the sigmoid colon and mild diverticulitis cannot be ruled out, neoplasm also not excluded. -Blood cultures 2 sets -IV antibiotics with Zosyn -Consult placed to Gen. surgery, Dr. Allred. Hypertension -Monitor vital signs and continue daily medication regimen with lisinopril 20 mg daily. The patient is admitted with an anticipated less than 2 midnight stay for evaluation of bilateral upper and lower extremity weakness and pain CODE STATUS: Full code DVT prophylaxis: Lovenox Discussed with: Patient, patient's , RN, and ED physician Anticipated discharge date: Clinical course to determine Anticipated discharge place: Home Patient was seen independently by Nurse Practitioner. This document was prepared using edjing dictation software. Please allow for errors in hospital pharmacy technician while rare they do occur. Cecilio Harris NP rendered care for this patient independently, reviewed the findings and plan as documented in the note above. I did not physically speak with or examine the patient on this date. Past Medical History Past Medical History: Diabetes Mellitus, GERD/Reflux, Hypertension Additional Past Medical History / Comment(s): Diverticulitis History of Any Multi-Drug Resistant Organisms: MRSA Date of last positivie culture/infection: left 1984 MDRO Source:: ear Past Surgical History: Cholecystectomy, Hernia Repair, Tonsillectomy Additional Past Surgical History / Comment(s): sinus surgery, tubes in ears Past Anesthesia/Blood Transfusion Reactions: Previous Problems w/ Anesthesia Past Psychological History: No Psychological Hx Reported Smoking Status: Never smoker Past Alcohol Use History: Occasional Past Drug Use History: None Reported - Past Family History Mother Family Medical History: Cancer, Diabetes Mellitus, Rheumatoid Arthritis (RA) Medications and Allergies Home Medications Medication Instructions Recorded Confirmed Type HYDROcodone/APAP 10-325MG [[place] 1 tab PO Q6H 05/05/18 12/20/22 History 10-325] Lisinopril-Hctz 20-12.5 mg 2 tab PO DAILY 10/07/19 12/20/22 History [Zestoretic 20-12.5] Dextroamphetamine/Amphetamine 25 mg PO DAILY 10/21/22 12/20/22 History [Adderall Xr 25 mg Capsule] Montelukast [Singulair] 10 mg PO DAILY 10/21/22 12/20/22 History Testosterone Cypionate 140 mg IM TH 12/20/22 12/20/22 History [Depo-Testosterone] Amoxic-Pot Clav 875-125Mg 1 tab PO Q12HR 8 Days #16 tab 12/21/22 Rx [Augmentin 875-125] Docusate [Colace] 100 mg PO BID #60 capsule 12/23/22 Rx polyethylene glycoL 3350 [Miralax] 17 gm PO DAILY #527 gm 12/23/22 Rx Allergies Allergy/AdvReac Type Severity Reaction Status Date / Time ceftriaxone [From Rocephin] Allergy Rash/Hives Verified 12/23/22 08:35 Iodinated Contrast Media Allergy Anaphylaxis Verified 12/23/22 08:35 [Iodinated Contrast- Oral and IV Dye] levofloxacin [From Levaquin] Allergy Anaphylaxis Verified 12/23/22 08:35 rosuvastatin [From Crestor] AdvReac "KIDNEY Verified 12/23/22 08:35 PAIN" - see comment Physical Exam Vitals: Vital Signs Temp Pulse Resp BP Pulse Ox 12/20/22 07:21 97.2 F L 74 18 139/90 97 12/20/22 06:50 75 16 150/89 95 12/20/22 05:14 98.5 F 81 18 172/105 96 Intake and Output 12/19/22 12/20/22 12/20/22 22:59 06:59 14:59 Other: Weight 113.398 kg Results CBC & Chem 7: 12/21/22 07:25 12/21/22 07:25 Labs: Abnormal Lab Results - Last 24 Hours (Table) 12/20/22 12/20/22 12/20/22 Range/Units 05:45 05:45 05:45 WBC 12.8 H (3.8-10.6) k/uL RBC 6.44 H (4.30-5.90) m/uL Hgb 17.9 H (13.0-17.5) gm/dL Neutrophils # 9.1 H (1.3-7.7) k/uL Sodium 136 L (137-145) mmol/L Potassium 2.7 L* (3.5-5.1) mmol/L Glucose 186 H (74-99) mg/dL Plasma Lactic Acid Raji 2.1 H* (0.7-2.0) mmol/L Creatine Kinase 222 H (55-170) U/L Urine Protein (Negative) Urine Glucose (UA) (Negative) Urine Ketones (Negative) Hyaline Casts (0-2) /lpf Urine Mucus (None) /hpf 12/20/22 Range/Units 06:12 WBC (3.8-10.6) k/uL RBC (4.30-5.90) m/uL Hgb (13.0-17.5) gm/dL Neutrophils # (1.3-7.7) k/uL Sodium (137-145) mmol/L Potassium (3.5-5.1) mmol/L Glucose (74-99) mg/dL Plasma Lactic Acid Raji (0.7-2.0) mmol/L Creatine Kinase (55-170) U/L Urine Protein 1+ H (Negative) Urine Glucose (UA) 4+ H (Negative) Urine Ketones Trace H (Negative) Hyaline Casts 6 H (0-2) /lpf Urine Mucus Few H (None) /hpf
[2022-12-20] MEDS ORDERED: MAG HYDROX/AL HYDROX/SIMETH 30 ML, HYOSCYAMINE ELIXIR 10 ML, LIDOCAINE VISCOUS 10 ML PO ONE ×6 (09:44→20:36)
[2022-12-20] MEDS ORDERED: MAG HYDROX/AL HYDROX/SIMETH 30 ML, HYOSCYAMINE ELIXIR 10 ML, LIDOCAINE 2% GLYDO JELLY 1... PO ONE ×3 (10:00)
[2022-12-20] MEDS: HYDROmorphone 1 MG/ML 1 ML SYRINGE IVP PRN ×3 (10:33→22:36)
[2022-12-20] MEDS ORDERED: SODIUM CHLORIDE 0.9% 2,000 ML IV ONE (11:45)
[2022-12-20] MEDS: PIPERACILLIN-TAZOBACTAM 3.375 GM in SODIUM CHLORIDE 0.9% 100 ML IVPB SCH ×2 (13:00→20:24)
[2022-12-20 15:18] LABS: African American GFR (CKD) >90 (>60 ml/min/1.73 sqM); Anion Gap 11 mmol/L; Blood Urea Nitrogen 15 mg/dL (9-20); Calcium 8.4 mg/dL (8.4-10.2); Carbon Dioxide 20 mmol/L (22-30); Chloride 103 mmol/L (98-107); Glucose 236 mg/dL (74-99); Magnesium 1.9 mg/dL (1.6-2.3); Non-African American GFR(CKD) >90 (>60 ml/min/1.73 sqM); Potassium 3.6 mmol/L (3.5-5.1); Sodium 134 mmol/L (137-145)
--- NOTE | 2022-12-20 17:57 | CT ---
EXAMINATION TYPE: CT cervical spine wo con CT DLP: 927 mGycm, Automated exposure control for dose reduction was used. DATE OF EXAM: 12/20/2022 5:18 PM COMPARISON: None. CLINICAL INDICATION:Male, 57 years old with history of bilateral upper lower extremity weakness/numbn ess, neck pain TECHNIQUE: Axial CT images from the skull base to the inferior aspect of T2 we obtained without intra venous contrast. Coronal and sagittal reformatted images were also reviewed. Contrast used: mL of , (if blank None) Oral contrast used: (if blank None) FINDINGS: Fracture: None. Osseous structures: Multilevel degenerative disc disease changes with endplate spurring and disc oste ophyte complex's. Vertebral alignment: Alignment within normal limits. Spinal canal/Neural Foramina: No evidence of significant spinal canal narrowing. Facet joint uncovert ebral joint arthropathy scattered throughout the cervical spine with varying degrees of neural forami nal stenosis. Neural foraminal stenosis worse at left C3-C4 with moderate to severe C4-C5 with modera te. Neck soft tissues: 6 mm right upper lung partially calcified granuloma. IMPRESSION: 1. No evidence of acute process to explain the patient's pain. 2. No evidence for significant spinal canal stenosis. 3. Multilevel degeneration changes of the spine with varying degrees of neural foraminal stenosis th roughout spine.
--- NOTE | 2022-12-20 18:11 | P.CNNES ---
History of Present Illness Consult date: 12/20/22 Requesting physician: Cecilio Harris Reason for Consult: bilat upper & lower extremity weakness & pain, poss d/t anticholinergic med History of Present Illness: Patient is a 57-year-old male with history of hypertension, otherwise healthy, came to the hospital this morning at 5:13 AM because of significant muscle pains and weakness. Patient has history of diverticulitis. He had a follow-up computed tomography scan of abdomen and pelvis scheduled outpatient. He started taking oral preparation for computed tomography scan. Patient took prednisone 15 mg tablet 38 hours apart for preparation along with Benadryl. He also drank one bottle of readycat2. This is the first time that he drank this liquid. Patient states that Monday night he started noticing that his hips were hurting and legs were sore and stiff. He went to sleep. Monday morning, which is yesterday, he woke up, and had difficulty moving with his legs. Hard time moving both legs. He went for computed tomography scan and was able to have it completed. He went home and slept. When he woke up at 4 AM, he couldn't move his legs. He couldn't go downstairs and couldn't order picker his legs. He felt as if the muscles were ripping off his moan. Once he was able to stand, he was able to stay standing up. But the muscles were very sore particularly involving the triceps, hamstrings, hip joint, knee joint and upper back. He was having difficulty swinging his legs while laying in the bed. Denies any headache. Patient denies any numbness or tingling of the extremities, only pain and weakness. Vital signs on arrival blood pressure 172/105, which improved to 150/89, pulse rate 81, temperature 98.5. EKG shows sinus rhythm. Blood tests shows WBC 12.8, hemoglobin 17.9, normal platelets. PT/PTT normal, sodium 136 potassium 2.7, normal renal functions. Lactate was 2.1, hepatic panel is normal, CK 222. Troponin negative. CRP normal. UA is negative. Repeat potassium is 3.6 this morning. Patient had a normal CTA of head and neck as well as carotid Doppler in September 2019. 2-D echo on 10/09/2019 head revealed normal left ventricular size. Severe concentric LVH, EF is between 55-60%. Normal left atrial size. Right atrium is moderately dilated. Interatrial and interventricular septum intact. Patient states that since yesterday he has been having hiccups all day, particularly after he eats, lasting for 45 minutes. Patient has history of hypertension, denies diabetes. He does not drink, has never smoked, does not use any drugs. Patient does have ADD and takes Adderall and [place] for chronic back pain for 2 bad discs. He has history of diverticulitis 6 times in the past. Review of Systems Constitutional: Denies chills, Denies fever Eyes: denies blurred vision, denies diplopia, denies pain Ears: deny: decreased hearing, ear discharge Ears, nose, mouth and throat: Denies headache, Denies sore throat Cardiovascular: Denies chest pain, Denies shortness of breath Respiratory: Denies cough, Denies excessive sputum Gastrointestinal: Denies abdominal pain, Denies diarrhea, Denies nausea, Denies vomiting Genitourinary: Denies dysuria, Denies incontinence Musculoskeletal: Reports low back pain, Reports muscle weakness, Reports myalgias Integumentary: Reports darkening of skin, Denies pruritus, Denies rash Neurological: Reports as per HPI Psychiatric: Denies anxiety, Denies depression Endocrine: Reports fatigue (Now), Denies weight change Hematologic/Lymphatic: Denies easy bleeding, Denies easy bruising Past Medical History Past Medical History: Diabetes Mellitus, GERD/Reflux, Hypertension Additional Past Medical History / Comment(s): Diverticulitis History of Any Multi-Drug Resistant Organisms: MRSA Date of last positivie culture/infection: left 1984 MDRO Source:: ear Past Surgical History: Cholecystectomy, Hernia Repair, Tonsillectomy Additional Past Surgical History / Comment(s): sinus surgery, tubes in ears Past Anesthesia/Blood Transfusion Reactions: Previous Problems w/ Anesthesia Past Psychological History: No Psychological Hx Reported, ADD/ADHD Smoking Status: Never smoker Past Alcohol Use History: Occasional Past Drug Use History: None Reported - Past Family History Mother Family Medical History: Cancer, Diabetes Mellitus, Rheumatoid Arthritis (RA) Medications and Allergies Home Medications Medication Instructions Recorded Confirmed Type HYDROcodone/APAP 10-325MG [[place] 1 tab PO Q6H 05/05/18 12/20/22 History 10-325] Lisinopril-Hctz 20-12.5 mg 2 tab PO DAILY 10/07/19 12/20/22 History [Zestoretic 20-12.5] Dextroamphetamine/Amphetamine 25 mg PO DAILY 10/21/22 12/20/22 History [Adderall Xr 25 mg Capsule] Montelukast [Singulair] 10 mg PO DAILY 10/21/22 12/20/22 History Testosterone Cypionate 140 mg IM TH 12/20/22 12/20/22 History [Depo-Testosterone] Allergies Allergy/AdvReac Type Severity Reaction Status Date / Time ceftriaxone [From Rocephin] Allergy Rash/Hives Verified 12/20/22 07:33 Iodinated Contrast Media Allergy Anaphylaxis Verified 12/20/22 07:33 [Iodinated Contrast- Oral and IV Dye] levofloxacin [From Levaquin] Allergy Anaphylaxis Verified 12/20/22 07:33 rosuvastatin [From Crestor] AdvReac "KIDNEY Verified 12/20/22 07:34 PAIN" - see comment Physical Examination - Vital Signs Vital Signs: Vital Signs Temp Pulse Pulse Resp BP BP Pulse Ox 12/20/22 16:07 97.9 F 80 17 142/77 96 12/20/22 15:14 98.7 F 81 18 125/87 95 12/20/22 14:35 80 16 125/87 99 12/20/22 12:53 76 18 139/98 97 12/20/22 07:21 97.2 F L 74 18 139/90 97 12/20/22 06:50 75 16 150/89 95 12/20/22 05:14 98.5 F 81 18 172/105 96 Intake and Output 12/20/22 12/20/22 12/20/22 06:59 14:59 22:59 Other: Weight 113.398 kg 113.398 kg Patient is a middle aged male, very pleasant, in no acute distress. Patient is alert awake oriented to time place and person. Speech and language functions are normal. Patient can name and repeat very well. No aphasia or dysarthria. Attention, concentration and fund of knowledge is adequate. On cranial nerve examination, pupils are equal, round and reacting to light, visual recinos are full on confrontation, with no neglect on double simultaneous stimulation. Extraocular muscles are intact with no nystagmus. Face is symmetric, tongue protrudes to the midline. Palatal elevation and sensation normal, hearing and shoulder shrug normal, facial sensation normal. On muscle strength testing, there is no pronator drift and the strength is normal in arms and legs distally and proximally, except triceps, which is about 5-with some giveaway weakness, and hip flexion about 4+5-bilaterally. Deep tendon reflexes are symmetric 1+ in the biceps, 1 brachioradialis, 2 at the knees, 1 ankles and plantars are downgoing bilaterally. No clonus. Sensory to touch is equal with no neglect on double simultaneous stimulation. Cerebellar function showed no ataxia for [id number] testing. No dysdiadochokinesia. No ataxia for [id number] testing on either side. Tone and bulk of muscles normal. Gait deferred.. On general examination, there is no carotid bruit or murmur, S1-S2 audible. Chest is clear on consultation. Abdomen is soft nontender. No organomegaly, bowel sounds present. Peripheral pulses are present. No edema. Patient has some hyperpigmentation distally in the legs. Results - Laboratory Findings CBC and BMP: 12/20/22 05:45 12/20/22 14:56 Abnormal Lab Findings: Abnormal Labs 12/20/22 12/20/22 12/20/22 05:45 05:45 05:45 WBC 12.8 H RBC 6.44 H Hgb 17.9 H Neutrophils # 9.1 H Sodium 136 L Potassium 2.7 L* Carbon Dioxide Glucose 186 H Plasma Lactic Acid Raji 2.1 H* Creatine Kinase 222 H Urine Protein Urine Glucose (UA) Urine Ketones Hyaline Casts Urine Mucus 12/20/22 12/20/22 12/20/22 06:12 09:07 14:56 WBC RBC Hgb Neutrophils # Sodium 134 L Potassium Carbon Dioxide 20 L Glucose 236 H Plasma Lactic Acid Raji 3.0 H* Creatine Kinase Urine Protein 1+ H Urine Glucose (UA) 4+ H Urine Ketones Trace H Hyaline Casts 6 H Urine Mucus Few H Assessment and Plan Assessment: * Acute onset of diffuse myalgias, and muscle weakness, likely due to acute hypokalemia. * Hypokalemia, probably induced from either high dose prednisone taken for prep for CT, or related to Readicat2 (drank before computed tomography scan abdomen) * Hypertension * Diabetes * History of diverticulitis * Attention deficit disorder Plan: * Patient's hypokalemia has resolved. Patient's symptoms are about 40% improved as compared to this morning. Continue hydration. It probably will take another 24-48 hours for the symptoms to resolve. * No other workup indicated. * Avoid further episodes of hypokalemia. Avoid use of Readical2 type liquid for prior to CT abdomen pelvis in future. * CT of cervical spine revealed no evidence of acute process, or cervical spinal stenosis. Multilevel degeneration changes of the spine with varying degrees of neural foraminal stenosis. * Check TSH, free T4 and repeat CPK. Lactate has returned back to normal. * Neurology will follow clinically. If symptoms resolve in the morning, will be clear for discharge. * Thank you for the consult
[2022-12-21] MEDS: PIPERACILLIN-TAZOBACTAM 3.375 GM in SODIUM CHLORIDE 0.9% 100 ML IVPB SCH ×2 (03:11→11:16)
[2022-12-21] MEDS: HYDROmorphone 1 MG/ML 1 ML SYRINGE IVP PRN ×2 (03:12→08:44)
[2022-12-21] MEDS ORDERED: MAG HYDROX/AL HYDROX/SIMETH 30 ML, HYOSCYAMINE ELIXIR 10 ML, LIDOCAINE VISCOUS 10 ML PO ONE ×6 (05:01→11:44)
[2022-12-21] MEDS: HYDROcodone/APAP 10-325MG 1 EACH TAB PO SCH ×3 (05:55→15:04)
[2022-12-21] MEDS: SODIUM CHLORIDE 0.9% 1,000 ML IV SCH (08:01)
[2022-12-21] MEDS: MONTELUKAST 10 MG TAB PO SCH (08:01)
[2022-12-21] MEDS: lisinopriL 20 MG TAB PO SCH (08:01)
[2022-12-21 08:17] VITALS: BP 130/81; PULSE 78; RESP 18; TEMP 97.8
[2022-12-21] MEDS ORDERED: ENOXAPARIN 40 MG/0.4 ML SYRINGE SQ SCH (09:00)
[2022-12-21] MEDS ORDERED: chlorproMAZINE 25 MG/ML 2 ML AMP IM STA (11:43)
[2022-12-21 13:42] LABS: ALT 15 U/L (10-49); AST 19 U/L (14-35); Albumin/Globulin Ratio 1.74 Ratio (1.60-3.17); Alkaline Phosphatase 61 U/L (41-126); BUN/Creat Ratio 11.33 Ratio (12.00-20.00); Blood Urea Nitrogen 10.2 mg/dL (9.0-27.0); Calcium 8.9 mg/dL (8.7-10.3); Carbon Dioxide 26.8 mmol/L (21.6-31.8); Chloride 101 mmol/L (96-109); Globulin 2.3 d/dL (1.6-3.3); Glucose 137 mg/dL (70-110); Magnesium 2.1 mg/dL (1.5-2.4); Potassium 5.1 mmol/L (3.5-5.5); Sodium 138 mmol/L (135-145); Total Bilirubin 0.8 mg/dL (0.3-1.2); Total Protein 6.3 d/dL (6.2-8.2)
--- NOTE | 2022-12-21 13:59 | P.GSCN ---
History of Present Illness Consult date: 12/21/22 History of present illness: CHIEF COMPLAINT: Muscle cramping in upper and lower extremities HISTORY OF PRESENT ILLNESS: This is a 57-year-old male who presented to the [facility] with complaints of pain and muscle cramping in the upper and lower extremities after taking the oral contrast for CAT scan of the abdomen with the steroid and Benadryl ALLERGY prep. And patient was found to be hypokalemic which likely caused his myalgias and muscle weakness. Patient evaluated by neurology. Patient was having the computed tomography scan of the abdomen and pelvis for further evaluation of his history of diverticulitis. This CAT scan was ordered outpatient by Dr. Huang. Patient has a known history of diverticulitis with a small abscess and was treated in October 2022 with antibiotics. Patient's computed tomography scan of abdomen and pelvis from yesterday shows diverticulosis. There may be some wall thickening within the sigmoid colon without adjacent inflammatory changes. Some mild diverticulitis should be considered. Patient is currently on antibiotics. Patient reports that he is not hospitalized for his abdomen. He is not complaining of any pain. He reports that he is here for his muscle cramping in his arms and legs. Patient seen and examined with Dr. Cowan who is covering for Dr. Allred PAST MEDICAL HISTORY: See below PAST SURGICAL HISTORY: See below MEDICATIONS: See below ALLERGIES: See below SOCIAL HISTORY: No illicit drug use. REVIEW OF SYSTEMS: CONSTITUTIONAL: Denies fever or chills. HEENT: Denies blurred vision, vision changes, or eye pain. Denies hemoptysis CARDIOVASCULAR: Denies chest pain or pressure. RESPIRATORY: No shortness of breath. GASTROINTESTINAL: See HPI for pertinent findings HEMATOLOGIC: Denies bleeding disorders. GENITOURINARY: Denies any blood in urine or increased urinary frequency. SKIN: Denies pruitis. Denies rash. PHYSICAL EXAM: VITAL SIGNS: Reviewed GENERAL: Well-developed in no acute distress. ABDOMEN: Soft. Nondistended. Nontender NEUROLOGIC: Alert and oriented. Cranial nerves II through XII grossly intact. LABORATORY DATA: WBC 12.8 HGB 17.9 plt 223 Sodium 138 potassium 2.7 up to 5.1 creatinine 0.9 Lactic acid 3.0 down to 1.8 IMAGING: Computed tomography scan abdomen and pelvis shows diverticulosis. There may be some wall thickening within the sigmoid colon without adjacent inflammatory changes. Some mild diverticulitis should be considered. Follow-up is recom mended. Neoplasm not excluded. Mild inflammatory infiltration ASSESSMENT: 1. Chronic diverticulitis. Computed tomography scan and pelvis shows some wall thickening within the sigmoid colon without adjacent inflammatory changes. Findings have improved since prior CAT scan PLAN: -No surgical intervention planned at this time -Recommend that patient follows up with Dr. Allred outpatient after discharge -Continue supportive care -Surgical service will sign off. Please call with any questions or concerns Physician Garbage Collection Supervisor note has been reviewed by physician. Signing provider agrees with the documented findings, assessment, and plan of care. Past Medical History Past Medical History: Diabetes Mellitus, GERD/Reflux, Hypertension Additional Past Medical History / Comment(s): Diverticulitis 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 MDRO Source:: ear Past Surgical History: Cholecystectomy, Hernia Repair, Tonsillectomy Additional Past Surgical History / Comment(s): sinus surgery, tubes in ears Past Anesthesia/Blood Transfusion Reactions: Previous Problems w/ Anesthesia Past Psychological History: No Psychological Hx Reported, ADD/ADHD Smoking Status: Never smoker Past Alcohol Use History: Occasional Past Drug Use History: None Reported - Past Family History Mother Family Medical History: Cancer, Diabetes Mellitus, Rheumatoid Arthritis (RA) Medications and Allergies Home Medications Medication Instructions Recorded Confirmed Type HYDROcodone/APAP 10-325MG [[place] 1 tab PO Q6H 05/05/18 12/20/22 History 10-325] Lisinopril-Hctz 20-12.5 mg 2 tab PO DAILY 10/07/19 12/20/22 History [Zestoretic 20-12.5] Dextroamphetamine/Amphetamine 25 mg PO DAILY 10/21/22 12/20/22 History [Adderall Xr 25 mg Capsule] Montelukast [Singulair] 10 mg PO DAILY 10/21/22 12/20/22 History Testosterone Cypionate 140 mg IM TH 12/20/22 12/20/22 History [Depo-Testosterone] Allergies Allergy/AdvReac Type Severity Reaction Status Date / Time ceftriaxone [From Rocephin] Allergy Rash/Hives Verified 12/20/22 07:33 Iodinated Contrast Media Allergy Anaphylaxis Verified 12/20/22 07:33 [Iodinated Contrast- Oral and IV Dye] levofloxacin [From Levaquin] Allergy Anaphylaxis Verified 12/20/22 07:33 rosuvastatin [From Crestor] AdvReac "KIDNEY Verified 12/20/22 07:34 PAIN" - see comment Surgical - Exam Vital Signs Temp Pulse Resp BP Pulse Ox 98.5 F 81 18 172/105 96 12/20/22 05:14 12/20/22 05:14 12/20/22 05:14 12/20/22 05:14 12/20/22 05:14 Results - Labs 12/20/22 05:45 12/21/22 07:25 Abnormal Lab Results - Last 24 Hours (Table) 12/20/22 Range/Units 14:56 Sodium 134 L (137-145) mmol/L Carbon Dioxide 20 L (22-30) mmol/L Glucose 236 H (74-99) mg/dL Diabetes panel 12/20/22 Range/Units 14:56 Sodium 134 L (137-145) mmol/L Potassium 3.6 (3.5-5.1) mmol/L Chloride 103 (98-107) mmol/L Carbon Dioxide 20 L (22-30) mmol/L BUN 15 (9-20) mg/dL Creatinine 0.70 (0.66-1.25) mg/dL Glucose 236 H (74-99) mg/dL Calcium 8.4 (8.4-10.2) mg/dL Calcium panel 12/20/22 Range/Units 14:56 Calcium 8.4 (8.4-10.2) mg/dL Pituitary panel 12/20/22 Range/Units 14:56 Sodium 134 L (137-145) mmol/L Potassium 3.6 (3.5-5.1) mmol/L Chloride 103 (98-107) mmol/L Carbon Dioxide 20 L (22-30) mmol/L BUN 15 (9-20) mg/dL Creatinine 0.70 (0.66-1.25) mg/dL Glucose 236 H (74-99) mg/dL Calcium 8.4 (8.4-10.2) mg/dL Adrenal panel 12/20/22 Range/Units 14:56 Sodium 134 L (137-145) mmol/L Potassium 3.6 (3.5-5.1) mmol/L Chloride 103 (98-107) mmol/L Carbon Dioxide 20 L (22-30) mmol/L BUN 15 (9-20) mg/dL Creatinine 0.70 (0.66-1.25) mg/dL Glucose 236 H (74-99) mg/dL Calcium 8.4 (8.4-10.2) mg/dL
[2022-12-21 14:24] LABS: HCT 51.5 % (39.6-50.0); MCH 27.2 pg (27.0-32.0); MCV 82.5 FL (80.0-97.0); NRBC Per 100 WBC 0 X 10*3/uL (0.00-0.01); Platelet Count 195 X 10*3/uL (140-440); RBC 6.24 X 10*6/uL (4.40-5.60); RDW 13.9 % (11.5-14.5); WBC 10.66 X 10*3/uL (4.50-10.00)
--- NOTE | 2022-12-21 16:01 | P.DS ---
Providers Date of admission: 12/20/22 07:12 Expected date of discharge: 12/21/22 Attending physician: Elda Beltran DO Consults: 12/20/22 11:57 Consult Physician Routine Consulting Provider: Jean Allred Consult Reason/Comments: diverticulitis Do you want consulting provider notified?: Yes 12/20/22 14:42 Consult Physician Routine Consulting Provider: Ravindra Power Consult Reason/Comments: bilat upper & lower extremity weakness & pain, poss d/t anticholinergic med Do you want consulting provider notified?: Yes Primary care physician: Sherice Howell DO Hospital Course: Discharge Diagnosis: Bilateral upper and lower extremity weakness and pain/cramping. Believed to be reaction from oral contrast patient received prior to outpatient CAT scan. Symptoms fully resolved at time of discharge. Nontraumatic Back pain/neck pain (between shoulder blades). CT cervical spine completed showing multilevel degenerative changes with varying degrees of neural foraminal stenosis throughout spine with no evidence of significant spinal canal stenosis and no evidence of acute process per radiology report. Hypokalemia, resolved. Initial potassium 2.7 and after replacement 5.1 upon discharge. Diverticulitis, diagnosed via outpatient CT completed prior to admission. Patient received two day course of IV antibiotic with Zosyn and discharged home on an additional 8 days of Augmentin 875/125 mg tablets every 12 hours to total an antibiotic treatment course of 10 days for recurrent diverticulitis. Patient to follow up outpatient with general surgeon, Dr. Allred in office next week. Leukocytosis, improved. Lactic acidosis, resolved. Hypertension. Continue daily medication regimen with lisinopril 20 mg daily. Hospital Course: Patient is a very pleasant 57-year-old male with a past medical history of hypertension, GERD, diabetes mellitus, and diverticulosis. He presented to the emergency department secondary to reports of upper and lower extremity pain and weakness. Patient reports he has been experiencing lower abdominal and back pain and has been undergoing outpatient workup with Dr. Allred secondary to concerns of diverticulitis. Patient reports he was scheduled for outpatient CT with oral and IV contrast yesterday and began by taking oral Benadryl prep and drinking oral contrast. Patient reports once he drink the prep he was medicated with IV Benadryl, Pepcid, and steroids and shortly after began experiencing muscle cramping, pain, and weakness in his bilateral upper and lower extremities. Patient reports he underwent a CT and returned home. Patient stat es the weakness and muscle cramps in bilateral upper and lower extremities continued throughout the night and into the morning. Patient reports this morning upon standing up to get out of bed he fell backwards onto his bed because his legs were too weak in his arms were not even able to lift him. Patient's at bedside states this is when she knew her needed to be evaluated at the hospital. Patient denies having any recent falls or injuries, headache, lightheadedness, dizziness, fever, chills, chest pain or palpitations, shortness of breath, nausea, vomiting, or experiencing any involuntary loss of bowel or bladder, or noticing any swelling in his extremities. He denies any history of similar events. Upon arrival to the emergency department patient continued to complain of bilateral upper and lower extremity weakness and pain and required assistance with standing and pivoting. He underwent full evaluation in the emergency department. Labs were completed and reviewed. CBC revealing leukocytosis with WBC count of 12.8 and polycythemia with elevated hemoglobin of 17.9. Coagulation profile unremarkable. BMP revealing mild hyponatremia with sodium 136 and critically low potassium of 2.7. Blood glucose level was slightly elevated at 186. Liver profile was unremarkable. Initial lactate 2.1 with repeat lactate of 3.0. Magnesium normal findings at 1.9. Creatinine kinase slightly elevated at 222. Urinalysis positive for protein, glucose, and ketones. ED physician replacing abnormal electrolyte values and placed order for K-Dur 40 mEq by mouth 1 dose along with potassium chloride 40 mEq IVPB. Patient being admitted under our services to observation unit with telemetry at this time. Patient was given 2 L bolus for elevating lactate and started on IV antibiotics with Zosyn. Blood cultures 2 sets were obtained and sent to lab for analysis. Shortly after admission patient developed recurrent and uncontrolled episodes of hiccups. An EKG and troponin were ordered and the patient adamantly denied cardiac complaints. EKG was completed showing normal sinus rhythm at 74 bpm with lateral T-wave inversion in leads 1 and aVL. Troponin negative at less than 0.012. CRP less than 5. And repeat lactate 1.8. Patient received continuous maintenance IV fluid hydration and Electrolytes were replaced. Patient slowly began to show improvement in weakness and pain and was evaluated by neurology whom recommended patient to avoid any further use of oral CT contrast in the future and recommending no further neurological workup at this time. Patient monitored overnight and continued to have reported episodes of hiccups, but reported near resolution of upper and lower extremity cramping describing now as an old soreness in his legs only and full resolution of previous reported weakness. Patient ambulatory in room without any difficulties and strength 5 out of 5 in bilateral upper and lower extremities with sensation equal and intact. Patient was given a single dose of Thorazine and GI cocktail as requested for hiccups. Repeat labs resulting showing improvement of leukocytosis from previous 12.8 down to 10.66 and full resolution of previous electrolyte abnormalities with sodium of 138, potassium 5.1, chloride 101, bicarb 26.8, and magnesium of 2.1.. Patient again evaluated at bedside and he and his report patient has had full resolution of hiccups and all pain at this time. Patient denied having any further questions, needs, or complaints. Patient received 2 days of IV antibiotics with Zosyn for treatment of diverticulitis and was evaluated by general surgery and recommending outpatient follow-up in their office. Medically, patient stable at this time and is stable for discharge home, .patient reports that he has a follo w-up appointment with his PCP on Monday and instructed he will need to follow up outpatient with Dr. Allred in office next week. Patient and his verbalized understanding and denied having any further questions, needs, or concerns. Physical exam: Vital signs reviewed and stable. General: Nontoxic, no distress and appears stated age. Derm: Skin warm and dry, normal coloration for ethnicity. Head: Atraumatic, normocephalic and symmetric. Eyes: EOMs intact, no lid lag, and anicteric sclera Mouth: no lip lesions, mucus membranes moist Cardiovascular: regular rate and rhythm with normal S1S2, no murmur, positive posterior tibial pulses bilaterally, and cap refill < 2 seconds. Lungs: Respirations even, regular, and unlabored on room air. Lungs CTA bilaterally, no rhonchi, no rales, no wheezing, and no accessory muscle usage. Abdominal: soft, nontender to palpation, no guarding, no appreciable organomegaly Ext: Movement and sensation intact . No gross muscle atrophy, no edema, no contractures. Patient does have generalized weakness and reports the pain to bilateral upper and lower extremities. 3/5 bilateral upper and 3/5 bilateral lower Neuro: Speech clear, face symmetrical and CN II-XII grossly intact with no noted focal neuro deficits Psych: Alert and oriented to person, place, time, and situation. Appropriate and pleasant affect. A total of 35 minutes of time were spent preparing this complex discharge summary. Pt was discharged on 12/21/22 at 3:05 PM. Patient was seen independently by Nurse Practitioner. This document was prepared using RE2 dictation software. Please allow for errors in buying intern while rare they do occur. Cecilio Harris NP rendered care for this patient independently, reviewed the findings and plan as documented in the note above. I did not physically speak with or examine the patient on this date. Patient Condition at Discharge: Stable Plan - Discharge Summary New Discharge Prescriptions: New Amoxic-Pot Clav 875-125Mg [Augmentin 875-125] 1 tab PO Q12HR 8 Days #16 tab Continue HYDROcodone/APAP 10-325MG [[place] 10-325] 1 tab PO Q6H Lisinopril-Hctz 20-12.5 mg [Zestoretic 20-12.5] 2 tab PO DAILY Montelukast [Singulair] 10 mg PO DAILY Dextroamphetamine/Amphetamine [Adderall Xr 25 mg Capsule] 25 mg PO DAILY Testosterone Cypionate [Depo-Testosterone] 140 mg IM TH No Action Docusate [Colace] 100 mg PO BID #60 capsule polyethylene glycoL 3350 [Miralax] 17 gm PO DAILY #527 gm Discharge Medication List HYDROcodone/APAP 10-325MG [[place] 10-325] 1 tab PO Q6H 05/05/18 [History] Lisinopril-Hctz 20-12.5 mg [Zestoretic 20-12.5] 2 tab PO DAILY 10/07/19 [History] Dextroamphetamine/Amphetamine [Adderall Xr 25 mg Capsule] 25 mg PO DAILY 10/21/22 [History] Montelukast [Singulair] 10 mg PO DAILY 10/21/22 [History] Testosterone Cypionate [Depo-Testosterone] 140 mg IM TH 12/20/22 [History] Amoxic-Pot Clav 875-125Mg [Augmentin 875-125] 1 tab PO Q12HR 8 Days #16 tab 12/21/22 [Rx] Docusate [Colace] 100 mg PO BID #60 capsule 12/23/22 [Rx] polyethylene glycoL 3350 [Miralax] 17 gm PO DAILY #527 gm 12/23/22 [Rx] Follow up Appointment(s)/Referral(s): Jean Allred MD [Medical Doctor] - 1 Week Sherice Howell DO [Primary Care Provider] - 1-2 Days (Follow-up on Monday as scheduled) Patient Instructions/Handouts: Diverticulitis (DC), Hiccups (DC), How to Avoid and Decrease Problems with Gas (DC), Musculoskeletal Pain (GEN) Activity/Diet/Wound Care/Special Instructions: Activity: As tolerated. Take breaks as needed. Diet: Heart healthy and carb consistent diet. Avoid salts, or foods with hidden salts such as canned or boxed foods and frozen dinners. Extra salt makes your heart work harder and traps the fluid in your body for longer. Special Instructions: Take all of your medications as directed and remember to keep all of your doctor's appointments and follow-up as needed. Thank you for allowing us to participate in your care, it was truly a pleasure having you for our patient!!! Discharge Disposition: HOME SELF-CARE
[2022-12-22 15:51] LABS: Creatine Kinase 211 U/L (35-257)
== END 2022-12-21 15:35 | disposition home or self-care (01) ==
LOC: EC 05:13 → 6NMEDSUR 07:12
PROVIDERS: ADMIT Internal Medicine; ATTEND Internal Medicine
DX: M79.10 Myalgia, unspecified site (principal); E87.6 Hypokalemia; M48.02 Spinal stenosis, cervical region; D75.1 Secondary polycythemia; K57.92 Diverticulitis of intestine, part unspecified, without perforation or abscess without bleeding; E11.649 Type 2 diabetes mellitus with hypoglycemia without coma; R06.6 Hiccough; E87.20 Acidosis, unspecified; I10 Essential (primary) hypertension; K21.9 Gastro-esophageal reflux disease without esophagitis; F90.9 Attention-deficit hyperactivity disorder, unspecified type; M47.812 Spondylosis without myelopathy or radiculopathy, cervical region; E87.1 Hypo-osmolality and hyponatremia; Z87.19 Personal history of other diseases of the digestive system; Z86.14 Personal history of Methicillin resistant Staphylococcus aureus infection; Z90.49 Acquired absence of other specified parts of digestive tract; Z98.890 Other specified postprocedural states; Z83.3 Family history of diabetes mellitus; Z82.61 Family history of arthritis; Z80.9 Family history of malignant neoplasm, unspecified; Z79.890 Hormone replacement therapy; Z79.891 Long term (current) use of opiate analgesic; Z79.899 Other long term (current) drug therapy; Z88.8 Allergy status to other drugs, medicaments and biological substances; Z88.1 Allergy status to other antibiotic agents; Z91.041 Radiographic dye allergy status
CPT/HCPCS: 96376 ×2; 96361; 96366 ×3; 96372; 96365; 96367; 96375; 99285; 36415; 93005; 80053 ×2; 80048; 84443; 82550 ×2; 83605; 83735 ×2; 84484; 85025; 85027; 85610; 85730; 86140; 81001; 87040; 72125; G0378 ×2; J2543 ×2; J3230; J3360; J1650; J1170 ×2; J3480

== ENCOUNTER 2022-12-23 08:31 | Emergency (ER) | payer BC ==
[2022-12-23] MEDS ORDERED: LISINOPRIL-HCTZ 20-12.5 MG 1 EACH TAB PO STA (09:52)
[2022-12-23 09:53] LABS: Basophils % (A) 0 %; Eosinophils # (A) 0.2 k/uL (0-0.7); Eosinophils % (A) 1 %; HCT 50.2 % (39.0-53.0); HGB 17.1 gm/dL (13.0-17.5); Lymphocytes # (A) 1.6 k/uL (1.0-4.8); Lymphocytes % (A) 14 %; MCH 27.9 pg (25.0-35.0); MCHC 34.1 g/dL (31.0-37.0); Mean Platelet Volume 7.4; Monocytes # (A) 0.9 k/uL (0-1.0); Monocytes % (A) 8 %; Neutrophils % (A) 75 %; Platelet Count 204 k/uL (150-450); RBC 6.13 m/uL (4.30-5.90)
[2022-12-23] MEDS ORDERED: HYDROmorphone 1 MG/ML 1 ML SYRINGE IVP STA (10:00)
[2022-12-23 10:02] LABS: ALT 16 U/L (4-49); African American GFR (CKD) >90 (>60 ml/min/1.73 sqM); Amylase 43 U/L (30-110); Anion Gap 13 mmol/L; Blood Urea Nitrogen 8 mg/dL (9-20); Calcium 8.6 mg/dL (8.4-10.2); Carbon Dioxide 23 mmol/L (22-30); Chloride 99 mmol/L (98-107); Glucose 134 mg/dL (74-99); Lipase 49 U/L (23-300); Non-African American GFR(CKD) >90 (>60 ml/min/1.73 sqM); Sodium 135 mmol/L (137-145); Total Bilirubin 1.3 mg/dL (0.2-1.3); Total Protein 7.3 g/dL (6.3-8.2)
[2022-12-23] MEDS ORDERED: SODIUM CHLORIDE 0.9% 500 ML 500 ML IV ONE (10:02)
[2022-12-23 10:08] LABS: Potassium 4.3 mmol/L (3.5-5.1)
[2022-12-23 10:09] LABS: AST 27 U/L (17-59); Alkaline Phosphatase 64 U/L (38-126); Magnesium 2.1 mg/dL (1.6-2.3)
[2022-12-23 11:18] VITALS: RESP 18
[2022-12-23 11:47] LABS: Appearance,Urine Clear (Clear); Bilirubin,Urine Negative (Negative); Blood,Urine Negative (Negative); Color,Urine Light Yellow; Glucose,Urine (UA) Negative (Negative); Ketones,Urine Negative (Negative); Leukocyte Esterase,Urine Negative (Negative); Nitrite,Urine Negative (Negative); PH, Urine 7.5 (5.0-8.0); Protein,Urine Negative (Negative); Specific Gravity,Urine 1.011 (1.001-1.035); Urobilinogen,Urine <2.0 mg/dL (<2.0)
[2022-12-23] MEDS ORDERED: MAGNESIUM HYDROXIDE 2,400 MG/30 ML CUP PO PRN (12:14)
--- NOTE | 2022-12-23 12:17 | ED ---
General Adult HPI - General Chief complaint: Recheck/Abnormal Lab/Rx Stated complaint: pain all over Time Seen by Provider: 12/23/22 08:35 Source: patient Mode of arrival: ambulatory Limitations: no limitations - History of Present Illness Initial comments: 57-year-old male presents to the emergency department with lower abdominal pain. He does have a history of diverticulitis for which she was hospitalized in October with a microperforation. He is currently taking Augmentin as repeat evaluation in the emergency department a few days ago demonstrated possible continued diverticulitis. Patient states that he did have some improvement in pain howeve r it worsened last night. He feels as if he cannot have a bowel movement as he does not want a strain with the pain. He admits to body aches. No fevers. Denies any nausea or vomiting. Not taking anything for pain at home. He was told that he needs to follow up with a colorectal surgeon for definitive management for which she has yet to schedule. Denies any complaints in his bladder habits. No other alleviating, precipitating or modifying factors - Related Data Home Medications Medication Instructions Recorded Confirmed HYDROcodone/APAP 10-325MG [[place] 1 tab PO Q6H 05/05/18 12/20/22 10-325] Lisinopril-Hctz 20-12.5 mg 2 tab PO DAILY 10/07/19 12/20/22 [Zestoretic 20-12.5] Dextroamphetamine/Amphetamine 25 mg PO DAILY 10/21/22 12/20/22 [Adderall Xr 25 mg Capsule] Montelukast [Singulair] 10 mg PO DAILY 10/21/22 12/20/22 Testosterone Cypionate 140 mg IM TH 12/20/22 12/20/22 [Depo-Testosterone] Previous Rx's Medication Instructions Recorded Amoxic-Pot Clav 875-125Mg 1 tab PO Q12HR 8 Days #16 tab 12/21/22 [Augmentin 875-125] Docusate [Colace] 100 mg PO BID #60 capsule 12/23/22 polyethylene glycoL 3350 [Miralax] 17 gm PO DAILY #527 gm 12/23/22 Allergies Allergy/AdvReac Type Severity Reaction Status Date / Time ceftriaxone [From Rocephin] Allergy Rash/Hives Verified 12/23/22 08:35 Iodinated Contrast Media Allergy Anaphylaxis Verified 12/23/22 08:35 [Iodinated Contrast- Oral and IV Dye] levofloxacin [From Levaquin] Allergy Anaphylaxis Verified 12/23/22 08:35 rosuvastatin [From Crestor] AdvReac "KIDNEY Verified 12/23/22 08:35 PAIN" - see comment Review of Systems ROS Statement: Those systems with pertinent positive or pertinent negative responses have been documented in the HPI. ROS Other: All systems not noted in ROS Statement are negative. Past Medical History Past Medical History: Diabetes Mellitus, GERD/Reflux, Hypertension Additional Past Medical History / Comment(s): Diverticulitis History of Any Multi-Drug Resistant Organisms: MRSA Date of last positivie culture/infection: left 1985 MDRO Source:: ear Past Surgical History: Cholecystectomy, Hernia Repair, Tonsillectomy Additional Past Surgical History / Comment(s): sinus surgery, tubes in ears Past Anesthesia/Blood Transfusion Reactions: Previous Problems w/ Anesthesia Past Psychological History: No Psychological Hx Reported, ADD/ADHD Smoking Status: Never smoker Past Alcohol Use History: Occasional Past Drug Use History: None Reported - Past Family History Mother Family Medical History: Cancer, Diabetes Mellitus, Rheumatoid Arthritis (RA) General Exam Limitations: no limitations General appearance: alert, in no apparent distress Head exam: Present: atraumatic, normocephalic, normal inspection Eye exam: Present: normal appearance, PERRL, EOMI. Absent: scleral icterus, con junctival injection, periorbital swelling ENT exam: Present: normal exam, mucous membranes moist Neck exam: Present: normal inspection. Absent: tenderness, meningismus, lymphadenopathy Respiratory exam: Present: normal lung sounds bilaterally. Absent: respiratory distress, wheezes, rales, rhonchi, stridor Cardiovascular Exam: Present: regular rate, normal rhythm, normal heart sounds. Absent: systolic murmur, diastolic murmur, rubs, gallop, clicks GI/Abdominal exam: Present: soft, normal bowel sounds. Absent: distended, tenderness, guarding, rebound, rigid Extremities exam: Present: normal inspection, full ROM, normal capillary refill. Absent: tenderness, pedal edema, joint swelling, calf tenderness Back exam: Present: normal inspection Neurological exam: Present: alert, oriented X3, CN II-XII intact Psychiatric exam: Present: normal affect, normal mood Skin exam: Present: warm, dry, intact, normal color. Absent: rash Course Vital Signs 12/23/22 12/23/22 12/23/22 08:32 09:45 11:18 Temperature 99 F Pulse Rate 96 91 Respiratory 22 18 Rate Blood Pressure 169/100 171/103 163/101 O2 Sat by Pulse 97 Oximetry 12/23/22 12:27 Temperature 98.2 F Pulse Rate 88 Respiratory 18 Rate Blood Pressure 178/98 O2 Sat by Pulse Oximetry Medical Decision Making - Medical Decision Making Was pt. sent in by a medical professional or institution (, PA, TRANSFER TABLE OPERATOR, urgent care, hospital, or intermediate...) When possible be specific @ -No Did you speak to anyone other than the patient for history (EMS, parent, family, police, friend...)? What history was obtained from this source @ -Spoke with the patient's Did you review nursing and triage notes (agree or disagree)? Why? @ -I reviewed and agree with nursing and triage notes Were old charts reviewed (outside hosp., previous admission, EMS record, old EKG, old radiological studies, urgent care reports/EKG's, intermediate records)? Report findings @ -I reviewed the patient's discharge summary from October as well as his CT report from December 19 Differential Diagnosis (chest pain, altered mental status, abdominal pain women, abdominal pain men, vaginal bleeding, weakness, fever, dyspnea, syncope, headache, dizziness, GI bleed, back pain, seizure, CVA, palpatations, mental health, musculoskeletal)? @ -Differential Abdominal Pain Men: Appendicitis, cholecystitis, diverticulosis, ischemic bowel, pancreatitis, hepatitis, UTI, gastroenteritis, AAA, incarcerated hernia, bowel obstruction, constipation, inflammatory bowel, hepatitis, peptic ulcer disease, splenic infarction, perforated viscus, testicular torsion, this is not meant to be an all-inclusive list EKG interpreted by me (3pts min.). @ -Yesterday and demonstrates a sinus rhythm with a rate of 91. AK interval 164. QRS 99. QTC 375. No acute ST segment elevations or depressions X-rays interpreted by me (1pt min.). @ -None done CT interpreted by me (1pt min.). @ -None done U/S interpreted by me (1pt. min.). @ -None done What testing was considered but not performed or refused? (CT, X-rays, U/S, labs)? Why? @ -CT however the patient had a CT done a few days ago What meds were considered but not given or refused? Why? @ -None Did you discuss the management of the patient with other professionals (professionals i.e. , PA, TRANSFER TABLE OPERATOR, lab, RT, psych nurse, administrator social welfare, roll reclaimer, teacher, contracting officer, continuous pillowcase cutter)? Give summary @ -Spoke with Dr. Allred in regards to the patient's disposition Was smoking cessation discussed for >3mins.? @ -No Was critical care preformed (if so, how long)? @ -No Were there social determinants of health that impacted care today? How? (Homelessness, low income, unemployed, alcoholism, drug addiction, transportation, low edu. Level, literacy, decrease access to med. care, fdc, rehab)? @ -No Was there de-escalation of care discussed even if they declined (Discuss DNR or withdrawal of care, Hospice)? DNR status @ -No What co-morbidities impacted this encounter? (DM, HTN, Smoking, COPD, CAD, Cancer, CVA, ARF, Chemo, Hep., AIDS, mental health diagnosis, sleep apnea, morbid obesity)? @ -Diverticulitis Was patient admitted / discharged? Hospital course, mention meds given and route, prescriptions, significant lab abnormalities, going to OR and other pertinent info. @ -Upon arrival patient was placed into room 4. A thorough history and p hysical exam was performed. IV is established laboratory studies are conducted. He was given a dose of pain medications. Laboratory studies are reviewed and are within normal limits. I called and spoke with Dr. Allred in regards the patient's symptoms. He reports that the patient has continued pain that he can be admitted for IV antibiotics and pain control. Discussed this with the patient to is agreeable to go home. He is requesting something to soften his stool therefore he is given prescriptions for MiraLAX and Colace. Today he will take milk of mag which is dispensed to him. He is to follow up with the colorectal surgeon and return for any new or worsening symptoms. Patient was agreeable to this and he was discharged in stable condition Undiagnosed new problem with uncertain prognosis? @ -No Drug Therapy requiring intensive monitoring for toxicity (Heparin, Nitro, Insulin, Cardizem)? @ -No Were any procedures done? @ -No Diagnosis/symptom? @ -Acute abdominal pain, history of diverticulitis Acute, or Chronic, or Acute on Chronic? @ -Acute, recurrent Uncomplicated (without systemic symptoms) or Complicated (systemic symptoms)? @ -Complicated Side effects of treatment? @ -No Exacerbation, Progression, or Severe Exacerbation? @ -No Poses a threat to life or bodily function? How? (Chest pain, USA, CT, pneumonia, PE, COPD, DKA, ARF, appy, cholecystitis, CVA, Diverticulitis, Homicidal, Suicidal, threat to staff... and all critical care pts) @ -No - Lab Data Result diagrams: 12/23/22 09:45 12/23/22 09:45 Lab Results 12/23/22 12/23/22 12/23/22 Range/Units 09:45 09:45 09:45 WBC 12.0 H (3.8-10.6) k/uL RBC 6.13 H (4.30-5.90) m/uL Hgb 17.1 (13.0-17.5) gm/dL Hct 50.2 (39.0-53.0) % MCV 82.0 (80.0-100.0) fL MCH 27.9 (25.0-35.0) pg MCHC 34.1 (31.0-37.0) g/dL RDW 14.0 (11.5-15.5) % Plt Count 204 (150-450) k/uL MPV 7.4 Neutrophils % 75 % Lymphocytes % 14 % Monocytes % 8 % Eosinophils % 1 % Basophils % 0 % Neutrophils # 9.0 H (1.3-7.7) k/uL Lymphocytes # 1.6 (1.0-4.8) k/uL Monocytes # 0.9 (0-1.0) k/uL Eosinophils # 0.2 (0-0.7) k/uL Basophils # 0.0 (0-0.2) k/uL Sodium 135 L (137-145) mmol/L Potassium 4.3 (3.5-5.1) mmol/L Chloride 99 (98-107) mmol/L Carbon Dioxide 23 (22-30) mmol/L Anion Gap 13 mmol/L BUN 8 L (9-20) mg/dL Creatinine 0.67 (0.66-1.25) mg/dL Est GFR (CKD-EPI)AfAm >90 (>60 ml/min/1.73 sqM) Est GFR (CKD-EPI)NonAf >90 (>60 ml/min/1.73 sqM) Glucose 134 H (74-99) mg/dL Plasma Lactic Acid Raji 1.8 (0.7-2.0) mmol/L Calcium 8.6 (8.4-10.2) mg/dL Magnesium 2.1 (1.6-2.3) mg/dL Total Bilirubin 1.3 (0.2-1.3) mg/dL AST 27 (17-59) U/L ALT 16 (4-49) U/L Alkaline Phosphatase 64 (38-126) U/L Total Protein 7.3 (6.3-8.2) g/dL Albumin 4.0 (3.5-5.0) g/dL Amylase 43 (30-110) U/L Lipase 49 (23-300) U/L Urine Color Urine Appearance (Clear) Urine pH (5.0-8.0) Ur Specific [place] (1.001-1.035) Urine Protein (Negative) Urine Glucose (UA) (Negative) Urine Ketones (Negative) Urine Blood (Negative) Urine Nitrite (Negative) Urine Bilirubin (Negative) Urine Urobilinogen (<2.0) mg/dL Ur Leukocyte Esterase (Negative) 12/23/22 Range/Units 11:34 WBC (3.8-10.6) k/uL RBC (4.30-5.90) m/uL Hgb (13.0-17.5) gm/dL Hct (39.0-53.0) % MCV (80.0-100.0) fL MCH (25.0-35.0) pg MCHC (31.0-37.0) g/dL RDW (11.5-15.5) % Plt Count (150-450) k/uL MPV Neutrophils % % Lymphocytes % % Monocytes % % Eosinophils % % Basophils % % Neutrophils # (1.3-7.7) k/uL Lymphocytes # (1.0-4.8) k/uL Monocytes # (0-1.0) k/uL Eosinophils # (0-0.7) k/uL Basophils # (0-0.2) k/uL Sodium (137-145) mmol/L Potassium (3.5-5.1) mmol/L Chloride (98-107) mmol/L Carbon Dioxide (22-30) mmol/L Anion Gap mmol/L BUN (9-20) mg/dL Creatinine (0.66-1.25) mg/dL Est GFR (CKD-EPI)AfAm (>60 ml/min/1.73 sqM) Est GFR (CKD-EPI)NonAf (>60 ml/min/1.73 sqM) Glucose (74-99) mg/dL Plasma Lactic Acid Raji (0.7-2.0) mmol/L Calcium (8.4-10.2) mg/dL Magnesium (1.6-2.3) mg/dL Total Bilirubin (0.2-1.3) mg/dL AST (17-59) U/L ALT (4-49) U/L Alkaline Phosphatase (38-126) U/L Total Protein (6.3-8.2) g/dL Albumin (3.5-5.0) g/dL Amylase (30-110) U/L Lipase (23-300) U/L Urine Color Light Yellow Urine Appearance Clear (Clear) Urine pH 7.5 (5.0-8.0) Ur Specific [place] 1.011 (1.001-1.035) Urine Protein Negative (Negative) Urine Glucose (UA) Negative (Negative) Urine Ketones Negative (Negative) Urine Blood Negative (Negative) Urine Nitrite Negative (Negative) Urine Bilirubin Negative (Negative) Urine Urobilinogen <2.0 (<2.0) mg/dL Ur Leukocyte Esterase Negative (Negative) Disposition Clinical Impression: Abdominal pain Disposition: HOME SELF-CARE Condition: Stable Instructions (If sedation given, give patient instructions): Abdominal Pain (ED) Additional Instructions: Take the milk of mag today. Started taking the MiraLAX and Colace tomorrow. Follow up with the rectal surgeon. Return to the emergency department should you have worsening pain [facility] [address] [place] [id number] Prescriptions: Docusate [Colace] 100 mg PO BID #60 capsule polyethylene glycoL 3350 [Miralax] 17 gm PO DAILY #527 gm Is patient prescribed a controlled substance at d/c from ED?: No Referrals: Sherice Howell DO [Primary Care Provider] - 1-2 days Time of Disposition: 12:17
[2022-12-23 13:32] VITALS: BP 178/98; PULSE 88; TEMP 98.2
== END 2022-12-23 12:27 | disposition home or self-care (01) ==
LOC: EC 08:31
DX: R10.30 Lower abdominal pain, unspecified (principal); I10 Essential (primary) hypertension; E11.9 Type 2 diabetes mellitus without complications; Z88.1 Allergy status to other antibiotic agents; Z88.8 Allergy status to other drugs, medicaments and biological substances; Z90.49 Acquired absence of other specified parts of digestive tract; Z79.899 Other long term (current) drug therapy
CPT/HCPCS: 36415; 93005; 80053; 82150; 83605; 83690; 83735; 85025; 81003; 99284; 96374; 96361; J1170

== ENCOUNTER 2023-10-01 06:07 | Emergency (ER) | payer BC ==
[2023-10-01 06:34] VITALS: RESP 18
[2023-10-01] MEDS: SODIUM CHLORIDE 0.9% 500 ML 500 ML IV ONE (07:17)
[2023-10-01] MEDS: diphenhydrAMINE 50 MG/ML 1 ML VIAL IVP STA (07:18)
[2023-10-01] MEDS: methylPREDNISolone SOD SUCCI 125 MG/2 ML VIAL IV STA (07:18)
[2023-10-01] MEDS: FAMOTIDINE 20 MG/2 ML VIAL IV STA (07:18)
--- NOTE | 2023-10-01 07:27 | ED ---
Allergic Reaction HPI - General Chief complaint: Allergic Reaction Stated complaint: Rash Time Seen by Provider: 10/01/23 06:15 Source: patient, RN notes reviewed Mode of arrival: ambulatory Limitations: no limitations - History of Present Illness Initial Comments: 58-year-old male presents emergency department complaint of a rash. He states he woke up middle night. She states the rash spreading. Patient states that he was spraying some chemicals and taking care of what he thought was poison lilibeth. Patient states that he has no difficulty breathing has not taken any medications prior to arrival. He states he is never had any like this in the past. Patient denies any fevers denies any nausea vomiting. - Related Data Home Medications Medication Instructions Recorded Confirmed HYDROcodone/APAP 10-325MG [[place] 1 tab PO Q6H 05/05/18 12/20/22 10-325] Lisinopril-Hctz 20-12.5 mg 2 tab PO DAILY 10/07/19 12/20/22 [Zestoretic 20-12.5] Dextroamphetamine/Amphetamine 25 mg PO DAILY 10/21/22 12/20/22 [Adderall Xr 25 mg Capsule] Montelukast [Singulair] 10 mg PO DAILY 10/21/22 12/20/22 Testosterone Cypionate 140 mg IM TH 12/20/22 12/20/22 [Depo-Testosterone] Previous Rx's Medication Instructions Recorded Amoxic-Pot Clav 875-125Mg 1 tab PO Q12HR 8 Days #16 tab 12/21/22 [Augmentin 875-125] Docusate [Colace] 100 mg PO BID #60 capsule 12/23/22 polyethylene glycoL 3350 [Miralax] 17 gm PO DAILY #527 gm 12/23/22 predniSONE 50 mg PO DAILY #5 tab 10/01/23 Allergies Allergy/AdvReac Type Severity Reaction Status Date / Time ceftriaxone [From Rocephin] Allergy Rash/Hives Verified 10/01/23 06:35 Iodinated Contrast Media Allergy Anaphylaxis Verified 10/01/23 06:35 [Iodinated Contrast- Oral and IV Dye] levofloxacin [From Levaquin] Allergy Anaphylaxis Verified 10/01/23 06:35 rosuvastatin [From Crestor] AdvReac "KIDNEY Verified 10/01/23 06:35 PAIN" - see comment Review of Systems ROS Statement: Those systems with pertinent positive or pertinent negative responses have been documented in the HPI. ROS Other: All systems not noted in ROS Statement are negative. Past Medical History Past Medical History: Diabetes Mellitus, GERD/Reflux, Hypertension Additional Past Medical History / Comment(s): Diverticulitis History of Any Multi-Drug Resistant Organisms: MRSA Date of last positivie culture/infection: left 1984 MDRO Source:: ear Past Surgical History: Cholecystectomy, Hernia Repair, Tonsillectomy Additional Past Surgical History / Comment(s): sinus surgery, tubes in ears Past Anesthesia/Blood Transfusion Reactions: Previous Problems w/ Anesthesia Past Psychological History: No Psychological Hx Reported, ADD/ADHD Smoking Status: Never smoker Past Alcohol Use History: Occasional Past Drug Use History: None Reported - Past Family History Mother Family Medical History: Cancer, Diabetes Mellitus, Rheumatoid Arthritis (RA) General Exam Limitations: no limitations General appearance: alert, in no apparent distress Head exam: Present: atraumatic, normocephalic, normal inspection Eye exam: Present: normal appearance, PERRL, EOMI. Absent: scleral icterus, conjunctival injection, periorbital swelling ENT exam: Present: normal exam, normal oropharynx, mucous membranes moist Neck exam: Present: normal inspection, full ROM. Absent: tenderness, meningismus, lymphadenopathy Respiratory exam: Present: normal lung sounds bilaterally. Absent: respiratory distress, wheezes, rales, rhonchi, stridor Cardiovascular Exam: Present: regular rate, normal rhythm, normal heart sounds. Absent: systolic murmur, diastolic murmur, rubs, gallop, clicks GI/Abdominal exam: Present: soft, normal bowel sounds. Absent: distended, tenderness, guarding, rebound, rigid Skin exam: Present: rash Course Vital Signs 10/01/23 10/01/23 06:28 09:00 Temperature 97.7 F 98.3 F Pulse Rate 78 74 Respiratory 18 18 Rate Blood Pressure 137/85 126/82 O2 Sat by Pulse 98 99 Oximetry Medical Decision Making - Medical Decision Making Was pt. sent in by a medical professional or institution (, PA, PUMPER HELPER, urgent care, hospital, or shelter...) When possible be specific @ -No Did you speak to anyone other than the patient for history (EMS, parent, family, police, friend...)? What history was obtained from this source @ -No Did you review nursing and triage notes (agree or disagree)? Why? @ -I reviewed and agree with nursing and triage notes Were old charts reviewed (outside hosp., previous admission, EMS record, old EKG, old radiological studies, urgent care reports/EKG's, shelter records)? Report findings @ -No old charts were reviewed Differential Diagnosis (chest pain, altered mental status, abdominal pain women, abdominal pain men, vaginal bleeding, weakness, fever, dyspnea, syncope, headache, dizziness, GI bleed, back pain, seizure, CVA, palpatations, mental health, musculoskeletal)? @ -Contact dermatitis, reaction EKG interpreted by me (3pts min.). @ -None X-rays interpreted by me (1pt min.). @ -None done CT interpreted by me (1pt min.). @ -None done U/S interpreted by me (1pt. min.). @ -None done What testing was considered but not performed or refused? (CT, X-rays, U/S, labs)? Why? @ -None What meds were considered but not given or refused? Why? @ -None Did you discuss the management of the patient with other professionals (professionals i.e. , PA, PUMPER HELPER, lab, RT, psych nurse, social science teacher, assurance auditor, teacher, chief creative officer, casework manager)? Give summary @ -No Was smoking cessation discussed for >3mins.? @ -No Was critical care preformed (if so, how long)? @ -No Were there social determinants of health that impacted care today? How? (Homelessness, low income, unemployed, alcoholism, drug addiction, transportation, low edu. Level, literacy, decrease access to med. care, care home, rehab)? @ -No Was there de-escalation of care discussed even if they declined (Discuss DNR or withdrawal of care, Hospice)? DNR status @ -No What co-morbidities impacted this encounter? (DM, HTN, Smoking, COPD, CAD, Cancer, CVA, ARF, Chemo, Hep., AIDS, mental health diagnosis, sleep apnea, morbid obesity)? @ -None Was patient admitted / discharged? Hospital course, mention meds given and route, prescriptions, significant lab abnormalities, going to OR and other pertinent info. @ -Discharge patient was observed for several hours patient did have improvement of symptoms this may be chemical induced allergic reaction or possible contact. Patient will be discharged in stable condition return parameters mitesh. Undiagnosed new problem with uncertain prognosis? @ -No Drug Therapy requiring intensive monitoring for toxicity (Heparin, Nitro, Ins ulin, Cardizem)? @ -No Were any procedures done? @ -No Diagnosis/symptom? @ -Allergic reaction Acute, or Chronic, or Acute on Chronic? @ -Acute Uncomplicated (without systemic symptoms) or Complicated (systemic symptoms)? @ -Uncomplicated Side effects of treatment? @ -No Exacerbation, Progression, or Severe Exacerbation? @ -No Poses a threat to life or bodily function? How? (Chest pain, [place], [place], pneumonia, PE, COPD, DKA, ARF, appy, cholecystitis, CVA, Diverticulitis, Homicidal, Suicidal, threat to staff... and all critical care pts) @ -No Disposition Clinical Impression: Allergic reaction Disposition: HOME SELF-CARE Condition: Stable Instructions (If sedation given, give patient instructions): General Allergic Reaction (ED) Additional Instructions: Please return to the Emergency Department if symptoms worsen or any other concerns. Prescriptions: predniSONE 50 mg PO DAILY #5 tab Is patient prescribed a controlled substance at d/c from ED?: No Referrals: Sherice Howell DO [Primary Care Provider] - 1-2 days Time of Disposition: 09:05
[2023-10-01 09:06] VITALS: BP 126/82; PULSE 74; TEMP 98.3
== END 2023-10-01 09:12 | disposition home or self-care (01) ==
LOC: EC 06:07
DX: T78.40XA Allergy, unspecified, initial encounter (principal); Z88.1 Allergy status to other antibiotic agents; Z91.041 Radiographic dye allergy status; Z88.8 Allergy status to other drugs, medicaments and biological substances
CPT/HCPCS: 99283; 96374; 96375; 96361; J1200; J3490; J2919